=== PATIENT | male | born 1940 | race Caucasian/White ===

== ENCOUNTER 2016-05-09 14:40 | Outpatient (CLI) | END 2016-05-09 14:41 | disposition home or self-care (01) ==

== ENCOUNTER 2016-05-14 | Outpatient (CLI) | payer MEDICARE, MEDICAID | END 2016-05-14 10:01 | disposition home or self-care (01) ==

== ENCOUNTER 2016-05-25 14:00 | Outpatient (CLI) | payer MEDICARE, MEDICAID | END 2016-05-25 14:01 | disposition home or self-care (01) | DX: C79.49 Secondary malignant neoplasm of other parts of nervous system (principal); R53.1 Weakness; F84.0 Autistic disorder; L30.9 Dermatitis, unspecified; E53.8 Deficiency of other specified B group vitamins; N18.2 Chronic kidney disease, stage 2 (mild); M79.662 Pain in left lower leg; F41.9 Anxiety disorder, unspecified; F17.200 Nicotine dependence, unspecified, uncomplicated; R06.00 Dyspnea, unspecified; I95.9 Hypotension, unspecified; Z66 Do not resuscitate; Z51.5 Encounter for palliative care ==

== ENCOUNTER 2016-08-15 10:40 | Outpatient (CLI) | payer MEDICARE, MEDICAID | END 2016-08-15 10:41 | disposition home or self-care (01) | DX: Z51.5 Encounter for palliative care (principal); I10 Essential (primary) hypertension; G89.3 Neoplasm related pain (acute) (chronic); C61 Malignant neoplasm of prostate; C79.51 Secondary malignant neoplasm of bone; R53.1 Weakness; R21 Rash and other nonspecific skin eruption; F84.0 Autistic disorder; R62.59 Other lack of expected normal physiological development in childhood; Z66 Do not resuscitate ==

== ENCOUNTER 2017-11-22 13:27 | Outpatient (CLI) | payer MEDICARE, MEDICAID | END 2017-11-22 13:28 | disposition critical access hospital (66) | LOC: EMS 13:27 | PROVIDERS: ATTEND Surgery | DX: S01.111A Laceration without foreign body of right eyelid and periocular area, initial encounter (principal); W10.8XXA Fall (on) (from) other stairs and steps, initial encounter; Y92.811 Bus as the place of occurrence of the external cause ==

== ENCOUNTER 2017-11-22 13:46 | Emergency (ER) | payer MEDICARE, MEDICAID ==
[2017-11-22] MEDS: BUFFERED LIDOCAINE 10 ML SYRINGE SUBQ STA (14:26)
--- NOTE | 2017-11-22 14:37 | ED Physician Documentation ---
PD HPI HEAD INJURY - Stated complaint Stated Complaint: FALL - Chief complaint Chief Complaint: Trauma Hd/Nk - History obtained from History obtained from: Patient, EMS - History of Present Illness Mechanism of head injury: Fell Where head injury occurred: Street Timing - onset: Today Location of injury: Right, Front Quality of pain: Pain Associated symptoms: No: LOC, AMS, Amnesia, Nausea / vomiting, Neck pain, Paresthesias, Seizures, Ear drainage, Nasal drainage Symptoms improve with: Rest Symptoms worsen with: Palpation, Movement Contributing factors: No: Anticoagulated Similar symptoms before: Diagnosis (laceartion) Recently seen: Not recently seen - Additional information Additional information: 77-year-old male was on the bus traveling home from the hospital after getting his blood drawn when he slipped on the steps and fell forward onto the asphalt. He has a laceration to his right forehead and he denies any other injury associated with this fall. He denies any headache he denies any nausea vomiting dizziness or lightheadedness. He denies any trouble with vision from his eye and he denies any pain in his neck. Denies any pain in his shoulders wrists or elbows. Review of Systems Constitutional: denies: Fever Eyes: denies: Decreased vision Ears: denies: Ear pain Nose: denies: Congestion Throat: denies: Sore throat Cardiac: denies: Chest pain / pressure Respiratory: denies: Dyspnea, Cough GI: denies: Abdominal Pain, Nausea, Vomiting : denies: Dysuria PD PAST MEDICAL HISTORY - Past Medical History Cardiovascular: Hypertension Respiratory: None Endocrine/Autoimmune: None GI: None, Other : None, Renal insuffiency HEENT: None Psych: Anxiety Musculoskeletal: None Derm: None - Past Surgical History Past Surgical History: No - Present Medications Home Medications: Ambulatory Orders Medication Instructions Recorded Confirmed Amlodipine Besylate [Norvasc] 10 mg PO DAILY 04/23/14 11/22/17 Acetaminophen [Tylenol] 650 mg PO TID 04/17/16 11/22/17 Tamsulosin [Flomax] 0.4 mg PO DAILY capsule 04/18/16 11/22/17 Valsartan/Hydrochlorothiazide 1 tab PO BID MDD Dose 160/12.5 mg 05/17/16 [Valsartan-Hctz 160-12.5 mg Tab] - Allergies Allergies/Adverse Reactions: Allergies Allergy/AdvReac Type Severity Reaction Status Date / Time No Known Drug Allergies Allergy Verified 05/17/16 11:58 - Social History Does the pt smoke?: No Smoking Status: Never smoker Does the pt drink ETOH?: No Does the pt have substance abuse?: No - Immunizations Immunizations are current?: Yes - POLST Patient has POLST: No PD ED PE NORMAL - Vitals Vital signs reviewed: Yes (normal ) - General General: No acute distress, Well developed/nourished, Other (happy male in no distress) - HEENT HEENT: PERRL, EOMI, Other (There is a 2cm laceration to the left confucianist with some contamination/grit. There is not involvement of deeper structures. There is no tenderness to the wiliam-orbital rim and no distortion. ) - Neck Neck: Supple, no meningeal sign, No bony TTP - Respiratory Respiratory: No respiratory distress - Derm Derm: Normal color, Warm and dry, No rash - Extremities Extremities: No deformity, No edema - Neuro Neuro: No motor deficit, No sensory deficit, Normal speech Eye Opening: Spontaneous Motor: Obeys Commands Verbal: Oriented GCS Score: 15 - Psych Psych: Normal mood, Normal affect Results - Vitals Vitals: Vital Signs - 24 hr 11/22/17 13:51 Temperature 36.5 C Heart Rate 74 Respiratory 14 Rate Blood Pressure 120/80 O2 Saturation 97 Oxygen O2 Source Room air Procedures - Laceration (location) right confucianist Length in cm: 2 Wound type: Linear, Contaminated Neurovascular status: Sensory intact, Motor intact, Vascular intact Anesthesia: Lidocaine 1%, With bicarb Wound Preparation: Hibiclens, Irrigated copiously NS, Wound explored, To the base Skin layer closure: Nylon, Interrupted, Size #-0 - enter number (6-0), Sutures - enter # (3) Other: Patient tolerated well, No complications, Neurovascular intact, Dressing applied, Tetanus UTD Complexity: Simple PD MEDICAL DECISION MAKING - ED course Complexity details: reviewed old records, reviewed results, re-evaluated patient , considered differential, d/w patient ED course: 77-year-old autistic male with a small laceration to the right confucianist that appears mildly contaminated is anesthetized and irrigated and closed. He does not appear otherwise injured. - Sepsis Event Vital Signs: Vital Signs - 24 hr 11/22/17 13:51 Temperature 36.5 C Heart Rate 74 Respiratory 14 Rate Blood Pressure 120/80 O2 Saturation 97 Oxygen O2 Source Room air Departure - Departure Disposition: 01 Home, Self Care Clinical Impression: Facial laceration Qualifiers: Encounter type: initial encounter Qualified Code(s): S01.81XA - Laceration without foreign body of other part of head, initial encounter Condition: Stable Instructions: ED Laceration Facial Sutr Tape Follow-Up: Elvis Gaspar MD [Primary Care Provider] -
[2017-11-22 14:41] VITALS: BP 123/82
[2017-11-22] MEDS: TETANUS/DIPHTHERIA/PERTUSSIS 0.5 ML SYRINGE IM ONE (14:47)
== END 2017-11-22 15:08 | disposition home or self-care (01) ==
LOC: EDUNIT# → ED 13:46 → SUPCPDRO 13:46 → ED 15:08
DX: S01.81XA Laceration without foreign body of other part of head, initial encounter (principal); W01.198A Fall on same level from slipping, tripping and stumbling with subsequent striking against other object, initial encounter; Y92.811 Bus as the place of occurrence of the external cause
CPT/HCPCS: 12011; 90471; 99282; 99283

== ENCOUNTER 2019-01-30 13:50 | Outpatient (CLI) | payer MEDICARE, MEDICAID | END 2019-01-30 13:51 | disposition critical access hospital (66) | LOC: EMS 13:50 | PROVIDERS: ATTEND Surgery | DX: S09.90XA Unspecified injury of head, initial encounter (principal); W01.0XXA Fall on same level from slipping, tripping and stumbling without subsequent striking against object, initial encounter; Y92.098 Other place in other non-institutional residence as the place of occurrence of the external cause | CPT/HCPCS: A0425; A0429 ==

== ENCOUNTER 2019-01-31 12:36 | Outpatient (CLI) | payer MEDICARE, MEDICAID | END 2019-01-31 12:37 | disposition critical access hospital (66) | LOC: EMS 12:36 | PROVIDERS: ATTEND Surgery | DX: Z03.89 Encounter for observation for other suspected diseases and conditions ruled out (principal) | CPT/HCPCS: A0425; A0429 ==

== ENCOUNTER 2019-02-27 11:58 | Outpatient (CLI) | payer MEDICARE, MEDICAID ==
--- NOTE | 2019-03-02 00:48 | XRAY Report ---
Reason: POST NUC MED STUDY Procedure Date: 02/27/2019 Accession Number: [id number] / [id number] Procedure: XR - Ribs w/PA Chest LT CPT Code: FULL RESULT: EXAM: LEFT RIB RADIOGRAPHY EXAM DATE: 02/27/2019 04:00 PM. CLINICAL HISTORY: Abnormal activity on nuclear medicine scan COMPARISON: BONE SCAN 02/27/2019 2:35 PM CHEST 2 VIEW PA/LAT 04/16/2016 3:32 PM. TECHNIQUE: 1 view of the chest and 2 views of the ribs. FINDINGS: Bones: No displaced rib fracture is identified. There is a sclerotic 1.2 cm lesion in the left posterior lateral sixth rib, correlating with the bone scan abnormality. No definite abnormality is appreciated in the left lateral 10th rib. Lungs: No focal opacities. No pneumothorax. No pleural effusions. Mediastinum: Heart and mediastinal contours are unremarkable. Other: None. IMPRESSION: Sclerotic focus in the left posterolateral sixth rib, correlating with the bone scan abnormality, suspicious for osteoblastic metastatic disease. No definite plain film correlate to the abnormal activity in the left lateral 10th rib. RADIA
--- NOTE | 2019-03-02 08:50 | Nuclear Medicine Report ---
Reason: PROSTATE CA Procedure Date: 02/27/2019 Accession Number: [id number] / [id number] Procedure: NM - Bone Whole Body CPT Code: FULL RESULT: EXAM: BONE SCAN EXAM DATE: 02/27/2019 04:01 PM. CLINICAL HISTORY: PROSTATE CA. COMPARISON: ABDOMEN/PELVIS W/O 04/16/2016 10:37 PM. TECHNIQUE: Following the intravenous administration of 32.6 mCi of technetium 99m MDP and an appropriate delay, a whole-body scan was performed in anterior and posterior projections. Site-specific spot views of the region of interest were obtained in various projections. FINDINGS: Normal renal radiotracer uptake and bladder activity. Normal soft tissue activity. Overall normal osseous uptake. There are scattered foci of uptake involving the sternal manubrium, left posterolateral sixth and 10th ribs, T11 and T12 levels of the spine, suspicious for metastatic disease. Asymmetric mild focal uptake right proximal femoral shaft, left ischium, suspicious for metastasis. IMPRESSION: 1. Several scattered osseous foci suspicious for metastatic disease. RADIA
== END 2019-02-27 11:59 | disposition home or self-care (01) ==
LOC: DI 11:58
PROVIDERS: ATTEND Internal Medicine
DX: C61 Malignant neoplasm of prostate (principal); C79.51 Secondary malignant neoplasm of bone
CPT/HCPCS: 72080; 78306

== ENCOUNTER 2020-01-09 14:14 | Outpatient (CLI) | payer MEDICARE, MEDICAID | END 2020-01-09 14:15 | disposition critical access hospital (66) | LOC: EMS 14:14 | PROVIDERS: ATTEND Surgery | DX: S09.90XA Unspecified injury of head, initial encounter (principal); R41.0 Disorientation, unspecified; W18.30XA Fall on same level, unspecified, initial encounter; Z91.81 History of falling; Y92.009 Unspecified place in unspecified non-institutional (private) residence as the place of occurrence of the external cause | CPT/HCPCS: A0425; A0429 ==

== ENCOUNTER 2020-01-09 14:40 | Inpatient (IN) | payer MEDICARE, MEDICAID ==
[2020-01-09] MEDS ORDERED: SODIUM CHLORIDE 0.9% 1,000 ML IV STA (14:50)
--- NOTE | 2020-01-09 15:07 | ED Physician Documentation ---
History of Present Illness - Stated complaint Stated Complaint: GLF - Chief complaint Chief Complaint: Trauma Hd/Nk - History obtained from History obtained from: Patient, EMS - History of Present Illness Timing: Today Pain level max: 0 Pain level now: 0 - Additonal information Additional information: Patient is an 79-year-old male who presents to the emergency department after falling x3 this week. He was in the room with a caregiver today when she heard him fall. She did not see him fall. He does have bruising to the left periorbital area. Not on blood thinners. Denies any recent illnesses. Denies any other injuries. Is not having any pain anywhere. He does live in a memory care facility. Report from EMS. Patient was apparently hypotensive and postural with EMS. Review of Systems Unable to obtain: Dementia Constitutional: denies: Fever Respiratory: denies: Cough GI: denies: Vomiting Musculoskeletal: denies: Neck pain, Back pain Neurologic: reports: Confused. denies: Focal weakness, Numbness PD PAST MEDICAL HISTORY - Past Medical History Cardiovascular: Hypertension Respiratory: None Neuro: Dementia Endocrine/Autoimmune: None GI: None, Other : None, Renal insuffiency HEENT: None Psych: Anxiety Musculoskeletal: None Derm: None - Past Surgical History Past Surgical History: No - Present Medications Home Medications: Ambulatory Orders Medication Instructions Recorded Confirmed Acetaminophen [Tylenol] 650 mg PO TID 04/17/16 11/25/19 Tamsulosin [Flomax] 0.4 mg PO DAILY capsule 04/18/16 11/25/19 Losartan/Hydrochlorothiazide 1 tab PO BID 08/20/18 11/25/19 [Losartan-Hctz 50-12.5 mg Tab] Abiraterone Acetate 1,000 ng PO DAILY 10/13/19 11/25/19 Loperamide [Imodium] 2 mg PO PRN PRN 11/25/19 11/25/19 - Allergies Allergies/Adverse Reactions: Allergies Allergy/AdvReac Type Severity Reaction Status Date / Time No Known Drug Allergies Allergy Verified 11/25/19 14:03 - Social History Does the pt smoke?: No Smoking Status: Never smoker Does the pt drink ETOH?: No Does the pt have substance abuse?: No - Immunizations Immunizations are current?: Yes - POLST Patient has POLST: No PD ED PE NORMAL - Vitals Vital signs reviewed: Yes - General General: No acute distress, Other (Alert, oriented to person and place only) - HEENT HEENT: PERRL, Moist mucous membranes, Other (mild swelling,Left supraorbital ridge. Mild ecchymosis. Extraocular movements intact. Otherwise normal examination of the skull and face.) - Neck Neck: Supple, no meningeal sign, No bony TTP - Cardiac Cardiac: RRR - Respiratory Respiratory: No respiratory distress, Clear bilaterally - Abdomen Abdomen: Soft, Non tender, Non distended - Back Back: No spinal TTP - Derm Derm: Warm and dry - Extremities Extremities: No deformity, No tenderness to palpate, Normal ROM s pain - Neuro Neuro: investor relations coordinator 2-12 intact, No motor deficit, No sensory deficit, Normal speech - Psych Psych: Normal mood, Normal affect Results - Vitals Vitals: Vital Signs - 24 hr 01/09/20 01/09/20 14:48 15:01 Temperature 37.0 C 37.0 C Heart Rate 67 67 Respiratory 14 14 Rate Blood Pressure 136/82 H 136/82 H O2 Saturation 99 99 Oxygen O2 Source Room air - EKG (time done) 1556 Rate: Rate (enter#) (68) Rhythm: Atrial fibrillation [place]: Normal Ischemia: Non specific changes - Labs Labs: Laboratory Tests 01/09/20 01/09/20 01/09/20 15:20 15:20 15:20 WBC 9.7 RBC 4.22 L Hgb 12.8 L Hct 35.5 L MCV 84.1 MCH 30.3 MCHC 36.1 H RDW 13.3 Plt Count 334 MPV 8.6 Neut # (Auto) 9.0 H Lymph # (Auto) 0.2 L [place] # (Auto) 0.5 Eos # (Auto) 0.0 Baso # (Auto) 0.0 Absolute Nucleated RBC 0.00 Nucleated RBC % 0.0 Sodium 124 L Potassium 2.5 L* Chloride 80 L* Carbon Dioxide 30 Anion Gap 14.0 H BUN 14 Creatinine 1.0 Estimated GFR (MDRD) 72 L Glucose 109 H Calcium 9.5 Phosphorus 2.7 Magnesium 2.1 Total Bilirubin 1.3 H AST 15 ALT < 10 L Alkaline Phosphatase 76 Total Protein 7.5 Albumin 4.4 Globulin 3.1 Albumin/Globulin Ratio 1.4 Lipase 53 H - Rads (name of study) Head CT Radiology: Prelim report reviewed, EMP read contemporaneously, See rad report (No acute intracranial abnormality) C-spine CT Radiology: Prelim report reviewed, EMP read contemporaneously, See rad report (No acute abnormality) PD MEDICAL DECISION MAKING - ED course Complexity details: reviewed results, re-evaluated patient, considered differential, d/w patient ED course: 79-year-old male with significant dehydration, hyponatremia, hypochloremia and hypokalemia. Given IV fluids, potassium replaced. Given his significant weakness, we will place him in observation for further care. Discussed the case with Dr. Coombs, hospitalist who accepts. This document was made in part using voice recognition software. While efforts are made to proofread this document, sound alike and grammatical errors may occur. Departure - Departure Disposition: ED Place in Observation Clinical Impression: Hyponatremia, Hypochloremia, Hypokalemia, Dehydration, Weakness Head injury Qualifiers: Encounter type: initial encounter Qualified Code(s): S09.90XA - Unspecified injury of head, initial encounter Condition: Stable Discharge Date/Time: 01/09/20 17:00
[2020-01-09 15:26] LABS: BASOPHILS % (AUTO) 0.3 %; EOSINOPHILS % (AUTO) 0.1 %; HGB - HEMOGLOBIN 12.8 g/dL (14.0-18.0); LYMPHOCYTES # (AUTO) 0.2 10^3/uL (1.5-3.5); LYMPHOCYTES % (AUTO) 2.1 %; MEAN CORPUSCULAR HEMOGLOBIN 30.3 pg (27.0-31.0); MEAN CORPUSCULAR HGB CONC 36.1 g/dL (32.0-36.0); MEAN CORPUSCULAR VOLUME 84.1 fL (80.0-94.0); MEAN PLATELET VOLUME 8.6 fL (7.4-11.4); MONOCYTES # (AUTO) 0.5 10^3/uL (0.0-1.0); MONOCYTES % (AUTO) 4.9 %; NEUTROPHILS % (AUTO) 92.1 %; PLT - PLATELET COUNT 334 10^3/uL (130-450); RED BLOOD COUNT 4.22 10^6/uL (4.70-6.10); RED CELL DISTRIBUTION WIDTH 13.3 % (12.0-15.0); WHITE BLOOD COUNT 9.7 x10^3/uL (4.8-10.8)
--- NOTE | 2020-01-09 15:34 | CT Report ---
PROCEDURE: CERVICAL SPINE WO INDICATIONS: fall, unwitness, dementia TECHNIQUE: Noncontrast 3 mm thick sections acquired from the skull base to the T4 level. Sagittal and coronal r eformats were then constructed. For radiation dose reduction, the following was used: automated exp osure control, adjustment of mA and/or kV according to patient size. COMPARISON: Prior cervical spine CT 01/30/2019. FINDINGS: Image quality: Excellent. Bones: No fractures or dislocations. Visualized superior ribs are intact. Soft tissues: Prevertebral soft tissues are normal in thickness. No paravertebral hematomas. No ap ical pneumothoraces. IMPRESSION: No trauma found. Reviewed by: Bonilla Tadeo MD on 01/09/2020 3:33 PM PDT Approved by: Bonilla Tadeo MD on 01/09/2020 3:33 PM PDT Station ID: [id number]
--- NOTE | 2020-01-09 15:35 | CT Report ---
PROCEDURE: HEAD WO INDICATIONS: fall, head injury, L orbit TECHNIQUE: Noncontrast 4.5 mm thick angled axial sections acquired from the foramen magnum to the vertex. For r adiation dose reduction, the following was used: automated exposure control, adjustment of mA and/or kV according to patient size. COMPARISON: 01/31/[address] FINDINGS: Image quality: Excellent. CSF spaces: Basal cisterns are patent. No extra-axial fluid collections. Ventricles are normal in size and shape. Brain: No midline shift. No intracranial masses or hemorrhage. Watson-white matter interface is norm al. Skull and face: Calvarium and visualized facial bones are intact, without suspicious lesions. Sinuses: Visualized sinuses and mastoids are clear. IMPRESSION: No trauma found. Reviewed by: Bonilla Tadeo MD on 01/09/2020 3:33 PM PDT Approved by: Bonilla Tadeo MD on 01/09/2020 3:33 PM PDT Station ID: [id number]
[2020-01-09 15:51] LABS: ALBUMIN 4.4 g/dL (3.2-5.5); ALBUMIN/GLOBULIN RATIO 1.4 (1.0-2.2); ALKALINE PHOSPHATASE 76 IU/L (42-121); ALT ALANINE AMINOTRANSFERASE < 10 IU/L (10-60); AST ASPARTATE AMINOTRANSFERASE 15 IU/L (10-42); BILIRUBIN,TOTAL 1.3 mg/dL (0.2-1.0); BUN - BLOOD UREA NITROGEN 14 mg/dL (6-20); CALCIUM 9.5 mg/dL (8.5-10.3); CARBON DIOXIDE - CO2 30 mmol/L (21-32); GLUCOSE 109 mg/dL (70-100); LIPASE 53 U/L (22-51); SODIUM 124 mmol/L (135-145); TOTAL PROTEIN 7.5 g/dL (6.7-8.2)
[2020-01-09 15:52] LABS: CHLORIDE 80 mmol/L (101-111)
[2020-01-09] MEDS ORDERED: POTASSIUM CHLOR 10 MEQ/100 ML 10 MEQ/100 ML BAG IV ONE (16:01)
[2020-01-09] MEDS ORDERED: ACETAMINOPHEN 325 MG TABLET PO PRN (16:05)
[2020-01-09] MEDS ORDERED: ONDANSETRON ODT 4 MG TABLET TL PRN (16:05)
[2020-01-09] MEDS ORDERED: ONDANSETRON 4 MG/2 ML VIAL IVP PRN (16:05)
[2020-01-09] MEDS ORDERED: SODIUM CHLORIDE FLUSH 0.9% 10 ML SYRINGE IVP PRN (16:05)
[2020-01-09] MEDS ORDERED: POTASSIUM CHLORIDE 20 MEQ TABLET PO STA (16:08)
--- NOTE | 2020-01-09 16:09 | HISTORY & PHYSICAL EXAMINATION ---
Chief Complaint - Chief Complaint Chief Complaint: Fall History of Present Illness - Admitted From Admitted From:: [facility] - History Obtained From Records Reviewed: Yes History obtained from: Patient, ER Physician, EMR - History of Present Illness HPI Comment/Other: This is a 79-year-old male with a past medical history significant for castrat ion resistant metastatic prostate cancer, hypertension, autism who presents today from [facility] after having a fall. Patient states that he was getting out of a chair to move over to his bed when he fell and hit the left side of his face. He denies any palpitations, chest pain, dyspnea. Reports no dizziness or lightheadedness. He denied any loss of consciousness. Currently denies any headache or change in vision. He reports that he does not fall frequently but staff from [facility] reported to the emergency department state that he had 3 falls this past week. He denies poor oral intake and reports having a good appetite. He does take losartan/hydrochlorothiazide on a daily basis for hypertension. He reports ambulating with a walker at baseline. Denies the use of any blood thinners. In the emergency department, he was found to be afebrile with temperature of 37 C. His heart rate was 67. His blood pressure is 136/82. He was not tachypneic and saturating well on room air. CT of the head and cervical spine were negative for trauma. Labs were significant for sodium of 124 and potassium of 2.5. He was given a liter of saline in the emergency department. Given the above findings, medicine was consulted for admission. I did discuss goals of care with the patient he would like to be a full code. He has a POLST form from 2016 which also states that he is a full code. History - Past Medical History Cardiovascular: reports: Hypertension Respiratory: reports: None Neuro: reports: Dementia, Other (Autism) Endocrine/Autoimmune: reports: None GI: reports: None, Other : reports: None, Other (Castration resistant metastatic prostate cancer) HEENT: reports: None Psych: reports: Anxiety Musculoskeletal: reports: None Derm: reports: None MRSA Hx?: No - Family & Social History Family History Comment/Other: He reports no family history to his knowledge. Social History Notes: He resides at [facility]. He reports smoking about 3 to 4 cigarettes a day and has been smoking for most of his life. He denies any alcohol use. - POLST Patient has POLST: No Meds/Allgy - Home Medications Home Medications: Ambulatory Orders Medication Instructions Recorded Confirmed Acetaminophen [Tylenol] 650 mg PO TID 04/17/16 11/25/19 Tamsulosin [Flomax] 0.4 mg PO DAILY capsule 04/18/16 11/25/19 Losartan/Hydrochlorothiazide 1 tab PO BID 08/20/18 11/25/19 [Losartan-Hctz 50-12.5 mg Tab] Abiraterone Acetate 1,000 ng PO DAILY 10/13/19 11/25/19 Loperamide [Imodium] 2 mg PO PRN PRN 11/25/19 11/25/19 - Allergies Allergies/Adverse Reactions: Allergies Allergy/AdvReac Type Severity Reaction Status Date / Time No Known Drug Allergies Allergy Verified 11/25/19 14:03 Review of Systems - Constitutional Constitutional: denies: Fatigue, Fever, Chills, Weakness, Poor appetite - Eyes Eyes: denies: Blurred vision - Cardiovascular Cariovascular: denies: Irregular heart rate, Palpitations, Chest pain, Lightheadedness, Syncope, Exertional dyspnea, Decr. exercise tolerance - Respiratory Respiratory: denies: Cough, SOB at rest, SOB with exertion - Gastrointestinal Gastrointestinal: denies: Abdominal pain, Nausea, Vomiting - Genitourinary Genitourinary: denies: Dysuria, Frequency, Urgency, Hematuria - Musculoskeletal Musculoskeletal: denies: Muscle pain, Limited range of motion, Muscle weakness - Neurological Neurological: denies: General weakness, Focal weakness, Headache, Dizziness, Numbness - All Other Systems All Other Systems: reports: Reviewed and negative Prior Level of Functionality: He has a history of autism and resides at [facility]. Ambulates with a walker at baseline. Exam - Vital Signs Reviewed Vital Signs: Yes Vital Signs: Vital Signs x48h Temp Pulse Resp BP Pulse Ox 01/09/20 15:01 37.0 C 67 14 136/82 H 99 01/09/20 14:48 37.0 C 67 14 136/82 H 99 - Physical Exam General Appearance: positive: No acute distress, Alert Eyes Bilateral: positive: PERRL, EOMI, Conjunctivae nml, Other (There is a small left periorbital hematoma with bruising.) ENT: positive: Dry mucous membranes, Other (He does have dried nasal mucus in the right naris.). negative: No signs of dehydration Respiratory: positive: No respiratory distress. negative: Wheezes, Rales Cardiovascular: positive: Regular rate & rhythm, Extrasystoles. negative: Irregularly irregular, Bradycardia, Systolic murmur Abdomen: positive: Non-tender, No distention. negative: Tenderness, Guarding, Rebound Skin: positive: No rash, Warm, Dry Extremities: positive: Full ROM, No pedal edema Neurologic/Psychiatric: positive: Other (No focal deficits.). negative: Disoriented to person, Disoriented to place, Disoriented to time Conclusion/Plan - Problem List (1) Hyponatremia Conclusion/Plan: This is likely hypovolemic hyponatremia secondary to use of hydrochlorothiazide. He appears hypovolemic on exam. We will gently hydrate him with normal saline and hold his home hydrochlorothiazide. We will recheck a BMP this evening and once again in the morning. Goal sodium is approximately 132 by tomorrow afternoon. Check urine sodium. (2) Hypokalemia Conclusion/Plan: His potassium is decreased at 2.5. This is likely secondary to his thiazide use. We will replace this intravenously and orally. Recheck in the morning. (3) Fall Conclusion/Plan: This appears to be a mechanical fall. Staff at [facility] reports that he has had 3 falls this past week. CT of the head and cervical spine are negative for trauma. This may be related to dehydration and possibly orthostasis. We will check orthostatics and hydrate him with IV fluids. Will consult physical therapy if necessary. Qualifiers: Encounter type: initial encounter Qualified Code(s): W19.XXXA - Unspecified fall, initial encounter (4) Hypertension Conclusion/Plan: He is currently normotensive but was reportedly hypotensive for EMS. We will check orthostatics. If these are negative we will resume his home losartan in the morning. We will discontinue the hydrochlorothiazide given the hyponatremia. Will consider adding amlodipine if necessary. 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 He follows with Dr. Moreno of oncology here at the [facility]. Continue outpatient follow-up. (6) Autism Conclusion/Plan: He has a history of autism which is stable. - Lab Results Lab results reviewed: Yes Fish Bones: 01/09/20 15:20 01/09/20 15:20 - Diagnostic Imaging Results Diagnostic Imaging Results: positive: Final report reviewed - EKG Results EKG Interpreted Independently: Yes EKG Comparison: Changed from prior EKG (His QTC is prolonged compared to prior EKG. PVCs are no longer present.) EKG Findings: Computer reads his EKG is atrial fibrillation but this appears to be a sinus rhythm although there is a lot of artifact. His QT is prolonged. Core Measures - Anticipated LOS I expect patient to be DC'd or transferred within 96 hours.: Yes - Issues Hospital Issues and Management Plan: 79-year-old male presents with generalized weakness and fall found to be h yponatremic and hypokalemic. Will place in observation for IV fluids and replacement of electrolytes. - DVT/VTE - Prophylaxis VTE/DVT Device ordered at admit?: Yes VTE/DVT Prophylaxis med ordered at admit?: No Not Ordered - Medical Reason: Not indicated
[2020-01-09 16:22] LABS: MAGNESIUM 2.1 mg/dL (1.7-2.8); PHOSPHORUS 2.7 mg/dL (2.5-4.6)
[2020-01-09] MEDS: SODIUM CHLORIDE 0.9% 1,000 ML IV SCH (17:08)
[2020-01-09] MEDS: SODIUM CHLORIDE FLUSH 0.9% 10 ML SYRINGE IVP SCH ×2 (17:08→23:39)
[2020-01-09] MEDS: POTASSIUM CHLOR 10 MEQ/100 ML 10 MEQ/100 ML BAG IV SCH ×4 (17:30→20:45)
[2020-01-09] MEDS ORDERED: SODIUM CHLORIDE 0.65% NASAL SPRAY NAS PRN (17:30)
[2020-01-09 19:16] LABS: BILIRUBIN,URINE NEGATIVE (NEGATIVE); GLUCOSE, URINE (UA) NEGATIVE (NEGATIVE); KETONES,URINE (UA) 15 mg/dL (NEGATIVE); LEUKOCYTE ESTERASE, URINE NEGATIVE (NEGATIVE); NITRITE,URINE NEGATIVE (NEGATIVE); OCCULT BLOOD,URINE MODERATE (NEGATIVE); PH,URINE 6.5 PH (5.0-7.5); PROTEIN,URINE NEGATIVE (NEGATIVE); UROBILINOGEN,URINE 0.2 (NORMAL) E.U./dL (NORMAL)
[2020-01-09 19:19] LABS: CLARITY,URINE CLEAR (CLEAR)
[2020-01-09 19:29] LABS: BACTERIA,URINE Few /HPF (None Seen); SQUAMOUS EPITHELIAL CELL,UR NONE SEEN (<= Few); WBC CLUMPS,URINE PRESENT
[2020-01-09 22:16] LABS: CALCIUM 8.5 mg/dL (8.5-10.3)
[2020-01-09] MEDS ORDERED: POTASSIUM CHLORIDE 20 MEQ TABLET PO ONE (22:40)
[2020-01-10] MEDS: SODIUM CHLORIDE 0.9% 1,000 ML IV SCH ×2 (03:04→14:24)
[2020-01-10 05:05] LABS: BASOPHILS # (AUTO) 0.1 10^3/uL (0.0-0.1); BASOPHILS % (AUTO) 0.8 %; EOSINOPHILS # (AUTO) 0.2 10^3/uL (0.0-0.7); EOSINOPHILS % (AUTO) 3.4 %; HGB - HEMOGLOBIN 11.3 g/dL (14.0-18.0); LYMPHOCYTES # (AUTO) 0.3 10^3/uL (1.5-3.5); LYMPHOCYTES % (AUTO) 5.7 %; MEAN CORPUSCULAR HEMOGLOBIN 30.6 pg (27.0-31.0); MEAN CORPUSCULAR HGB CONC 36.1 g/dL (32.0-36.0); MEAN CORPUSCULAR VOLUME 84.8 fL (80.0-94.0); MEAN PLATELET VOLUME 8.6 fL (7.4-11.4); MONOCYTES # (AUTO) 0.4 10^3/uL (0.0-1.0); MONOCYTES % (AUTO) 7.4 %; NEUTROPHILS # (AUTO) 4.9 10^3/uL (1.5-6.6); NEUTROPHILS % (AUTO) 82.4 %; PLT - PLATELET COUNT 280 10^3/uL (130-450); RED BLOOD COUNT 3.69 10^6/uL (4.70-6.10); RED CELL DISTRIBUTION WIDTH 13.3 % (12.0-15.0); WHITE BLOOD COUNT 5.9 x10^3/uL (4.8-10.8)
[2020-01-10 05:18] LABS: CALCIUM 8.6 mg/dL (8.5-10.3); CREATININE 0.7 mg/dL (0.6-1.2); MAGNESIUM 1.8 mg/dL (1.7-2.8); PHOSPHORUS 1.3 mg/dL (2.5-4.6)
[2020-01-10] MEDS ORDERED: SODIUM CHLORIDE 0.9% 500 ML IV ONE (07:12)
[2020-01-10] MEDS ORDERED: POTASSIUM PHOSPHATE 21 MMOL in SODIUM CHLORIDE 0.9% 250 ML IV ONE (07:22)
--- NOTE | 2020-01-10 07:24 | PROVIDER PROGRESS NOTE ---
Subjective - Prog Note Date Prog Note Date: 01/10/20 - Subjective Subjective: He reports feeling well. Denies any dizziness or lightheadedness when he is standing. Reports no pain. He has had good appetite. Current Medications - Current Medications Current Medications: Active Medications Acetaminophen (Tylenol) 650 mg PO Q4HR PRN PRN Reason: Pain 1 to 4 Sodium Chloride (Normal Saline 0.9%) 1,000 mls @ 100 mls/hr IV .Q10H ON LICENSE OF [facility] Last Admin: 01/10/20 03:04 Dose: 100 mls/hr Documented by: Potassium Phosphate 21 mmol/ (Sodium Chloride) 257 mls @ 42.833 mls/hr IV ONCE ONE Stop: 01/10/20 13:21 Ceftriaxone Sodium 1 gm/ (Sodium Chloride) 100 mls @ 200 mls/hr IV DAILY NORBERTO Potassium Chloride (K-Dur) 40 meq PO DAILYWM NORBERTO Prednisone (Deltasone) 5 mg PO DAILYWM ON LICENSE OF [facility] Sodium Chloride (Normal Saline Flush 0.9%) 10 ml IVP PRN PRN PRN Reason: NEEDED PER PROVIDER ORDERS Sodium Chloride (Normal Saline Flush 0.9%) 10 ml IVP 0100,0900,1700 ON LICENSE OF [facility] Last Admin: 01/09/20 23:39 Dose: Not Given Documented by: Sodium Chloride ([place]) 2 sprays HECTOR Q4HR PRN PRN Reason: Nasal Congestion Last Admin: 01/09/20 18:43 Dose: 2 spr Documented by: Acetaminophen [Tylenol] 650 mg PO TID 04/17/16 Losartan/Hydrochlorothiazide [Losartan-Hctz 50-12.5 mg Tab] 1 tab PO BID 08/20/18 Abiraterone Acetate 1,000 ng PO DAILY 10/13/19 Loperamide [Imodium] 2 mg PO PRN PRN 11/25/19 Objective - Vital Signs/Intake & Output Reviewed Vital Signs: Yes Vital Signs: Vital Signs x48h Temp Pulse Pulse Resp BP Pulse Ox 01/10/20 05:11 69 134/64 H 01/10/20 04:27 36.8 C 64 18 100 01/10/20 04:25 36.8 C 77 20 158/63 H 98 01/09/20 23:32 36.8 C 64 18 135/69 H 100 Intake & Output: Intake & Output 09/07/2301/08/20 01/09/20 01/10/20 23:59 23:59 23:59 23:59 Intake Total 1740 1353.333 Output Total 350 Balance 1390 1353.333 - Objective General Appearance: positive: No acute distress, Alert Eyes Bilateral: positive: Other (There is an area of ecchymosis surrounding the left eye. No conjunctivital hemorrhage.) ENT: positive: ENT inspection nml Neck: positive: Nml inspection Respiratory: positive: No respiratory distress Cardiovascular: positive: Irregularly irregular, Extrasystoles. negative: Tachycardia, Bradycardia, Systolic murmur Abdomen: positive: Non-tender, No distention. negative: Tenderness Skin: positive: Warm, Dry Extremities: positive: Full ROM, No pedal edema Neurologic/Psychiatric: negative: Disoriented to person, Disoriented to place - Lab Results Fish Bones: 01/10/20 04:52 01/10/20 04:52 Other Labs: Lab Results x24hrs 01/10/20 01/10/20 01/09/20 Range/Units 04:52 04:52 22:00 WBC 5.9 (4.8-10.8) x10^3/uL RBC 3.69 L (4.70-6.10) 10^6/uL Hgb 11.3 L (14.0-18.0) g/dL Hct 31.3 L (42.0-52.0) % MCV 84.8 (80.0-94.0) fL MCH 30.6 (27.0-31.0) pg MCHC 36.1 H (32.0-36.0) g/dL RDW 13.3 (12.0-15.0) % Plt Count 280 (130-450) 10^3/uL MPV 8.6 (7.4-11.4) fL Neut # (Auto) 4.9 (1.5-6.6) 10^3/uL Lymph # (Auto) 0.3 L (1.5-3.5) 10^3/uL [place] # (Auto) 0.4 (0.0-1.0) 10^3/uL Eos # (Auto) 0.2 (0.0-0.7) 10^3/uL Baso # (Auto) 0.1 (0.0-0.1) 10^3/uL Absolute Nucleated RBC 0.00 x10^3/uL Nucleated RBC % 0.0 /100WBC Sodium 126 L 126 L (135-145) mmol/L Potassium 3.2 L 3.2 L (3.5-5.0) mmol/L Chloride 93 L 88 L (101-111) mmol/L Carbon Dioxide 24 26 (21-32) mmol/L Anion Gap 9.0 12.0 (6-13) BUN 12 15 (6-20) mg/dL Creatinine 0.7 1.0 (0.6-1.2) mg/dL Estimated GFR (MDRD) 108 72 L (>89) Glucose 102 H 106 H (70-100) mg/dL Calcium 8.6 8.5 (8.5-10.3) mg/dL Phosphorus 1.3 L (2.5-4.6) mg/dL Magnesium 1.8 (1.7-2.8) mg/dL Total Bilirubin (0.2-1.0) mg/dL AST (10-42) IU/L ALT (10-60) IU/L Alkaline Phosphatase (42-121) IU/L Total Protein (6.7-8.2) g/dL Albumin (3.2-5.5) g/dL Globulin (2.1-4.2) g/dL Albumin/Globulin Ratio (1.0-2.2) Lipase (22-51) U/L Urine Color Urine Clarity (CLEAR) Urine pH (5.0-7.5) PH Ur Specific [place] (1.002-1.030) Urine Protein (NEGATIVE) mg/dL Urine Glucose (UA) (NEGATIVE) mg/dL Urine Ketones (NEGATIVE) mg/dL Urine Occult Blood (NEGATIVE) Urine Nitrite (NEGATIVE) Urine Bilirubin (NEGATIVE) Urine Urobilinogen (NORMAL) E.U./dL Ur Leukocyte Esterase (NEGATIVE) Urine RBC (0-5) /HPF Urine WBC (0-3) /HPF Urine WBC Clumps Ur Squamous Epith Cells (<= Few) Urine Bacteria (None Seen) /HPF Ur Microscopic Review Urine Culture Comments Urine Sodium mmol/L 01/09/20 01/09/20 01/09/20 Range/Units 18:48 18:48 15:20 WBC (4.8-10.8) x10^3/uL RBC (4.70-6.10) 10^6/uL Hgb (14.0-18.0) g/dL Hct (42.0-52.0) % MCV (80.0-94.0) fL MCH (27.0-31.0) pg MCHC (32.0-36.0) g/dL RDW (12.0-15.0) % Plt Count (130-450) 10^3/uL MPV (7.4-11.4) fL Neut # (Auto) (1.5-6.6) 10^3/uL Lymph # (Auto) (1.5-3.5) 10^3/uL [place]man # (Auto) (0.0-1.0) 10^3/uL Eos # (Auto) (0.0-0.7) 10^3/uL Baso # (Auto) (0.0-0.1) 10^3/uL Absolute Nucleated RBC x10^3/uL Nucleated RBC % /100WBC Sodium (135-145) mmol/L Potassium (3.5-5.0) mmol/L Chloride (101-111) mmol/L Carbon Dioxide (21-32) mmol/L Anion Gap (6-13) BUN (6-20) mg/dL Creatinine (0.6-1.2) mg/dL Estimated GFR (MDRD) (>89) Glucose (70-100) mg/dL Calcium (8.5-10.3) mg/dL Phosphorus 2.7 (2.5-4.6) mg/dL Magnesium 2.1 (1.7-2.8) mg/dL Total Bilirubin (0.2-1.0) mg/dL AST (10-42) IU/L ALT (10-60) IU/L Alkaline Phosphatase (42-121) IU/L Total Protein (6.7-8.2) g/dL Albumin (3.2-5.5) g/dL Globulin (2.1-4.2) g/dL Albumin/Globulin Ratio (1.0-2.2) Lipase (22-51) U/L Urine Color YELLOW Urine Clarity CLEAR (CLEAR) Urine pH 6.5 (5.0-7.5) PH Ur Specific [place] 1.015 (1.002-1.030) Urine Protein NEGATIVE (NEGATIVE) mg/dL Urine Glucose (UA) NEGATIVE (NEGATIVE) mg/dL Urine Ketones 15 H (NEGATIVE) mg/dL Urine Occult Blood MODERATE H (NEGATIVE) Urine Nitrite NEGATIVE (NEGATIVE) Urine Bilirubin NEGATIVE (NEGATIVE) Urine Urobilinogen 0.2 (NORMAL) (NORMAL) E.U./dL Ur Leukocyte Esterase NEGATIVE (NEGATIVE) Urine RBC 11-25 H (0-5) /HPF Urine WBC >25 H (0-3) /HPF Urine WBC Clumps PRESENT Ur Squamous Epith Cells NONE SEEN (<= Few) Urine Bacteria Few (None Seen) /HPF Ur Microscopic Review INDICATED Urine Culture Comments INDICATED Urine Sodium 13.0 mmol/L 01/09/20 01/09/20 Range/Units 15:20 15:20 WBC 9.7 (4.8-10.8) x10^3/uL RBC 4.22 L (4.70-6.10) 10^6/uL Hgb 12.8 L (14.0-18.0) g/dL Hct 35.5 L (42.0-52.0) % MCV 84.1 (80.0-94.0) fL MCH 30.3 (27.0-31.0) pg MCHC 36.1 H (32.0-36.0) g/dL RDW 13.3 (12.0-15.0) % Plt Count 334 (130-450) 10^3/uL MPV 8.6 (7.4-11.4) fL Neut # (Auto) 9.0 H (1.5-6.6) 10^3/uL Lymph # (Auto) 0.2 L (1.5-3.5) 10^3/uL [place] # (Auto) 0.5 (0.0-1.0) 10^3/uL Eos # (Auto) 0.0 (0.0-0.7) 10^3/uL Baso # (Auto) 0.0 (0.0-0.1) 10^3/uL Absolute Nucleated RBC 0.00 x10^3/uL Nucleated RBC % 0.0 /100WBC Sodium 124 L (135-145) mmol/L Potassium 2.5 L* (3.5-5.0) mmol/L Chloride 80 L* (101-111) mmol/L Carbon Dioxide 30 (21-32) mmol/L Anion Gap 14.0 H (6-13) BUN 14 (6-20) mg/dL Creatinine 1.0 (0.6-1.2) mg/dL Estimated GFR (MDRD) 72 L (>89) Glucose 109 H (70-100) mg/dL Calcium 9.5 (8.5-10.3) mg/dL Phosphorus (2.5-4.6) mg/dL Magnesium (1.7-2.8) mg/dL Total Bilirubin 1.3 H (0.2-1.0) mg/dL AST 15 (10-42) IU/L ALT < 10 L (10-60) IU/L Alkaline Phosphatase 76 (42-121) IU/L Total Protein 7.5 (6.7-8.2) g/dL Albumin 4.4 (3.2-5.5) g/dL Globulin 3.1 (2.1-4.2) g/dL Albumin/Globulin Ratio 1.4 (1.0-2.2) Lipase 53 H (22-51) U/L Urine Color Urine Clarity (CLEAR) Urine pH (5.0-7.5) PH Ur Specific [place] (1.002-1.030) Urine Protein (NEGATIVE) mg/dL Urine Glucose (UA) (NEGATIVE) mg/dL Urine Ketones (NEGATIVE) mg/dL Urine Occult Blood (NEGATIVE) Urine Nitrite (NEGATIVE) Urine Bilirubin (NEGATIVE) Urine Urobilinogen (NORMAL) E.U./dL Ur Leukocyte Esterase (NEGATIVE) Urine RBC (0-5) /HPF Urine WBC (0-3) /HPF Urine WBC Clumps Ur Squamous Epith Cells (<= Few) Urine Bacteria (None Seen) /HPF Ur Microscopic Review Urine Culture Comments Urine Sodium mmol/L Assessment/Plan - Problem List (1) Hyponatremia Impression: This is likely hypovolemic hyponatremia secondary to use of hydrochlorothiazide. His sodium was 124 on admission but is only improved to 126 over approximately 12 hours. His urine sodium is low at 13. At this time, we will continue to hold his hydrochlorothiazide. We will continue with normal saline at 100 mL an hour. We will give him a small bolus of 500 mL given he is orthostatic. We will recheck his sodium again this afternoon to ensure it is not over correcting. He will need to remain hospitalized for least 1 more night to correct his hyponatremia. His hydrochlorothiazide will need to be discontinued on discharge. (2) Hypokalemia Impression: This is likely secondary to use of thiazide. His potassium was 2.5 on admission has improved to 3.2. We will continue with potassium replacement. (3) Atrial fibrillation Impression: This appears to be a new diagnosis for him. He is rate controlled. We will check a TSH in the morning. Echocardiogram is unavailable at this time but he will need one on an outpatient basis. We will hold off on beta-ladarius for the time being given the orthostatic hypotension. We will also hold off on anticoagulation given his frequent falls and mild left periorbital ecchymosis. Will defer to his outpatient provider regarding anticoagulation on discharge. (4) Fall Impression: Suspect this may be related to orthostatic static hypotension. Per the staff at [facility], he has had 3 falls in the past week and his orthostatics are positive. His most recent fall occurred when he was getting out of a chair and back to his bed. We will discontinue his hydrochlorothiazide on discharge. We will continue to hydrate him as he does appear hypovolemic. At this point in time, I do not believe he needs physical therapy but we will ambulate him around the room and if there is concerns over his ability to ambulate then we will consult physical therapy. Qualifiers: Encounter type: initial encounter Qualified Code(s): W19.XXXA - Unspecified fall, initial encounter (5) Orthostatic hypotension Impression: His orthostatics are positive as his systolic blood pressure dropped over 50 mmHg from supine to standing. He is on a thiazide and losartan at home. He does clinically appear hypovolemic. We will continue with gentle IV hydration and will give him a small 500 cc bolus. We will continue to hold the thiazide and losartan. We will continue check orthostatics with every shift. If this does not resolve with hydration we will check an a.m. cortisol. 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 He currently is orthostatic positive and he has been having falls at home. He also presents with hyponatremia likely due to thiazide use. We will hold his home antihypertensives for the time being given his positive orthostatics. Will consider resuming losartan if he is no longer orthostatic and remains hypertensive. (7) UTI (urinary tract infection) Impression: He reports no symptoms of a urinary tract infection but his urinalysis reveals over 25 WBCs with few bacteria. His past urine cultures have grown Citrobacter. We will start him empirically on ceftriaxone IV. We will follow-up urine cultures. 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 Moreno at the [facility] clinic. He is on abiraterone and prednisone in addition to Lupron every 3 months. He will continue outpatient follow-up on discharge. (9) Autism Impression: Stable. His guardian is Henny [facility] who is his step-sister.
[2020-01-10] MEDS: POTASSIUM CHLORIDE 20 MEQ TABLET PO SCH (08:04)
[2020-01-10] MEDS: predniSONE 5 MG TABLET PO SCH (08:04)
[2020-01-10] MEDS: SODIUM CHLORIDE FLUSH 0.9% 10 ML SYRINGE IVP SCH ×2 (08:04→16:07)
--- NOTE | 2020-01-10 08:12 | PHARMACY PROGRESS NOTE ---
- Best Possible Medication History Admit Date and Time: 01/09/20 1529 Processed by: Pharmacy Medication History completed: Yes Secondary Source(s): Facility MAR as ONLY source As the person ultimately responsible for medication therapy, providers are able to order a medication from an existing home medication list in [facility] via the "Reconcile Routine" prior to Confirmation of that medication by direct support staff member. Such practice is discouraged except when the physician, in their clinical judgment, deems that a medical need exists for a medication without regard to previous use.
[2020-01-10] MEDS: cefTRIAXone 1 GM in SODIUM CHLORIDE 0.9% MINIBAG 100 ML IV SCH (08:51)
[2020-01-10 13:19] LABS: CREATININE 0.8 mg/dL (0.6-1.2)
[2020-01-11] MEDS: SODIUM CHLORIDE 0.9% 1,000 ML IV SCH ×2 (00:14→10:46)
[2020-01-11] MEDS: SODIUM CHLORIDE FLUSH 0.9% 10 ML SYRINGE IVP SCH ×2 (00:15→08:10)
[2020-01-11 05:08] LABS: BASOPHILS # (AUTO) 0.1 10^3/uL (0.0-0.1); EOSINOPHILS # (AUTO) 0.3 10^3/uL (0.0-0.7); EOSINOPHILS % (AUTO) 4.2 %; LYMPHOCYTES # (AUTO) 0.3 10^3/uL (1.5-3.5); LYMPHOCYTES % (AUTO) 4.5 %; MEAN CORPUSCULAR HEMOGLOBIN 30.6 pg (27.0-31.0); MEAN CORPUSCULAR HGB CONC 34.6 g/dL (32.0-36.0); MEAN CORPUSCULAR VOLUME 88.3 fL (80.0-94.0); MEAN PLATELET VOLUME 8.9 fL (7.4-11.4); MONOCYTES # (AUTO) 0.4 10^3/uL (0.0-1.0); MONOCYTES % (AUTO) 7.1 %; NEUTROPHILS # (AUTO) 5.1 10^3/uL (1.5-6.6); NEUTROPHILS % (AUTO) 82.6 %; PLT - PLATELET COUNT 273 10^3/uL (130-450); RED CELL DISTRIBUTION WIDTH 13.9 % (12.0-15.0); WHITE BLOOD COUNT 6.2 x10^3/uL (4.8-10.8)
[2020-01-11 05:18] LABS: CALCIUM 8.2 mg/dL (8.5-10.3); CREATININE 0.7 mg/dL (0.6-1.2); MAGNESIUM 1.7 mg/dL (1.7-2.8)
[2020-01-11] MEDS ORDERED: SODIUM CHLORIDE 0.9% 500 ML IV ONE ×2 (07:36→10:50)
[2020-01-11] MEDS: cefTRIAXone 1 GM in SODIUM CHLORIDE 0.9% MINIBAG 100 ML IV SCH (08:05)
[2020-01-11] MEDS: POTASSIUM CHLORIDE 20 MEQ TABLET PO SCH (08:08)
[2020-01-11] MEDS: predniSONE 5 MG TABLET PO SCH (08:09)
--- NOTE | 2020-01-11 10:24 | Discharge Plan ---
"Discharge Plan for SNF / RESIDENTIAL - Discharge Plan And Transition Orders Problem Reviewed?: Yes Disposition: 06 Home Health Service Condition: Stable Allergies and Adverse Reactions: Allergies Allergy/AdvReac Type Severity Reaction Status Date / Time No Known Drug Allergies Allergy Verified 11/25/19 14:03 Health Concerns: The patient was seen in the hospital because of low sodium and low potassium. He was found to be dehydrated and he had orthostatic hypotension. He was treated with IV fluids and potassium supplementation with improvement in his sodium. His blood pressure no longer decreases when standing. He was also found to have a urinary tract infection and was started on antibiotics. This will need to be continued as prescribed. He was also found to have what appears to be new onset atrial fibrillation during his hospitalization. He has been rate controlled without any medications. We have started him on low-dose metoprolol. He will need outpatient follow-up with his primary care provider. He is not on anticoagulation due to his frequent falls. Plan of Treatment: He will need to discontinue the losartan/hydrochlorothiazide. He will need follow-up with his primary care provider in 1 week as he may need another antihypertensive if his blood pressure begins to increase. He will need to continue ciprofloxacin for 3 more days starting January 11 for urinary tract infection. He will need to be started on metoprolol for his atrial fibrillation. 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 - SNF / RESIDENTIAL Transition Orders Admit to (Facility): [facility] Discharge Diagnosis: Hyponatremia - improved. Hypokalemia - resolved. Atrial fibrillation - stable. Orthostatic hypotension - resolved. History of hypertension Urinary tract infection Metastatic castration resistant adenocarcinoma of prostate Autism Medicare Certification Statement: I certify that Post Hospital half-way care is medically necessary on a continuing basis for any of the conditions for which she/he is receiving care during hospitalization. Notify PCP of admission and forward orders to primary provider for signature. Other Notification Orders: Call PCP immediately if patient develops dyspnea, chest pain/tightness or edema. Additional Bowel Program Orders: If no BM after 2 days, nurse may give M.O.M. 30ml PO PRN and/or ducolax Supp 1 [place] and/or ALICIA 250mg P.O., and/or senna 1-2 tabs PO. On day 3 nurse may give repeat above order until residents constipation is resolved. Medication Orders: PLEASE REFER TO THE DISCHARGE MEDICATION LIST. - Medications New Prescriptions: Ciprofloxacin [Cipro] 500 mg PO BID #12 tablet Potassium Chloride [K-Dur] 20 meq PO DAILYWM #30 tablet Metoprolol Tartrate 25 mg PO BID #60 tablet - Diet Texture: Regular - Therapies | Activity Therapy: Evaluation | Treat if indicated: PT Follow Up: He will need follow-up with his primary care provider in 1 week."
--- NOTE | 2020-01-11 10:51 | DISCHARGE SUMMARY ---
"Discharge Summary Admit Date: 01/09/20 Discharge Date: 01/11/20 Discharging Provider: Gerard Coombs Primary Care Provider: Elvis Gaspar Code Status: Attempt Resuscitation Condition at Discharge: Stable Discharge Disposition: Home Health Service Discharge Facility Name: [facility] - DIAGNOSES Admission Diagnoses: Hyponatremia Hypokalemia Fall Hypertension Metastatic castration resistant adenocarcinoma prostate Autism Discharge Diagnoses with Status of Each Condition: Hyponatremia - improved. Hypokalemia - resolved. Atrial fibrillation - stable. Orthostatic hypotension - resolved. History of hypertension - stable. Urinary tract infection - stable. Metastatic castration resistant adenocarcinoma of prostate - stable. Autism - stable. - HPI History of Present Illness: This is a 79-year-old male with a past medical history significant for castration resistant metastatic prostate cancer, hypertension, autism who presents today from [facility] after having a fall. Patient states that he was getting out of a chair to move over to his bed when he fell and hit the left side of his face. He denies any palpitations, chest pain, dyspnea. Reports no dizziness or lightheadedness. He denied any loss of consciousness. Currently denies any headache or change in vision. He reports that he does not fall frequently but staff from [facility] reported to the emergency department state that he had 3 falls this past week. He denies poor oral intake and reports having a good appetite. He does take losartan/hydrochlorothiazide on a daily basis for hypertension. He reports ambulating with a walker at baseline. Denies the use of any blood thinners. In the emergency department, he was found to be afebrile with temperature of 37 C. His heart rate was 67. His blood pressure is 136/82. He was not tachypneic and saturating well on room air. CT of the head and cervical spine were negative for trauma. Labs were significant for sodium of 124 and potassium of 2.5. He was given a liter of saline in the emergency department. Given the above findings, medicine was consulted for admission. I did discuss goals of care with the patient he would like to be a full code. He has a POLST form from 2016 which also states that he is a full code. - CONSULTS | PROCEDURES Consultations: PT, Social Work - HOSPITAL COURSE Hospital Course: He was admitted to the floor for hyponatremia and hypokalemia which was felt to be secondary to the use of hydrochlorothiazide. He was treated with IV fluids and potassium supplementation. His sodium slowly improved during this hospitalization. It was 124 on admission and it is 129 on discharge. His potassium was 2.5 on admission and is 3.4 on discharge. He required a 2 night stay as on hospital day 2, his orthostatics were positive. He was given a 500 cc bolus normal saline and continued on maintenance IV fluids. His home hydrochlorothiazide and losartan were held. His orthostatics are now negative and his blood pressure is stable in the 130s. He was found to have atrial fibrillation during his hospitalization. His TSH was within normal limits. Unfortunately, echocardiogram was not available during this hospitalization and so he will need one on outpatient basis. He was started on metoprolol 25 mg twi ce daily. His urinalysis on admission was also suggestive of infection. The patient did not have any symptoms but given he is a male, he was treated with 2 days of IV ceftriaxone and is discharged on oral ciprofloxacin for 3 more days. Urine culture is pending. Given his falls at [facility], he was evaluated by physical therapy recommended home health PT. It is likely he has been falling du e to orthostasis. On discharge, he was asked to discontinue losartan and hydrochlorothiazide and to start metoprolol 25 mg twice daily. He was also provided a prescription for potassium supplementation, 20 mEq a day. He was also prescribed ciprofloxacin 500 mg twice daily for 3 days. - ALLERGIES Allergies/Adverse Reactions: Allergies Allergy/AdvReac Type Severity Reaction Status Date / Time No Known Drug Allergies Allergy Verified 11/25/19 14:03 - MEDICATIONS Home Medications: Ambulatory Orders Medication Instructions Recorded Confirmed Acetaminophen [Tylenol] 650 mg PO TID 04/17/16 01/10/20 Loperamide [Imodium] 2 mg PO PRN PRN 11/25/19 01/10/20 Abiraterone Acetate 1,000 mg PO DAILY 01/10/20 01/10/20 Prednisone 5 mg PO DAILY 01/10/20 01/10/20 Tamsulosin [Flomax] 0.4 mg PO QPM 01/10/20 01/10/20 Ciprofloxacin [Cipro] 500 mg PO BID #12 tablet 01/11/20 Metoprolol Tartrate 25 mg PO BID #60 tablet 01/11/20 Potassium Chloride [K-Dur] 20 meq PO DAILYWM #30 tablet 09/07/20 - PHYSICAL EXAM AT DISCHARGE General Appearance: positive: No acute distress, Alert Eyes Bilateral: positive: PERRL, EOMI, Conjunctivae nml, Other (Mild left periorbital ecchymosis) ENT: positive: ENT inspection nml Neck: positive: Nml inspection Respiratory: positive: No respiratory distress. negative: Wheezes, Rales Cardiovascular: positive: No murmur, Irregularly irregular. negative: Tachycardia, Systolic murmur Abdomen: positive: Non-tender, No distention. negative: Tenderness, Guarding, Rebound Skin: positive: No rash, Warm, Dry Extremities: positive: Full ROM, No pedal edema Neurologic/Psychiatric: positive: Oriented x3, Motor nml. negative: Disoriented to person, Disoriented to place, Disoriented to time - LABS Result Diagrams: 01/11/20 04:56 01/11/20 04:56 - DIAGNOSTIC IMAGING Diagnostic Imaging Results: Final report reviewed - FOLLOW UP Follow Up: He will need follow-up with his primary care provider in 1 week. - TIME SPENT Time Spent in Discharge (Minutes): 31"
[2020-01-11 11:02] VITALS: BP 128/70
== END 2020-01-11 12:55 | disposition home health service (06) | DRG 641 ==
LOC: EDUNIT# → ED 14:40 → MS3 16:05 → OBSVTOIN 01-10 11:42
PROVIDERS: ADMIT Internal Medicine; ATTEND Internal Medicine
DX: E87.1 Hypo-osmolality and hyponatremia (principal); C79.9 Secondary malignant neoplasm of unspecified site; F84.0 Autistic disorder; N30.01 Acute cystitis with hematuria; S09.90XA Unspecified injury of head, initial encounter; E87.6 Hypokalemia; E86.0 Dehydration; T50.2X5A Adverse effect of carbonic-anhydrase inhibitors, benzothiadiazides and other diuretics, initial encounter; W18.30XA Fall on same level, unspecified, initial encounter; Y92.092 Bedroom in other non-institutional residence as the place of occurrence of the external cause; I48.91 Unspecified atrial fibrillation; Z91.81 History of falling; I95.9 Hypotension, unspecified; I10 Essential (primary) hypertension; C61 Malignant neoplasm of prostate; Z20.828 Contact with and (suspected) exposure to other viral communicable diseases; Z19.2 Hormone resistant malignancy status; F17.210 Nicotine dependence, cigarettes, uncomplicated; S00.12XA Contusion of left eyelid and periocular area, initial encounter; I95.1 Orthostatic hypotension; E86.1 Hypovolemia
CPT/HCPCS: 36415; 51798; 70450; 72125; 80048; 80053; 81001; 83690; 83735; 84100; 84300; 84443; 85025; 87086; 96361; 96365; 96366; 96367; 97162; 99284; 99285; A9270; G0378; J7512; U0004; 81003

== ENCOUNTER 2020-03-15 09:30 | Outpatient (CLI) | payer MEDICARE, MEDICAID ==
--- NOTE | 2020-03-15 13:02 | CONSULTATION NOTE ---
Palliative Care Consultation - Referral Referring Provider: Dr. 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 The patient has an underlying history of autism and is developmentally delayed. He has been residing at [facility] for approximately 28 years. His Henny castellanos was his legal guardian however, she has subsequently on hospice services in the last 1.5 years and this role has subsequently fallen to the patient's fdpaeme-et-kkp, Matt Simpson for management. Check has been able to periodically attend some of the patient's office visits with providers however, he reports that he has fallen into this role and he is of an advanced age himself with comorbidities and is cautious regarding his own health. Matt reports that he "takes care of he finances" for the patient and provides monthly money to the patient that he typically uses to purchase cigarettes, however, this has decreased per staff report. The patient himself perceives no changes in his appetite. Due to the coronavir us he has been given permission to have meals in his room despite the residents at the facility being allowed one meal per day in the common area. Kitchen staff have noted that the patient's appetite has decreased but the patient reports that the food at the facility is "good." He denies any difficulty swallowing. The facility is unable to do meal monitoring. The patient himself does not perceive Any weight loss though his ltrhlec-kc-gwm/guardian, perceives that in the last month between office visits that he has seen him there is a visible weight loss. The patient's present weight today is 137.2 pounds. The patient reports that most of his life he is weighed between 170 to 175 pounds. The patient does not have dentures In place as he chooses not to wear them. At dinner he is go to meal is eggs, chips, and fruit.He is presently not on any supplementation. Due to his weight loss his PCP has ordered CT imaging of the chest, abdomen, and pelvis given his history of known metastatic prostate cancer but this has yet to be completed at the present time. The patient has declined Lupron injections and is presently on abiraterone with prednisone which was initated 06/2019. The patient himself is unable to recall that he has a diagnosis of prostate cancer until prompted during assessment today. Facility Joaquina LYLE reports that the patient's demeanor will wax and wane even with known caregivers. He greatly enjoys his coffee. He had previously been followed by physical therapy with [facility] but this was subsequently discontinued as the patient refused further services and upon review today states that they "did not know what they were doing." He does ambulate with a walker with no recent falls. The patient is seen in his room at [facility] after this provider was introduced by Joaquina LYLE. He is cooperative during examination and able to make eye contact. When direct questions are asked he typically responds "I do not know." When trying to further engage why he did not wish to proceed with Lupron injections he reported that "I do not have to." The patient's declining any perceived symptom burden. Medical/Surgical History - Past Medical History Cardiovascular: reports: Hypertension Respiratory: reports: None Neuro: reports: Other (Autisim with developmental delay) Endocrine/Autoimmune: reports: None GI: reports: None, Other : reports: Renal insuffiency (CKD stage III), Other (Castrate resistant prostate cancer stage IV with micaela metastases) HEENT: reports: None Psych: reports: Anxiety Musculoskeletal: reports: None Derm: reports: None MRSA Hx?: No Other Past Medical History: Mulifactoiral mild anemia - Past Surgical History Other past surgical history: s/p local local therapy for prostate cancer - Substance History Use: Uses substance without health or social issues: Tobacco Social History - Living Situation Living arrangement: Assisted living Support System: Patient has been residing at [facility] for approximately 20 years. He reports that he grew up in [place]. When directly asked if he had any siblings he denied. Upon further probing and asked about having a sister he reported quite distinctly "she ." He his mother at a young age and his father remarried. He had a stepsister, Henny who was his legal guardian and this was transferred to her spouse upon her . Patient's is followed by [facility] pillowcase folder, Alexia, contact number [phone] with main office number [phone]. Family History - Family History Family History: Mother: , Father: , Sister: Medications/Allergies - Medications Home Medications: Ambulatory Orders Medication Instructions Recorded Confirmed Acetaminophen [Tylenol] 650 mg PO TID 04/17/16 03/02/20 Loperamide [Imodium] 2 mg PO PRN PRN 11/25/19 03/02/20 Abiraterone Acetate 1,000 mg PO DAILY 01/10/20 03/02/20 Prednisone 5 mg PO DAILY 01/10/20 03/02/20 Tamsulosin [Flomax] 0.4 mg PO QPM 01/10/20 03/02/20 Ciprofloxacin [Cipro] 500 mg PO BID #12 tablet 01/11/20 03/02/20 Metoprolol Tartrate 25 mg PO BID #60 tablet 01/11/20 03/02/20 Potassium Chloride [K-Dur] 20 meq PO DAILYWM #30 tablet 01/11/20 03/02/20 - Allergies Allergies/Adverse Reactions: Allergies Allergy/AdvReac Type Severity Reaction Status Date / Time No Known Drug Allergies Allergy Verified 03/02/20 14:38 Review of Systems - Constitutional Constitutional: reports: Weight loss (weight 137.2lb; 09/14/2019 162.7lb). denies: Fatigue, Fever - Eyes Eyes: denies: Corrective lenses - Ears, Nose & Throat Ears, Nose & Throat: denies: Hearing loss, Dentures (chooses not to wear his dentures), Dry mouth - Cardiovascular Cardiovascular: denies: Chest pain, Edema - Respiratory Respiratory: denies: Cough - Gastrointestinal Gastrointestinal: reports: Good appetite (per patint report that is slightly different then report of caregivers). denies: Constipation, Nausea, Vomiting - Genitourinary Genitourinary: denies: Dysuria, Incontinence - Musculoskeletal Musculoskeletal: reports: Assistive devices. denies: Joint pain - Integumentary Integumentary: reports: Dryness - Neurological Neurological: reports: General weakness, Other (+developmental delay) - Psychiatric Psychiatric: denies: Depression - Endocrine Endocrine: denies: Diabetes type 2 - Hematologic/Lymphatic Hematologic/Lymph: Anemia - All Other Systems All Other Systems: denies: Reviewed and negative - Other Findings Other Findings: Patient is a poor historian due to his underlying developmental delay and additional review of systems is obtained by the patient's lykhwyq-fd-sgt/guardian as well as facility staff at [facility]. Physical Exam - Vital Signs Temperature: 36.8 C Pulse Rate: 54 O2 Saturation: 99 (on RA at rest) Blood Pressure: 151/63 (left wrist cuff) - Physical Exam General Appearance: positive: No acute distress, Alert, Other (frail, elderly man that is well groomed and appears stated age) Eyes Bilateral: positive: PERRL ENT: positive: No signs of dehydration, Other (+edentulous) Neck: positive: Trachea midline. negative: Lymphadenopathy (R), Lymphadenopathy (L) Cardiovascular: positive: No murmur, Bradycardia Respiratory: positive: No respiratory distress, Breath sounds nml. negative: Wheezes Abdomen: positive: Non-tender, Soft, Nml bowel sounds Skin: positive: Dryness Extremities: positive: Non-tender, Full ROM, No pedal edema, Other (able to ambulate with walker without difficulty within his room) Neurologic/Psychiatric: positive: Oriented x3, Mood/affect nml, Other (Clock drawing testing preformed and asked to draw a clock demonstrating the hands at 10 minutes after 11 and lucille a red cliff with digital time as 10:11 with numbers 1- 12 in a red cliff. He clearly has developmental delays that put him at a school-age child for understanding. Engaged and calm.) Palliative Care - POLST Patient has POLST: Yes POLST Status: DNR, Selective Treatment Pain: No pain (patient denies pain and no visible ques of pain noted by facility staff) Anorexia: Weight loss Feelings of wellbeing/Perceived Quality of Life: Excellent, Comment (He is quite content with his present circumstances and does not percieve any symptom burden related to his disease states including prostate cancer.) Constipation: No Performance Status: Patient is ambulatory with his walker. History of previous falls none recently. Able to self feed. - Palliative Care Discussion: The patient himself does not have any perception that he has any medical problems. He required prompting to recall that he even had a diagnosis of prostate cancer which has been present since at least 2016. He continually responds with "I do not know" with direct questions. He does not appear Capable of making complex medical decisions given his underlying developmental delay and history of autism. The patient's rrzuapu-fk-ejy/guardian recognizes that the patient is at a 9-5-sjia-old level of understanding. The patient's zyppsfq-zp-npo, Matt had guardianship fallen to his lab due to the of his and the patient's stepsister. Matt has been attempting to oversee the patient's care and management however, recognizes the patient's physical decline with noted weight loss. Given the patient's history of metastatic prostate cancer in the setting of weight loss of approximately 25 pounds in the last 6 months it is concerning for disease progression. Brought this into the context in regards to decision making with the patient's rkrhdzm-gw-cxv/guardian and he is aware of the patient's decline regarding weight but his cognition remains stable as does his spirits. This LAP CHECKER introduced the concept of hospice services with the patient's ojeeyva-dw-mrd/guardian. The patient's faxsucf-dd-gzd is familiar with hospice services as his was on service before she . Impression and Recommendations - Palliative Care Impression: This is an 79-year-old gentleman with autism and developmental delay residing at [facility] with a history of castrate resistant prostate cancer stage IV with bony mets in the setting of unintentional weight loss over 6 months. The patient himself does not perceived any symptom burden related to his comorbidities, including pain due to his metastatic disease nor perceives that he has had any weight loss. The patient and his rqkaijm-me-fgo/guardian will continue to benefit from continued support especially, if the patient continues to demonstrate functional decline or increased symptom burden. Palliative care to continue to provide symptom management, anticipatory guidance and supportive listening. Recommendations/Counseling Done: 1. Weight loss, unintentional. Weight loss of 25.5 pounds since September 2019 that has been unintentional. The patient opts not to wear his dentures. As the facility is unable to [place] meal monitoring and documenting percent of meals consumed would strongly encouraged that the patient's be encouraged by the facility staff to attend 1 meal per day out in the common area so facility staff may monitor his habits and if any additional interventions may be needed to optimize the patient's weight. Also discussed with the patient's ceahdqy-hx-imq/guardian coordinating with the facility for obtainment of Ensure supplementation to offer 1 can 3 times daily between meals to stabilize the patient's weight to prevent further weight loss. Wish to prefer to not have Ensure offered during mealtimes to decrease the patient's desire to consume his meals. If noted continue weight loss with added protein supplementation with ensures then may consider broaching with the patient and again with the vuncjkv-mc-bvm/guardian in regards to diet modification given his lack of teeth to use any barriers for meals. However, given the patient's unintentional weight loss in the setting of prostate cancer it is concerning for disease progression. The patient's vttyyyi-db-mlg/guardian is aware regarding above concerns and at the present time wishes to support the patient and his present environment. 2. Developmental delay in the setting of autism. Longstanding history. The patient presents as a school aged child cognitively at about age 6-7.He does not appear to be able to grasp consequences in regards to complex decisions and therefore would benefit from support from his fkfatpu-ui-asq/guardian to assist with complex medical decisions. Schedulers note has been made in the [employer] system to contact the patient's guardians/dltyypy-fg-rmf, Matt when scheduling any future appointments for the phheagr-vu-imv to be present to assist with decisions moving forward. 3. Metastatic prostate cancer. No perceived symptom burden outside of weight loss. Continues on abiraterone and prednisone therapy. Patient has declined L upron injections stating that he "doesn't need them" and LEIHG ANN/guardian aware of this declination. Requested that patient's aqieryw-sz-uof/guardian be present for next oncology appointment with Matt verbalizing agreement and commitment. 3. Advanced care planning. Patient has POLST in place as DN AR with selective interventions. The patient's tsqialk-yf-xlh's/guardian came into this role given the of his who previously was overseeing managment of the patient's care. Contacted [place] [facility] pillowcase folder, Alexia via phone with message left to follow-up regarding more clear paperwork identifying Matt as the patient's legal guardian. Matt, will continue to require support from the patient's PCP, oncology, and palliative care in regards to decision making moving forward. Matt finds that he is "not medical" and needs further guidance regarding decision making moving forward and what is in the best interest for the patient. Introduced hospice services, which is not needed at this time, but the patient's brother in law is experienced due to his being on hospice service. Will continue to tease out EOL goals with the patient's rjzewrh-dh-tdq and guardian moving forward. Time Spent: Total time spent 60 minutes with greater than 50% of this spent in counseling and coordination of care with patient and facility staff; examination of patient; review of symptom management and anticipatory guidance. Contacted the patient's LEIGH ANN/Guardian, Matt Naiduyaa via phone at [phone] and spoke at length regarding patient's present clinical findings related to possible disease progression, anticipatory guidance with supportive listening. Questions answered and addressed and Matt is agreeable for continued Palliative Care Support at the present time. Disclaimer: The chart note was formulated using voice recognition technology and unfortunately sound alike errors may occur.
== END 2020-03-15 09:31 | disposition home or self-care (01) ==
LOC: PC 09:30
PROVIDERS: ATTEND Nurse Practitioner Family
DX: Z51.5 Encounter for palliative care (principal); R63.4 Abnormal weight loss; F84.0 Autistic disorder; R62.50 Unspecified lack of expected normal physiological development in childhood; C61 Malignant neoplasm of prostate; C79.51 Secondary malignant neoplasm of bone; I12.9 Hypertensive chronic kidney disease with stage 1 through stage 4 chronic kidney disease, or unspecified chronic kidney disease; N18.30 Chronic kidney disease, stage 3 unspecified; Z66 Do not resuscitate
CPT/HCPCS: 99344

== ENCOUNTER 2020-03-17 10:54 | Outpatient (CLI) | payer MEDICARE, MEDICAID ==
[2020-03-17 11:05] LABS: ALBUMIN 4.3 g/dL (3.2-5.5); ALBUMIN/GLOBULIN RATIO 1.5 (1.0-2.2); BILIRUBIN,TOTAL 0.9 mg/dL (0.2-1.0); CALCIUM 9.4 mg/dL (8.5-10.3); CREATININE 1.2 mg/dL (0.6-1.2); TOTAL PROTEIN 7.2 g/dL (6.7-8.2)
[2020-03-17] MEDS ORDERED: IOVERSOL 320 100 ML VIAL IVP ONE ×3 (11:07→17:16)
[2020-03-17] MEDS ORDERED: IOVERSOL 320 50 ML VIAL ONE (11:07)
--- NOTE | 2020-03-17 16:08 | CT Report ---
PROCEDURE: Abdomen/Pelvis W INDICATIONS: METASTATIC PROSTATE CA CONTRAST: IV CONTRAST: Optiray 320 ml: 100 PO CONTRAST: *NO PO CONTRAST TECHNIQUE: After the administration of oral and intravenous contrast, 5 mm thick sections acquired from the diap hragms to the symphysis. 5 mm thick coronal and sagittal reformats were acquired. For radiation dos e reduction, the following was used: automated exposure control, adjustment of mA and/or kV accordin g to patient size. COMPARISON: None. FINDINGS: Image quality: Excellent. ABDOMEN: Lung bases: Lung bases are clear. Heart size is normal. Solid organs: Liver and spleen are normal in size and enhancement. Gallbladder is unremarkable Rashi iary system is non dilated. Pancreas enhances normally. No adrenal nodules. Kidneys demonstrate no rmal size and enhancement, without hydronephrosis. A lower pole right renal stone has increased in si ze. It is nonobstructive. It measures approximately 7 mm. A small nonobstructing left lower pole beth l stone has developed. There is a 1.5 cm left middle pole lesion which likely represents a hyperdense cyst, which is minimally larger than on the prior study, when it measured 1.3 cm. Peritoneum and bowel: Bowel loops demonstrate normal wall thickness and caliber. No free fluid or a ir. Nodes and vessels: No retroperitoneal or mesenteric adenopathy by size criteria. Aorta and inferior vena cava are normal in size. Miscellaneous: No ventral hernias. PELVIS: Genitourinary: Bladder wall thickness is normal. Prostate implant seeds. Miscellaneous: No inguinal hernias or adenopathy. Bones: Interval increase in size of sclerotic metastatic lesion to the left side of the T11 vertebral body and left T11 pedicle. There is a tiny new sclerotic lesion involving the left aspect of the L3 vertebral body. There is interval progression of metastatic disease in the medial right iliac bone. A gain noted is a medial left iliac sclerotic lesion and a left-sided midline sacral tiny metastatic le karen. No vertebral body compression fractures. IMPRESSION: 1. Prostate implant seeds. 2. Slight interval progression of sclerotic bony metastatic disease. 3. Bilateral nonobstructing renal stones. Comment: Please refer to a separate report for CT chest findings. Reviewed by: Zac Case MD on 03/17/2020 4:07 PM PST Approved by: Zac Case MD on 03/17/2020 4:07 PM PST Station ID: [id number]
[2020-03-17] MEDS ORDERED: IOVERSOL 320 50 ML VIAL PO ONE (17:15)
--- NOTE | 2020-03-17 17:16 | CT Report ---
PROCEDURE: CHEST W INDICATIONS: METASTATIC PROSTATE CA CONTRAST: IV CONTRAST: Optiray 320 ml: 100 PO CONTRAST: *NO PO CONTRAST TECHNIQUE: After the administration of intravenous contrast, 5 mm thick sections acquired from the pulmonary api ariel to the posterior costophrenic angles. 7 mm thick coronal MIP reformats were acquired. For radia tion dose reduction, the following was used: automated exposure control, adjustment of mA and/or kV according to patient size. COMPARISON: None. FINDINGS: Image quality: Excellent. Lungs and pleura: No acute air space opacities. Note is made of a small calcified granuloma at the subpleural anterior right middle lobe. No pleural effusions or pneumothorax. Central and peripheral airways are patent and normal in caliber. Mediastinum: Heart size is normal. No pericardial effusion. No mediastinal or hilar adenopathy by size criteria. Note is made of several scattered bilateral partially calcified lymph nodes involving the hilum and to a lesser degree the right mediastinum, consistent with old granulomatous disease. A similar pattern is seen at the subcarinal space bilaterally this also can be seen within the right pa ratracheal space and the aortopulmonary window. Thoracic aorta and central pulmonary arteries are no rmal in size. Esophagus is normal in caliber. No hiatal hernia. Bones and chest wall: No suspicious bony lesions. No vertebral body compression fractures. No axil asiya or supraclavicular adenopathy by size criteria. Thyroid gland . Abdomen: Visualized upper abdominal solid organs appear normal. Upper abdominal bowel loops are nor mal in caliber. IMPRESSION: No evidence of metastatic disease related to prostate carcinoma. Note is made of scattered mediastina l and bilateral hilar lymph nodes that contain internal calcifications and there is a calcified granu teresita at the anterior subpleural border of the right middle lobe. Old granulomatous disease is the pre sumed cause. Reviewed by: Bonilla Tadeo MD on 03/17/2020 5:15 PM PST Approved by: Bonilla Tadeo MD on 03/17/2020 5:15 PM PST Station ID: [id number]
== END 2020-03-17 10:55 | disposition home or self-care (01) ==
LOC: DI 10:54
PROVIDERS: ATTEND Family Medicine
DX: C79.51 Secondary malignant neoplasm of bone (principal); N20.0 Calculus of kidney; R93.89 Abnormal findings on diagnostic imaging of other specified body structures
CPT/HCPCS: 36415; 71260; 74177; 80053; Q9967; 82565

== ENCOUNTER 2020-04-07 09:00 | Outpatient (CLI) | payer MEDICARE, MEDICAID ==
--- NOTE | 2020-04-07 11:10 | CONSULTATION NOTE ---
Palliative Care Follow Up - Referral Referring Provider: Dr. 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 Please see detailed history dictated on 03/15/2020. The patient himself continues to not perceive changes in his appetite. Due to the coronavirus he was having meals in his room. On last evaluation requested that the patient encouraged to attend meals outside of his room. Due to recent increase of chronic virus cases residents are only allowed to come out for 1 meal during the day per RN director. The patient despite encouragement typically stays in his room. He was initiated on Ensure supplementation 1 can to be administered 3 times daily between meals. He is tolerating this well and his weight presently is 136.3 pounds only down approximately 1 pound since last evaluation. For his prostate cancer the patient is presently on abiraterone with prednisone which was initiated 06/2019. The patient continues to ambulate with a walker with no recent falls. The patient is seen in his room at [facility] initially seen by this PLANT TOUR GUIDE independently but the patient was not inclined to talk to this PLANT TOUR GUIDE. Reentered with Joaquina LYLE and did allow for his weight to be obtained but was resistant for talking and full evaluation. 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 Social History - Living Situation Living arrangement: Assisted living Support System: The patient has been residing at [facility] for approximately 20 years. He grew up in [place]. He had a stepsister, Henny who was his legal guardian and guardianship was transferred to her spouse, Matt upon her . Matt's contact number is [phone]. The patient is followed by [employer] [facility] lead case manager, Alexia contact number [phone] with main office number [phone]. The patient's step [id number], Matt has relayed previously that his role as guardian "fell into my lap." Per facility staff at [facility] and APS report has been filed recently by a [employer] P[employer] as the patient's step [id number] wishes to only act from a financial standpoint and not be involved in regarding healthcare decision-making. Medications/Allergies - Medications Home Medications: Ambulatory Orders Medication Instructions Recorded Confirmed Acetaminophen [Tylenol] 650 mg PO TID 04/17/16 03/15/20 Loperamide [Imodium] 2 mg PO PRN PRN 11/25/19 03/15/20 Abiraterone Acetate 1,000 mg PO DAILY 01/10/20 03/15/20 Prednisone 5 mg PO DAILY 01/10/20 03/15/20 Tamsulosin [Flomax] 0.4 mg PO QPM 01/10/20 03/15/20 Metoprolol Tartrate 25 mg PO BID #60 tablet 01/11/20 03/15/20 Potassium Chloride [K-Dur] 20 meq PO DAILYWM #30 tablet 01/11/20 03/15/20 Acetaminophen [Tylenol] 650 mg PO DAILY PRN 03/15/20 03/15/20 - Allergies Allergies/Adverse Reactions: Allergies Allergy/AdvReac Type Severity Reaction Status Date / Time No Known Drug Allergies Allergy Verified 03/02/20 14:38 Review of Systems - Constitutional Constitutional: reports: Weight loss (today 136.3lb; 03/15/2020 weight 137.2lb; 09/14/2019 162.7lb). denies: Fatigue, Fever - Eyes Eyes: denies: Corrective lenses - Ears, Nose & Throat Ears, Nose & Throat: reports: Dentures (does not wear his dentures) - Cardiovascular Cardiovascular: denies: Edema - Gastrointestinal Gastrointestinal: reports: Good appetite (per patient report). denies: Constipation - Musculoskeletal Musculoskeletal: reports: Assistive devices - Integumentary Integumentary: reports: Dryness - Neurological Neurological: reports: General weakness, Other (+developmental delay) - Hematologic/Lymphatic Hematologic/Lymph: Anemia - All Other Systems All Other Systems: reports: Reviewed and negative (As patient was not inclined to fully participate in evaluation, ROS supplemented by SERVICE DELIVERY MANAGEMENT CONSULTANT and caregivers.) Physical Exam - Physical Exam General Appearance: positive: No acute distress, Alert, Other (frail, elderly man sitting in recliner watching TV) Eyes Bilateral: positive: Other (B/l temporal wasting) ENT: positive: Other (+edentulous) Neck: positive: Trachea midline Cardiovascular: positive: Regular rate & rhythm, No murmur Respiratory: positive: No respiratory distress, Breath sounds nml. negative: Wheezes Skin: positive: Dryness Extremities: positive: Other (able to ambulate with walker without difficulty within his room) Neurologic/Psychiatric: positive: Oriented x3, Other (Suspicious and declined full evaluation stated that this PLANT TOUR GUIDE "needs to go" and "that's an order.") Comments/Other: Patient declined vital sign obtainment and facility staff to obtain later today and faxed to this PLANT TOUR GUIDE for review. Palliative Care - POLST Patient has POLST: Yes POLST Status: DNR, Selective Treatment Performance Status: Patient is ambulatory with his walker. History of previous falls with none recently. Able to self feed. PPS 50 to 60%. - Palliative Care Discussion: The patient was quite clear that he did not want to talk to this PLANT TOUR GUIDE today. Even having a familiar face in the room. The patient's mood will wax and wane per staff report. He has displayed very little insight in regards to his cancer diagnosis nor does he perceive weight loss. The facility staff do not have any acute concerns at this time. Impression and Recommendations - Palliative Care Impression: This is an 79-year-old man with autism and developmental delay residing at [facility] with a history of castrate resistant prostate cancer stage IV with bony mets in the setting of unintentional weight loss over 6 months. The patient was suspicious and averse to participating in evaluation today. Minimal change in his weight since last evaluation and initiation of Ensure supplementation 3 times daily. Present weight 136.3 pounds. Patient does not demonstrate any symptom burden at the present time. Palliative care to continue right support for symptom management and anticipatory guidance. Recommendations/Counseling Done: 1. Weight loss, unintentional. Weight loss of approximately 25 pounds since September 2019 that has been unintentional. The patient has opted not to wear his dentures and this can be limiting his food choices and preferences. On last evaluation was initiated on Ensure supplementation 1 can 3 times daily between meals and this has overall provided stabilization of the patient's weight loss with only approximately 1 pound change since last evaluation. Presently weight is 136.3 pounds. Continue to encourage the patient to attend at least the one available meal outside of his room however it is unlikely that he will do so. Continue to monitor weight loss trends. 2. Metastatic prostate cancer. No perceived symptom burden outside of weight loss. Continues on acetaminophen 650 mg 3 times daily for pain. No visible pain response noted today when the patient got up to ambulate in his room.Continues on abiraterone and prednisone therapy. Followed by oncology. 3. Developmental delay in the setting of autism. Longstanding history. The patient presents as a school aged child cognitively at about age 6-7. He further demonstrates this today and his reluctance to allow this palliative care provider to assess him relating that he "does not like doctors" and wish for this provider to leave. He has a [employer] lead case manager and his kiqdlum-yu-ilm acts as his guardian. Time Spent: CPT 37892 Plan of care reviewed with SERVICE DELIVERY MANAGEMENT CONSULTANT director, Joaquina with understanding verbalized. Contacted the patient's njpqhdy-pn-flt/guardian, Matt Gomez via phone at [phone] and updated regarding evaluation and plan of care. Questions answered and addressed. Disclaimer: The chart note was formulated using voice recognition technology and unfortunately sound alike errors may occur.
== END 2020-04-07 09:01 | disposition home or self-care (01) ==
LOC: PC 09:00
PROVIDERS: ATTEND Nurse Practitioner Family
DX: Z51.5 Encounter for palliative care (principal); R63.4 Abnormal weight loss; C61 Malignant neoplasm of prostate; C79.51 Secondary malignant neoplasm of bone; F84.0 Autistic disorder; F79 Unspecified intellectual disabilities; I12.9 Hypertensive chronic kidney disease with stage 1 through stage 4 chronic kidney disease, or unspecified chronic kidney disease; N18.30 Chronic kidney disease, stage 3 unspecified; Z66 Do not resuscitate

== ENCOUNTER 2020-05-17 08:00 | Outpatient (CLI) | payer MEDICARE, MEDICAID ==
[2020-05-17 13:20] LABS: BASOPHILS # (AUTO) 0.1 10^3/uL (0.0-0.1); BASOPHILS % (AUTO) 1.4 %; EOSINOPHILS # (AUTO) 0.4 10^3/uL (0.0-0.7); EOSINOPHILS % (AUTO) 7.2 %; HCT - HEMATOCRIT 35.9 % (42.0-52.0); HGB - HEMOGLOBIN 11.1 g/dL (14.0-18.0); LYMPHOCYTES # (AUTO) 0.6 10^3/uL (1.5-3.5); LYMPHOCYTES % (AUTO) 10.7 %; MEAN CORPUSCULAR HEMOGLOBIN 31.4 pg (27.0-31.0); MEAN CORPUSCULAR HGB CONC 30.9 g/dL (32.0-36.0); MEAN CORPUSCULAR VOLUME 101.4 fL (80.0-94.0); MEAN PLATELET VOLUME 9.7 fL (7.4-11.4); MONOCYTES # (AUTO) 0.5 10^3/uL (0.0-1.0); MONOCYTES % (AUTO) 8.9 %; NEUTROPHILS % (AUTO) 71.3 %; PLT - PLATELET COUNT 281 10^3/uL (130-450); RED BLOOD COUNT 3.54 10^6/uL (4.70-6.10); RED CELL DISTRIBUTION WIDTH 15.4 % (12.0-15.0); WHITE BLOOD COUNT 5.6 x10^3/uL (4.8-10.8)
[2020-05-17 13:50] LABS: THYROID STIMULATING HORMONE 0.84 uIU/mL (0.34-5.60)
[2020-05-17 13:52] LABS: ALBUMIN 3.7 g/dL (3.2-5.5); ALBUMIN/GLOBULIN RATIO 1.5 (1.0-2.2); ALKALINE PHOSPHATASE 54 IU/L (42-121); ALT ALANINE AMINOTRANSFERASE < 10 IU/L (10-60); AST ASPARTATE AMINOTRANSFERASE 12 IU/L (10-42); BILIRUBIN,TOTAL 0.7 mg/dL (0.2-1.0); BUN - BLOOD UREA NITROGEN 25 mg/dL (6-20); CALCIUM 9.1 mg/dL (8.5-10.3); CARBON DIOXIDE - CO2 27 mmol/L (21-32); CHLORIDE 106 mmol/L (101-111); CHOLESTEROL 192 mg/dL; GFR - MDRD 72 (>89); GLUCOSE 99 mg/dL (70-100); HDL CHOLESTEROL 48 mg/dL; LDL CHOLESTEROL,CALCULATED 111 mg/dL; LDL/HDL RATIO 2.3 (<3.6); POTASSIUM 4.2 mmol/L (3.5-5.0); SODIUM 141 mmol/L (135-145); TOTAL PROTEIN 6.2 g/dL (6.7-8.2); TRIGLYCERIDES 164 mg/dL; VLDL CHOLESTEROL 33 mg/dL
== END 2020-05-17 23:59 | disposition home or self-care (01) ==
LOC: LAB.WCP 08:00
PROVIDERS: ATTEND Family Medicine
DX: I10 Essential (primary) hypertension (principal); R62.50 Unspecified lack of expected normal physiological development in childhood; C80.0 Disseminated malignant neoplasm, unspecified
CPT/HCPCS: 36415; 80053; 80061; 83721; 84443; 85025

== ENCOUNTER 2020-06-22 12:49 | Outpatient (CLI) | payer MEDICARE, MEDICAID | END 2020-06-22 12:50 | disposition left against medical advice (07) | LOC: EMS 12:49 | DX: S00.03XA Contusion of scalp, initial encounter (principal); W18.30XA Fall on same level, unspecified, initial encounter; Y93.01 Activity, walking, marching and hiking; Y92.481 Parking lot as the place of occurrence of the external cause ==

== ENCOUNTER 2020-06-23 16:44 | Outpatient (CLI) | payer MEDICARE, MEDICAID | END 2020-06-23 16:45 | disposition critical access hospital (66) | LOC: EMS 16:44 | PROVIDERS: ATTEND Emergency Medicine | DX: R29.818 Other symptoms and signs involving the nervous system (principal) | CPT/HCPCS: A0425; A0429 ==

== ENCOUNTER 2020-06-23 17:05 | Emergency (ER) | payer MEDICARE, MEDICAID ==
[2020-06-23 17:18] VITALS: BP 153/85
--- NOTE | 2020-06-23 17:44 | CT Report ---
PROCEDURE: HEAD WO INDICATIONS: fall, head injury TECHNIQUE: Noncontrast 4.5 mm thick angled axial sections acquired from the foramen magnum to the vertex. For r adiation dose reduction, the following was used: automated exposure control, adjustment of mA and/or kV according to patient size. COMPARISON: 01/09/2020, 01/23/2019, 01/30/2019 FINDINGS: Image quality: Excellent. CSF spaces: Basal cisterns are patent. No extra-axial fluid collections. Ventricles are normal in size and shape. Brain: No midline shift. No intracranial masses or hemorrhage. Watson-white matter interface is norm al. Skull and face: Calvarium and visualized facial bones are intact, without suspicious lesions. Sinuses: Visualized sinuses and mastoids are clear. Postoperative change is seen involving the ante rior hinton of both maxillary sinuses, with plate and screw fixation. IMPRESSION: No significant intracranial abnormality is seen. No intracranial hemorrhage is seen. Note made of postoperative change involving the anterior hinton of both maxillary sinuses. Reviewed by: Mac Badillo MD on 06/23/2020 4:42 PM [place] Approved by: Mac Badillo MD on 06/23/2020 4:42 PM AKST Station ID: [id number]
--- NOTE | 2020-06-23 17:48 | ED Physician Documentation ---
PD HPI HEAD INJURY - Stated complaint Stated Complaint: GLF - Chief complaint Chief Complaint: Trauma Hd/Nk - History obtained from History obtained from: Patient, EMS - History of Present Illness Mechanism of head injury: Fell Pain level max: 0 Pain level now: 0 Location of injury: Back Associated symptoms: No: LOC, AMS, Amnesia, Nausea / vomiting, Neck pain, Paresthesias, Seizures, Ear drainage, Nasal drainage Symptoms improve with: Rest Symptoms worsen with: Other (nothing) Contributing factors: No: Anticoagulated, Intoxicated Similar symptoms before: Has not had sx before Recently seen: Not recently seen - Additional information Additional information: Patient is an 79-year-old male who presents to the emergency department today after a fall yesterday in the parking lot at [employer]. He refused evaluation yesterday. Today the nurse called his doctor who forced the patient to come here. The patient has had no neurological changes per the nurse. His pupils have been small in size. He is acting the same as he normally does. Has a history of autism. Is not on blood thinners. Review of Systems Constitutional: denies: Fever GI: denies: Vomiting Skin: denies: Rash Musculoskeletal: denies: Neck pain Neurologic: denies: Headache PD PAST MEDICAL HISTORY - Past Medical History Cardiovascular: Hypertension Respiratory: None Neuro: Dementia Endocrine/Autoimmune: None GI: None, Other : Renal insuffiency, Other HEENT: None Psych: Anxiety Musculoskeletal: None Derm: None - Past Surgical History Past Surgical History: No - Present Medications Home Medications: Ambulatory Orders Medication Instructions Recorded Confirmed Acetaminophen [Tylenol] 650 mg PO TID 04/17/16 06/23/20 Loperamide [Imodium] 2 mg PO PRN PRN 11/25/19 06/23/20 Abiraterone Acetate 1,000 mg PO DAILY 01/10/20 06/23/20 Prednisone 5 mg PO DAILY 01/10/20 06/23/20 Tamsulosin [Flomax] 0.4 mg PO QPM 01/10/20 06/23/20 Metoprolol Tartrate 25 mg PO BID #60 tablet 01/11/20 06/23/20 Potassium Chloride [K-Dur] 20 meq PO DAILYWM #30 tablet 01/11/20 06/23/20 Acetaminophen [Tylenol] 650 mg PO DAILY PRN 03/15/20 06/23/20 - Allergies Allergies/Adverse Reactions: Allergies Allergy/AdvReac Type Severity Reaction Status Date / Time No Known Drug Allergies Allergy Verified 06/23/20 17:18 - Social History Does the pt smoke?: No Smoking Status: Never smoker Does the pt drink ETOH?: No Does the pt have substance abuse?: No - Immunizations Immunizations are current?: Yes - POLST Patient has POLST: Yes PD ED PE NORMAL - Vitals Vital signs reviewed: Yes - General General: Alert and oriented X 3, No acute distress - HEENT HEENT: PERRL, EOMI, Moist mucous membranes, Other (Small ecchymosis to the occiput. No hematoma. No bleeding. No palpable skull fractures) - Neck Neck: Supple, no meningeal sign, No bony TTP - Cardiac Cardiac: RRR - Respiratory Respiratory: No respiratory distress, Clear bilaterally - Abdomen Abdomen: Soft, Non tender, Non distended - Back Back: No spinal TTP - Derm Derm: Warm and dry - Extremities Extremities: No deformity, No tenderness to palpate, Normal ROM s pain - Neuro Neuro: Alert and oriented X 3 Results - Vitals Vitals: Vital Signs - 24 hr 06/23/20 17:14 Temperature 36.2 C L Heart Rate 75 Respiratory 16 Rate Blood Pressure 153/85 H O2 Saturation 97 Oxygen O2 Source [Without Activity] Room air O2 Source Room air - Rads (name of study) Head CT Radiology: Prelim report reviewed, EMP read contemporaneously, See rad report (No acute abnormality) PD MEDICAL DECISION MAKING - ED course Complexity details: reviewed results, re-evaluated patient, considered differential, d/w patient ED course: 79-year-old male status post ground-level fall yesterday. Normal neuro exam here, he is autistic however. Negative head CT. No other acute injuries. Patient was allowed like to go back home to [place]. This document was made in part using voice recognition software. While efforts are made to proofread this document, sound alike and grammatical errors may occur. Departure - Departure Disposition: 01 Home, Self Care Clinical Impression: Closed head injury Qualifiers: Encounter type: initial encounter Qualified Code(s): S09.90XA - Unspecified injury of head, initial encounter Condition: Good Instructions: ED Head Injury Closed Follow-Up: Jesus Mckeon DO [Primary Care Provider] - As Needed Comments: Your head CT is normal today. Follow-up with your doctor for further care. Return if you worsen.
== END 2020-06-23 19:19 | disposition home or self-care (01) ==
LOC: EDUNIT# → ED 17:05
DX: S09.90XA Unspecified injury of head, initial encounter (principal); S00.03XA Contusion of scalp, initial encounter; W18.30XA Fall on same level, unspecified, initial encounter; Y92.481 Parking lot as the place of occurrence of the external cause; F84.0 Autistic disorder; I10 Essential (primary) hypertension
CPT/HCPCS: 99284

== ENCOUNTER 2020-07-11 12:25 | Outpatient (CLI) | payer MEDICARE, MEDICAID ==
--- NOTE | 2020-07-11 14:09 | CONSULTATION NOTE ---
Palliative Care Follow Up - Referral Referring Provider: Dr. 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 Please see detailed history dictated on 03/15/2020. Since last evaluation the patient sustained a fall outside of the building when trying to get additional cigarettes that resulted in an Emergency Department visit 06/23/2020 as he struck his head. The CT scan of the head was negative for any acute intracranial abnormalities. Subsequently, and the patient is now to remain on site and facility staff have on hand additional cigarettes if needed. Medications has fallen increased and is overall weight and facility staff was requesting reduction of Ensure supplementation frequency due to the weight increased trend. He presently weighs 147.3 pounds as of 07/05/2020. Ensure supplementation reduced from 1 can 3 times daily between meals to Ensure 1 can daily due to his history of weight loss. He continues to decline leaving his room for meals. He is typically consuming 50 to 75% of his meals per staff report. The patient is presently on abiraterone wtih prednisone for his prostate cancer which was initiated 06/2019. The patient is seen in his room at [facility] and to direct questions opted not to speak but shake his head yes or no and avoiding eye contact. Even with Frank LYLE the patient was not interested in engaging with this FOREST FIRE PREVENTION SPECIALIST extensively. No evidence of acute distress. 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 Social History - Living Situation Living arrangement: Assisted living Support System: Setting at [facility] for approximately 20 years. He grew up in [place]. He had a stepsister, Henny who is his legal guardian and guardian which transferred to her spouse, Matt upon her . Matt's contact number is [phone]. According to facility staff at [facility] are looking at transferring the goal of guardianship to another member. The patient is followed by Kathy lining caser, Alexia with contact number [phone] with main office number [phone]. The patient's step [id number], Matt has been attentive in taking the patient's to medical appointments. Medications/Allergies - Medications Home Medications: Ambulatory Orders Medication Instructions Recorded Confirmed Acetaminophen [Tylenol] 650 mg PO TID 04/17/16 06/23/20 Loperamide [Imodium] 2 mg PO PRN PRN 11/25/19 06/23/20 Abiraterone Acetate 1,000 mg PO DAILY 01/10/20 06/23/20 Prednisone 5 mg PO DAILY 01/10/20 06/23/20 Tamsulosin [Flomax] 0.4 mg PO QPM 01/10/20 06/23/20 Metoprolol Tartrate 25 mg PO BID #60 tablet 01/11/20 06/23/20 Potassium Chloride [K-Dur] 20 meq PO DAILYWM #30 tablet 01/11/20 06/23/20 Acetaminophen [Tylenol] 650 mg PO DAILY PRN 03/15/20 06/23/20 - Allergies Allergies/Adverse Reactions: Allergies Allergy/AdvReac Type Severity Reaction Status Date / Time No Known Drug Allergies Allergy Verified 06/23/20 17:18 Review of Systems - Constitutional Constitutional: reports: Other (increase of weight after loss to 147.3lb 07/05/2020; 09/14/2019 162.7lb). denies: Fatigue, Fever - Eyes Eyes: denies: Corrective lenses - Ears, Nose & Throat Ears, Nose & Throat: reports: Dentures (does not wear his dentures). denies: Hearing aids - Cardiovascular Cardiovascular: denies: Edema - Respiratory Respiratory: denies: Cough - Gastrointestinal Gastrointestinal: reports: Good appetite (consumes 50-75% of meals per staff). denies: Constipation - Genitourinary Genitourinary: reports: Other (Declined to answer) - Musculoskeletal Musculoskeletal: reports: Assistive devices - Integumentary Integumentary: reports: Dryness - Neurological Neurological: reports: General weakness, Other (+developmental delay) - Hematologic/Lymphatic Hematologic/Lymph: reports: Anemia - All Other Systems All Other Systems: reports: Reviewed and negative (As patient would not engage fully in evaluation, ROS supplemented by CLOTH LAMINATING SUPERVISOR and caregivers.) Physical Exam - Vital Signs Pulse Rate: 64 Respiratory Rate: 18 O2 Saturation: 96 Blood Pressure: 130/69 - Physical Exam General Appearance: positive: No acute distress, Alert, Other (frail, elderly man sitting in recliner watching TV with the volume up) Eyes Bilateral: positive: Other (B/l temporal wasting) ENT: positive: No signs of dehydration Neck: positive: Trachea midline Cardiovascular: positive: Regular rate & rhythm Respiratory: positive: No respiratory distress, Breath sounds nml Abdomen: positive: Other (declined assessment) Skin: positive: Dryness Neurologic/Psychiatric: positive: Oriented x3, Other (Suspicious and declined full evaluation stating that he "didn't want to talk today" and then responding with shaking his head yes or no to questions. Avoided direct eye contact most of the visit.) Palliative Care - POLST Patient has POLST: Yes POLST Status: DNR, Selective Treatment Pain: No pain (emphatically declined pain) Performance Status: Patient is ambulatory with his walker. Mechanical fall last week outside of the facility with normal head CT. Able to self feed. - Palliative Care Discussion: His weight has steadily increased with his appetite consumption 50 to 75% form most meals and therefore, will reduce his Ensure supplementation to 1 can daily moving forward to maintain his weight. He continues to refrain from interacting with this [facility]'s visit but is quite adamant that he is not have any pain. His engagement with others continues to wax and wanes even with familiar faces within the facility. He has an a utistic/childlike behavior. His step [id number], Matt has been attending the patient's appointments that are medical in nature. The patient requires assistance with making complex medical decisions given his underlying developmental delay and history of autism. Facility plans are in place to see about transferring guardianship as this was something that was transferred to the patient's [id number]-[id number] upon the of his . Impression and Recommendations - Palliative Care Impression: This is an 79-year-old man with autism and developmental delay residing at [facility] with a history of castrate resistant prostate cancer stage IV with bony mets in the setting of unintentional weight loss that has Plateaued. The patient himself does not perceive any symptom burden related to his comorbidities including pain. Palliative care to continue to provide support, care coordination and anticipatory guidance. Recommendations/Counseling Done: 1. Weight loss, unintentional. Patient has experienced a previously approximately 25 pound weight loss in 6-month timeframe. His weight has pres ently stabilized to 147.3 pounds and therefore reduce Ensure supplementation to 1 can daily. Continue to encourage the patient to attend meals outside of his room for interaction and engagement. He continues to opt not to wear his dentures for mastication. Continue to monitor weight loss trends. 2. Metastatic prostate cancer. No perceived symptom burden outside of the after mentioned weight loss that has stabilized. The patient has a follow-up appointment with oncology on 07/27 which the patient's stepbrother in law/guardian is aware of and is to a tent as the patient is unable to make c omplex decisions related to his medical care independently. He has previously declined Lupron injections. Continues on prednisone and abiraterone therapy. Emphasized today with the patient's stepbrother in law/guardian, checked the need to be present during the patient's medical appointment with understanding verbalized. 3. Developmental delay in the setting of autism. Longstanding history. The patient presents as a school-aged child cognitively at about age 6-7. Today, the patient was childlike in his behavior not wanting to engage verbally with this FOREST FIRE PREVENTION SPECIALIST and instead shaking his head in response to yes and no questions. The patient requires support for complex medical decision making and his lpnqjct-in-obp/guardian is to be present during medical appointments. 4. Advance care planning.Patient has POLST in place as DN AR with selective interventions. The patient's that fqkziyq-st-ksz/guardian came into that role upon the of his who was previously overseeing the management of the patient's care. The patient's kvgcovw-[id number] has previously expressed that he needs guidance regarding decision-making and what is best for the patient. We will continue to support patient's tfjzsfo-zb-lsa regarding any questions regarding disease progression and anticipatory guidance. CPT 38282 Plan of care reviewed with facility director, Joaquina. Contacted the patient's neqpgra-uf-kaj/guardian, Matt Simpson via phone at [phone] and addressed questions and reviewed plan of care moving forward. Disclaimer: The chart note was formulated using voice recognition technology and unfortunately sound alike errors may occur.
== END 2020-07-11 12:26 | disposition home or self-care (01) ==
LOC: PC 12:25
PROVIDERS: ATTEND Nurse Practitioner Family
DX: Z51.5 Encounter for palliative care (principal); C61 Malignant neoplasm of prostate; C79.51 Secondary malignant neoplasm of bone; F84.0 Autistic disorder; F79 Unspecified intellectual disabilities; I12.9 Hypertensive chronic kidney disease with stage 1 through stage 4 chronic kidney disease, or unspecified chronic kidney disease; N18.30 Chronic kidney disease, stage 3 unspecified; Z66 Do not resuscitate

== ENCOUNTER 2020-12-26 12:15 | Outpatient (CLI) | payer MEDICARE, MEDICAID ==
--- NOTE | 2020-12-26 12:37 | CONSULTATION NOTE ---
Palliative Care Follow Up - Referral Referring Provider: Dr. Tariq Moreno Time of Visit: Intiated 1215 Referral Reason: Prostate Cancer - Information Sources Records reviewed: Previous records reviewed History/Review of Systems obtained from: Patient, Nursing (DARIELA Olmstead) Exam limitations: Clinical condition (Autism and cognitive developmental delays) - History of Present Illness Update Brief HPI Update: This is an 80 year old man who is seen in follow-up today at 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 Please see detailed history dictated on 03/15/2020. The patient continues to have his Ensure supplementation and not attend meals in dinning spencer. He will periodically come out of his room when the dinning room is cleared to snack on crackers per staff. Otherwise he prefers to stay in his room and comes out to smoke a cigarette. He remains on abiraterone with prednisone for his prostate cancer which was initiated on 06/2019. He has restarted his Lupron injections and is receiving them every 6 months with last PSA 1.01 on 11/16/2020. He continues to be followed by oncology at [facility] at [facility]. Staff deny any acute changes in behaviors or recent falls. Since last evaluation his care has been transferred to a court appointed guardian. The patient is seen outside having just completed a cigarette. 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 Social History - Living Situation Living arrangement: Assisted living Support System: Has resided at [facility] for approximately 20 years. He grew up in [place]. He had a stepsisterHenny who is his legal guardian and guardian which transferred to her spouse, Matt upon her . Matt's contact number is [phone], however the patient has now transferred to a state appointed guardian, Marla Lopes [phone]. Staff report that since the transfer to the state appointment guardian, the patient's step-brother in law, Matt has not been visiting. Medications/Allergies - Medications Home Medications: Ambulatory Orders Medication Instructions Recorded Confirmed Acetaminophen [Tylenol] 650 mg PO TID 04/17/16 11/16/20 Loperamide [Imodium] 2 mg PO PRN PRN 11/25/19 11/16/20 Abiraterone Acetate 1,000 mg PO DAILY 01/10/20 11/16/20 Tamsulosin [Flomax] 0.4 mg PO QPM 01/10/20 11/16/20 predniSONE [Prednisone] 5 mg PO DAILY 01/10/20 11/16/20 Metoprolol Tartrate 25 mg PO BID #60 tablet 01/11/20 11/16/20 Potassium Chloride [K-Dur] 20 meq PO DAILYWM #30 tablet 01/11/20 11/16/20 Acetaminophen [Tylenol] 650 mg PO DAILY PRN 03/15/20 11/16/20 - Allergies Allergies/Adverse Reactions: Allergies Allergy/AdvReac Type Severity Reaction Status Date / Time No Known Drug Allergies Allergy Verified 11/16/20 14:01 Review of Systems - Constitutional Constitutional: reports: Other (declined weight today; 147.3lb 07/05/2020; 09/14/19 162.7lb). denies: Fatigue, Fever - Ears, Nose & Throat Ears, Nose & Throat: reports: Dentures (does not wear his dentures) - Cardiovascular Cardiovascular: denies: Edema - Respiratory Respiratory: denies: SOB with exertion - Gastrointestinal Gastrointestinal: reports: Good appetite (per staff). denies: Abdominal pain - Musculoskeletal Musculoskeletal: reports: Assistive devices (rollator). denies: Joint pain - Integumentary Integumentary: reports: Dryness - Neurological Neurological: reports: General weakness, Other (+developmental delay) - Hematologic/Lymphatic Hematologic/Lymph: reports: Anemia - All Other Systems All Other Systems: reports: Reviewed and negative (As patient would not engage fully in evaluation, ROS supplemented by DARIELA Olmstead at facility.) Physical Exam - Physical Exam General Appearance: positive: No acute distress, Alert, Other (frail, elderly man sitting on his recliner outside, slightly dishelved) Eyes Bilateral: positive: Other (B/l temporal wasting) ENT: positive: No signs of dehydration Neck: positive: Trachea midline Cardiovascular: positive: Regular rate & rhythm Respiratory: positive: No respiratory distress, Breath sounds nml Abdomen: positive: Other (declined assessment) Skin: positive: Dryness Neurologic/Psychiatric: positive: Oriented x3, Other (Suspicious and did not want to particpate in evaluation stating that he was "fine and to go bother someone else.") Comments/Other: Refused vital sign obtainment Palliative Care - POLST Patient has POLST: Yes POLST Status: DNR, Selective Treatment Pain: No pain Constipation: No Performance Status: Patient is ambulatory with his walker. Intermittent mechanical falls none recently. Able to self feed. Requires cueing regarding personal hygiene. - Palliative Care Discussion: The patient has had his guardianship transferred from his stepbrother along to a state appointed guardian and continues to reside after [facility]. Given his longstanding autism and developmental delays he is not capable of making medical decisions independently and requires oversight. He continues to refrain from interacting with this AREA OPERATIONS MANAGER and not wishing to engage and discuss how he is feeling. Per facility staff things are status quo and no concerns at the present time and he continues to receive oncological treatment at the [facility] at [facility]. Impression and Recommendations - Palliative Care Impression: This is an 80-year-old man with autism and developmental delay residing at [facility] with a history of castrate resistant prostate cancer stage IV with bony mets in the setting of stable weight loss. He does not perceive any symptom burden related to his comorbidities including pain. He continues to receive treatment for his prostate cancer. Palliative care to continue provide support, care coordination and anticipatory guidance. Recommendations/Counseling Done: 1. Metastatic prostate cancer. No perceived symptom burden outside of previous weight loss. Last follow-up with oncology on 11/16/2020. Continues on prednisone and abiraterone therapy. Has resumed Lupron injections with next dose due in January 2021. PSA 1.01 on 11/16/2020. Continue be followed by oncology. 2. Developmental delay in the setting of autism. Longstanding history. Patient presents as a school-aged child cognitively about the age of 6-7. Continues with childlike behavior not wishing to engage with this palliative care AREA OPERATIONS MANAGER or other healthcare providers. The patient requires support for complex medical decision making and Now has a court appointed guardian from the [facility], Marla Lopes. 3. Advanced care planning. Patient has POLST in place as DN AR with selective interventions. The patient continues to do as he pleases including to Bacot use with cigarettes. He continues to refrain from engaging with members of the medical community and has a childlike disposition due to his longstanding autism and developmental delay. Continues to require medical decision assistance. CPT 11446 Disclaimer: The chart note was formulated using voice recognition technology and unfortunately sound alike errors may occur.
== END 2020-12-26 12:16 | disposition home or self-care (01) ==
LOC: PC 12:15
PROVIDERS: ATTEND Nurse Practitioner Family
DX: Z51.5 Encounter for palliative care (principal); C61 Malignant neoplasm of prostate; C79.51 Secondary malignant neoplasm of bone; F17.210 Nicotine dependence, cigarettes, uncomplicated; R63.4 Abnormal weight loss; F41.9 Anxiety disorder, unspecified; D64.9 Anemia, unspecified; F84.0 Autistic disorder; R62.50 Unspecified lack of expected normal physiological development in childhood; I12.9 Hypertensive chronic kidney disease with stage 1 through stage 4 chronic kidney disease, or unspecified chronic kidney disease; N18.9 Chronic kidney disease, unspecified; Z66 Do not resuscitate

== ENCOUNTER 2021-05-27 08:35 | Outpatient (CLI) | payer MEDICARE, MEDICAID | END 2021-05-27 08:36 | disposition critical access hospital (66) | LOC: EMS 08:35 | DX: R09.89 Other specified symptoms and signs involving the circulatory and respiratory systems (principal); I95.9 Hypotension, unspecified; R53.1 Weakness | CPT/HCPCS: A0425; A0427 ==

== ENCOUNTER 2021-05-27 08:52 | Emergency (ER) | payer MEDICARE, MEDICAID ==
--- NOTE | 2021-05-27 09:00 | ED Physician Documentation ---
PD HPI DYSPNEA - Stated complaint Stated Complaint: RESP DISTRESS - History obtained from History obtained from: Patient, EMS, Caregiver - History of Present Illness Timing - onset: Today (Caregivers reported through EMS that the patient was h ypoxic in the upper 80s and had low blood pressure transiently this morning. Recent infection last week with apparent COVID. He has history of autism and is poor historian.) Timing - onset during: Rest (noted on morning assessments at SNF.) Timing - duration: Hours Timing - details: Other (unknown duration of abnormal vitals. Reported okay yesterday and has been acting normally last evening.) Inciting event(s): URI (he states he was quarantined in his room for 7 days last week with congestion/cough.) Improved by: O2 (EMS noted his sats in 90s on their arrival, and gave pt oxygen NC for symptoms. BP was okay on their arrival.) Associated symptoms: Cough. No: Fever, Chest pain / discomfort, Bilateral edema Recently seen: Clinic (had blood tests and recent visit with Oncology last week.) Review of Systems Unable to obtain: Other (somewhat poor memory per patient/caregivers.) Constitutional: denies: Fever Nose: reports: Congestion Cardiac: denies: Chest pain / pressure Respiratory: reports: Cough GI: denies: Abdominal Pain, Diarrhea, Bloody / black stool Musculoskeletal: denies: Neck pain, Back pain Neurologic: denies: Near syncope, Syncope PD PAST MEDICAL HISTORY - Past Medical History Cardiovascular: Hypertension Respiratory: None Neuro: Dementia Endocrine/Autoimmune: None GI: None, Other : Renal insuffiency, Other HEENT: None Psych: Anxiety Musculoskeletal: None Derm: None - Past Surgical History Past Surgical History: No - Present Medications Home Medications: Ambulatory Orders Medication Instructions Recorded Confirmed Acetaminophen [Tylenol] 650 mg PO TID 04/17/16 05/24/21 Loperamide [Imodium] 2 mg PO PRN PRN 11/25/19 05/24/21 Tamsulosin [Flomax] 0.4 mg PO QPM 01/10/20 05/24/21 predniSONE [Prednisone] 5 mg PO DAILY 01/10/20 05/24/21 Metoprolol Tartrate 25 mg PO BID #60 tablet 01/11/20 05/24/21 Potassium Chloride [K-Dur] 20 meq PO DAILYWM #30 tablet 01/11/20 05/24/21 Acetaminophen [Tylenol] 650 mg PO DAILY PRN 03/15/20 05/24/21 Enzalutamide [Xtandi] 40 mg PO QID 02/07/21 05/24/21 Amoxicillin 500 mg PO TID #21 cap 05/27/21 Ferrous Sulfate 325 mg PO DAILY 30 Days #30 tab 05/27/21 - Allergies Allergies/Adverse Reactions: Allergies Allergy/AdvReac Type Severity Reaction Status Date / Time No Known Drug Allergies Allergy Verified 05/27/21 09:00 - Social History Does the pt smoke?: No Smoking Status: Never smoker Does the pt drink ETOH?: No Does the pt have substance abuse?: No - Immunizations Immunizations are current?: Yes - POLST Patient has POLST: Yes PD ED PE NORMAL - Vitals Vital signs reviewed: Yes - General General: Alert and oriented X 3 (not sure of day per se, but otherwise brightly alert. ), No acute distress, Well developed/nourished - Neck Neck: Supple, no meningeal sign, No adenopathy - Cardiac Cardiac: RRR, No murmur - Respiratory Respiratory: Clear bilaterally - Abdomen Abdomen: Normal bowel sounds, Soft, Non tender, Non distended - Male Male : Other (normal exam) - Rectal Rectal: Other (soft dark brown stool in vault and on Depends, tests guaiac ne gative. ) - Derm Derm: Normal color, Warm and dry - Extremities Extremities: No tenderness to palpate, Normal ROM s pain, No edema, No calf tenderness / cord - Neuro Neuro: Alert and oriented X 3, No motor deficit, Normal speech Eye Opening: Spontaneous Motor: Obeys Commands Verbal: Oriented GCS Score: 15 Results - Vitals Vitals: Vital Signs - 24 hr 05/27/21 05/27/21 05/27/21 08:54 12:06 13:00 Temperature 36.7 C Heart Rate 60 62 61 Respiratory 17 22 25 H Rate Blood Pressure 106/64 132/70 H 144/64 H O2 Saturation 94 96 96 05/27/21 13:40 Temperature 36.6 C Heart Rate Respiratory Rate Blood Pressure O2 Saturation Oxygen O2 Source [Without Activity] Room air O2 Source Room air - EKG (time done) 09:05 Rate: Rate (enter#) (55) Rhythm: Sinus bradycardia [place]: Normal Intervals: Normal [place] QRS: Normal Ischemia: Normal ST segments. No: ST elevation c/w ischemia, ST depression - Labs Labs: Microbiology 05/27/21 10:07 Occult Blood - Final Stool - Loose Consistency Laboratory Tests 05/27/21 05/27/21 05/27/21 09:18 09:18 09:18 WBC 7.8 RBC 2.10 L Hgb 7.8 L Hct 22.6 L MCV 107.6 H MCH 37.1 H MCHC 34.5 RDW 16.3 H Plt Count 398 MPV 9.6 Neut # (Auto) 7.3 H Lymph # (Auto) 0.1 L [place] # (Auto) 0.2 Eos # (Auto) 0.0 Baso # (Auto) 0.0 Absolute Nucleated RBC 0.03 Nucleated RBC % 0.4 Sodium 137 Potassium 4.3 Chloride 106 Carbon Dioxide 22 Anion Gap 9.0 BUN 40 H Creatinine 0.9 Estimated GFR (MDRD) 81 L Glucose 122 H Calcium 8.1 L Magnesium 2.2 Iron TIBC % Saturation Transferrin Total Bilirubin 0.7 AST 18 ALT 14 Alkaline Phosphatase 64 Troponin I High Sens 14.4 B-Natriuretic Peptide Total Protein 6.1 L Albumin 2.5 L Globulin 3.6 Albumin/Globulin Ratio 0.7 L Lipase 26 Vitamin B12 Folate Nasal Adenovirus (PCR) Nasal B. parapertussis DNA (PCR) Nasal Coronavir 229E PCR Nasal Coronavir HKU1 PCR Nasal Coronavir NL63 PCR Nasal Coronavir OC43 PCR Nasal Enterovir/Rhinovir PCR Nasal Influenza B PCR Nasal Influenza A PCR Nasal Parainfluen 1 PCR Nasal Parainfluen 2 PCR Nasal Parainfluen 3 PCR Nasal Parainfluen 4 PCR Nasal RSV (PCR) Nasal B.pertussis DNA PCR Nasal C.pneumoniae (PCR) Cj Human Metapneumo PCR Nasal M.pneumoniae (PCR) Nasal SARS-CoV-2 (PCR) 05/27/21 05/27/21 05/27/21 09:18 09:18 09:18 WBC RBC Hgb Hct MCV MCH MCHC RDW Plt Count MPV Neut # (Auto) Lymph # (Auto) [place] # (Auto) Eos # (Auto) Baso # (Auto) Absolute Nucleated RBC Nucleated RBC % Sodium Potassium Chloride Carbon Dioxide Anion Gap BUN Creatinine Estimated GFR (MDRD) Glucose Calcium Magnesium Iron 12 L TIBC 216 L % Saturation 6 L Transferrin 154 L Total Bilirubin AST ALT Alkaline Phosphatase Troponin I High Sens B-Natriuretic Peptide 633 H Total Protein Albumin Globulin Albumin/Globulin Ratio Lipase Vitamin B12 < 50 L Folate 11.42 Nasal Adenovirus (PCR) Nasal B. parapertussis DNA (PCR) Nasal Coronavir 229E PCR Nasal Coronavir HKU1 PCR Nasal Coronavir NL63 PCR Nasal Coronavir OC43 PCR Nasal Enterovir/Rhinovir PCR Nasal Influenza B PCR Nasal Influenza A PCR Nasal Parainfluen 1 PCR Nasal Parainfluen 2 PCR Nasal Parainfluen 3 PCR Nasal Parainfluen 4 PCR Nasal RSV (PCR) Nasal B.pertussis DNA PCR Nasal C.pneumoniae (PCR) Cj Human Metapneumo PCR Nasal M.pneumoniae (PCR) Nasal SARS-CoV-2 (PCR) 05/27/21 10:22 WBC RBC Hgb Hct MCV MCH MCHC RDW Plt Count MPV Neut # (Auto) Lymph # (Auto) [place] # (Auto) Eos # (Auto) Baso # (Auto) Absolute Nucleated RBC Nucleated RBC % Sodium Potassium Chloride Carbon Dioxide Anion Gap BUN Creatinine Estimated GFR (MDRD) Glucose Calcium Magnesium Iron TIBC % Saturation Transferrin Total Bilirubin AST ALT Alkaline Phosphatase Troponin I High Sens B-Natriuretic Peptide Total Protein Albumin Globulin Albumin/Globulin Ratio Lipase Vitamin B12 Folate Nasal Adenovirus (PCR) NOT DETECTED Nasal B. parapertussis DNA (PCR) NOT DETECTED Nasal Coronavir 229E PCR NOT DETECTED Nasal Coronavir HKU1 PCR NOT DETECTED Nasal Coronavir NL63 PCR NOT DETECTED Nasal Coronavir OC43 PCR NOT DETECTED Nasal Enterovir/Rhinovir PCR NOT DETECTED Nasal Influenza B PCR NOT DETECTED Nasal Influenza A PCR NOT DETECTED Nasal Parainfluen 1 PCR NOT DETECTED Nasal Parainfluen 2 PCR NOT DETECTED Nasal Parainfluen 3 PCR NOT DETECTED Nasal Parainfluen 4 PCR NOT DETECTED Nasal RSV (PCR) NOT DETECTED Nasal B.pertussis DNA PCR NOT DETECTED Nasal C.pneumoniae (PCR) NOT DETECTED Cj Human Metapneumo PCR NOT DETECTED Nasal M.pneumoniae (PCR) NOT DETECTED Nasal SARS-CoV-2 (PCR) DETECTED A - Rads (name of study) chest xray Radiology: Prelim report reviewed (small left effusion and prominent interstitial changes), See rad report PD MEDICAL DECISION MAKING - ED course Complexity details: reviewed old records (prior lab from week ago with anemia then, but more normal H/H in March. Palliative Care notes noted. ), reviewed results (Rad reading concern for CHF, but also consider pneumonitis. Given positive COVID test, appears more pneumonia. Does not seem failure. ), re- evaluated patient (He is still appearing well here with normal conversation and unlabored breathing. He denies any chest or belly pain. He appears stable and vitals.), considered differential (worsened anemia in the past month. Guaiac negative stool. Had COVID last week, with still positive test and CXR c/w pneumonia. Consider secondary infection as well. ), d/w patient Departure - Departure Disposition: Home, Self Care Clinical Impression: Pneumonia due to COVID-19 virus, Dyspnea, Anemia Condition: Stable Record reviewed to determine appropriate education?: Yes Instructions: ED Anemia Type Not Specified, ED Dyspnea Shortness of Breath Follow-Up: Karissa Rehman ARNP, FNP-DIANE [Provider Admit Priv/Credential] - KALLI SHINE MD [Provider Admit Priv/Credential] - Prescriptions: Amoxicillin 500 mg PO TID #21 cap Ferrous Sulfate 325 mg PO DAILY 30 Days #30 tab Comments: Your blood count is showing anemia. No signs of blood in your stool however. I presume your not making it adequately. We can try adding an iron supplement daily and see if that helps. Follow-up with Dr. Shine your account development manager/oncologist regarding further evaluation of that or treatment. Your oxygenation is good here. Your chest x-ray shows a mild small infiltrate. This may be the residual of COVID infection or could be a secondary pneumonia developing. We can treat with amoxicillin 3 times daily for a week for possible pneumonia. Otherwise you look pretty good here and at do not see an acute need for hospitalization. Return if worsening. Discharge Date/Time: 05/27/21 14:19
[2021-05-27 09:22] LABS: BASOPHILS % (AUTO) 0.1 %; EOSINOPHILS % (AUTO) 0.1 %; HCT - HEMATOCRIT 22.6 % (42.0-52.0); HGB - HEMOGLOBIN 7.8 g/dL (14.0-18.0); LYMPHOCYTES # (AUTO) 0.1 10^3/uL (1.5-3.5); LYMPHOCYTES % (AUTO) 1.2 %; MEAN CORPUSCULAR HEMOGLOBIN 37.1 pg (27.0-31.0); MEAN CORPUSCULAR HGB CONC 34.5 g/dL (32.0-36.0); MEAN CORPUSCULAR VOLUME 107.6 fL (80.0-94.0); MEAN PLATELET VOLUME 9.6 fL (7.4-11.4); MONOCYTES # (AUTO) 0.2 10^3/uL (0.0-1.0); NEUTROPHILS # (AUTO) 7.3 10^3/uL (1.5-6.6); NEUTROPHILS % (AUTO) 93.4 %; NRBC ABSOLUTE COUNT (AUTO) 0.03 x10^3/uL; NUCLEATED RED BLOOD CELLS AUTO 0.4 /100WBC; PLT - PLATELET COUNT 398 10^3/uL (130-450); RED CELL DISTRIBUTION WIDTH 16.3 % (12.0-15.0); WHITE BLOOD COUNT 7.8 x10^3/uL (4.8-10.8)
--- NOTE | 2021-05-27 09:35 | XRAY Report ---
PROCEDURE: Chest 1 View X-Ray INDICATIONS: Chest Pain TECHNIQUE: One view of the chest was acquired. COMPARISON: 03/12/2015, correlation is also made with prior chest CT, 03/17/2020 FINDINGS: Surgical changes and devices: None. Lungs and pleura: There is a small left-sided pleural effusion. Mild generalized interstitial promin ence can be seen, left worse than right. Mediastinum: The aorta is prominent and tortuous. The cardiac contours are within normal limits. Bones and chest wall: No suspicious bony lesions. Age-appropriate degenerative changes are seen. Overlying soft tissues appear unremarkable. IMPRESSION: Small left-sided pleural effusion with generalized interstitial prominence. The heart size is not nhi ear enlarged. Please correlate with fluid overload. Differential diagnosis with interstitial prominence includes atypical infiltrate, including COVID pne umonia, however. Reviewed by: Mac Badillo MD on 05/27/2021 8:34 AM [place] Approved by: Mac Badillo MD on 05/27/2021 8:34 AM [facility] Station ID: [id number]
[2021-05-27 09:38] LABS: ALBUMIN 2.5 g/dL (3.2-5.5); ALBUMIN/GLOBULIN RATIO 0.7 (1.0-2.2); BILIRUBIN,TOTAL 0.7 mg/dL (0.2-1.0); CALCIUM 8.1 mg/dL (8.5-10.3); CREATININE 0.9 mg/dL (0.6-1.2); MAGNESIUM 2.2 mg/dL (1.7-2.8); POTASSIUM 4.3 mmol/L (3.5-5.0); TOTAL PROTEIN 6.1 g/dL (6.7-8.2)
[2021-05-27 11:38] LABS: B. PARAPERTUSSIS- RESP PCR PAN NOT DETECTED; B. PERTUSSIS- RESP PCR PANEL NOT DETECTED; C. PNEUMONIAE- RESP PCR PANEL NOT DETECTED; CORONAVIRUS 229E-RESP PCR NOT DETECTED; CORONAVIRUS HKU1-RESP PCR NOT DETECTED; CORONAVIRUS NL63-RESP PCR NOT DETECTED; CORONAVIRUS OC43-RESP PCR NOT DETECTED; HUMAN METAPNEUMOVIRUS NOT DETECTED; INFLUENZA A- RESP PCR PANEL NOT DETECTED; INFLUENZA B - RESP PCR PANEL NOT DETECTED; M. PNEUMONIAE- RESP PCR PANEL NOT DETECTED; PARAINFLUENZA VIRUS 1 NOT DETECTED; PARAINFLUENZA VIRUS 2 NOT DETECTED; PARAINFLUENZA VIRUS 3 NOT DETECTED; PARAINFLUENZA VIRUS 4 NOT DETECTED; RHINOVIRUS/ENTEROVIRUS NOT DETECTED; RSV- RESP PCR PANEL NOT DETECTED
[2021-05-27 11:42] LABS: SARS-CoV-2 -RESP PCR PANEL DETECTED
[2021-05-27] MEDS ORDERED: AMOXICILLIN 250 MG CAPSULE PO STA (11:51)
[2021-05-27 12:32] LABS: % IRON SATURATION 6 % (20-50); IRON 12 ug/dL (45-182); TOTAL IRON BINDING CAPACITY 216 ug/dL (250-450); TRANSFERRIN 154 mg/dL (180-329)
[2021-05-27 12:58] LABS: FOLATE 11.42 ng/mL (5.90 - >24.8)
[2021-05-27 14:19] VITALS: BP 144/64
== END 2021-05-27 14:19 | disposition home or self-care (01) ==
LOC: EDUNIT# → ED 08:52
DX: U07.1 COVID-19 (principal); J12.82 Pneumonia due to coronavirus disease 2019; I10 Essential (primary) hypertension; D64.9 Anemia, unspecified
CPT/HCPCS: 36415; 71045; 80053; 82272; 82607; 82746; 83540; 83690; 83735; 83880; 84466; 84484; 85025; 87631; 93005; 99283; 99284; A9270; 0202U

== ENCOUNTER 2021-05-27 14:17 | Outpatient (CLI) | payer MEDICARE, MEDICAID | END 2021-05-27 14:18 | disposition home or self-care (01) | LOC: EMS 14:17 | PROVIDERS: ATTEND Emergency Medicine | DX: U07.1 COVID-19 (principal); F84.0 Autistic disorder | CPT/HCPCS: A0425; A0428 ==

== ENCOUNTER 2021-05-29 22:28 | Outpatient (CLI) | payer MEDICARE, MEDICAID | END 2021-05-29 22:29 | disposition critical access hospital (66) | LOC: EMS 22:28 | DX: U07.1 COVID-19 (principal); J12.82 Pneumonia due to coronavirus disease 2019 | CPT/HCPCS: A0425; A0429 ==

== ENCOUNTER 2021-05-29 22:44 | Inpatient (IN) | payer MEDICARE, MEDICAID ==
--- NOTE | 2021-05-29 22:54 | ED Physician Documentation ---
PD HPI DYSPNEA - Stated complaint Stated Complaint: SOB - History obtained from History obtained from: Patient, EMS - Additional information Additional information: 80-year-old gentleman with history of prostate cancer and dementia/developmental delay lives in assisted living. He was seen here by my partner a couple of days ago for pneumonia. He had previously tested positive for Covid, and was still positive by PCR 2 days ago. They have been checking his pulse oximetry frequently and noted low sats today. Patient feels fine, denies shortness of breath or pain anywhere. He is on amoxicillin for his pneumonia. Review of the chart shows that he has metastatic prostate cancer and autism as well as anemia and CKD stage III. Review of Systems Ten Systems: 10 systems reviewed and negative Constitutional: denies: Fever, Chills Nose: reports: Reviewed and negative Throat: reports: Reviewed and negative PD PAST MEDICAL HISTORY - Past Medical History Cardiovascular: Hypertension Respiratory: None Neuro: Dementia Endocrine/Autoimmune: None GI: None, Other : Renal insuffiency, Other HEENT: None Psych: Anxiety Musculoskeletal: None Derm: None - Past Surgical History Past Surgical History: No - Present Medications Home Medications: Ambulatory Orders Medication Instructions Recorded Confirmed Acetaminophen [Tylenol] 650 mg PO TID 04/17/16 05/24/21 Loperamide [Imodium] 2 mg PO PRN PRN 11/25/19 05/24/21 Tamsulosin [Flomax] 0.4 mg PO QPM 01/10/20 05/24/21 predniSONE [Prednisone] 5 mg PO DAILY 01/10/20 05/24/21 Metoprolol Tartrate 25 mg PO BID #60 tablet 01/11/20 05/24/21 Potassium Chloride [K-Dur] 20 meq PO DAILYWM #30 tablet 01/11/20 05/24/21 Acetaminophen [Tylenol] 650 mg PO DAILY PRN 03/15/20 05/24/21 Enzalutamide [Xtandi] 40 mg PO QID 02/07/21 05/24/21 Amoxicillin 500 mg PO TID #21 cap 05/27/21 Ferrous Sulfate 325 mg PO DAILY 30 Days #30 tab 05/27/21 - Allergies Allergies/Adverse Reactions: Allergies Allergy/AdvReac Type Severity Reaction Status Date / Time No Known Drug Allergies Allergy Verified 05/29/21 23:05 - Social History Does the pt smoke?: No Smoking Status: Never smoker Does the pt drink ETOH?: No Does the pt have substance abuse?: No - Immunizations Immunizations are current?: Yes - POLST Patient has POLST: Yes PD ED PE NORMAL - Vitals Vital signs reviewed: Yes - General General: Alert and oriented X 3, Other (Jovial) - HEENT HEENT: PERRL, EOMI - Neck Neck: Supple, no meningeal sign, No bony TTP, No JVD - Cardiac Cardiac: RRR, No murmur - Respiratory Respiratory: No respiratory distress, Other (Quite rhonchorous throughout the lungs, appears not hypervolemic peripherally.) - Abdomen Abdomen: Soft, Non tender - Derm Derm: Normal color, Warm and dry - Extremities Extremities: No edema, No calf tenderness / cord - Neuro Neuro: Alert and oriented X 3, Normal speech Results - Vitals Vitals: Vital Signs - 24 hr 05/29/21 05/29/21 05/29/21 22:45 23:07 23:25 Temperature 36.2 C L Heart Rate 84 90 Respiratory 33 H 41 H Rate Blood Pressure 136/103 H 116/68 O2 Saturation 82 L 93 79 L 05/29/21 05/30/21 23:26 00:00 Temperature Heart Rate 78 Respiratory 22 Rate Blood Pressure 153/81 H O2 Saturation 98 98 Oxygen O2 Source [] Room air O2 Source Nasal cannula Oxygen Flow Rate 2 - EKG (time done) 2259 Rate: Rate (enter#) (83) Rhythm: NSR (w frequent PVCs) [place]: Normal Intervals: Normal [place], Prolonged QT (482msec) QRS: Normal Ischemia: Non specific changes. No: ST elevation c/w ischemia, ST depression - Labs Labs: Laboratory Tests 05/29/21 05/29/21 05/29/21 23:18 23:18 23:18 WBC 9.2 RBC 2.63 L Hgb 9.6 L Hct 28.4 L MCV 108.0 H MCH 36.5 H MCHC 33.8 RDW 16.3 H Plt Count 300 MPV 9.9 Neut # (Auto) 8.2 H Lymph # (Auto) 0.2 L [place] # (Auto) 0.3 Eos # (Auto) 0.1 Baso # (Auto) 0.0 Absolute Nucleated RBC 0.10 Nucleated RBC % 1.1 D-Dimer > 1050.0 H Sodium 138 Potassium 4.7 Chloride 106 Carbon Dioxide 19 L Anion Gap 13.0 BUN 41 H Creatinine 1.0 Estimated GFR (MDRD) 72 L Glucose 115 H Lactic Acid Calcium 8.5 Phosphorus 3.8 Total Bilirubin 0.9 AST 20 ALT 14 Alkaline Phosphatase 86 B-Natriuretic Peptide Total Protein 6.6 L Albumin 2.5 L Globulin 4.1 Albumin/Globulin Ratio 0.6 L 05/29/21 05/29/21 23:18 23:46 WBC RBC Hgb Hct MCV MCH MCHC RDW Plt Count MPV Neut # (Auto) Lymph # (Auto) [place] # (Auto) Eos # (Auto) Baso # (Auto) Absolute Nucleated RBC Nucleated RBC % D-Dimer Sodium Potassium Chloride Carbon Dioxide Anion Gap BUN Creatinine Estimated GFR (MDRD) Glucose Lactic Acid 1.7 Calcium Phosphorus Total Bilirubin AST ALT Alkaline Phosphatase B-Natriuretic Peptide 422 H Total Protein Albumin Globulin Albumin/Globulin Ratio - Rads (name of study) Single view chest x-ray demonstrates worsening airspace opacity and a small left pleural effusion Radiology: EMP read contemporaneously PD MEDICAL DECISION MAKING - ED course ED course: 80-year-old gentleman with recent Covid presents with significant hypoxemia, noted to be down to 79% on room air here. Very high D-dimer and CT pulmonary angiogram was done without evidence of at least large PE but it was somewhat limited. Does have a mixed interstitial airspace opacity in the lungs and small effusion on the left with overlying atelectasis and consolidation. I suspect most of these findings are due to Covid pneumonia. Given his hypoxemia I spoke with Dr. Tomlinson for admission at 1:28 AM. Departure - Departure Disposition: 66 [facility] DC/Xfer Clinical Impression: Pneumonia due to COVID-19 virus Condition: Serious
--- NOTE | 2021-05-29 23:22 | XRAY Report ---
PROCEDURE: Chest 1 View X-Ray INDICATIONS: Hypoxemia TECHNIQUE: One view of the chest was acquired. COMPARISON: 05/27/2021 FINDINGS: Surgical changes and devices: None. Lungs and pleura: Small left pleural effusion with overlying atelectasis and likely consolidation. In creased interstitial markings in both lungs, more pronounced in the left lung base. Findings are wors ened when compared with 05/27/2021 exam. Mediastinum: Mediastinal contours appear normal. Heart size is normal. Bones and chest wall: No suspicious bony lesions. Overlying soft tissues appear unremarkable. IMPRESSION: Worsening airspace opacity and new small left pleural effusion when compared with 05/27/2021 study. Reviewed by: Hermilo Braxton MD on 05/29/2021 11:20 PM PST Approved by: Hermilo Braxton MD on 05/29/2021 11:20 PM PST Station ID: [id number]
[2021-05-29 23:29] LABS: BASOPHILS % (AUTO) 0.2 %; EOSINOPHILS # (AUTO) 0.1 10^3/uL (0.0-0.7); HCT - HEMATOCRIT 28.4 % (42.0-52.0); HGB - HEMOGLOBIN 9.6 g/dL (14.0-18.0); LYMPHOCYTES # (AUTO) 0.2 10^3/uL (1.5-3.5); LYMPHOCYTES % (AUTO) 2.6 %; MEAN CORPUSCULAR HEMOGLOBIN 36.5 pg (27.0-31.0); MEAN CORPUSCULAR HGB CONC 33.8 g/dL (32.0-36.0); MEAN PLATELET VOLUME 9.9 fL (7.4-11.4); MONOCYTES # (AUTO) 0.3 10^3/uL (0.0-1.0); MONOCYTES % (AUTO) 2.9 %; NEUTROPHILS # (AUTO) 8.2 10^3/uL (1.5-6.6); NEUTROPHILS % (AUTO) 88.7 %; NUCLEATED RED BLOOD CELLS AUTO 1.1 /100WBC; PLT - PLATELET COUNT 300 10^3/uL (130-450); RED BLOOD COUNT 2.63 10^6/uL (4.70-6.10); RED CELL DISTRIBUTION WIDTH 16.3 % (12.0-15.0); WHITE BLOOD COUNT 9.2 x10^3/uL (4.8-10.8)
[2021-05-29 23:39] LABS: ALBUMIN 2.5 g/dL (3.2-5.5); ALBUMIN/GLOBULIN RATIO 0.6 (1.0-2.2); BILIRUBIN,TOTAL 0.9 mg/dL (0.2-1.0); CALCIUM 8.5 mg/dL (8.5-10.3); PHOSPHORUS 3.8 mg/dL (2.5-4.6); POTASSIUM 4.7 mmol/L (3.5-5.0); TOTAL PROTEIN 6.6 g/dL (6.7-8.2)
[2021-05-30] MEDS ORDERED: iohexoL-300 100 ML VIAL ONE ×2 (00:16→00:50)
[2021-05-30] MEDS ORDERED: iohexoL-300 100 ML VIAL IVP ONE (01:03)
--- NOTE | 2021-05-30 01:23 | CT Report ---
PROCEDURE: ANGIO CHEST W/WO INDICATIONS: hypoxemia, high dimer, pe protocol CONTRAST: IV CONTRAST: Isovue 300 ml: 80 PO CONTRAST: *NO PO CONTRAST TECHNIQUE: After the administration of intravenous contrast, 2 mm axial images were acquired from the pulmonary apices to the posterior costophrenic angles during the arterial phase. In addition, 1 mm lung kernel and 5 mm soft tissue kernel reconstructions were performed. 3-dimensional coronal oblique maximum int ensity projection (MIP) reformats, 8 mm axial MIP, and 5 mm coronal and sagittal MPR reformats were t hen performed through the thorax. For radiation dose reduction, the following was used: automated exp osure control, adjustment of mA and/or kV according to patient size. COMPARISON: Same day chest radiograph FINDINGS: Image quality: Limited by respiratory motion artifact. Pulmonary arteries: No central or proximal pulmonary embolus. Segmental and subsegmental arteries not well evaluated due to respiratory motion artifact. Lungs and pleura: Bilateral mixed interstitial and airspace opacity, nonspecific. Small left pleural effusion. Mediastinum: Heart size is normal, without pericardial effusion. No mediastinal or hilar adenopathy . Thoracic aorta is normal in caliber and enhancement. Esophagus is normal in caliber, without hiat al hernia. Bones and chest wall: No suspicious bony lesions. Ribs and thoracic spine appear intact throughout. No axillary or supraclavicular adenopathy. The thyroid is normal in size and there are no incident al findings. Abdomen: Visualized upper abdominal solid organs appear normal in the early arterial phase of enhanc ement. IMPRESSION: Small effusion with overlying atelectasis and consolidation. Mixed interstitial airspace opacity in the lungs with basilar and perihilar predominance. FINDINGS:. No evidence of central/proximal pulmonary embolism. Distal pulmonary arteries not well evaluated due to respiratory motion artifact. Reviewed by: Hermilo Braxton MD on 05/30/2021 1:22 AM [facility] Approved by: Hermilo Braxton MD on 05/30/2021 1:22 AM PST Station ID: [id number]
[2021-05-30] MEDS ORDERED: ONDANSETRON ODT 4 MG TABLET TL PRN (01:36)
[2021-05-30] MEDS ORDERED: ONDANSETRON 4 MG/2 ML VIAL IVP PRN (01:36)
[2021-05-30] MEDS ORDERED: oxyCODONE 5 MG TABLET PO PRN (01:36)
[2021-05-30] MEDS ORDERED: ACETAMINOPHEN 325 MG TABLET PO PRN (01:36)
--- NOTE | 2021-05-30 01:36 | HISTORY & PHYSICAL EXAMINATION ---
Chief Complaint - Chief Complaint Chief Complaint: low O2 sat History of Present Illness - Admitted From Admitted From:: [facility] - History Obtained From Records Reviewed: [facility] History obtained from: Dr. Lam Exam Limitations: patient has developmental delay - History of Present Illness HPI Comment/Other: This gentleman has developmental delay and autism and has been living in an assisted living facility since his 50s. His past medical history significant for hypertension, a [place] fracture from a fall in March 2015, and an admission for failure to thrive in April 2016 with a subsequent diagnosis of micaela metastatic prostate cancer. He has been supported in his care with the palliative care team since March 2020. He was last admitted to the hospital in March 2020 for hyponatremia and dehydration secondary to hydrochlorothiazide. Out of prudence he was discharged on ciprofloxacin for an abnormal urinalysis. During that stay he also had an episode of atrial fibrillation and was started on metoprolol. Echocardiogram was not able to be done during that admission due to staffing. His last echocardiogram was March 2015 where her left ventricle had ejection fraction 65 to 70%. Left atrial index volume was 25 mL/m and normal. Right atrial size was also normal.He still likes to smoke after his meals. He does have a history of high blood pressure. He was seen in the emergency room and brought in by EMS on May 27. The staff at the [facility] was concerned because his blood pressure was low and he seemed to be short of breath. Antecedent symptoms included cough, congestion but there was no history of fever, chest pain, edema. His O2 sats were in the 80s on room air as well as having a low blood pressure. He is being quarantined in his room for 7 days for the cough and congestion and was reported Covid negative with their testing. When he came to the emergency room the patient said "I feel fine". His respirations were even, unlabored. He was 94 percent on room air. Blood pressure 106/64. He was treated as pneumonia. His chest x-ray had a small left-sided pleural effusion with generalized interstitial prominence. The differential diagnosis included atypical infiltrate, including Covid pneumonia and he was Covid positive.. He was sent back to his assisted living facility and treated with amoxicillin. He now returns back to us via EMS because his [facility] staff was checking his oxygen every hour and his O2 sats were again 80% on room air. With this evaluation he is 82% on room air. Tachypnea was present with a respiratory rate of [address] angiogram was done to make sure he was not having pulmonary embolism and he had small pleural effusions with overlying atelectasis and bilateral mixed interstitial and airspace opacities. He is normotensive, afebrile, and heart rate is controlled and stable. He is his baseline cognitive deficits. The ER provider notes that he does not have respiratory distress but he has rhonchorous lung sounds in all lung devlin. Does not appear to be hypovolemic peripherally. As such the patient is now being brought in for possible Covid pneumonia, hypoxemia. In palliative care consultation notes, he is definitely getting weaker. He is not going to meals in the dining spencer anymore and he has to have ensure. He prefers to stay in his room and he comes out to smoke his cigarettes. Treatment for his prostate cancer is abiraterone, prednisone, Lupron. His care is now supervised by a court appointed guardian. His stepsister, Henny, used to be his legal guardian. Upon her guardianship was transferred to her Matt. However, the patient has now been transferred to a state appointed guardian named Marla Porter at [phone]. Since that transfer, his stepbrother in law has not been visiting. He was last seen by palliative care December 26, 2020. He has no perceived symptom burden outside of weight loss. He has a cognitive level of about the age of 6-7. Childlike behavior that does not wish to engage. He requires support for complex decision making and that is his state appointed guardian. He is a POLST in place and he is a DO NOT RESUSCITATE with selective interventions. History - Past Medical History Cardiovascular: reports: Hypertension Respiratory: reports: None Neuro: reports: Other (cogitive delay w autism) Endocrine/Autoimmune: reports: None GI: reports: None, Other : reports: Renal insuffiency, Other (micaela meatastic prostate cancer) HEENT: reports: None Psych: reports: Anxiety Musculoskeletal: reports: None Derm: reports: None MRSA Hx?: No Other Past Medical History: Eczema herpeticum, Developmental delay, autism, Castrate-resistant prostate cancer stage 4, multifactory anemia, CKD stage 3, vit B12 deficiency - Family & Social History Family History: Mother: , Father: , Sister: Family History Comment/Other: He reports no family history to his knowledge.But due to his cognitive delay I did not know how much he can answer. With sister , and court-appointed guardian now, this may not be elicited. We will see if we can review old records to find. Living arrangement: Assisted living Living Situation: Alone, With caregiver(s) Social History Notes: He resides at [facility]. He reports smoking about 3 to 4 cigarettes a day and has been smoking for most of his life. He has no history of alcohol abuse. No history of recreational substance abuse. - Substance History Use: Uses substance without health or social issues: Tobacco - POLST Patient has POLST: Yes POLST Status: DNR Meds/Allgy - Home Medications Home Medications: Ambulatory Orders Medication Instructions Recorded Confirmed Acetaminophen [Tylenol] 650 mg PO TID 04/17/16 05/24/21 Loperamide [Imodium] 2 mg PO PRN PRN 11/25/19 05/24/21 Tamsulosin [Flomax] 0.4 mg PO QPM 01/10/20 05/24/21 predniSONE [Prednisone] 5 mg PO DAILY 01/10/20 05/24/21 Metoprolol Tartrate 25 mg PO BID #60 tablet 01/11/20 05/24/21 Potassium Chloride [K-Dur] 20 meq PO DAILYWM #30 tablet 01/11/20 05/24/21 Acetaminophen [Tylenol] 650 mg PO DAILY PRN 03/15/20 05/24/21 Enzalutamide [Xtandi] 40 mg PO QID 02/07/21 05/24/21 Amoxicillin 500 mg PO TID #21 cap 05/27/21 Ferrous Sulfate 325 mg PO DAILY 30 Days #30 tab 05/27/21 - Allergies Allergies/Adverse Reactions: Allergies Allergy/AdvReac Type Severity Reaction Status Date / Time No Known Drug Allergies Allergy Verified 05/29/21 23:05 Review of Systems - Other Findings Other Findings: This freddy gentleman, with cognitive delay, answers no to everything. He has no insight to his disease. He vaguely remembers that he has prostate cancer but does not seem to bother him. At this time he denies coughing, sneezing, chest congestion and does not remember that he was sick earlier this month. As such a review of systems is not really obtainable in this freddy man. Prior Level of Functionality: Ambulates in his assisted living facility with assist now. Getting weaker. Spends most of his time in his room. No durable medical equipment listed. Exam - Vital Signs Reviewed Vital Signs: Yes Vital Signs: Vital Signs x48h Temp Pulse Resp BP Pulse Ox 05/30/21 00:00 78 22 153/81 H 98 05/29/21 23:26 98 05/29/21 23:25 79 L 05/29/21 23:07 90 41 H 116/68 93 05/29/21 22:45 36.2 C L 84 33 H 136/103 H 82 L - Physical Exam General Appearance: positive: No acute distress, Alert, Other (Cheerful male, gives us a thumbs up when I asked him how he is doing. Again, no real insight to why he is here. But is cooperative, and answers questions when he can. He is not able to answer due to memory loss and cognitive delay at times but there is no shortness of breath) Eyes Bilateral: positive: PERRL, EOMI ENT: positive: Dry mucous membranes Neck: positive: No JVD. negative: Stiff neck Respiratory: positive: No respiratory distress, Rhonchi, Other (He is now on 4 L nasal cannula, able to complete full sentences, no use of accessory muscles And respiratory rate is down to 22 where it was in the 40s when he came in). negative: Wheezes, Rales Cardiovascular: positive: Regular rate & rhythm. negative: Systolic murmur, Gallop/S4 Peripheral Pulses: positive: 1+ Abdomen: positive: Non-tender, No organomegaly, Nml bowel sounds, No distention Skin: positive: Warm, Dry Extremities: positive: Full ROM, No pedal edema Neurologic/Psychiatric: positive: CN's nml (2-12) (Speaks with a very loud voice, I cannot tell if he is deaf or not), Motor nml, Disoriented to place, Disoriented to time, Other (Childlike demeanor, currently cooperative. In reading his previous notes he can get quite cranky and not want to talk) Conclusion/Plan - Problem List (1) Hypoxemia Conclusion/Plan: Due to Covid pneumonia. No previous history of metastatic disease to the lung, and he could have some early COPD but no wheezing, and no history of congestive heart failure. Plan: At this time we are treating him as Covid pneumonia and possible community- acquired pneumonia Inpatient stay He will receive therapeutic DVT treatment as opposed to prophylaxis due to his high D-dimer DO NOT RESUSCITATE status documented in medical record His power of accounting representative will have to be contacted tomorrow for her to be updated on his condition and first to make sure she has no other plans for his care (2) Pneumonia due to COVID-19 virus Conclusion/Plan: Ill for 7 days prior to being seen in the emergency room the . With that encounter he was not hypoxic enough. He is not hypoxic but beyond 7 days to 10 days of Covid infection from what I can tell on the timeline. Nevertheless will be treated with remdesivir and Decadron. He would be a candidate for monoclonal antibody therapy but our pharmacy does not stock this due to prohibitive cost for the critical critical access hospital. (3) Metastatic castration-resistant adenocarcinoma of prostate Conclusion/Plan: Followed by oncology at the medical ambulatory clinic. Just seen recently. To be continued on his therapy in the outpatient setting. Outpatient Flomax will be continued while here. (4) Autism Conclusion/Plan: Which leaves this unfortunate gentleman unable to participate in decision-making for his healthcare matters. Again, we will discuss the case with his court-appointed guardian and make sure there is no other issues that need to be addressed. Our plan is to return to his assisted living facility at discharge. (5) Atrial fibrillation Conclusion/Plan: Present with his previous admission. Not present at this time. He is on metoprolol for rate control. At least that was listed on his medication list from discharge January 2020. Will verify through pharmacy reconciliation if he still on it. Qualifiers: Atrial fibrillation type: paroxysmal Qualified Code(s): I48.0 - Paroxysmal atrial fibrillation (6) Anemia Conclusion/Plan: Anemia. Over the last 2 years his hemoglobin is very between 12 g and as low as 11 g. In May he was 8.4, then drifted down to 7.8, and today he is 9.6. In the past he carries a diagnosis of B12 deficiency. We will verify that that is a current diagnosis and resume B12 if necessary. B12 is not on his current medication list but it is an initial list and needs to be verified by pharmacy later this morning. Iron level was low on May 27 at 12. TIBC 216. Percent saturation 6. Transferrin 154. Oral iron to be started. Qualifiers: Anemia type: B12 deficiency - Lab Results Lab results reviewed: Yes Fish Bones: 05/29/21 23:18 05/29/21 23:18 - Diagnostic Imaging Results Diagnostic Imaging Results: positive: Final report reviewed Diagnostic Imaging Results Comments: Chest x-ray May 27. Early changes of pneumonia. Recheck May 29 with worsening airspace opacity and new small left pleural effusion when compared to May 27. CT angiogram done in the bank accountant hours of May 30 shows no pulmonary embolism, bilateral mixed interstitial and airspace opacity that is nonspecific. - EKG Results EKG Interpreted Independently: No EKG Comparison: Changed from prior EKG (Previous EKG with atrial fibrillation) EKG Findings: Sinus rhythm with PVCs. No acute ST-T wave changes
[2021-05-30] MEDS: SODIUM CHLORIDE 0.9% 1,000 ML IV SCH ×2 (02:34→12:42)
[2021-05-30] MEDS: SODIUM CHLORIDE FLUSH 0.9% 10 ML SYRINGE IVP PRN (02:34)
[2021-05-30 06:14] LABS: BASOPHILS % (AUTO) 0.1 %; EOSINOPHILS % (AUTO) 0.4 %; HCT - HEMATOCRIT 25.6 % (42.0-52.0); HGB - HEMOGLOBIN 8.7 g/dL (14.0-18.0); LYMPHOCYTES # (AUTO) 0.2 10^3/uL (1.5-3.5); LYMPHOCYTES % (AUTO) 1.9 %; MEAN CORPUSCULAR HEMOGLOBIN 36.1 pg (27.0-31.0); MEAN CORPUSCULAR VOLUME 106.2 fL (80.0-94.0); MEAN PLATELET VOLUME 9.8 fL (7.4-11.4); MONOCYTES # (AUTO) 0.3 10^3/uL (0.0-1.0); MONOCYTES % (AUTO) 2.7 %; NEUTROPHILS # (AUTO) 8.5 10^3/uL (1.5-6.6); NEUTROPHILS % (AUTO) 90.5 %; NRBC ABSOLUTE COUNT (AUTO) 0.11 x10^3/uL; NUCLEATED RED BLOOD CELLS AUTO 1.2 /100WBC; PLT - PLATELET COUNT 249 10^3/uL (130-450); RED BLOOD COUNT 2.41 10^6/uL (4.70-6.10); RED CELL DISTRIBUTION WIDTH 16.1 % (12.0-15.0); WHITE BLOOD COUNT 9.4 x10^3/uL (4.8-10.8)
[2021-05-30 06:48] LABS: CALCIUM 8.2 mg/dL (8.5-10.3); CREATININE 0.9 mg/dL (0.6-1.2); CRP - C-REACTIVE PROTEIN 27.1 mg/dL (0-1.0); POTASSIUM 4.5 mmol/L (3.5-5.0)
[2021-05-30] MEDS: cefTRIAXone 1 GM in SODIUM CHLORIDE 0.9% MINIBAG 100 ML IV SCH (08:33)
[2021-05-30] MEDS: DEXAMETHASONE 4 MG/ML VIAL IVP SCH (08:35)
[2021-05-30] MEDS: AZITHROMYCIN 250 MG TABLET PO SCH (08:38)
[2021-05-30] MEDS: TAMSULOSIN 0.4 MG CAPSULE PO SCH (08:39)
[2021-05-30] MEDS: FERROUS GLUCONATE 324 MG TABLET PO SCH (08:39)
[2021-05-30] MEDS ORDERED: NON FORMULARY MED (Remdesivir 200 MG) IV SCH (09:00)
[2021-05-30] MEDS ORDERED: ENOXAPARIN 80 MG/0.8 ML SYRINGE SUBQ SCH (09:00)
[2021-05-30] MEDS ORDERED: REMDESIVIR 100MG VIAL 200 MG in SODIUM CHLORIDE 0.9% 250 ML IV ONE (09:00)
[2021-05-30 09:45] LABS: % IRON SATURATION 8 % (20-50); IRON 16 ug/dL (45-182); TOTAL IRON BINDING CAPACITY 196 ug/dL (250-450); TRANSFERRIN 140 mg/dL (180-329)
[2021-05-30 09:59] LABS: FOLATE 10.38 ng/mL (5.90 - >24.8)
[2021-05-30] MEDS ORDERED: CYANOCOBALAMIN 1,000 MCG/ML VIAL IM ONE (10:23)
[2021-05-30] MEDS: NICOTINE 7 MG PATCH TOP SCH (12:35)
--- NOTE | 2021-05-30 12:58 | PHARMACY PROGRESS NOTE ---
- Best Possible Medication History Admit Date and Time: 05/30/21 0136 Processed by: Pharmacy Medication History completed: Yes Secondary Source(s): Facility MAR as ONLY source As the person ultimately responsible for medication therapy, providers are able to order a medication from an existing home medication list in [facility] via the "Reconcile Routine" prior to Confirmation of that medication by family support specialist. Such practice is discouraged except when the physician, in their clinical judgment, deems that a medical need exists for a medication without regard to previous use.
[2021-05-30] MEDS: SODIUM CHLORIDE FLUSH 0.9% 10 ML SYRINGE IVP SCH ×2 (13:28→17:07)
--- NOTE | 2021-05-30 14:19 | PROVIDER PROGRESS NOTE ---
Assessment/Plan - Problem List (1) Acute respiratory failure with hypoxia Assessment/Plan: Due to Covid pneumonia. No previous history of metastatic disease to the lung, and he could have some early COPD (being a current smoker) but no wheezing, and no history of congestive heart failure. Continue treating him as Covid pneumonia and possible community-acquired pneumonia He will receive therapeutic DVT treatment as opposed to prophylaxis due to his high D-dimer DO NOT RESUSCITATE status documented in medical record I have spoken to the power of agency sales development associate and updated her on his condition. No other detailed plans for his care (2) Pneumonia due to COVID-19 virus Conclusion/Plan: Ill for 7 days prior to being seen in the emergency room on May 27. With that encounter he was not hypoxic enough to need admission. Will be treated with remdesivir and Decadron now. (3) Metastatic castration-resistant adenocarcinoma of prostate Conclusion/Plan: Followed by oncology at the medical ambulatory clinic. Just seen recently. To be continued on his therapy in the outpatient setting. His Flomax will be continued while here. (4) Autism Conclusion/Plan: Autism leaves this unfortunate gentleman unable to participate in decision- making for his healthcare matters. Our plan is to return to his assisted living facility at discharge. This was discussed with the DPOA by phone today. (5) Atrial fibrillation Conclusion/Plan: PAfib was present with his previous admission. Currently he is in Aflutter with 4:1 block. He was on metoprolol for rate control. Unclear if he was on an anticoagulant for stroke prophylaxis. When I spoke to the DPOA, she was not even aware of his paroxysmal A. fib and confirmed that he has not been on anticoagulation. I presume he may be a fall risk and the DPOA said he is very much a fall risk. We will start 1 baby aspirin daily for stroke prophylaxis, which the DPOA agreed with. (6) Anemia Conclusion/Plan: Over the last 2 years his hemoglobin varied between 12 g and as low as 11 g, then drifted down to 7.8, and at admission he is 9.6. In the past he carries a diagnosis of B12 deficiency. We have verified that he is B12 deficient from a serum B12 level. Will give him im B12 x1 then resume B12 orally. (B12 is not on his current medication list). Iron level was low on May 27 at 12. TIBC 216. Percent saturation 6. Tr ansferrin 154. Oral iron was restarted. Qualifiers: Anemia type: B12 deficiency - Current Meds Current Meds: Current Medications Generic Name Dose Route Start Last Admin Trade Name Petra PRN Reason Stop Dose Admin Azithromycin 500 mg 05/30/21 09:00 05/30/21 08:38 Azithromycin 250 Mg Tablet PO 06/01/21 09:01 500 mg DAILY NORBERTO Administration Dexamethasone 6 mg 05/30/21 09:00 05/30/21 08:35 Dexamethasone 4 Mg/Ml Vial IVP 6 mg DAILY NORBERTO Administration Ferrous Gluconate 324 mg 05/30/21 08:00 05/30/21 08:39 Ferrous Gluconate 324 Mg Tablet PO 324 mg DAILYWM NORBERTO Administration Sodium Chloride 1,000 mls @ 100 mls/hr 05/30/21 02:00 05/30/21 12:42 Normal Saline 0.9% IV 05/30/21 21:59 100 mls/hr .Q10H NORBERTO Administration Ceftriaxone Sodium 1 gm/ 100 mls @ 200 mls/hr 05/30/21 09:00 05/30/21 10:17 Sodium Chloride IV Infused DAILY NORBERTO Infusion Nicotine 1 patch 05/30/21 11:00 05/30/21 12:35 Nicotine 7 Mg Patch TOP 1 patch DAILY NORBERTO Administration Sodium Chloride 10 ml 05/30/21 01:36 05/30/21 02:34 Sodium Chloride Flush 0.9% 10 Ml Syringe IVP 10 ml PRN PRN Administration NEEDED PER PROVIDER ORDERS Sodium Chloride 10 ml 05/30/21 09:00 05/30/21 13:28 Sodium Chloride Flush 0.9% 10 Ml Syringe IVP Not Given 0100,0900,1700 NORBERTO Tamsulosin HCl 0.4 mg 05/30/21 09:00 05/30/21 08:39 Tamsulosin 0.4 Mg Capsule PO 0.4 mg DAILY NORBERTO Administration - Lab Result Fish Bone Diagrams: 05/30/21 05:30 05/30/21 05:30 - Diagnostic Imaging Results Diagnostic Imaging Results: Final report reviewed - Additional Planning My Orders: My Active Orders 05/30/21 11:00 Nicotine 7 mg Patch [Nicoderm] 1 patch TOP DAILY 05/30/21 Dinner Regular Diet [DIET] 05/31/21 08:00 Multivitamin W/Minerals [Theragran M] 1 tab PO DAILYWM 05/31/21 09:00 Cyanocobalamin [Vitamin B-12] 500 mcg PO DAILY Subjective - Subjective Patient Reports: No Complaints Objective Vital Signs: Vital Signs - 24 hr 05/29/21 05/29/21 05/29/21 22:45 23:07 23:25 Temperature 36.2 C L Heart Rate 84 90 Heart Rate [ Brachial] Respiratory 33 H 41 H Rate Blood Pressure 136/103 H 116/68 Blood Pressure [Right Brachial artery] O2 Saturation 82 L 93 79 L 05/29/21 05/30/21 05/30/21 23:26 00:00 02:03 Temperature 36.8 C Heart Rate 78 Heart Rate [ 51 L Brachial] Respiratory 22 22 Rate Blood Pressure 153/81 H Blood Pressure 159/65 H [Right Brachial artery] O2 Saturation 98 98 92 05/30/21 05/30/21 02:33 08:00 Temperature 36.8 C Heart Rate Heart Rate [ 69 Brachial] Respiratory 20 22 Rate Blood Pressure Blood Pressure 129/58 L [Right Brachial artery] O2 Saturation 93 92 Oxygen O2 Source [Without Activity] Room air O2 Source Nasal cannula Oxygen Flow Rate 2 I&O (Last 24 Hrs): Intake and Output Totals x24h 05/28/21 05/29/21 05/30/21 23:59 23:59 23:59 Intake Total 1830 Output Total 200 Balance 1630 General: Alert ((Exam done remotely0) HEENT: Mucous membr. moist/pink Neck: Supple Neuro: Non Focal Cardiovascular: Other (Irreg on telem) Respiratory: No respiratory distress (wearing O2 via n.c.) Abdomen: Soft - Results Results: Laboratory Results WBC 9.4 x10^3/uL (4.8-10.8) 05/30/21 05:30 RBC 2.41 10^6/uL (4.70-6.10) L 05/30/21 05:30 Hgb 8.7 g/dL (14.0-18.0) L 05/30/21 05:30 Hct 25.6 % (42.0-52.0) L 05/30/21 05:30 MCV 106.2 fL (80.0-94.0) H 05/30/21 05:30 MCH 36.1 pg (27.0-31.0) H 05/30/21 05:30 MCHC 34.0 g/dL (32.0-36.0) 05/30/21 05:30 RDW 16.1 % (12.0-15.0) H 05/30/21 05:30 Plt Count 249 10^3/uL (130-450) 05/30/21 05:30 MPV 9.8 fL (7.4-11.4) 05/30/21 05:30 Neut # (Auto) 8.5 10^3/uL (1.5-6.6) H 05/30/21 05:30 Lymph # (Auto) 0.2 10^3/uL (1.5-3.5) L 05/30/21 05:30 [place] # (Auto) 0.3 10^3/uL (0.0-1.0) 05/30/21 05:30 Eos # (Auto) 0.0 10^3/uL (0.0-0.7) 05/30/21 05:30 Baso # (Auto) 0.0 10^3/uL (0.0-0.1) 05/30/21 05:30 Absolute Nucleated RBC 0.11 x10^3/uL 05/30/21 05:30 Nucleated RBC % 1.2 /100WBC 05/30/21 05:30 D-Dimer > 1050.0 ng/mL (200.0-255.0) H 05/30/21 05:30 Sodium 141 mmol/L (135-145) 05/30/21 05:30 Potassium 4.5 mmol/L (3.5-5.0) 05/30/21 05:30 Chloride 110 mmol/L (101-111) 05/30/21 05:30 Carbon Dioxide 20 mmol/L (21-32) L 05/30/21 05:30 Anion Gap 11.0 (6-13) 05/30/21 05:30 BUN 41 mg/dL (6-20) H 05/30/21 05:30 Creatinine 0.9 mg/dL (0.6-1.2) 05/30/21 05:30 Estimated GFR (MDRD) 81 (>89) L 05/30/21 05:30 Glucose 127 mg/dL (70-100) H 05/30/21 05:30 Lactic Acid 1.7 mmol/L (0.5-2.2) 05/29/21 23:46 Calcium 8.2 mg/dL (8.5-10.3) L 05/30/21 05:30 Phosphorus 3.8 mg/dL (2.5-4.6) 05/29/21 23:18 Iron 16 ug/dL (45-182) L 05/30/21 05:40 TIBC 196 ug/dL (250-450) L 05/30/21 05:40 % Saturation 8 % (20-50) L 05/30/21 05:40 Transferrin 140 mg/dL (180-329) L 05/30/21 05:40 Total Bilirubin 0.9 mg/dL (0.2-1.0) 05/29/21 23:18 AST 20 IU/L (10-42) 05/29/21 23:18 ALT 14 IU/L (10-60) 05/29/21 23:18 Alkaline Phosphatase 86 IU/L (42-121) 05/29/21 23:18 C-Reactive Protein 27.1 mg/dL (0-1.0) H 05/30/21 05:30 B-Natriuretic Peptide 422 pg/mL (5-100) H 05/29/21 23:18 Total Protein 6.6 g/dL (6.7-8.2) L 05/29/21 23:18 Albumin 2.5 g/dL (3.2-5.5) L 05/29/21 23:18 Globulin 4.1 g/dL (2.1-4.2) 05/29/21 23:18 Albumin/Globulin Ratio 0.6 (1.0-2.2) L 05/29/21 23:18 Vitamin B12 < 50 pg/mL (180-914) L 05/30/21 05:40 Folate 10.38 ng/mL (5.90 - >24.8) 05/30/21 05:40
[2021-05-30] MEDS: ASPIRIN EC 81 MG TABLET PO SCH (17:06)
[2021-05-30] MEDS: ENOXAPARIN 60 MG/0.6 ML SYRINGE SUBQ SCH (20:17)
[2021-05-31] MEDS: SODIUM CHLORIDE FLUSH 0.9% 10 ML SYRINGE IVP SCH ×3 (00:53→17:55)
[2021-05-31] MEDS ORDERED: MIN OIL/DIMETHICON/COCONUT OIL 92 GM TUBE TOP PRN (01:17)
[2021-05-31 05:48] LABS: BASOPHILS % (AUTO) 0.1 %; EOSINOPHILS % (AUTO) 0.4 %; HCT - HEMATOCRIT 28.5 % (42.0-52.0); HGB - HEMOGLOBIN 9.7 g/dL (14.0-18.0); LYMPHOCYTES # (AUTO) 0.3 10^3/uL (1.5-3.5); MEAN CORPUSCULAR HEMOGLOBIN 36.2 pg (27.0-31.0); MEAN CORPUSCULAR VOLUME 106.3 fL (80.0-94.0); MEAN PLATELET VOLUME 9.8 fL (7.4-11.4); MONOCYTES # (AUTO) 0.3 10^3/uL (0.0-1.0); MONOCYTES % (AUTO) 2.6 %; NEUTROPHILS # (AUTO) 9.4 10^3/uL (1.5-6.6); NEUTROPHILS % (AUTO) 89.4 %; NRBC ABSOLUTE COUNT (AUTO) 0.21 x10^3/uL; PLT - PLATELET COUNT 297 10^3/uL (130-450); RED BLOOD COUNT 2.68 10^6/uL (4.70-6.10); RED CELL DISTRIBUTION WIDTH 16.4 % (12.0-15.0); WHITE BLOOD COUNT 10.5 x10^3/uL (4.8-10.8)
[2021-05-31 06:17] LABS: CALCIUM 8.3 mg/dL (8.5-10.3); CREATININE 0.9 mg/dL (0.6-1.2); CRP - C-REACTIVE PROTEIN 22.1 mg/dL (0-1.0); POTASSIUM 3.9 mmol/L (3.5-5.0)
[2021-05-31] MEDS ORDERED: REMDESIVIR 100MG VIAL 100 MG in SODIUM CHLORIDE 0.9% 100ML 100 ML IV SCH (09:00)
[2021-05-31] MEDS: cefTRIAXone 1 GM in SODIUM CHLORIDE 0.9% MINIBAG 100 ML IV SCH (09:25)
[2021-05-31] MEDS: DEXAMETHASONE 4 MG/ML VIAL IVP SCH (09:26)
[2021-05-31] MEDS: NICOTINE 7 MG PATCH TOP SCH (09:31)
[2021-05-31] MEDS: AZITHROMYCIN 250 MG TABLET PO SCH (10:39)
[2021-05-31] MEDS: CYANOCOBALAMIN 500 MCG TABLET PO SCH (10:40)
[2021-05-31] MEDS: guaiFENesin 600 MG TABLET PO SCH ×2 (10:40→20:46)
[2021-05-31] MEDS: TAMSULOSIN 0.4 MG CAPSULE PO SCH (10:40)
[2021-05-31] MEDS: FERROUS GLUCONATE 324 MG TABLET PO SCH (10:41)
[2021-05-31] MEDS: MULTIVITAMIN W/MINERALS TABLET PO SCH (10:41)
[2021-05-31] MEDS: ASPIRIN EC 81 MG TABLET PO SCH (10:41)
[2021-05-31] MEDS: ENOXAPARIN 60 MG/0.6 ML SYRINGE SUBQ SCH ×2 (10:44→20:46)
--- NOTE | 2021-05-31 14:28 | PROVIDER PROGRESS NOTE ---
Assessment/Plan - Problem List (1) Acute respiratory failure with hypoxia Assessment/Plan: Hypoxia is due to Covid pneumonia, although he could have some COPD (being a current smoker) but there is no wheezing, and there is no history of CHF. Continue treating him as Covid pneumonia and possible community-acquired pneumonia Also, he will receive therapeutic DVT treatment as opposed to prophylaxis due to his high D-dimer DO NOT RESUSCITATE status documented in medical record I have spoken to the power of deputy prosecuting attorney yesterday and updated her on his condition. (2) Pneumonia due to COVID-19 virus Conclusion/Plan: He was ill for 7 days prior to being seen in the emergency room on May 27. With that encounter he was not hypoxic enough to need admission. He will be treated with Remdesivir planned for max of 5 days and Decadron max of 10 days. Continue supplemental O2, weaning down as tolerated. Isolation precautions. 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 To be continued on his therapy in the outpatient setting. His Flomax will be continued while here. (4) Autism Conclusion/Plan: Autism leaves this unfortunate gentleman unable to participate in decision-ma maria elena for his healthcare matters. Our plan is to return to his assisted living facility at discharge. This was discussed with the DPOA by phone yesterday. (5) Atrial fibrillation Conclusion/Plan: Paroxysmal Afib was present with his previous admission. Currently he is in Aflutter with 4:1 block. He was on metoprolol for rate control.He was not on an anticoagulant for stroke prophylaxis. When I spoke to the DPOA, she was not even aware of his paroxysmal A. fib and confirmed that he has not been on anticoagulation. I presume he may be a fall risk and the DPOA said he is very much a fall risk and has had fsalls before. We started 1 baby aspirin daily for stroke prophylaxis, which the DPOA agreed with. (6) Anemia Conclusion/Plan: Over the last 2 years his hemoglobin varied between 12 g and as low as 11 g, then drifted down to 7.8, and at admission he is 9.6. In the past he carries a diagnosis of B12 deficiency. We have verified that he is B12 deficient now, from a low serum B12 level. Will give him im B12 x1 then resume B12 orally. (B12 is not on his current medication list). Iron level was low on May 27 at 12. TIBC 216. Percent saturation 6. Transferrin 154. Oral iron was restarted. Qualifiers: Anemia type: B12 deficiency and Iron deficiency - Current Meds Current Meds: Current Medications Generic Name Dose Route Start Last Admin Trade Name Petra PRN Reason Stop Dose Admin Aspirin 81 mg 05/30/21 16:04 05/31/21 10:41 Aspirin Ec 81 Mg Tablet PO 81 mg DAILY NORBERTO Administration Azithromycin 500 mg 05/30/21 09:00 05/31/21 10:39 Azithromycin 250 Mg Tablet PO 06/01/21 09:01 500 mg DAILY NORBERTO Administration Cyanocobalamin 500 mcg 05/31/21 09:00 05/31/21 10:40 Cyanocobalamin 500 Mcg Tablet PO 500 mcg DAILY NORBERTO Administration Dexamethasone 6 mg 05/30/21 09:00 05/31/21 09:26 Dexamethasone 4 Mg/Ml Vial IVP 6 mg DAILY NORBERTO Administration Enoxaparin Sodium 60 mg 05/30/21 21:00 05/31/21 10:44 Enoxaparin 60 Mg/0.6 Ml Syringe SUBQ 60 mg BID NORBERTO Administration Ferrous Gluconate 324 mg 05/30/21 08:00 05/31/21 10:41 Ferrous Gluconate 324 Mg Tablet PO 324 mg DAILYWM NORBERTO Administration Guaifenesin 600 mg 05/31/21 09:00 05/31/21 10:40 Guaifenesin 600 Mg Tablet PO 600 mg BID NORBERTO Administration Ceftriaxone Sodium 1 gm/ 100 mls @ 200 mls/hr 05/30/21 09:00 05/31/21 10:00 Sodium Chloride IV Infused DAILY NORBERTO Infusion Remdesivir 100 mg/ Sodium 100 mls @ 200 mls/hr 05/31/21 09:00 05/31/21 12:02 Chloride IV 06/03/21 09:29 Infused DAILY NORBERTO Infusion Multivitamins/Minerals 1 tab 05/31/21 08:00 05/31/21 10:41 Multivitamin W/Minerals Tablet PO 1 tab DAILYWM NORBERTO Administration Nicotine 1 patch 05/30/21 11:00 05/31/21 09:31 Nicotine 7 Mg Patch TOP 1 patch DAILY NORBERTO Administration Sodium Chloride 10 ml 05/30/21 01:36 05/30/21 02:34 Sodium Chloride Flush 0.9% 10 Ml Syringe IVP 10 ml PRN PRN Administration NEEDED PER PROVIDER ORDERS Sodium Chloride 10 ml 05/30/21 09:00 05/31/21 09:25 Sodium Chloride Flush 0.9% 10 Ml Syringe IVP 10 ml 0100,0900,1700 NORBERTO Administration Tamsulosin HCl 0.4 mg 05/30/21 09:00 05/31/21 10:40 Tamsulosin 0.4 Mg Capsule PO 0.4 mg DAILY NORBERTO Administration - Lab Result Fish Bone Diagrams: 05/31/21 05:30 05/31/21 05:30 - Additional Planning My Orders: My Active Orders 05/30/21 16:04 Aspirin EC [Ecotrin] 81 mg PO DAILY 05/30/21 Dinner Regular Diet [DIET] 05/31/21 08:00 Multivitamin W/Minerals [Theragran M] 1 tab PO DAILYWM 05/31/21 08:30 Respiratory Care [RC] .QID 05/31/21 09:00 Cyanocobalamin [Vitamin B-12] 500 mcg PO DAILY guaiFENesin [Mucinex] 600 mg PO BID 05/31/21 10:10 RT [CPT - Chest Physical Therapy] [RC] TID 05/31/21 10:51 Miscellaenous Nursing Order [RC] QSHIFT Subjective - Subjective Patient Reports: Other (Minimally communicative) Nursing Reports: Other (Per RT, he appeared to be in more resp distresss this morning, despite a deacresing FIO2) Objective Vital Signs: Vital Signs - 24 hr 05/30/21 05/30/21 05/30/21 15:22 20:15 20:21 Temperature 36.7 C 36.8 C Heart Rate [ 90 130 H 52 L Brachial] Respiratory 22 28 H 26 H Rate Blood Pressure 135/66 H 165/66 H [Right Brachial artery] O2 Saturation 93 84 L 93 05/30/21 05/30/21 05/31/21 20:30 22:12 00:54 Temperature 36.8 C Heart Rate [ 62 50 L 52 L Brachial] Respiratory 20 22 28 H Rate Blood Pressure 159/75 H [Right Brachial artery] O2 Saturation 94 94 93 05/31/21 05/31/21 08:47 12:41 Temperature 36.6 C 36.6 C Heart Rate [ 83 95 Brachial] Respiratory 24 24 Rate Blood Pressure 150/75 H 142/75 H [Right Brachial artery] O2 Saturation 93 Oxygen O2 Source [Without Activity] Room air O2 Source Nasal cannula Oxygen Flow Rate 2 I&O (Last 24 Hrs): Intake and Output Totals x24h 05/29/21 05/30/21 05/31/21 23:59 23:59 23:59 Intake Total 3831 440 Output Total 250 350 Balance 3581 90 General: Alert HEENT: Mucous membr. moist/pink Neck: Supple Neuro: Alert, Non Focal Cardiovascular: Regular rate Respiratory: Other Abdomen: Soft Extremities: No edema, No tenderness/swelling - Results Results: Laboratory Results WBC 10.5 x10^3/uL (4.8-10.8) 05/31/21 05:30 RBC 2.68 10^6/uL (4.70-6.10) L 05/31/21 05:30 Hgb 9.7 g/dL (14.0-18.0) L 05/31/21 05:30 Hct 28.5 % (42.0-52.0) L 05/31/21 05:30 MCV 106.3 fL (80.0-94.0) H 05/31/21 05:30 MCH 36.2 pg (27.0-31.0) H 05/31/21 05:30 MCHC 34.0 g/dL (32.0-36.0) 05/31/21 05:30 RDW 16.4 % (12.0-15.0) H 05/31/21 05:30 Plt Count 297 10^3/uL (130-450) 05/31/21 05:30 MPV 9.8 fL (7.4-11.4) 05/31/21 05:30 Neut # (Auto) 9.4 10^3/uL (1.5-6.6) H 05/31/21 05:30 Lymph # (Auto) 0.3 10^3/uL (1.5-3.5) L 05/31/21 05:30 [place] # (Auto) 0.3 10^3/uL (0.0-1.0) 05/31/21 05:30 Eos # (Auto) 0.0 10^3/uL (0.0-0.7) 05/31/21 05:30 Baso # (Auto) 0.0 10^3/uL (0.0-0.1) 05/31/21 05:30 Absolute Nucleated RBC 0.21 x10^3/uL 05/31/21 05:30 Nucleated RBC % 2.0 /100WBC 05/31/21 05:30 D-Dimer > 1050.0 ng/mL (200.0-255.0) H 05/30/21 05:30 Sodium 141 mmol/L (135-145) 05/31/21 05:30 Potassium 3.9 mmol/L (3.5-5.0) 05/31/21 05:30 Chloride 109 mmol/L (101-111) 05/31/21 05:30 Carbon Dioxide 20 mmol/L (21-32) L 05/31/21 05:30 Anion Gap 12.0 (6-13) 05/31/21 05:30 BUN 40 mg/dL (6-20) H 05/31/21 05:30 Creatinine 0.9 mg/dL (0.6-1.2) 05/31/21 05:30 Estimated GFR (MDRD) 81 (>89) L 05/31/21 05:30 Glucose 108 mg/dL (70-100) H 05/31/21 05:30 Lactic Acid 1.7 mmol/L (0.5-2.2) 05/29/21 23:46 Calcium 8.3 mg/dL (8.5-10.3) L 05/31/21 05:30 Phosphorus 3.8 mg/dL (2.5-4.6) 05/29/21 23:18 Iron 16 ug/dL (45-182) L 05/30/21 05:40 TIBC 196 ug/dL (250-450) L 05/30/21 05:40 % Saturation 8 % (20-50) L 05/30/21 05:40 Transferrin 140 mg/dL (180-329) L 05/30/21 05:40 Total Bilirubin 0.9 mg/dL (0.2-1.0) 05/29/21 23:18 AST 20 IU/L (10-42) 05/29/21 23:18 ALT 14 IU/L (10-60) 05/29/21 23:18 Alkaline Phosphatase 86 IU/L (42-121) 05/29/21 23:18 C-Reactive Protein 22.1 mg/dL (0-1.0) H 05/31/21 05:30 B-Natriuretic Peptide 422 pg/mL (5-100) H 05/29/21 23:18 Total Protein 6.6 g/dL (6.7-8.2) L 05/29/21 23:18 Albumin 2.5 g/dL (3.2-5.5) L 05/29/21 23:18 Globulin 4.1 g/dL (2.1-4.2) 05/29/21 23:18 Albumin/Globulin Ratio 0.6 (1.0-2.2) L 05/29/21 23:18 Vitamin B12 < 50 pg/mL (180-914) L 05/30/21 05:40 Folate 10.38 ng/mL (5.90 - >24.8) 05/30/21 05:40
[2021-06-01] MEDS: SODIUM CHLORIDE FLUSH 0.9% 10 ML SYRINGE IVP SCH ×3 (00:57→20:10)
[2021-06-01 06:09] LABS: BASOPHILS % (AUTO) 0.1 %; EOSINOPHILS # (AUTO) 0.1 10^3/uL (0.0-0.7); EOSINOPHILS % (AUTO) 0.5 %; HCT - HEMATOCRIT 24.8 % (42.0-52.0); HGB - HEMOGLOBIN 8.3 g/dL (14.0-18.0); LYMPHOCYTES # (AUTO) 0.3 10^3/uL (1.5-3.5); LYMPHOCYTES % (AUTO) 2.8 %; MEAN CORPUSCULAR HEMOGLOBIN 35.5 pg (27.0-31.0); MEAN CORPUSCULAR HGB CONC 33.5 g/dL (32.0-36.0); MEAN PLATELET VOLUME 10.2 fL (7.4-11.4); MONOCYTES # (AUTO) 0.4 10^3/uL (0.0-1.0); MONOCYTES % (AUTO) 3.9 %; NEUTROPHILS # (AUTO) 8.4 10^3/uL (1.5-6.6); NRBC ABSOLUTE COUNT (AUTO) 0.14 x10^3/uL; NUCLEATED RED BLOOD CELLS AUTO 1.5 /100WBC; PLT - PLATELET COUNT 307 10^3/uL (130-450); RED BLOOD COUNT 2.34 10^6/uL (4.70-6.10); RED CELL DISTRIBUTION WIDTH 16.7 % (12.0-15.0); WHITE BLOOD COUNT 9.3 x10^3/uL (4.8-10.8)
[2021-06-01 06:24] LABS: CALCIUM 8.1 mg/dL (8.5-10.3); CREATININE 0.8 mg/dL (0.6-1.2); CRP - C-REACTIVE PROTEIN 17.5 mg/dL (0-1.0); POTASSIUM 3.5 mmol/L (3.5-5.0)
[2021-06-01] MEDS: NICOTINE 7 MG PATCH TOP SCH (08:18)
[2021-06-01] MEDS: ASPIRIN EC 81 MG TABLET PO SCH (08:20)
[2021-06-01] MEDS: AZITHROMYCIN 250 MG TABLET PO SCH (08:20)
[2021-06-01] MEDS: guaiFENesin 600 MG TABLET PO SCH ×2 (08:21→20:09)
[2021-06-01] MEDS: FERROUS GLUCONATE 324 MG TABLET PO SCH (08:21)
[2021-06-01] MEDS: MULTIVITAMIN W/MINERALS TABLET PO SCH (08:21)
[2021-06-01] MEDS: TAMSULOSIN 0.4 MG CAPSULE PO SCH (08:21)
[2021-06-01] MEDS: ENOXAPARIN 60 MG/0.6 ML SYRINGE SUBQ SCH ×2 (08:21→20:09)
[2021-06-01] MEDS: CYANOCOBALAMIN 500 MCG TABLET PO SCH (08:21)
[2021-06-01] MEDS: cefTRIAXone 1 GM in SODIUM CHLORIDE 0.9% MINIBAG 100 ML IV SCH (08:22)
[2021-06-01] MEDS: DEXAMETHASONE 4 MG/ML VIAL IVP SCH (08:28)
[2021-06-01] MEDS: REMDESIVIR 100MG VIAL 100 MG in SODIUM CHLORIDE 0.9% 250 ML IV SCH (09:36)
--- NOTE | 2021-06-01 15:05 | PROVIDER PROGRESS NOTE ---
Assessment/Plan - Problem List (1) Acute respiratory failure with hypoxia Assessment/Plan: Hypoxia is due to Covid pneumonia, although he could have some COPD (being a current smoker) and there is no history of CHF. Continue treating him as Covid pneumonia and possible community-acquired pneumonia Also, he is on therapeutic DVT treatment as opposed to prophylaxis due to his high D-dimer DO NOT RESUSCITATE status documented in medical record (2) Pneumonia due to COVID-19 virus Conclusion/Plan: He was ill for 7 days prior to being seen in the emergency room on May 27. With that encounter he was not hypoxic enough to need admission. He is on Remdesivir planned for max of 5 days and Decadron max of 10 days. Continue supplemental O2, weaning down as tolerated. His 6L need has improved down to 4L per n.c. Isolation precautions. 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 To be continued on his therapy in the outpatient setting. His Flomax is continued while here. (4) Autism Conclusion/Plan: With autism, he is unable to participate in decision-making for his healthcare matters and has a legally appointed DPOA. Our plan is to return to his assisted living facility at discharge. (5) Atrial fibrillation Conclusion/Plan: Paroxysmal Afib was present with his previous admission. At admission, he was in Aflutter with 4:1 block. He was on metoprolol for rate control. He was not on an anticoagulant for stroke prophylaxis because he is a fall risk and the DPOA said he has had falls before. We started 1 baby aspirin daily for stroke prophylaxis, which the DPOA agreed with. (6) Anemia Conclusion/Plan: He carries a diagnosis of B12 deficiency. We have verified that he is B12 deficient now, from a low serum B12 level. He got im B12 x1 then started B12 orally daily. (B12 is not on his current medi cation list). Iron level was low on May 27 at 12. TIBC 216. Percent saturation 6. Transferrin 154. Oral iron was restarted. Qualifiers: Anemia type: B12 deficiency and Iron deficiency - Current Meds Current Meds: Current Medications Generic Name Dose Route Start Last Admin Trade Name Freq PRN Reason Stop Dose Admin Aspirin 81 mg 05/30/21 16:04 06/01/21 08:20 Aspirin Ec 81 Mg Tablet PO 81 mg DAILY NORBERTO Administration Cyanocobalamin 500 mcg 05/31/21 09:00 06/01/21 08:21 Cyanocobalamin 500 Mcg Tablet PO 500 mcg DAILY NORBERTO Administration Dexamethasone 6 mg 05/30/21 09:00 06/01/21 08:28 Dexamethasone 4 Mg/Ml Vial IVP 6 mg DAILY NORBERTO Administration Enoxaparin Sodium 60 mg 05/30/21 21:00 06/01/21 08:21 Enoxaparin 60 Mg/0.6 Ml Syringe SUBQ 60 mg BID NORBERTO Administration Ferrous Gluconate 324 mg 05/30/21 08:00 06/01/21 08:21 Ferrous Gluconate 324 Mg Tablet PO 324 mg DAILYWM NORBERTO Administration Guaifenesin 600 mg 05/31/21 09:00 06/01/21 08:21 Guaifenesin 600 Mg Tablet PO 600 mg BID NORBERTO Administration Ceftriaxone Sodium 1 gm/ 100 mls @ 200 mls/hr 05/30/21 09:00 06/01/21 09:36 Sodium Chloride IV Infused DAILY NORBERTO Infusion Remdesivir 100 mg/ Sodium 250 mls @ 500 mls/hr 06/01/21 09:00 06/01/21 10:51 Chloride IV 06/03/21 09:29 Infused DAILY NORBERTO Infusion Multivitamins/Minerals 1 tab 05/31/21 08:00 06/01/21 08:21 Multivitamin W/Minerals Tablet PO 1 tab DAILYWM NORBERTO Administration Nicotine 1 patch 05/30/21 11:00 06/01/21 08:18 Nicotine 7 Mg Patch TOP 1 patch DAILY NORBERTO Administration Sodium Chloride 10 ml 05/30/21 01:36 05/30/21 02:34 Sodium Chloride Flush 0.9% 10 Ml Syringe IVP 10 ml PRN PRN Administration NEEDED PER PROVIDER ORDERS Sodium Chloride 10 ml 05/30/21 09:00 06/01/21 08:21 Sodium Chloride Flush 0.9% 10 Ml Syringe IVP 10 ml 0100,0900,1700 NORBERTO Administration Tamsulosin HCl 0.4 mg 05/30/21 09:00 06/01/21 08:21 Tamsulosin 0.4 Mg Capsule PO 0.4 mg DAILY NORBERTO Administration - Lab Result Fish Bone Diagrams: 06/01/21 05:38 06/01/21 05:38 Subjective - Subjective Patient Reports: Feeling Better (He was able to joke with RT today) Objective Vital Signs: Vital Signs - 24 hr 05/31/21 05/31/21 06/01/21 16:00 20:47 00:48 Temperature 36.8 C 37.3 C Heart Rate [ 67 71 98 Brachial] Respiratory 20 18 16 Rate Blood Pressure 127/58 L 141/81 H 147/67 H [Right Brachial artery] O2 Saturation 97 91 L 93 06/01/21 08:39 Temperature 37.3 C Heart Rate [ 70 Brachial] Respiratory 18 Rate Blood Pressure 137/62 H [Right Brachial artery] O2 Saturation 92 Oxygen O2 Source [Without Activity] Room air O2 Source Room air Oxygen Flow Rate 2 I&O (Last 24 Hrs): Intake and Output Totals x24h 05/30/21 05/31/21 06/01/21 23:59 23:59 23:59 Intake Total 3831 1211 670 Output Total 250 350 Balance 3581 861 670 General: Alert HEENT: Mucous membr. moist/pink Neck: Supple Neuro: Alert, Non Focal Cardiovascular: Other (controlled heart rate) Respiratory: No respiratory distress (while wearing n.c. suppl O2) Abdomen: Soft Extremities: No edema - Results Results: Laboratory Results WBC 9.3 x10^3/uL (4.8-10.8) 06/01/21 05:38 RBC 2.34 10^6/uL (4.70-6.10) L 06/01/21 05:38 Hgb 8.3 g/dL (14.0-18.0) L 06/01/21 05:38 Hct 24.8 % (42.0-52.0) L 06/01/21 05:38 MCV 106.0 fL (80.0-94.0) H 06/01/21 05:38 MCH 35.5 pg (27.0-31.0) H 06/01/21 05:38 MCHC 33.5 g/dL (32.0-36.0) 06/01/21 05:38 RDW 16.7 % (12.0-15.0) H 06/01/21 05:38 Plt Count 307 10^3/uL (130-450) 06/01/21 05:38 MPV 10.2 fL (7.4-11.4) 06/01/21 05:38 Neut # (Auto) 8.4 10^3/uL (1.5-6.6) H 06/01/21 05:38 Lymph # (Auto) 0.3 10^3/uL (1.5-3.5) L 06/01/21 05:38 [place] # (Auto) 0.4 10^3/uL (0.0-1.0) 06/01/21 05:38 Eos # (Auto) 0.1 10^3/uL (0.0-0.7) 06/01/21 05:38 Baso # (Auto) 0.0 10^3/uL (0.0-0.1) 06/01/21 05:38 Absolute Nucleated RBC 0.14 x10^3/uL 06/01/21 05:38 Nucleated RBC % 1.5 /100WBC 06/01/21 05:38 D-Dimer > 1050.0 ng/mL (200.0-255.0) H 05/30/21 05:30 Sodium 142 mmol/L (135-145) 06/01/21 05:38 Potassium 3.5 mmol/L (3.5-5.0) 06/01/21 05:38 Chloride 110 mmol/L (101-111) 06/01/21 05:38 Carbon Dioxide 21 mmol/L (21-32) 06/01/21 05:38 Anion Gap 11.0 (6-13) 06/01/21 05:38 BUN 37 mg/dL (6-20) H 06/01/21 05:38 Creatinine 0.8 mg/dL (0.6-1.2) 06/01/21 05:38 Estimated GFR (MDRD) 93 (>89) 06/01/21 05:38 Glucose 104 mg/dL (70-100) H 06/01/21 05:38 Lactic Acid 1.7 mmol/L (0.5-2.2) 05/29/21 23:46 Calcium 8.1 mg/dL (8.5-10.3) L 06/01/21 05:38 Phosphorus 3.8 mg/dL (2.5-4.6) 05/29/21 23:18 Iron 16 ug/dL (45-182) L 05/30/21 05:40 TIBC 196 ug/dL (250-450) L 05/30/21 05:40 % Saturation 8 % (20-50) L 05/30/21 05:40 Transferrin 140 mg/dL (180-329) L 05/30/21 05:40 Total Bilirubin 0.9 mg/dL (0.2-1.0) 05/29/21 23:18 AST 20 IU/L (10-42) 05/29/21 23:18 ALT 14 IU/L (10-60) 05/29/21 23:18 Alkaline Phosphatase 86 IU/L (42-121) 05/29/21 23:18 C-Reactive Protein 17.5 mg/dL (0-1.0) H 06/01/21 05:38 B-Natriuretic Peptide 422 pg/mL (5-100) H 05/29/21 23:18 Total Protein 6.6 g/dL (6.7-8.2) L 05/29/21 23:18 Albumin 2.5 g/dL (3.2-5.5) L 05/29/21 23:18 Globulin 4.1 g/dL (2.1-4.2) 05/29/21 23:18 Albumin/Globulin Ratio 0.6 (1.0-2.2) L 05/29/21 23:18 Vitamin B12 < 50 pg/mL (180-914) L 05/30/21 05:40 Folate 10.38 ng/mL (5.90 - >24.8) 05/30/21 05:40
[2021-06-02] MEDS: SODIUM CHLORIDE FLUSH 0.9% 10 ML SYRINGE IVP SCH ×3 (00:23→16:15)
[2021-06-02 06:59] LABS: BASOPHILS % (AUTO) 0.1 %; EOSINOPHILS # (AUTO) 0.1 10^3/uL (0.0-0.7); EOSINOPHILS % (AUTO) 0.7 %; HCT - HEMATOCRIT 29.5 % (42.0-52.0); HGB - HEMOGLOBIN 9.5 g/dL (14.0-18.0); LYMPHOCYTES # (AUTO) 0.2 10^3/uL (1.5-3.5); LYMPHOCYTES % (AUTO) 1.7 %; MEAN CORPUSCULAR HEMOGLOBIN 35.2 pg (27.0-31.0); MEAN CORPUSCULAR HGB CONC 32.2 g/dL (32.0-36.0); MEAN CORPUSCULAR VOLUME 109.3 fL (80.0-94.0); MEAN PLATELET VOLUME 10.2 fL (7.4-11.4); MONOCYTES # (AUTO) 0.4 10^3/uL (0.0-1.0); MONOCYTES % (AUTO) 3.6 %; NEUTROPHILS % (AUTO) 91.6 %; NRBC ABSOLUTE COUNT (AUTO) 0.12 x10^3/uL; PLT - PLATELET COUNT 352 10^3/uL (130-450); RED CELL DISTRIBUTION WIDTH 17.2 % (12.0-15.0)
[2021-06-02 07:31] LABS: CALCIUM 7.9 mg/dL (8.5-10.3); CREATININE 0.8 mg/dL (0.6-1.2); CRP - C-REACTIVE PROTEIN 18.4 mg/dL (0-1.0); POTASSIUM 3.2 mmol/L (3.5-5.0)
[2021-06-02] MEDS: FERROUS GLUCONATE 324 MG TABLET PO SCH (07:58)
[2021-06-02] MEDS: MULTIVITAMIN W/MINERALS TABLET PO SCH (07:58)
[2021-06-02] MEDS: cefTRIAXone 1 GM in SODIUM CHLORIDE 0.9% MINIBAG 100 ML IV SCH (08:00)
[2021-06-02] MEDS: NICOTINE 7 MG PATCH TOP SCH (08:06)
[2021-06-02] MEDS: guaiFENesin 600 MG TABLET PO SCH ×2 (08:06→22:59)
[2021-06-02] MEDS: TAMSULOSIN 0.4 MG CAPSULE PO SCH (08:06)
[2021-06-02] MEDS: ENOXAPARIN 60 MG/0.6 ML SYRINGE SUBQ SCH ×2 (08:07→22:59)
[2021-06-02] MEDS: DEXAMETHASONE 4 MG/ML VIAL IVP SCH (08:07)
[2021-06-02] MEDS: CYANOCOBALAMIN 500 MCG TABLET PO SCH (08:07)
[2021-06-02] MEDS: ASPIRIN EC 81 MG TABLET PO SCH (08:07)
[2021-06-02] MEDS ORDERED: POTASSIUM CHLORIDE 20 MEQ TABLET PO ONE (09:30)
[2021-06-02] MEDS: REMDESIVIR 100MG VIAL 100 MG in SODIUM CHLORIDE 0.9% 250 ML IV SCH (10:21)
--- NOTE | 2021-06-02 14:23 | PROVIDER PROGRESS NOTE ---
Assessment/Plan - Problem List (1) Acute respiratory failure with hypoxia Assessment/Plan: Hypoxia is due to Covid pneumonia, although he could have some COPD (being a current smoker) and there is no history of CHF. His suppl O2 needed to be increased from 4L n.c. to 10L overnight, as he was desaturating Continue treating him as Covid pneumonia and possible community-acquired pneumonia Also, he is on therapeutic DVT treatment as opposed to prophylaxis due to his high D-dimer DO NOT RESUSCITATE status documented in medical record (2) Pneumonia due to COVID-19 virus Conclusion/Plan: He was ill for 7 days prior to being seen in the emergency room on May 27. With that encounter he was not hypoxic enough to need admission. He is on Remdesivir planned for max of 5 days and Decadron max of 10 days. His WBC was normal and today went up to 12, likely due to Decadron. Will recheck a CXR Continue supplemental O2, weaning down as tolerated. Isolation precautions. 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 To be continued on his therapy in the outpatient setting. His Flomax is continued while here. (4) Autism Conclusion/Plan: With autism, he is unable to participate in decision-making for his healthcare matters and has a legally appointed DPOA. Our plan is to return to his assisted living facility at discharge. (5) Atrial fibrillation Conclusion/Plan: Paroxysmal Afib was present with his previous admission. At admission, he was in Aflutter with 4:1 block. He was on metoprolol for rate control. He was not on an anticoagulant for stroke prophylaxis because he is a fall risk and the DPOA said he has had falls before. We started 1 baby aspirin daily for stroke prophylaxis, which the DPOA agreed with. (6) Anemia Conclusion/Plan: He carries a diagnosis of B12 deficiency. We have verified that he is B12 deficient now, from a low serum B12 level. He got im B12 x1 then started B12 orally daily. (B12 is not on his current medication list). Iron level was low on May 27 at 12. TIBC 216. Percent saturation 6. Transferrin 154. Oral iron was restarted. Qualifiers: Anemia type: B12 deficiency and Iron deficiency - Current Meds Current Meds: Current Medications Generic Name Dose Route Start Last Admin Trade Name Freq PRN Reason Stop Dose Admin Aspirin 81 mg 05/30/21 16:04 06/02/21 08:07 Aspirin Ec 81 Mg Tablet PO 81 mg DAILY NORBERTO Administration Cyanocobalamin 500 mcg 05/31/21 09:00 06/02/21 08:07 Cyanocobalamin 500 Mcg Tablet PO 500 mcg DAILY NORBERTO Administration Enoxaparin Sodium 60 mg 05/30/21 21:00 06/02/21 08:07 Enoxaparin 60 Mg/0.6 Ml Syringe SUBQ 60 mg BID NORBERTO Administration Ferrous Gluconate 324 mg 05/30/21 08:00 06/02/21 07:58 Ferrous Gluconate 324 Mg Tablet PO 324 mg DAILYWM NORBERTO Administration Guaifenesin 600 mg 05/31/21 09:00 06/02/21 08:06 Guaifenesin 600 Mg Tablet PO 600 mg BID NORBERTO Administration Ceftriaxone Sodium 1 gm/ 100 mls @ 200 mls/hr 05/30/21 09:00 06/02/21 08:35 Sodium Chloride IV 0 mls/hr DAILY NORBERTO Infusion Remdesivir 100 mg/ Sodium 250 mls @ 500 mls/hr 06/01/21 09:00 06/02/21 11:10 Chloride IV 06/03/21 09:29 Infused DAILY NORBERTO Infusion Mineral Oil 1 applic 05/31/21 01:17 06/02/21 14:09 Min Oil/Dimethicon/Coconut Oil 92 Gm Tube TOP 1 applic PRN PRN Administration Skin Care Multivitamins/Minerals 1 tab 05/31/21 08:00 06/02/21 07:58 Multivitamin W/Minerals Tablet PO 1 tab DAILYWM NORBERTO Administration Nicotine 1 patch 05/30/21 11:00 06/02/21 08:06 Nicotine 7 Mg Patch TOP 1 patch DAILY NORBERTO Administration Sodium Chloride 10 ml 05/30/21 01:36 05/30/21 02:34 Sodium Chloride Flush 0.9% 10 Ml Syringe IVP 10 ml PRN PRN Administration NEEDED PER PROVIDER ORDERS Sodium Chloride 10 ml 05/30/21 09:00 06/02/21 10:23 Sodium Chloride Flush 0.9% 10 Ml Syringe IVP Not Given 0100,0900,1700 COUNT INCLUDES THE [facility] Tamsulosin HCl 0.4 mg 05/30/21 09:00 06/02/21 08:06 Tamsulosin 0.4 Mg Capsule PO 0.4 mg DAILY NORBERTO Administration - Lab Result Fish Bone Diagrams: 06/02/21 06:20 06/02/21 06:20 Subjective - Subjective Patient Reports: No Complaints Objective Vital Signs: Vital Signs - 24 hr 06/01/21 06/02/21 06/02/21 16:00 00:17 05:31 Temperature 37.0 C 36.8 C Heart Rate [ 59 L 77 Brachial] Respiratory 24 28 H Rate Blood Pressure 130/55 L 137/71 H [Right Brachial artery] O2 Saturation 96 93 88 L 06/02/21 06/02/21 06/02/21 05:38 06:13 08:00 Temperature Heart Rate [ 85 Brachial] Respiratory 20 20 Rate Blood Pressure 116/52 L [Right Brachial artery] O2 Saturation 93 92 92 06/02/21 14:05 Temperature Heart Rate [ Brachial] Respiratory 18 Rate Blood Pressure [Right Brachial artery] O2 Saturation 95 Oxygen O2 Source [Without Activity] Room air O2 Source Oxymask Oxygen Flow Rate 2 I&O (Last 24 Hrs): Intake and Output Totals x24h 05/31/21 06/01/21 06/02/21 23:59 23:59 23:59 Intake Total 1211 1110 1288.333 Output Total 350 Balance 861 1110 1288.333 General: Alert ((Exam done remotely)), Other (More cheerful) Neck: Supple Neuro: Alert, Non Focal Cardiovascular: Regular rate Respiratory: Other (wearing O2 n.c.) Abdomen: Soft Extremities: No edema - Results Results: Laboratory Results WBC 12.0 x10^3/uL (4.8-10.8) H 06/02/21 06:20 RBC 2.70 10^6/uL (4.70-6.10) L 06/02/21 06:20 Hgb 9.5 g/dL (14.0-18.0) L 06/02/21 06:20 Hct 29.5 % (42.0-52.0) L 06/02/21 06:20 MCV 109.3 fL (80.0-94.0) H 06/02/21 06:20 MCH 35.2 pg (27.0-31.0) H 06/02/21 06:20 MCHC 32.2 g/dL (32.0-36.0) 06/02/21 06:20 RDW 17.2 % (12.0-15.0) H 06/02/21 06:20 Plt Count 352 10^3/uL (130-450) 06/02/21 06:20 MPV 10.2 fL (7.4-11.4) 06/02/21 06:20 Neut # (Auto) 11.0 10^3/uL (1.5-6.6) H 06/02/21 06:20 Lymph # (Auto) 0.2 10^3/uL (1.5-3.5) L 06/02/21 06:20 [place] # (Auto) 0.4 10^3/uL (0.0-1.0) 06/02/21 06:20 Eos # (Auto) 0.1 10^3/uL (0.0-0.7) 06/02/21 06:20 Baso # (Auto) 0.0 10^3/uL (0.0-0.1) 06/02/21 06:20 Absolute Nucleated RBC 0.12 x10^3/uL 06/02/21 06:20 Nucleated RBC % 1.0 /100WBC 06/02/21 06:20 D-Dimer > 1050.0 ng/mL (200.0-255.0) H 05/30/21 05:30 Sodium 140 mmol/L (135-145) 06/02/21 06:20 Potassium 3.2 mmol/L (3.5-5.0) L 06/02/21 06:20 Chloride 106 mmol/L (101-111) 06/02/21 06:20 Carbon Dioxide 22 mmol/L (21-32) 06/02/21 06:20 Anion Gap 12.0 (6-13) 06/02/21 06:20 BUN 39 mg/dL (6-20) H 06/02/21 06:20 Creatinine 0.8 mg/dL (0.6-1.2) 06/02/21 06:20 Estimated GFR (MDRD) 93 (>89) 06/02/21 06:20 Glucose 130 mg/dL (70-100) H 06/02/21 06:20 Lactic Acid 1.7 mmol/L (0.5-2.2) 05/29/21 23:46 Calcium 7.9 mg/dL (8.5-10.3) L 06/02/21 06:20 Phosphorus 3.8 mg/dL (2.5-4.6) 05/29/21 23:18 Iron 16 ug/dL (45-182) L 05/30/21 05:40 TIBC 196 ug/dL (250-450) L 05/30/21 05:40 % Saturation 8 % (20-50) L 05/30/21 05:40 Transferrin 140 mg/dL (180-329) L 05/30/21 05:40 Total Bilirubin 0.9 mg/dL (0.2-1.0) 05/29/21 23:18 AST 20 IU/L (10-42) 05/29/21 23:18 ALT 14 IU/L (10-60) 05/29/21 23:18 Alkaline Phosphatase 86 IU/L (42-121) 05/29/21 23:18 C-Reactive Protein 18.4 mg/dL (0-1.0) H 06/02/21 06:20 B-Natriuretic Peptide 422 pg/mL (5-100) H 05/29/21 23:18 Total Protein 6.6 g/dL (6.7-8.2) L 05/29/21 23:18 Albumin 2.5 g/dL (3.2-5.5) L 05/29/21 23:18 Globulin 4.1 g/dL (2.1-4.2) 05/29/21 23:18 Albumin/Globulin Ratio 0.6 (1.0-2.2) L 05/29/21 23:18 Vitamin B12 < 50 pg/mL (180-914) L 05/30/21 05:40 Folate 10.38 ng/mL (5.90 - >24.8) 05/30/21 05:40
--- NOTE | 2021-06-02 15:28 | XRAY Report ---
PROCEDURE: Chest 1 View X-Ray INDICATIONS: More SOB, elevated WBC TECHNIQUE: One view of the chest was acquired. COMPARISON: 05/29/2021 FINDINGS: Surgical changes and devices: None. Lungs and pleura: Small left and trace right pleural effusions. Patchy bilateral lung opacities herrera rning for multilobar pneumonia. Left basilar opacities have increased in size compared to the prior e xamination. Cephalization of pulmonary vasculature and bilateral perihilar opacities compatible with CHF fluid overload. Mediastinum: Mediastinal contours appear normal. Heart size is normal. Bones and chest wall: No suspicious bony lesions. Overlying soft tissues appear unremarkable. IMPRESSION: 1. Worsening bibasilar pneumonia. 2. Left-sided pleural fluid collection slightly increased in size compared to 05/29/2021. New trace ri ght-sided pleural effusion. 3. Cephalization of pulmonary vasculature and perihilar opacities compatible with CHF/fluid overload. Reviewed by: Olivia Alarcon MD, PhD on 06/02/2021 3:27 PM PST Approved by: Olivia Alarcon MD, PhD on 06/02/2021 3:27 PM PST Station ID: [id number]
[2021-06-02] MEDS ORDERED: FUROSEMIDE 20 MG/2 ML VIAL IVP STA (15:49)
[2021-06-03] MEDS: SODIUM CHLORIDE FLUSH 0.9% 10 ML SYRINGE IVP SCH ×3 (02:09→16:40)
[2021-06-03 06:34] LABS: BASOPHILS % (AUTO) 0.2 %; EOSINOPHILS # (AUTO) 0.1 10^3/uL (0.0-0.7); EOSINOPHILS % (AUTO) 0.6 %; HCT - HEMATOCRIT 28.2 % (42.0-52.0); HGB - HEMOGLOBIN 9.2 g/dL (14.0-18.0); LYMPHOCYTES # (AUTO) 0.2 10^3/uL (1.5-3.5); LYMPHOCYTES % (AUTO) 1.9 %; MEAN CORPUSCULAR HEMOGLOBIN 34.7 pg (27.0-31.0); MEAN CORPUSCULAR HGB CONC 32.6 g/dL (32.0-36.0); MEAN CORPUSCULAR VOLUME 106.4 fL (80.0-94.0); MONOCYTES # (AUTO) 0.6 10^3/uL (0.0-1.0); MONOCYTES % (AUTO) 4.4 %; NEUTROPHILS # (AUTO) 11.5 10^3/uL (1.5-6.6); NRBC ABSOLUTE COUNT (AUTO) 0.06 x10^3/uL; NUCLEATED RED BLOOD CELLS AUTO 0.5 /100WBC; PLT - PLATELET COUNT 304 10^3/uL (130-450); RED BLOOD COUNT 2.65 10^6/uL (4.70-6.10); RED CELL DISTRIBUTION WIDTH 16.7 % (12.0-15.0); WHITE BLOOD COUNT 12.6 x10^3/uL (4.8-10.8)
[2021-06-03 07:05] LABS: CREATININE 0.8 mg/dL (0.6-1.2); CRP - C-REACTIVE PROTEIN 18.4 mg/dL (0-1.0); POTASSIUM 3.6 mmol/L (3.5-5.0)
[2021-06-03] MEDS: ASPIRIN EC 81 MG TABLET PO SCH (09:07)
[2021-06-03] MEDS: FERROUS GLUCONATE 324 MG TABLET PO SCH (09:07)
[2021-06-03] MEDS: guaiFENesin 600 MG TABLET PO SCH ×2 (09:07→20:50)
[2021-06-03] MEDS: dexAMETHasone 4 MG TABLET PO SCH (09:07)
[2021-06-03] MEDS: TAMSULOSIN 0.4 MG CAPSULE PO SCH (09:07)
[2021-06-03] MEDS: MULTIVITAMIN W/MINERALS TABLET PO SCH (09:07)
[2021-06-03] MEDS: CYANOCOBALAMIN 500 MCG TABLET PO SCH (09:08)
[2021-06-03] MEDS: FUROSEMIDE 20 MG/2 ML VIAL IVP SCH (09:09)
[2021-06-03] MEDS: NICOTINE 7 MG PATCH TOP SCH (09:10)
[2021-06-03] MEDS: ENOXAPARIN 60 MG/0.6 ML SYRINGE SUBQ SCH ×2 (09:10→20:50)
[2021-06-03] MEDS: cefTRIAXone 1 GM in SODIUM CHLORIDE 0.9% MINIBAG 100 ML IV SCH (09:28)
[2021-06-03] MEDS: REMDESIVIR 100MG VIAL 100 MG in SODIUM CHLORIDE 0.9% 250 ML IV SCH (10:37)
--- NOTE | 2021-06-03 11:43 | PROVIDER PROGRESS NOTE ---
Subjective - Prog Note Date Prog Note Date: 06/03/21 - Subjective Pt reports feeling: No change Subjective: Pt reports he feels "fine" this morning, denies shortness of breath though has had increased oxygen requirements. Denies pain, chills, or nausea. Reports decreased appetite but otherwise had no complaints. Lying comfortably in bed, watching TV. Objective - Vital Signs/Intake & Output Reviewed Vital Signs: Yes Vital Signs: Vital Signs x48h Temp Pulse Resp BP Pulse Ox 06/03/21 11:24 96 06/03/21 11:23 98 06/03/21 10:40 93 06/03/21 08:13 36.6 C 89 24 136/64 H 91 L Intake & Output: Intake & Output 05/31/21 06/01/21 06/02/21 06/03/21 23:59 23:59 23:59 23:59 Intake Total 1211 1110 1528.333 350 Output Total 350 Balance 861 1110 1528.333 350 - Objective General Appearance: positive: No acute distress, Alert Eyes Bilateral: positive: Normal inspection, Conjunctivae nml, No scleral icterus ENT: positive: ENT inspection nml, Dry mucous membranes Neck: positive: Nml inspection Respiratory: positive: Chest non-tender, No respiratory distress, Other (Coarse crackles noted in the bilateral bases) Cardiovascular: positive: Regular rate & rhythm, No murmur Peripheral Pulses: 2+ Dorsalis pedis (R), 2+ Dorsalis pedis (L) Abdomen: positive: Non-tender, No organomegaly, Nml bowel sounds, No distention Skin: positive: Pallor Extremities: positive: Non-tender, Full ROM, Nml appearance, No pedal edema Neurologic/Psychiatric: positive: Other (Alert, oriented to place and why he is here) - Lab Results Fish Bones: 06/03/21 06:28 06/03/21 06:28 Other Labs: Lab Results x24hrs 06/03/21 06/03/21 Range/Units 06:28 06:28 WBC 12.6 H (4.8-10.8) x10^3/uL RBC 2.65 L (4.70-6.10) 10^6/uL Hgb 9.2 L (14.0-18.0) g/dL Hct 28.2 L (42.0-52.0) % MCV 106.4 H (80.0-94.0) fL MCH 34.7 H (27.0-31.0) pg MCHC 32.6 (32.0-36.0) g/dL RDW 16.7 H (12.0-15.0) % Plt Count 304 (130-450) 10^3/uL MPV 10.0 (7.4-11.4) fL Neut # (Auto) 11.5 H (1.5-6.6) 10^3/uL Lymph # (Auto) 0.2 L (1.5-3.5) 10^3/uL [place] # (Auto) 0.6 (0.0-1.0) 10^3/uL Eos # (Auto) 0.1 (0.0-0.7) 10^3/uL Baso # (Auto) 0.0 (0.0-0.1) 10^3/uL Absolute Nucleated RBC 0.06 x10^3/uL Nucleated RBC % 0.5 /100WBC Sodium 141 (135-145) mmol/L Potassium 3.6 (3.5-5.0) mmol/L Chloride 107 (101-111) mmol/L Carbon Dioxide 22 (21-32) mmol/L Anion Gap 12.0 (6-13) BUN 35 H (6-20) mg/dL Creatinine 0.8 (0.6-1.2) mg/dL Estimated GFR (MDRD) 93 (>89) Glucose 102 H (70-100) mg/dL Calcium 8.0 L (8.5-10.3) mg/dL C-Reactive Protein 18.4 H (0-1.0) mg/dL - Diagnostic Imaging Diagnostic Imaging Results: positive: Final report reviewed ABX Reporting Has patient been on IV antibiotics over the past 48 hours?: Yes Assessment/Plan - Problem List (1) Acute respiratory failure with hypoxia Impression: Hypoxia is due to Covid pneumonia, although he could have some COPD (being a current smoker) and there is no history of CHF. His suppl O2 needed to be increased from 2.5L n.c. to 10L this morning, as he was desaturating. RT is following. Continue treating him as Covid pneumonia and possible community-acquired pneumonia Also, he is on therapeutic DVT treatment as opposed to prophylaxis due to his high D-dimer DO NOT RESUSCITATE status documented in medical record (2) Pneumonia due to COVID-19 virus Impression: He was ill for 7 days prior to being seen in the emergency room on May 27. With that encounter he was not hypoxic enough to need admission. He is on Remdesivir planned for max of 5 days and Decadron max of 10 days. His WBC was normal on admission, went up to 12 yesterday and today is 12.6, like ly due to Decadron. CRP is trending down, 18.4 today from 22.1 on 05/31. CXR yesterday showed fluid overload and he was started on lasix. Continue supplemental O2, weaning down as tolerated. Isolation precautions. 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 To be continued on his therapy in the outpatient setting. His Flomax is continued while here. (4) Autism Impression: With autism, he is unable to participate in decision-making for his healthcare matters and has a legally appointed DPOA. Our plan is to return to his assisted living facility at discharge. (5) Atrial fibrillation Impression: Paroxysmal Afib was present with his previous admission. At admission, he was in Aflutter with 4:1 block. He was on metoprolol for rate control. He was not on an anticoagulant for stroke prophylaxis because he is a fall risk and the DPOA said he has had falls before. We started 1 baby aspirin daily for stroke prop hylaxis, which the DPOA agreed with. Qualifiers: Atrial fibrillation type: paroxysmal Qualified Code(s): I48.0 - Paroxysmal atrial fibrillation (6) Anemia Impression: He carries a diagnosis of B12 deficiency. We have verified that he is B12 deficient now, from a low serum B12 level. He got im B12 x1 then started B12 orally daily. (B12 is not on his current medication list). Iron level was low on May 27 at 12, up to 16 on 05/30. TIBC 196. Percent saturation 8, up from 6. Transferrin 140, down from 154. Oral iron was restarted. Qualifiers: Anemia type: B12 deficiency
--- NOTE | 2021-06-04 07:19 | PROVIDER PROGRESS NOTE ---
Subjective - Prog Note Date Prog Note Date: 06/04/21 - Subjective Pt reports feeling: No change Subjective: Reports "Oh I feel fine!" today. Denies chest pain, abdominal pain, or feeling short of breath. Sitting in bed, pleasant and cooperative, eating lunch. Denies needs. Objective - Vital Signs/Intake & Output Reviewed Vital Signs: Yes Vital Signs: Vital Signs x48h Temp Pulse Resp BP Pulse Ox 06/04/21 00:14 92 06/04/21 00:00 36.9 C 66 24 151/72 H 88 L Intake & Output: Intake & Output 06/01/21 06/02/21 06/03/21 06/04/21 23:59 23:59 23:59 23:59 Intake Total 1110 7076.810 2618 240 Output Total 100 Balance 1110 7656.861 4549 140 - Objective General Appearance: positive: No acute distress, Alert Eyes Bilateral: positive: Normal inspection, PERRL, No scleral icterus ENT: positive: ENT inspection nml, No signs of dehydration Neck: positive: Nml inspection Respiratory: positive: Chest non-tender, No respiratory distress, Rales Cardiovascular: positive: No murmur, Irregularly irregular Peripheral Pulses: 2+ Dorsalis pedis (R), 2+ Dorsalis pedis (L) Abdomen: positive: Non-tender, No organomegaly, Nml bowel sounds, No distention Skin: positive: Color nml, No rash, Warm, Dry Extremities: positive: Non-tender, Full ROM, Nml appearance Neurologic/Psychiatric: positive: Other (Alert, oriented to self. follows commands, pleasantly cooperative.) - Lab Results Fish Bones: 06/04/21 12:50 06/04/21 12:50 ABX Reporting Has patient been on IV antibiotics over the past 48 hours?: Yes Sepsis Event Note (H) - Evaluation Current Stage of Sepsis: Ruled out Assessment/Plan - Problem List (1) Acute respiratory failure with hypoxia Impression: Hypoxia is due to Covid pneumonia, although he could have some COPD (being a current smoker) and there is no history of CHF. His suppl O2 has been variable, ranging 3-5 L overnight and as many as 10L this afternoon with exertion. Nursing reports it has been difficult to obtain accurate SpO2 measurements as his fingers are cold with poor perfusion. Given the likelihood of COPD will have goal oxgyen saturation above 88%. He denies feeling short of breath. RT is following. Continue treating him as Covid pneumonia and possible community-acquired pneumonia Also, he is on therapeutic DVT treatment as opposed to prophylaxis due to his high D-dimer DO NOT RESUSCITATE status documented in medical record (2) Pneumonia due to COVID-19 virus Impression: He was ill for 7 days prior to being seen in the emergency room on May 27. With that encounter he was not hypoxic enough to need admission. Given his current hypoxia he was started on Remdesivir this admission, planned for max of 5 days and Decadron max of 10 days. His WBC was normal on admission, has been slightly elevated the last 3 days, likely due to Decadron but also possible due to pneumonia. CRP is trending do wn. Has been receiving Rocephin, will stop 2/2 for 7 day total course as his blood cultures have had no growth x5 days. CXR 06/02 showed fluid overload and he was started on lasix. Continue supplemental O2, weaning down as tolerated. Isolation precautions. 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 To be continued on his therapy in the outpatient setting. His Flomax is continued while here. (4) Autism Impression: With autism, he is unable to participate in decision-making for his healthcare matters and has a legally appointed DPOA. Our plan is to return to his assisted living facility at discharge. (5) Atrial fibrillation Impression: Stable. Paroxysmal Afib was present with his previous admission. At admission, he was in Aflutter with 4:1 block. He was on metoprolol for rate control. He was not on an anticoagulant for stroke prophylaxis because he is a fall risk and the DPOA said he has had falls before. We started 1 baby aspirin daily for stroke prophylaxis, which the DPOA agreed with. Qualifiers: Atrial fibrillation type: paroxysmal Qualified Code(s): I48.0 - Paroxysmal atrial fibrillation (6) Anemia Impression: He carries a diagnosis of B12 deficiency. We have verified that he is B12 deficient now, from a low serum B12 level. He got im B12 x1 then started B12 orally daily. (B12 is not on his current medication list). Iron level was low on May 27 at 12, up to 16 on 05/30. TIBC 196. Percent saturation 8, up from 6. Transferrin 140, down from 154. Oral iron was restarted. Qualifiers: Anemia type: B12 deficiency (7) Weakness Impression: Per admission HPI he has been getting weaker. Prior to admission he was "not going to meals in the dining spencer anymore and was drinking ensure. He prefers to stay in his room and comes out to smoke his cigarettes." He was able to get out of bed for meals the last 2 days with 1 person assist, however today his RN reports she was unable to get him up and it may be difficult even with a 2 person assist. I will have PT evaluate in hopes he can regain his preadmission level of functioning, though given his progressive decline in addition to the COVID he may be developing a new baseline.
[2021-06-04] MEDS: SODIUM CHLORIDE FLUSH 0.9% 10 ML SYRINGE IVP SCH ×3 (07:27→17:10)
[2021-06-04] MEDS: FERROUS GLUCONATE 324 MG TABLET PO SCH (08:13)
[2021-06-04] MEDS: MULTIVITAMIN W/MINERALS TABLET PO SCH (08:13)
[2021-06-04] MEDS: dexAMETHasone 4 MG TABLET PO SCH (10:06)
[2021-06-04] MEDS: TAMSULOSIN 0.4 MG CAPSULE PO SCH (10:07)
[2021-06-04] MEDS: ASPIRIN EC 81 MG TABLET PO SCH (10:07)
[2021-06-04] MEDS: guaiFENesin 600 MG TABLET PO SCH ×2 (10:07→21:37)
[2021-06-04] MEDS: CYANOCOBALAMIN 500 MCG TABLET PO SCH (10:08)
[2021-06-04] MEDS: NICOTINE 7 MG PATCH TOP SCH (10:08)
[2021-06-04] MEDS: ENOXAPARIN 60 MG/0.6 ML SYRINGE SUBQ SCH ×2 (10:08→21:37)
[2021-06-04] MEDS: FUROSEMIDE 20 MG/2 ML VIAL IVP SCH (10:08)
[2021-06-04] MEDS: cefTRIAXone 1 GM in SODIUM CHLORIDE 0.9% MINIBAG 100 ML IV SCH (10:10)
[2021-06-04] MEDS: ZINC OXIDE 20% OINT 30 GM TUBE TOP PRN ×2 (11:26→21:37)
[2021-06-04 13:00] LABS: BASOPHILS % (AUTO) 0.2 %; EOSINOPHILS % (AUTO) 0.1 %; HCT - HEMATOCRIT 29.8 % (42.0-52.0); HGB - HEMOGLOBIN 9.6 g/dL (14.0-18.0); LYMPHOCYTES # (AUTO) 0.1 10^3/uL (1.5-3.5); LYMPHOCYTES % (AUTO) 0.8 %; MEAN CORPUSCULAR HEMOGLOBIN 34.7 pg (27.0-31.0); MEAN CORPUSCULAR HGB CONC 32.2 g/dL (32.0-36.0); MEAN CORPUSCULAR VOLUME 107.6 fL (80.0-94.0); MEAN PLATELET VOLUME 10.2 fL (7.4-11.4); MONOCYTES # (AUTO) 0.6 10^3/uL (0.0-1.0); MONOCYTES % (AUTO) 3.2 %; NEUTROPHILS # (AUTO) 16.3 10^3/uL (1.5-6.6); NRBC ABSOLUTE COUNT (AUTO) 0.03 x10^3/uL; NUCLEATED RED BLOOD CELLS AUTO 0.2 /100WBC; PLT - PLATELET COUNT 222 10^3/uL (130-450); RED BLOOD COUNT 2.77 10^6/uL (4.70-6.10); RED CELL DISTRIBUTION WIDTH 16.4 % (12.0-15.0); WHITE BLOOD COUNT 17.3 x10^3/uL (4.8-10.8)
[2021-06-04 13:06] LABS: CALCIUM 7.8 mg/dL (8.5-10.3); CREATININE 0.9 mg/dL (0.6-1.2); POTASSIUM 3.4 mmol/L (3.5-5.0)
[2021-06-05 05:51] LABS: BASOPHILS % (AUTO) 0.2 %; EOSINOPHILS # (AUTO) 0.2 10^3/uL (0.0-0.7); HCT - HEMATOCRIT 31.6 % (42.0-52.0); HGB - HEMOGLOBIN 10.1 g/dL (14.0-18.0); LYMPHOCYTES # (AUTO) 0.4 10^3/uL (1.5-3.5); LYMPHOCYTES % (AUTO) 2.6 %; MEAN CORPUSCULAR HEMOGLOBIN 33.4 pg (27.0-31.0); MEAN CORPUSCULAR VOLUME 104.6 fL (80.0-94.0); MEAN PLATELET VOLUME 10.5 fL (7.4-11.4); MONOCYTES # (AUTO) 0.7 10^3/uL (0.0-1.0); MONOCYTES % (AUTO) 4.6 %; NEUTROPHILS # (AUTO) 14.2 10^3/uL (1.5-6.6); NEUTROPHILS % (AUTO) 90.3 %; NRBC ABSOLUTE COUNT (AUTO) 0.03 x10^3/uL; NUCLEATED RED BLOOD CELLS AUTO 0.2 /100WBC; PLT - PLATELET COUNT 258 10^3/uL (130-450); RED BLOOD COUNT 3.02 10^6/uL (4.70-6.10); RED CELL DISTRIBUTION WIDTH 16.3 % (12.0-15.0); WHITE BLOOD COUNT 15.7 x10^3/uL (4.8-10.8)
[2021-06-05 06:22] LABS: CALCIUM 8.1 mg/dL (8.5-10.3); CREATININE 0.8 mg/dL (0.6-1.2); CRP - C-REACTIVE PROTEIN 22.6 mg/dL (0-1.0); POTASSIUM 3.5 mmol/L (3.5-5.0)
[2021-06-05] MEDS: SODIUM CHLORIDE FLUSH 0.9% 10 ML SYRINGE IVP SCH ×3 (07:43→16:43)
[2021-06-05] MEDS: FUROSEMIDE 20 MG/2 ML VIAL IVP SCH (08:40)
[2021-06-05] MEDS: NICOTINE 7 MG PATCH TOP SCH (08:40)
[2021-06-05] MEDS: ENOXAPARIN 60 MG/0.6 ML SYRINGE SUBQ SCH ×2 (08:40→20:51)
[2021-06-05] MEDS: dexAMETHasone 4 MG TABLET PO SCH (08:41)
[2021-06-05] MEDS: FERROUS GLUCONATE 324 MG TABLET PO SCH (08:41)
[2021-06-05] MEDS: MULTIVITAMIN W/MINERALS TABLET PO SCH (08:41)
[2021-06-05] MEDS: TAMSULOSIN 0.4 MG CAPSULE PO SCH (08:41)
[2021-06-05] MEDS: guaiFENesin 600 MG TABLET PO SCH ×2 (08:42→20:51)
[2021-06-05] MEDS: ASPIRIN EC 81 MG TABLET PO SCH (08:42)
[2021-06-05] MEDS: CYANOCOBALAMIN 500 MCG TABLET PO SCH (08:42)
[2021-06-05] MEDS: cefTRIAXone 1 GM in SODIUM CHLORIDE 0.9% MINIBAG 100 ML IV SCH (08:55)
[2021-06-05] MEDS: ZINC OXIDE 20% OINT 30 GM TUBE TOP PRN ×2 (12:03→21:05)
--- NOTE | 2021-06-05 18:04 | PROVIDER PROGRESS NOTE ---
Assessment/Plan - Problem List (1) Acute respiratory failure with hypoxia Assessment/Plan: Hypoxia is due to Covid pneumonia, although he could have some COPD (being a current smoker) and there is no history of CHF. His suppl O2 has been variable, ranging 3-10 L. Given the likelihood of COPD will have goal oxgyen saturation above 88%. He denies feeling short of breath. RT is giving him a percussion ve st, since he cannot follow directions to do IS or Acapella. Continue treating him as Covid pneumonia and possible community-acquired pneumonia Also, he is on therapeutic DVT treatment as opposed to prophylaxis due to his high D-dimer DO NOT RESUSCITATE status documented in medical record (2) Pneumonia due to COVID-19 virus Impression: He was ill for 7 days prior to being seen in the emergency room on May 27. With that encounter he was not hypoxic enough to need admission. Given his current hypoxia he was started on Remdesivir this admission, planned for max of 5 days and Decadron max of 10 days. His WBC was normal on admission, has been slightly elevated the last few days, likely due to Decadron but also possible due to pneumonia. CRP is trending down. Has been receiving Rocephin, will stop on 06/07/21, for a 7 day total course, as his blood cultures have had no growth x5 days. CXR 06/02 showed fluid overload and he was started on lasix. Continue supplemental O2, weaning down as tolerated. Isolation precautions. 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 To be continued on his therapy in the outpatient setting. His Flomax is continued while here. (4) Autism Impression: With autism, he is unable to participate in decision-making for his healthcare matters and has a legally appointed DPOA. The plan is to return to his assisted living facility at discharge. (5) Atrial fibrillation Impression: Stable. Paroxysmal Afib was present with his previous admission. At admission, he was in Aflutter with 4:1 block. He was on metoprolol for rate control. He was not on an anticoagulant for stroke prophylaxis because he is a fall risk and the DPOA said he has had falls before. We started 1 baby aspirin daily for stroke prophylaxis, which the DPOA agreed with. Qualifiers: Atrial fibrillation type: paroxysmal Qualified Code(s): I48.0 - Paroxysmal atrial fibrillation (6) Anemia Impression: He carries a diagnosis of B12 deficiency. We have verified that he is B12 deficient now, from a low serum B12 level. He got im B12 x1 then started B12 orally daily. (B12 is not on his current medication list). Iron level was low on May 27 at 12, up to 16 on 05/30. TIBC 196. Percent saturation 8, up from 6. Transferrin 140, down from 154. Oral iron was restarted. Qualifiers: Anemia type: B12 deficiency AND Iron deficiency (7) Weakness Impression: Per admission HPI he has been getting weaker while here. Prior to admission he was "not going to meals in the dining spencer anymore and was drinking Ensure. He prefers to stay in his room and comes out to smoke his cigarettes." He was able to get out of bed for meals the last 2 days with 1 person assist, however today his RN reports she was unable to get him up and it may be difficult even with a 2 person assist. Hopefully he can regain his preadmission level of functioning, though given his progressive decline in addition to the COVID he may be developing a new baseline. PT evaluation ordered and he would not cooperate (behavioral). - Current Meds Current Meds: Current Medications Generic Name Dose Route Start Last Admin Trade Name Petra PRN Reason Stop Dose Admin Aspirin 81 mg 05/30/21 16:04 06/05/21 08:42 Aspirin Ec 81 Mg Tablet PO 81 mg DAILY NORBERTO Administration Cyanocobalamin 500 mcg 05/31/21 09:00 06/05/21 08:42 Cyanocobalamin 500 Mcg Tablet PO 500 mcg DAILY NORBERTO Administration Dexamethasone 6 mg 06/03/21 09:00 06/05/21 08:41 Dexamethasone 4 Mg Tablet PO 6 mg DAILY NORBERTO Administration Enoxaparin Sodium 60 mg 05/30/21 21:00 06/05/21 08:40 Enoxaparin 60 Mg/0.6 Ml Syringe SUBQ 60 mg BID NORBERTO Administration Ferrous Gluconate 324 mg 05/30/21 08:00 06/05/21 08:41 Ferrous Gluconate 324 Mg Tablet PO 324 mg DAILYWM NORBERTO Administration Furosemide 20 mg 06/03/21 09:00 06/05/21 08:40 Furosemide 20 Mg/2 Ml Vial IVP 20 mg DAILY NORBERTO Administration Guaifenesin 600 mg 05/31/21 09:00 06/05/21 08:42 Guaifenesin 600 Mg Tablet PO 600 mg BID NORBERTO Administration Mineral Oil 1 applic 05/31/21 01:17 06/02/21 14:09 Min Oil/Dimethicon/Coconut Oil 92 Gm Tube TOP 1 applic PRN PRN Administration Skin Care Multi-Ingredient Ointment 1 applic 06/04/21 07:38 06/05/21 12:03 Zinc Oxide 20% Oint 30 Gm Tube TOP 1 applic PRN PRN Administration Skin Care Multivitamins/Minerals 1 tab 05/31/21 08:00 06/05/21 08:41 Multivitamin W/Minerals Tablet PO 1 tab DAILYWM NORBERTO Administration Nicotine 1 patch 05/30/21 11:00 06/05/21 08:40 Nicotine 7 Mg Patch TOP 1 patch DAILY NORBERTO Administration Sodium Chloride 10 ml 05/30/21 01:36 05/30/21 02:34 Sodium Chloride Flush 0.9% 10 Ml Syringe IVP 10 ml PRN PRN Administration NEEDED PER PROVIDER ORDERS Sodium Chloride 10 ml 05/30/21 09:00 06/05/21 16:43 Sodium Chloride Flush 0.9% 10 Ml Syringe IVP 10 ml 0100,0900,1700 NORBERTO Administration Tamsulosin HCl 0.4 mg 05/30/21 09:00 06/05/21 08:41 Tamsulosin 0.4 Mg Capsule PO 0.4 mg DAILY NORBERTO Administration - Lab Result Fish Bone Diagrams: 06/05/21 05:40 06/05/21 05:40 Subjective - Subjective Patient Reports: No Complaints Nursing Reports: Other (Not getting OOB for 24 hours) Objective Vital Signs: Vital Signs - 24 hr 06/05/21 06/05/21 06/05/21 00:55 02:29 08:33 Temperature 36.7 C 36.8 C Heart Rate Heart Rate [ 64 Monitoring electrodes] Heart Rate [ 70 Radial] Respiratory 28 H 24 28 H Rate Blood Pressure 144/58 H 135/59 H [Right Brachial artery] O2 Saturation 92 94 84 L 06/05/21 06/05/21 06/05/21 08:36 08:59 09:36 Temperature 36.8 C Heart Rate 70 Heart Rate [ Monitoring electrodes] Heart Rate [ Radial] Respiratory 28 H Rate Blood Pressure [Right Brachial artery] O2 Saturation 88 L 91 L 93 06/05/21 06/05/21 06/05/21 09:52 09:53 12:00 Temperature Heart Rate Heart Rate [ Monitoring electrodes] Heart Rate [ Radial] Respiratory Rate Blood Pressure [Right Brachial artery] O2 Saturation 98 92 90 L 06/05/21 06/05/21 06/05/21 13:34 13:37 14:39 Temperature Heart Rate Heart Rate [ Monitoring electrodes] Heart Rate [ Radial] Respiratory Rate Blood Pressure [Right Brachial artery] O2 Saturation 96 95 91 L 06/05/21 16:30 Temperature 36.9 C Heart Rate Heart Rate [ Monitoring electrodes] Heart Rate [ Radial] Respiratory 20 Rate Blood Pressure 129/52 L [Right Brachial artery] O2 Saturation 94 Oxygen O2 Source [Without Activity] Room air O2 Source Oxymizer Oxygen Flow Rate 2 I&O (Last 24 Hrs): Intake and Output Totals x24h 06/03/21 06/04/21 06/05/21 23:59 23:59 23:59 Intake Total 1010 1320 1020 Output Total 100 Balance 1010 1220 1020 General: Alert ((exam done remotely)), Other (Cachectic male, appears tired) HEENT: Mucous membr. moist/pink, Other (wearing O2 n.c.) Neck: Supple Neuro: Alert, Disoriented, Non Focal, Other (Generalized weakness) Cardiovascular: Regular rate Respiratory: No respiratory distress (when on suppl O2) Abdomen: Soft Extremities: No edema - Results Results: Laboratory Results WBC 15.7 x10^3/uL (4.8-10.8) H 06/05/21 05:40 RBC 3.02 10^6/uL (4.70-6.10) L 06/05/21 05:40 Hgb 10.1 g/dL (14.0-18.0) L 06/05/21 05:40 Hct 31.6 % (42.0-52.0) L 06/05/21 05:40 MCV 104.6 fL (80.0-94.0) H 06/05/21 05:40 MCH 33.4 pg (27.0-31.0) H 06/05/21 05:40 MCHC 32.0 g/dL (32.0-36.0) 06/05/21 05:40 RDW 16.3 % (12.0-15.0) H 06/05/21 05:40 Plt Count 258 10^3/uL (130-450) 06/05/21 05:40 MPV 10.5 fL (7.4-11.4) 06/05/21 05:40 Neut # (Auto) 14.2 10^3/uL (1.5-6.6) H 06/05/21 05:40 Lymph # (Auto) 0.4 10^3/uL (1.5-3.5) L 06/05/21 05:40 [place] # (Auto) 0.7 10^3/uL (0.0-1.0) 06/05/21 05:40 Eos # (Auto) 0.2 10^3/uL (0.0-0.7) 06/05/21 05:40 Baso # (Auto) 0.0 10^3/uL (0.0-0.1) 06/05/21 05:40 Absolute Nucleated RBC 0.03 x10^3/uL 06/05/21 05:40 Nucleated RBC % 0.2 /100WBC 06/05/21 05:40 D-Dimer > 1050.0 ng/mL (200.0-255.0) H 05/30/21 05:30 Sodium 141 mmol/L (135-145) 06/05/21 05:40 Potassium 3.5 mmol/L (3.5-5.0) 06/05/21 05:40 Chloride 106 mmol/L (101-111) 06/05/21 05:40 Carbon Dioxide 25 mmol/L (21-32) 06/05/21 05:40 Anion Gap 10.0 (6-13) 06/05/21 05:40 BUN 38 mg/dL (6-20) H 06/05/21 05:40 Creatinine 0.8 mg/dL (0.6-1.2) 06/05/21 05:40 Estimated GFR (MDRD) 93 (>89) 06/05/21 05:40 Glucose 95 mg/dL (70-100) 06/05/21 05:40 Lactic Acid 1.7 mmol/L (0.5-2.2) 05/29/21 23:46 Calcium 8.1 mg/dL (8.5-10.3) L 06/05/21 05:40 Phosphorus 3.8 mg/dL (2.5-4.6) 05/29/21 23:18 Iron 16 ug/dL (45-182) L 05/30/21 05:40 TIBC 196 ug/dL (250-450) L 05/30/21 05:40 % Saturation 8 % (20-50) L 05/30/21 05:40 Transferrin 140 mg/dL (180-329) L 05/30/21 05:40 Total Bilirubin 0.9 mg/dL (0.2-1.0) 05/29/21 23:18 AST 20 IU/L (10-42) 05/29/21 23:18 ALT 14 IU/L (10-60) 05/29/21 23:18 Alkaline Phosphatase 86 IU/L (42-121) 05/29/21 23:18 C-Reactive Protein 22.6 mg/dL (0-1.0) H 06/05/21 05:40 B-Natriuretic Peptide 422 pg/mL (5-100) H 05/29/21 23:18 Total Protein 6.6 g/dL (6.7-8.2) L 05/29/21 23:18 Albumin 2.5 g/dL (3.2-5.5) L 05/29/21 23:18 Globulin 4.1 g/dL (2.1-4.2) 05/29/21 23:18 Albumin/Globulin Ratio 0.6 (1.0-2.2) L 05/29/21 23:18 Vitamin B12 < 50 pg/mL (180-914) L 05/30/21 05:40 Folate 10.38 ng/mL (5.90 - >24.8) 05/30/21 05:40 Sepsis Event Note (H) - Evaluation Current Stage of Sepsis: Ruled out
[2021-06-06 05:49] LABS: BASOPHILS % (AUTO) 0.2 %; EOSINOPHILS % (AUTO) 0.2 %; HCT - HEMATOCRIT 30.9 % (42.0-52.0); HGB - HEMOGLOBIN 9.9 g/dL (14.0-18.0); LYMPHOCYTES # (AUTO) 0.2 10^3/uL (1.5-3.5); LYMPHOCYTES % (AUTO) 1.3 %; MEAN CORPUSCULAR HEMOGLOBIN 33.2 pg (27.0-31.0); MEAN CORPUSCULAR VOLUME 103.7 fL (80.0-94.0); MEAN PLATELET VOLUME 10.7 fL (7.4-11.4); MONOCYTES # (AUTO) 0.8 10^3/uL (0.0-1.0); MONOCYTES % (AUTO) 4.4 %; NEUTROPHILS # (AUTO) 17.1 10^3/uL (1.5-6.6); NEUTROPHILS % (AUTO) 92.3 %; NRBC ABSOLUTE COUNT (AUTO) 0.03 x10^3/uL; NUCLEATED RED BLOOD CELLS AUTO 0.2 /100WBC; PLT - PLATELET COUNT 344 10^3/uL (130-450); RED BLOOD COUNT 2.98 10^6/uL (4.70-6.10); RED CELL DISTRIBUTION WIDTH 16.4 % (12.0-15.0); WHITE BLOOD COUNT 18.5 x10^3/uL (4.8-10.8)
[2021-06-06 06:20] LABS: CREATININE 0.8 mg/dL (0.6-1.2); CRP - C-REACTIVE PROTEIN 19.2 mg/dL (0-1.0); POTASSIUM 3.6 mmol/L (3.5-5.0)
[2021-06-06] MEDS: SODIUM CHLORIDE FLUSH 0.9% 10 ML SYRINGE IVP SCH ×3 (07:28→17:27)
[2021-06-06] MEDS: FERROUS GLUCONATE 324 MG TABLET PO SCH (08:04)
[2021-06-06] MEDS: MULTIVITAMIN W/MINERALS TABLET PO SCH (08:04)
[2021-06-06] MEDS ORDERED: ALBUTEROL 1 PUFF INH PRN (08:11)
[2021-06-06] MEDS: NICOTINE 7 MG PATCH TOP SCH (09:17)
[2021-06-06] MEDS: ENOXAPARIN 60 MG/0.6 ML SYRINGE SUBQ SCH ×2 (09:18→20:38)
[2021-06-06] MEDS: FUROSEMIDE 20 MG/2 ML VIAL IVP SCH ×2 (09:18→15:00)
[2021-06-06] MEDS: guaiFENesin 600 MG TABLET PO SCH ×2 (09:19→20:37)
[2021-06-06] MEDS: ASPIRIN EC 81 MG TABLET PO SCH (09:19)
[2021-06-06] MEDS: dexAMETHasone 4 MG TABLET PO SCH (09:19)
[2021-06-06] MEDS: TAMSULOSIN 0.4 MG CAPSULE PO SCH (09:19)
[2021-06-06] MEDS: CYANOCOBALAMIN 500 MCG TABLET PO SCH (09:19)
--- NOTE | 2021-06-06 12:37 | PROVIDER PROGRESS NOTE ---
Assessment/Plan - Problem List (1) Acute respiratory failure with hypoxia Assessment/Plan: 06/06/21 nurse and RT report pt is difficult to have appropriate O2 sat in reading, although I saw pt ate his lunch and did not show acute respiratory distress. Now pt need 5 liter of O2 by NS, per RT report, pt had 90-92% O2 sat. Discussed with RT and nurse for how to improve to have acute O2 sat reading for pt. Order CXR, called pharmacy to confirm pt finished antibiotics Azith, Rocephin for one week treatment. continue IV of Lasix daily now, continue finish the Covid 19 treatment regimen. Continue supplemental oxygen as needed, Follow- up with chest x-ray. Per pt's prior Chest x-ray, patient seems fluid overloaded, will order echo for patient. continue incentive spirometry DO NOT RESUSCITATE status documented in medical record (2) Pneumonia due to COVID-19 virus Impression: He was ill for 7 days prior to being seen in the emergency room on May 27. With that encounter he was not hypoxic enough to need admission. pt finished remdesivir treatment, will continue Decatron and Lovenox. CXR is pending, will followup as the above. 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 To be continued on his therapy in the outpatient setting. His Flomax is continued while here. (4) Autism Impression: With autism, he is unable to participate in decision-making for his healthcare matters and has a legally appointed DPOA. The plan is to return to his assisted living facility at discharge. (5) Atrial fibrillation Impression: Stable. will resume home Metoprolol. Paroxysmal Afib was present with his previous admission. At admission, he was in Aflutter with 4:1 block. He was on metoprolol for rate control. He was not on an anticoagulant for stroke prophylaxis because he is a fall risk and the DPOA said he has had falls before. We started 1 baby aspirin daily for stroke prophylaxis, which the DPOA agreed with. (6) Anemia Impression: HGB is 9.9, stable. Oral iron was restarted. (7) Weakness Impression: pt is still not cooperate with PT/OT now. pt did not cooperate with PT/OT now, refused to leave the bed now. Per admission HPI he has been getting weaker while here. Prior to admission he was "not going to meals in the dining spencer anymore and was drinking Ensure. He prefers to stay in his room and comes out to smoke his cigarettes." He was able to get out of bed for meals the last 2 days with 1 person assist, however today his RN reports she was unable to get him up and it may be difficult even with a 2 person assist. Hopefully he can regain his preadmission level of functioning, though given his progressive decline in addition to the COVID he may be developing a new baseline. - Current Meds Current Meds: Current Medications Generic Name Dose Route Start Last Admin Trade Name Freq PRN Reason Stop Dose Admin Aspirin 81 mg 05/30/21 16:04 06/06/21 09:19 Aspirin Ec 81 Mg Tablet PO 81 mg DAILY NOREBRTO Administration Cyanocobalamin 500 mcg 05/31/21 09:00 06/06/21 09:19 Cyanocobalamin 500 Mcg Tablet PO 500 mcg DAILY NORBERTO Administration Dexamethasone 6 mg 06/03/21 09:00 06/06/21 09:19 Dexamethasone 4 Mg Tablet PO 6 mg DAILY NORBERTO Administration Enoxaparin Sodium 60 mg 05/30/21 21:00 06/06/21 09:18 Enoxaparin 60 Mg/0.6 Ml Syringe SUBQ 60 mg BID NORBERTO Administration Ferrous Gluconate 324 mg 05/30/21 08:00 06/06/21 08:04 Ferrous Gluconate 324 Mg Tablet PO 324 mg DAILYWM NORBERTO Administration Furosemide 20 mg 06/03/21 09:00 06/06/21 09:18 Furosemide 20 Mg/2 Ml Vial IVP 20 mg DAILY NORBERTO Administration Guaifenesin 600 mg 05/31/21 09:00 06/06/21 09:19 Guaifenesin 600 Mg Tablet PO 600 mg BID NORBERTO Administration Mineral Oil 1 applic 05/31/21 01:17 06/02/21 14:09 Min Oil/Dimethicon/Coconut Oil 92 Gm Tube TOP 1 applic PRN PRN Administration Skin Care Multi-Ingredient Ointment 1 applic 06/04/21 07:38 06/05/21 21:05 Zinc Oxide 20% Oint 30 Gm Tube TOP 1 applic PRN PRN Administration Skin Care Multivitamins/Minerals 1 tab 05/31/21 08:00 06/06/21 08:04 Multivitamin W/Minerals Tablet PO 1 tab DAILYWM NORBERTO Administration Nicotine 1 patch 05/30/21 11:00 06/06/21 09:17 Nicotine 7 Mg Patch TOP 1 patch DAILY NORBERTO Administration Sodium Chloride 10 ml 05/30/21 01:36 05/30/21 02:34 Sodium Chloride Flush 0.9% 10 Ml Syringe IVP 10 ml PRN PRN Administration NEEDED PER PROVIDER ORDERS Sodium Chloride 10 ml 05/30/21 09:00 06/06/21 09:22 Sodium Chloride Flush 0.9% 10 Ml Syringe IVP 10 ml 0100,0900,1700 NORBERTO Administration Tamsulosin HCl 0.4 mg 05/30/21 09:00 06/06/21 09:19 Tamsulosin 0.4 Mg Capsule PO 0.4 mg DAILY NORBERTO Administration - Lab Result Fish Bone Diagrams: 06/06/21 05:40 06/06/21 05:40 - Additional Planning My Orders: My Active Orders 06/06/21 08:11 Mdi: Albuterol 2 puffs INH Q6H PRN 06/06/21 08:12 Nebulizer/MDI Tx. [RC] QID Resp Teach Nebulizer/MDI [RC] .ONCE 06/06/21 12:25 Chest 1 View X-Ray [XR] Stat 06/06/21 12:26 Echo Transthoracic Complete [ECHO] Stat Subjective - Subjective Patient Reports: Resting Comfortably Objective Vital Signs: Vital Signs - 24 hr 06/05/21 06/05/21 06/05/21 13:34 13:37 14:39 Temperature Heart Rate [ Brachial] Heart Rate [ Monitoring electrodes] Heart Rate [ Radial] Respiratory Rate Blood Pressure [Right Brachial artery] O2 Saturation 96 95 91 L 06/05/21 06/05/21 06/05/21 16:30 20:29 21:12 Temperature 36.9 C Heart Rate [ Brachial] Heart Rate [ 59 L Monitoring electrodes] Heart Rate [ Radial] Respiratory 20 17 19 Rate Blood Pressure 129/52 L [Right Brachial artery] O2 Saturation 94 95 90 L 06/06/21 06/06/21 06/06/21 00:59 07:57 09:20 Temperature 37 C 36.7 C Heart Rate [ 75 Brachial] Heart Rate [ Monitoring electrodes] Heart Rate [ 75 52 L Radial] Respiratory 20 28 H Rate Blood Pressure 154/74 H 124/48 L [Right Brachial artery] O2 Saturation 94 95 85 L 02/01/22 02/01/22 02/01/22 09:21 09:25 09:33 Temperature Heart Rate [ Brachial] Heart Rate [ Monitoring electrodes] Heart Rate [ Radial] Respiratory Rate Blood Pressure [Right Brachial artery] O2 Saturation 88 L 86 L 88 L Oxygen O2 Source [Without Activity] Room air O2 Source Oxymizer Oxygen Flow Rate 2 I&O (Last 24 Hrs): Intake and Output Totals x24h 06/04/21 06/05/21 06/06/21 23:59 23:59 23:59 Intake Total 1320 1270 360 Output Total 100 Balance 1220 1270 360 General: Alert, No acute distress HEENT: Atraumatic, EOMI Lymphatic: no adenopathy Neuro: Alert, Non Focal Cardiovascular: Regular rate, Normal S1 Respiratory: Chest non-tender, No respiratory distress Abdomen: Normal bowel sounds, Soft Extremities: Normal pulses - Results Results: Laboratory Results WBC 18.5 x10^3/uL (4.8-10.8) H 06/06/21 05:40 RBC 2.98 10^6/uL (4.70-6.10) L 06/06/21 05:40 Hgb 9.9 g/dL (14.0-18.0) L 06/06/21 05:40 Hct 30.9 % (42.0-52.0) L 06/06/21 05:40 MCV 103.7 fL (80.0-94.0) H 06/06/21 05:40 MCH 33.2 pg (27.0-31.0) H 06/06/21 05:40 MCHC 32.0 g/dL (32.0-36.0) 06/06/21 05:40 RDW 16.4 % (12.0-15.0) H 06/06/21 05:40 Plt Count 344 10^3/uL (130-450) 06/06/21 05:40 MPV 10.7 fL (7.4-11.4) 06/06/21 05:40 Neut # (Auto) 17.1 10^3/uL (1.5-6.6) H 06/06/21 05:40 Lymph # (Auto) 0.2 10^3/uL (1.5-3.5) L 06/06/21 05:40 Trimble # (Auto) 0.8 10^3/uL (0.0-1.0) 06/06/21 05:40 Eos # (Auto) 0.0 10^3/uL (0.0-0.7) 06/06/21 05:40 Baso # (Auto) 0.0 10^3/uL (0.0-0.1) 06/06/21 05:40 Absolute Nucleated RBC 0.03 x10^3/uL 06/06/21 05:40 Nucleated RBC % 0.2 /100WBC 06/06/21 05:40 D-Dimer > 1050.0 ng/mL (200.0-255.0) H 05/30/21 05:30 Sodium 140 mmol/L (135-145) 06/06/21 05:40 Potassium 3.6 mmol/L (3.5-5.0) 06/06/21 05:40 Chloride 104 mmol/L (101-111) 06/06/21 05:40 Carbon Dioxide 25 mmol/L (21-32) 06/06/21 05:40 Anion Gap 11.0 (6-13) 06/06/21 05:40 BUN 36 mg/dL (6-20) H 06/06/21 05:40 Creatinine 0.8 mg/dL (0.6-1.2) 06/06/21 05:40 Estimated GFR (MDRD) 93 (>89) 06/06/21 05:40 Glucose 92 mg/dL (70-100) 06/06/21 05:40 Lactic Acid 1.7 mmol/L (0.5-2.2) 05/29/21 23:46 Calcium 8.0 mg/dL (8.5-10.3) L 06/06/21 05:40 Phosphorus 3.8 mg/dL (2.5-4.6) 05/29/21 23:18 Iron 16 ug/dL (45-182) L 05/30/21 05:40 TIBC 196 ug/dL (250-450) L 05/30/21 05:40 % Saturation 8 % (20-50) L 05/30/21 05:40 Transferrin 140 mg/dL (180-329) L 05/30/21 05:40 Total Bilirubin 0.9 mg/dL (0.2-1.0) 05/29/21 23:18 AST 20 IU/L (10-42) 05/29/21 23:18 ALT 14 IU/L (10-60) 05/29/21 23:18 Alkaline Phosphatase 86 IU/L (42-121) 05/29/21 23:18 C-Reactive Protein 19.2 mg/dL (0-1.0) H 06/06/21 05:40 B-Natriuretic Peptide 422 pg/mL (5-100) H 05/29/21 23:18 Total Protein 6.6 g/dL (6.7-8.2) L 05/29/21 23:18 Albumin 2.5 g/dL (3.2-5.5) L 05/29/21 23:18 Globulin 4.1 g/dL (2.1-4.2) 05/29/21 23:18 Albumin/Globulin Ratio 0.6 (1.0-2.2) L 05/29/21 23:18 Vitamin B12 < 50 pg/mL (180-914) L 05/30/21 05:40 Folate 10.38 ng/mL (5.90 - >24.8) 05/30/21 05:40 Sepsis Event Note (H) - Evaluation Current Stage of Sepsis: Ruled out ABX Reporting Has patient been on IV antibiotics over the past 48 hours?: No Current Medications - Current Medications Current Medications: Active Medications Acetaminophen (Acetaminophen 325 Mg Tablet) 650 mg PO Q4HR PRN PRN Reason: Pain 1 to 4 Albuterol (Albuterol 1 Puff) 2 puffs INH Q6H PRN PRN Reason: Shortness of Air/Wheezing Aspirin (Aspirin Ec 81 Mg Tablet) 81 mg PO DAILY [facility] Last Admin: 06/06/21 09:19 Dose: 81 mg Cholecalciferol (Cholecalciferol 25 Mcg Tablet) 50 mcg PO DAILY [facility] Cyanocobalamin (Cyanocobalamin 500 Mcg Tablet) 500 mcg PO DAILY [facility] Last Admin: 06/06/21 09:19 Dose: 500 mcg Dexamethasone (Dexamethasone 4 Mg Tablet) 6 mg PO DAILY [facility] Last Admin: 06/06/21 09:19 Dose: 6 mg Enoxaparin Sodium (Enoxaparin 60 Mg/0.6 Ml Syringe) 60 mg SUBQ BID [facility] Last Admin: 06/06/21 09:18 Dose: 60 mg Ferrous Gluconate (Ferrous Gluconate 324 Mg Tablet) 324 mg PO DAILYWM [facility] Last Admin: 06/06/21 08:04 Dose: 324 mg Furosemide (Furosemide 20 Mg/2 Ml Vial) 20 mg IVP DAILY [facility] Last Admin: 06/06/21 09:18 Dose: 20 mg Guaifenesin (Guaifenesin 600 Mg Tablet) 600 mg PO BID [facility] Last Admin: 06/06/21 09:19 Dose: 600 mg Metoprolol Tartrate (Metoprolol Tartrate 25 Mg Tablet) 25 mg PO DAILY [facility] Mineral Oil (Min Oil/Dimethicon/Coconut Oil 92 Gm Tube) 1 applic TOP PRN PRN PRN Reason: Skin Care Last Admin: 06/02/21 14:09 Dose: 1 applic Multi-Ingredient Ointment (Zinc Oxide 20% Oint 30 Gm Tube) 1 applic TOP PRN PRN PRN Reason: Skin Care Last Admin: 06/05/21 21:05 Dose: 1 applic Multivitamins/Minerals (Multivitamin W/Minerals Tablet) 1 tab PO DAILYWM [facility] Last Admin: 06/06/21 08:04 Dose: 1 tab Nicotine (Nicotine 7 Mg Patch) 1 patch TOP DAILY [facility] Last Admin: 06/06/21 09:17 Dose: 1 patch Ondansetron HCl (Ondansetron Odt 4 Mg Tablet) 4 mg TL Q6HR PRN PRN Reason: Nausea / Vomiting Ondansetron HCl (Ondansetron 4 Mg/2 Ml Vial) 4 mg IVP Q6HR PRN PRN Reason: Nausea / Vomiting Oxycodone HCl (Oxycodone 5 Mg Tablet) 5 mg PO Q4HR PRN PRN Reason: Pain 5 to 7 Sodium Chloride (Sodium Chloride Flush 0.9% 10 Ml Syringe) 10 ml IVP PRN PRN PRN Reason: NEEDED PER PROVIDER ORDERS Last Admin: 05/30/21 02:34 Dose: 10 ml Sodium Chloride (Sodium Chloride Flush 0.9% 10 Ml Syringe) 10 ml IVP 0100,0900,1700 [facility] Last Admin: 06/06/21 09:22 Dose: 10 ml Tamsulosin HCl (Tamsulosin 0.4 Mg Capsule) 0.4 mg PO DAILY [facility] Last Admin: 06/06/21 09:19 Dose: 0.4 mg Acetaminophen [Tylenol] 650 mg PO TID 04/17/16 Loperamide [Imodium] 2 mg PO PRN PRN 11/25/19 Tamsulosin [Flomax] 0.4 mg PO QPM 01/10/20 Acetaminophen [Tylenol] 650 mg PO DAILY PRN 03/15/20 Enzalutamide [Xtandi] 160 mg PO DAILY 02/07/21 Metoprolol Tartrate 25 mg PO DAILY 05/30/21 Potassium Chloride [K-Dur] 20 meq PO TIDWM 05/30/21
--- NOTE | 2021-06-06 13:13 | XRAY Report ---
PROCEDURE: Chest 1 View X-Ray INDICATIONS: SOB TECHNIQUE: One view of the chest was acquired. COMPARISON: 06/02/2021 FINDINGS: Cardiomegaly with moderate to severe diffuse interstitial prominence and bilateral pleural effusions. Findings are not significantly different when compared with most recent prior study. IMPRESSION: No significant interval change. Diffuse increased interstitial markings with central/perihilar predom inance and small bilateral pleural effusions, with consolidation in the lung bases. Findings most lik tanner reflect severe pulmonary edema, although a potentially superimposed infectious process cannot be excluded. Reviewed by: Hermilo Braxton MD on 06/06/2021 1:12 PM PST Approved by: Hermilo Braxton MD on 06/06/2021 1:12 PM PST Station ID: [id number]
[2021-06-06] MEDS: SODIUM CHLORIDE FLUSH 0.9% 10 ML SYRINGE IVP PRN (15:00)
[2021-06-07] MEDS: SODIUM CHLORIDE FLUSH 0.9% 10 ML SYRINGE IVP SCH ×3 (00:39→19:16)
[2021-06-07] MEDS: SODIUM CHLORIDE FLUSH 0.9% 10 ML SYRINGE IVP PRN (06:05)
[2021-06-07 06:20] LABS: BASOPHILS % (AUTO) 0.1 %; EOSINOPHILS % (AUTO) 0.1 %; HCT - HEMATOCRIT 27.9 % (42.0-52.0); HGB - HEMOGLOBIN 8.9 g/dL (14.0-18.0); LYMPHOCYTES # (AUTO) 0.4 10^3/uL (1.5-3.5); LYMPHOCYTES % (AUTO) 2.5 %; MEAN CORPUSCULAR HEMOGLOBIN 33.1 pg (27.0-31.0); MEAN CORPUSCULAR HGB CONC 31.9 g/dL (32.0-36.0); MEAN CORPUSCULAR VOLUME 103.7 fL (80.0-94.0); MEAN PLATELET VOLUME 10.2 fL (7.4-11.4); MONOCYTES # (AUTO) 0.7 10^3/uL (0.0-1.0); MONOCYTES % (AUTO) 4.8 %; NEUTROPHILS # (AUTO) 13.2 10^3/uL (1.5-6.6); NEUTROPHILS % (AUTO) 91.2 %; PLT - PLATELET COUNT 371 10^3/uL (130-450); RED BLOOD COUNT 2.69 10^6/uL (4.70-6.10); RED CELL DISTRIBUTION WIDTH 16.3 % (12.0-15.0); WHITE BLOOD COUNT 14.5 x10^3/uL (4.8-10.8)
[2021-06-07] MEDS: FUROSEMIDE 20 MG/2 ML VIAL IVP SCH ×2 (06:26→21:11)
[2021-06-07 06:52] LABS: CALCIUM 7.8 mg/dL (8.5-10.3); CREATININE 0.8 mg/dL (0.6-1.2); CRP - C-REACTIVE PROTEIN 19.7 mg/dL (0-1.0); POTASSIUM 3.1 mmol/L (3.5-5.0)
[2021-06-07] MEDS ORDERED: POTASSIUM CHLORIDE 20 MEQ TABLET PO ONE (07:28)
[2021-06-07] MEDS: guaiFENesin 600 MG TABLET PO SCH ×2 (09:12→21:10)
[2021-06-07] MEDS: CHOLECALCIFEROL 25 MCG TABLET PO SCH (09:12)
[2021-06-07] MEDS: FERROUS GLUCONATE 324 MG TABLET PO SCH (09:12)
[2021-06-07] MEDS: ASPIRIN EC 81 MG TABLET PO SCH (09:13)
[2021-06-07] MEDS: dexAMETHasone 4 MG TABLET PO SCH (09:13)
[2021-06-07] MEDS: METOPROLOL TARTRATE 25 MG TABLET PO SCH (09:13)
[2021-06-07] MEDS: NICOTINE 7 MG PATCH TOP SCH (09:15)
[2021-06-07] MEDS: MULTIVITAMIN W/MINERALS TABLET PO SCH (09:17)
[2021-06-07] MEDS: CYANOCOBALAMIN 500 MCG TABLET PO SCH (09:17)
[2021-06-07] MEDS: TAMSULOSIN 0.4 MG CAPSULE PO SCH (09:17)
[2021-06-07] MEDS: ENOXAPARIN 60 MG/0.6 ML SYRINGE SUBQ SCH ×2 (09:17→21:10)
[2021-06-07] MEDS: PANTOPRAZOLE 40 MG TABLET PO SCH (09:29)
[2021-06-07] MEDS: ZINC OXIDE 20% OINT 30 GM TUBE TOP PRN (11:06)
[2021-06-07 12:06] LABS: HCT - HEMATOCRIT 28.4 % (42.0-52.0); HGB - HEMOGLOBIN 9.2 g/dL (14.0-18.0)
--- NOTE | 2021-06-07 12:17 | PROVIDER PROGRESS NOTE ---
Assessment/Plan - Problem List (1) Acute respiratory failure with hypoxia Assessment/Plan: 06/07/21 improved. he had 99% on 2 liter of O2, comfortable sleep at bed now. continue Lasix, continue finish the Covid 19 treatment regimen. Continue supplemental oxygen as needed, 06/06/21 nurse and RT report pt is difficult to have appropriate O2 sat in reading, although I saw pt ate his lunch and did not show acute respiratory distress. Now pt need 5 liter of O2 by NS, per RT report, pt had 90-92% O2 sat. Discussed with RT and nurse for how to improve to have acute O2 sat reading for pt. Order CXR, called pharmacy to confirm pt finished antibiotics Azith, Rocephin for one week treatment. continue IV of Lasix daily now, continue finish the Covid 19 treatment regimen. Continue supplemental oxygen as needed, Follow- up with chest x-ray. Per pt's prior Chest x-ray, patient seems fluid overloaded, will order echo for patient. continue incentive spirometry DO NOT RESUSCITATE status documented in medical record (2) Pneumonia due to COVID-19 virus Impression: 06/07 improved significantly. he had 99% on 2 liter of O2, continue treatment as the above. He was ill for 7 days prior to being seen in the emergency room on May 27. With that encounter he was not hypoxic enough to need admission. pt finished remdesivir treatment, will continue Decatron and Lovenox. CXR is pending, will followup as the above. 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 To be continued on his therapy in the outpatient setting. His Flomax is continued while here. (4) Autism Impression: With autism, he is unable to participate in decision-making for his healthcare matters and has a legally appointed DPOA. The plan is to return to his assisted living facility at discharge. (5) Atrial fibrillation Impression: Stable. will resume home Metoprolol. Paroxysmal Afib was present with his previous admission. At admission, he was in Aflutter with 4:1 block. He was on metoprolol for rate control. He was not on an anticoagulant for stroke prophylax is because he is a fall risk and the DPOA said he has had falls before. We started 1 baby aspirin daily for stroke prophylaxis, which the DPOA agreed with. (6) Anemia Impression: HGB is 9.9, stable. Oral iron was restarted. (7) Weakness Impression: pt is still not cooperate with PT/OT now. pt did not cooperate with PT/OT now, refused to leave the bed now. Per admission HPI he has been getting weaker while here. Prior to admission he was "not going to meals in the dining spencer anymore and was drinking Ensure. He prefers to stay in his room and comes out to smoke his cigarettes." He was able to get out of bed for meals the last 2 days with 1 person assist, however today his RN reports she was unable to get him up and it may be difficult even with a 2 person assist. Hopefully he can regain his preadmission level of functioning, though given his progressive decline in addition to the COVID he may be developing a new baseline. (8)large left pleural effusion ECHO report pt had left large pleural effusion, but CTA did not reveal large pleural effusion 7 days ago, CXR reveals did not reveal as well, will repeat CT. clinic pt is improved after IV Lasix (9)diastolic heart failure ECHO reveal moderate to severe abnormal right heart pressure and 66mmHG RVSP, and pleural effusion and pulmonary edema, worsening O2 sat in yesterday. continue Lasix now. continue Metoprolol, and add low dosage of Lisinopril. - Current Meds Current Meds: Current Medications Generic Name Dose Route Start Last Admin Trade Name Petra PRN Reason Stop Dose Admin Aspirin 81 mg 05/30/21 16:04 06/07/21 09:13 Aspirin Ec 81 Mg Tablet PO 81 mg DAILY NORBERTO Administration Cholecalciferol 50 mcg 06/07/21 09:00 06/07/21 09:12 Cholecalciferol 25 Mcg Tablet PO 50 mcg DAILY NORBERTO Administration Cyanocobalamin 500 mcg 05/31/21 09:00 06/07/21 09:17 Cyanocobalamin 500 Mcg Tablet PO 500 mcg DAILY NORBERTO Administration Dexamethasone 6 mg 06/03/21 09:00 06/07/21 09:13 Dexamethasone 4 Mg Tablet PO 6 mg DAILY NORBERTO Administration Enoxaparin Sodium 60 mg 05/30/21 21:00 06/07/21 09:17 Enoxaparin 60 Mg/0.6 Ml Syringe SUBQ 60 mg BID NORBERTO Administration Ferrous Gluconate 324 mg 05/30/21 08:00 06/07/21 09:12 Ferrous Gluconate 324 Mg Tablet PO 324 mg DAILYWM NORBERTO Administration Furosemide 20 mg 06/06/21 14:30 06/07/21 06:26 Furosemide 20 Mg/2 Ml Vial IVP 20 mg BIDDIURETIC NORBERTO Administration Guaifenesin 600 mg 05/31/21 09:00 06/07/21 09:12 Guaifenesin 600 Mg Tablet PO 600 mg BID NORBERTO Administration Metoprolol Tartrate 25 mg 06/07/21 09:00 06/07/21 09:13 Metoprolol Tartrate 25 Mg Tablet PO 25 mg DAILY NORBERTO Administration Mineral Oil 1 applic 05/31/21 01:17 06/02/21 14:09 Min Oil/Dimethicon/Coconut Oil 92 Gm Tube TOP 1 applic PRN PRN Administration Skin Care Multi-Ingredient Ointment 1 applic 06/04/21 07:38 06/07/21 11:06 Zinc Oxide 20% Oint 30 Gm Tube TOP 1 applic PRN PRN Administration Skin Care Multivitamins/Minerals 1 tab 05/31/21 08:00 06/07/21 09:17 Multivitamin W/Minerals Tablet PO 1 tab DAILYWM NORBERTO Administration Nicotine 1 patch 05/30/21 11:00 06/07/21 09:15 Nicotine 7 Mg Patch TOP 1 patch DAILY NORBERTO Administration Pantoprazole Sodium 40 mg 06/07/21 08:00 06/07/21 09:29 Pantoprazole 40 Mg Tablet PO 40 mg QDAC NORBERTO Administration Sodium Chloride 10 ml 05/30/21 01:36 06/07/21 06:05 Sodium Chloride Flush 0.9% 10 Ml Syringe IVP 10 ml PRN PRN Administration NEEDED PER PROVIDER ORDERS Sodium Chloride 10 ml 05/30/21 09:00 06/07/21 09:18 Sodium Chloride Flush 0.9% 10 Ml Syringe IVP 10 ml 0100,0900,1700 NORBERTO Administration Tamsulosin HCl 0.4 mg 05/30/21 09:00 06/07/21 09:17 Tamsulosin 0.4 Mg Capsule PO 0.4 mg DAILY NORBERTO Administration - Lab Result Fish Bone Diagrams: 06/07/21 11:58 06/07/21 05:54 - Additional Planning My Orders: My Active Orders 06/06/21 12:26 Echo Transthoracic Complete [ECHO] Stat 06/06/21 14:30 FUROSEMIDE INJ 20mg VIAL [LASIX INJ 20mg VIAL] 20 mg IVP BIDDIURETIC 06/07/21 FECAL OCCULT BLOOD (FIT) Urgent 06/07/21 08:00 Pantoprazole [Protonix] 40 mg PO QDAC 06/07/21 09:00 Cholecalciferol [Vitamin D3] 50 mcg PO DAILY Metoprolol Tartrate [Lopressor] 25 mg PO DAILY 06/07/21 12:14 CHEST WO [CT] Routine 06/08/21 05:00 BNP - B-NATRIURETIC PEPTIDE [IAI] DAILYLAB 06/09/21 05:00 BNP - B-NATRIURETIC PEPTIDE [IAI] DAILYLAB 06/10/21 05:00 BNP - B-NATRIURETIC PEPTIDE [IAI] DAILYLAB Subjective - Subjective Patient Reports: Feeling Better, Resting Comfortably Objective Vital Signs: Vital Signs - 24 hr 06/06/21 06/06/21 06/06/21 14:55 14:59 15:04 Temperature Heart Rate [ Brachial] Heart Rate [ Monitoring electrodes] Respiratory Rate Blood Pressure Blood Pressure [Right Brachial artery] O2 Saturation 99 98 97 06/06/21 06/06/21 06/07/21 16:00 22:07 00:00 Temperature 36.6 C 36.2 C L Heart Rate [ 71 69 Brachial] Heart Rate [ Monitoring electrodes] Respiratory 24 20 Rate Blood Pressure Blood Pressure 130/67 157/71 H [Right Brachial artery] O2 Saturation 97 100 96 06/07/21 06/07/21 09:13 11:08 Temperature 36.5 C Heart Rate [ Brachial] Heart Rate [ 92 Monitoring electrodes] Respiratory Rate Blood Pressure 107/43 L Blood Pressure 100/49 L [Right Brachial artery] O2 Saturation 90 L Oxygen O2 Source [Without Activity] Room air O2 Source Nasal cannula Oxygen Flow Rate 2 I&O (Last 24 Hrs): Intake and Output Totals x24h 06/05/21 06/06/21 06/07/21 23:59 23:59 23:59 Intake Total 1270 1090 240 Balance 1270 1090 240 General: Alert, No acute distress HEENT: Atraumatic Neck: Supple Lymphatic: no adenopathy Neuro: Alert, Non Focal Cardiovascular: Regular rate, Normal S1, Normal S2 Respiratory: Chest non-tender, No respiratory distress Abdomen: Normal bowel sounds, Soft Extremities: Normal pulses - Results Results: Laboratory Results WBC 14.5 x10^3/uL (4.8-10.8) H 06/07/21 05:54 RBC 2.69 10^6/uL (4.70-6.10) L 06/07/21 05:54 Hgb 9.2 g/dL (14.0-18.0) L 06/07/21 11:58 Hct 28.4 % (42.0-52.0) L 06/07/21 11:58 MCV 103.7 fL (80.0-94.0) H 06/07/21 05:54 MCH 33.1 pg (27.0-31.0) H 06/07/21 05:54 MCHC 31.9 g/dL (32.0-36.0) L 06/07/21 05:54 RDW 16.3 % (12.0-15.0) H 06/07/21 05:54 Plt Count 371 10^3/uL (130-450) 06/07/21 05:54 MPV 10.2 fL (7.4-11.4) 06/07/21 05:54 Neut # (Auto) 13.2 10^3/uL (1.5-6.6) H 06/07/21 05:54 Lymph # (Auto) 0.4 10^3/uL (1.5-3.5) L 06/07/21 05:54 [place] # (Auto) 0.7 10^3/uL (0.0-1.0) 06/07/21 05:54 Eos # (Auto) 0.0 10^3/uL (0.0-0.7) 06/07/21 05:54 Baso # (Auto) 0.0 10^3/uL (0.0-0.1) 06/07/21 05:54 Absolute Nucleated RBC 0.00 x10^3/uL 06/07/21 05:54 Nucleated RBC % 0.0 /100WBC 06/07/21 05:54 D-Dimer > 1050.0 ng/mL (200.0-255.0) H 05/30/21 05:30 Sodium 140 mmol/L (135-145) 06/07/21 05:54 Potassium 3.1 mmol/L (3.5-5.0) L 06/07/21 05:54 Chloride 103 mmol/L (101-111) 06/07/21 05:54 Carbon Dioxide 25 mmol/L (21-32) 06/07/21 05:54 Anion Gap 12.0 (6-13) 06/07/21 05:54 BUN 37 mg/dL (6-20) H 06/07/21 05:54 Creatinine 0.8 mg/dL (0.6-1.2) 06/07/21 05:54 Estimated GFR (MDRD) 93 (>89) 06/07/21 05:54 Glucose 93 mg/dL (70-100) 06/07/21 05:54 Lactic Acid 1.7 mmol/L (0.5-2.2) 05/29/21 23:46 Calcium 7.8 mg/dL (8.5-10.3) L 06/07/21 05:54 Phosphorus 3.8 mg/dL (2.5-4.6) 05/29/21 23:18 Iron 16 ug/dL (45-182) L 05/30/21 05:40 TIBC 196 ug/dL (250-450) L 05/30/21 05:40 % Saturation 8 % (20-50) L 05/30/21 05:40 Transferrin 140 mg/dL (180-329) L 05/30/21 05:40 Total Bilirubin 0.9 mg/dL (0.2-1.0) 05/29/21 23:18 AST 20 IU/L (10-42) 05/29/21 23:18 ALT 14 IU/L (10-60) 05/29/21 23:18 Alkaline Phosphatase 86 IU/L (42-121) 05/29/21 23:18 C-Reactive Protein 19.7 mg/dL (0-1.0) H 06/07/21 05:54 B-Natriuretic Peptide 369 pg/mL (5-100) H 06/07/21 05:54 Total Protein 6.6 g/dL (6.7-8.2) L 05/29/21 23:18 Albumin 2.5 g/dL (3.2-5.5) L 05/29/21 23:18 Globulin 4.1 g/dL (2.1-4.2) 05/29/21 23:18 Albumin/Globulin Ratio 0.6 (1.0-2.2) L 05/29/21 23:18 Vitamin B12 396 pg/mL (180-914) 06/06/21 05:40 Folate 10.38 ng/mL (5.90 - >24.8) 05/30/21 05:40 Sepsis Event Note (H) - Evaluation Current Stage of Sepsis: Ruled out ABX Reporting Has patient been on IV antibiotics over the past 48 hours?: No Current Medications - Current Medications Current Medications: Active Medications Acetaminophen (Acetaminophen 325 Mg Tablet) 650 mg PO Q4HR PRN PRN Reason: Pain 1 to 4 Albuterol (Albuterol 1 Puff) 2 puffs INH Q6H PRN PRN Reason: Shortness of Air/Wheezing Aspirin (Aspirin Ec 81 Mg Tablet) 81 mg PO DAILY [facility] Last Admin: 06/07/21 09:13 Dose: 81 mg Cholecalciferol (Cholecalciferol 25 Mcg Tablet) 50 mcg PO DAILY [facility] Last Admin: 06/07/21 09:12 Dose: 50 mcg Cyanocobalamin (Cyanocobalamin 500 Mcg Tablet) 500 mcg PO DAILY [facility] Last Admin: 06/07/21 09:17 Dose: 500 mcg Dexamethasone (Dexamethasone 4 Mg Tablet) 6 mg PO DAILY [facility] Last Admin: 06/07/21 09:13 Dose: 6 mg Enoxaparin Sodium (Enoxaparin 60 Mg/0.6 Ml Syringe) 60 mg SUBQ BID [facility] Last Admin: 06/07/21 09:17 Dose: 60 mg Ferrous Gluconate (Ferrous Gluconate 324 Mg Tablet) 324 mg PO DAILYWM [facility] Last Admin: 06/07/21 09:12 Dose: 324 mg Furosemide (Furosemide 20 Mg/2 Ml Vial) 20 mg IVP BID [facility] Guaifenesin (Guaifenesin 600 Mg Tablet) 600 mg PO BID [facility] Last Admin: 06/07/21 09:12 Dose: 600 mg Metoprolol Tartrate (Metoprolol Tartrate 25 Mg Tablet) 25 mg PO DAILY [facility] Last Admin: 06/07/21 09:13 Dose: 25 mg Mineral Oil (Min Oil/Dimethicon/Coconut Oil 92 Gm Tube) 1 applic TOP PRN PRN PRN Reason: Skin Care Last Admin: 06/02/21 14:09 Dose: 1 applic Multi-Ingredient Ointment (Zinc Oxide 20% Oint 30 Gm Tube) 1 applic TOP PRN PRN PRN Reason: Skin Care Last Admin: 06/07/21 11:06 Dose: 1 applic Multivitamins/Minerals (Multivitamin W/Minerals Tablet) 1 tab PO DAILYWM [facility] Last Admin: 06/07/21 09:17 Dose: 1 tab Nicotine (Nicotine 7 Mg Patch) 1 patch TOP DAILY [facility] Last Admin: 06/07/21 09:15 Dose: 1 patch Ondansetron HCl (Ondansetron Odt 4 Mg Tablet) 4 mg TL Q6HR PRN PRN Reason: Nausea / Vomiting Ondansetron HCl (Ondansetron 4 Mg/2 Ml Vial) 4 mg IVP Q6HR PRN PRN Reason: Nausea / Vomiting Oxycodone HCl (Oxycodone 5 Mg Tablet) 5 mg PO Q4HR PRN PRN Reason: Pain 5 to 7 Pantoprazole Sodium (Pantoprazole 40 Mg Tablet) 40 mg PO QDAC [facility] Last Admin: 06/07/21 09:29 Dose: 40 mg Sodium Chloride (Sodium Chloride Flush 0.9% 10 Ml Syringe) 10 ml IVP PRN PRN PRN Reason: NEEDED PER PROVIDER ORDERS Last Admin: 06/07/21 06:05 Dose: 10 ml Sodium Chloride (Sodium Chloride Flush 0.9% 10 Ml Syringe) 10 ml IVP 0100,0900,1700 [facility] Last Admin: 06/07/21 09:18 Dose: 10 ml Tamsulosin HCl (Tamsulosin 0.4 Mg Capsule) 0.4 mg PO DAILY [facility] Last Admin: 06/07/21 09:17 Dose: 0.4 mg Acetaminophen [Tylenol] 650 mg PO TID 04/17/16 Loperamide [Imodium] 2 mg PO PRN PRN 11/25/19 Tamsulosin [Flomax] 0.4 mg PO QPM 01/10/20 Acetaminophen [Tylenol] 650 mg PO DAILY PRN 03/15/20 Enzalutamide [Xtandi] 160 mg PO DAILY 02/07/21 Metoprolol Tartrate 25 mg PO DAILY 05/30/21 Potassium Chloride [K-Dur] 20 meq PO TIDWM 05/30/21
--- NOTE | 2021-06-07 16:49 | CT Report ---
PROCEDURE: CHEST WO INDICATIONS: if left large pleural effusion? TECHNIQUE: Noncontrast 1mm axial images were acquired from the pulmonary apices to the posterior costophrenic an gles. Axial 5 mm soft tissue kernel reconstructions were performed as well as 8 mm axial MIP and cor onal and sagittal 5 mm reformations. For radiation dose reduction, the following was used: automate d exposure control, adjustment of mA and/or kV according to patient size. COMPARISON: CXR 06/06/2021, 06/02/2021. CT pulmonary angiogram 05/30/2021. FINDINGS: Image quality: Fair. Respiratory motion. Lungs and pleura: Moderate bilateral patchy and consolidative airspace opacity. This is stable to sli ghtly increased. Moderate left and small right pleural effusions. The right effusion is increased in size compared to 05/30/2021. No pneumothorax. Central airways are patent and normal in caliber. Mediastinum: Heart size is normal. No pericardial effusion. No mediastinal adenopathy by size crit eria. Calcified mediastinal and hilar and paraesophageal lymph nodes. Thoracic aorta and central pul monary arteries are normal in size. Esophagus is normal in caliber. No hiatal hernia. Bones and chest wall: No suspicious bony lesions. No vertebral body compression fractures. No axil asiya or supraclavicular adenopathy by size criteria. The thyroid is normal in size and there are no incidental findings. Abdomen: Visualized upper abdominal solid organs and bowel loops appear normal in the absence of con trast. Left kidney stones seen. IMPRESSION: Image quality is degraded by motion artifact. Moderate left and small right pleural effusions. The right effusion is increased. Bilateral patchy consolidative and groundglass opacity which is stable to slightly increased. Calcified mediastinal and hilar adenopathy indicative of prior granulomatous process. Left kidney stone. Reviewed by: Myron Wood MD on 06/07/2021 4:47 PM PST Approved by: Myron Wood MD on 06/07/2021 4:47 PM PST Station ID: [id number]
[2021-06-08] MEDS: SODIUM CHLORIDE FLUSH 0.9% 10 ML SYRINGE IVP SCH ×3 (00:14→15:45)
[2021-06-08] MEDS: PANTOPRAZOLE 40 MG TABLET PO SCH (05:44)
[2021-06-08 05:59] LABS: BASOPHILS % (AUTO) 0.2 %; EOSINOPHILS % (AUTO) 0.1 %; HCT - HEMATOCRIT 28.6 % (42.0-52.0); LYMPHOCYTES # (AUTO) 0.3 10^3/uL (1.5-3.5); LYMPHOCYTES % (AUTO) 1.8 %; MEAN CORPUSCULAR HEMOGLOBIN 32.5 pg (27.0-31.0); MEAN CORPUSCULAR HGB CONC 31.5 g/dL (32.0-36.0); MEAN CORPUSCULAR VOLUME 103.2 fL (80.0-94.0); MEAN PLATELET VOLUME 10.2 fL (7.4-11.4); MONOCYTES # (AUTO) 0.7 10^3/uL (0.0-1.0); MONOCYTES % (AUTO) 4.3 %; NEUTROPHILS # (AUTO) 15.8 10^3/uL (1.5-6.6); NEUTROPHILS % (AUTO) 92.3 %; NRBC ABSOLUTE COUNT (AUTO) 0.04 x10^3/uL; NUCLEATED RED BLOOD CELLS AUTO 0.2 /100WBC; PLT - PLATELET COUNT 470 10^3/uL (130-450); RED BLOOD COUNT 2.77 10^6/uL (4.70-6.10); RED CELL DISTRIBUTION WIDTH 16.7 % (12.0-15.0); WHITE BLOOD COUNT 17.1 x10^3/uL (4.8-10.8)
[2021-06-08 06:13] LABS: CALCIUM 7.8 mg/dL (8.5-10.3); CREATININE 0.9 mg/dL (0.6-1.2); CRP - C-REACTIVE PROTEIN 16.5 mg/dL (0-1.0); POTASSIUM 3.4 mmol/L (3.5-5.0)
[2021-06-08] MEDS ORDERED: POTASSIUM CHLORIDE 20 MEQ TABLET PO ONE (08:00)
[2021-06-08] MEDS ORDERED: MORPHINE 2 MG/ML CARPUJECT IVP PRN (08:05)
[2021-06-08] MEDS ORDERED: ALBUTEROL NEB 2.5 MG/3 ML INH PRN (08:19)
[2021-06-08] MEDS: FUROSEMIDE 20 MG/2 ML VIAL IVP SCH ×2 (08:35→20:22)
[2021-06-08] MEDS: SODIUM CHLORIDE FLUSH 0.9% 10 ML SYRINGE IVP PRN ×3 (08:37→20:25)
[2021-06-08] MEDS: ENOXAPARIN 60 MG/0.6 ML SYRINGE SUBQ SCH ×2 (08:40→20:22)
[2021-06-08] MEDS: NICOTINE 7 MG PATCH TOP SCH (08:40)
[2021-06-08] MEDS: MULTIVITAMIN W/MINERALS TABLET PO SCH (08:47)
[2021-06-08] MEDS: lisinopriL 5 MG TABLET PO SCH (08:47)
[2021-06-08] MEDS: FERROUS GLUCONATE 324 MG TABLET PO SCH (08:48)
[2021-06-08] MEDS: METOPROLOL TARTRATE 25 MG TABLET PO SCH (08:48)
[2021-06-08] MEDS: guaiFENesin 600 MG TABLET PO SCH ×2 (08:48→20:22)
[2021-06-08] MEDS: TAMSULOSIN 0.4 MG CAPSULE PO SCH (08:48)
[2021-06-08] MEDS: ASPIRIN EC 81 MG TABLET PO SCH (08:49)
[2021-06-08] MEDS: CHOLECALCIFEROL 25 MCG TABLET PO SCH (08:49)
[2021-06-08] MEDS: CYANOCOBALAMIN 500 MCG TABLET PO SCH (08:49)
[2021-06-08] MEDS: dexAMETHasone 4 MG TABLET PO SCH (08:49)
[2021-06-08] MEDS ORDERED: FUROSEMIDE 20 MG/2 ML VIAL IVP SCH (09:00)
--- NOTE | 2021-06-08 11:53 | XRAY Report ---
PROCEDURE: Chest 1 View X-Ray INDICATIONS: SOB TECHNIQUE: One view of the chest was acquired. COMPARISON: 06/06/2021 FINDINGS: Surgical changes and devices: None. Lungs and pleura: Persistent small to moderate bilateral pleural effusion is again seen with patchy i nfiltrate/atelectasis scattered in bilateral lung devlin. No gross pneumothorax. Pulmonary edema and pulmonary vascular congestion is seen. Mediastinum: Tortuous thoracic aorta is seen. Heart size is mildly enlarged. Bones and chest wall: No suspicious bony lesions. Overlying soft tissues appear unremarkable. IMPRESSION: Persistent small to moderate bilateral pleural effusion and pulmonary edema with bilateral patchy inf iltrate/atelectasis. No gross pneumothorax. No significant changes from previous study. Reviewed by: Lobo Treadwell MD on 06/08/2021 11:52 AM [facility] Approved by: Lobo Treadwell MD on 06/08/2021 11:52 AM PST Station ID: [id number]
[2021-06-08] MEDS ORDERED: AZITHROMYCIN 250 MG TABLET PO STA (12:02)
--- NOTE | 2021-06-08 12:05 | PROVIDER PROGRESS NOTE ---
Assessment/Plan - Problem List (1) Acute respiratory failure with hypoxia Assessment/Plan: 2/3 last night pt's respiratory status suddenly worsened, his O2 sat was drop to 75% on room air, now pt has 96% oxygen saturation on 8 L oxygen with tachypnea. order CXR and ABGs but pt refused and yell me to refuse. I called pt's VICTORIA Silverman, at [phone] to report pt's medical conditions. DPOA state waiting for couple of hours to see if pt clam down and agree the care. If pt continue to refuse, call DPOA back, then may put pt on comfortable care. after that, pt become cooperate, will re-order CXR and ABGs if his conditions continue deteriorate. CXR reveals Persistent small to moderate bilaterally pleural effusion and pulmonary edema with bilaterally patchy infiltrate or atelectasis, no gross pneumothorax, No significant change from previous study. continue finish treatment for Covid 19, pt had elevated WBC although pt used steroid for Covid 19, but is pt persistent to present bilaterally patchy infiltrate, will add antibiotics and probiotics. If pt continue to present respiratory distress, we may consider to have thoracentesis for left moderate pleural effusion. 06/07/21 improved. he had 99% on 2 liter of O2, comfortable sleep at bed now. continue Lasix, continue finish the Covid 19 treatment regimen. Continue supplemental oxygen as needed, 06/06/21 nurse and RT report pt is difficult to have appropriate O2 sat in reading, although I saw pt ate his lunch and did not show acute respiratory distress. Now pt need 5 liter of O2 by NS, per RT report, pt had 90-92% O2 sat. Discussed with RT and nurse for how to improve to have acute O2 sat reading for pt. Order CXR, called pharmacy to confirm pt finished antibiotics Azith, Rocephin for one week treatment. continue IV of Lasix daily now, continue finish the Covid 19 treatment regimen. Continue supplemental oxygen as needed, Follow-u p with chest x-ray. Per pt's prior Chest x-ray, patient seems fluid overloaded, will order echo for patient. continue incentive spirometry DO NOT RESUSCITATE status documented in medical record (2) Pneumonia due to COVID-19 virus Impression: 2/ worsen respiratory status, 96% on 8 liter of O2, will finish the treatment course 2/2 improved significantly. he had 99% on 2 liter of O2, continue treatment as the above. He was ill for 7 days prior to being seen in the emergency room on May 27. With that encounter he was not hypoxic enough to need admission. pt finished remdesivir treatment, will continue Decatron and Lovenox. CXR is pending, will followup as the above. 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 To be continued on his therapy in the outpatient setting. His Flomax is continued while here. (4) Autism Impression: With autism, he is unable to participate in decision-making for his healthcare matters and has a legally appointed DPOA. The plan is to return to his assisted living facility at discharge. (5) Atrial fibrillation Impression: Stable. will resume home Metoprolol. Paroxysmal Afib was present with his previous admission. At admission, he was in Aflutter with 4:1 block. He was on metoprolol for rate control. He was not on an anticoagulant for stroke prophylaxis because he is a fall risk and the DPOA said he has had falls before. We started 1 baby aspirin daily for stroke prophylaxis, which the DPOA agreed with. (6) Anemia Impression: 2/3 HGB is 9.0, occult stool test is pending, add Protonix HGB is 9.9, stable. Oral iron was restarted. (7) Weakness Impression: pt is still not cooperate with PT/OT now. pt did not cooperate with PT/OT now, refused to leave the bed now. Per admission HPI he has been getting weaker while here. Prior to admission he was "not going to meals in the dining spencer anymore and was drinking Ensure. He prefers to stay in his room and comes out to smoke his cigarettes." He was able to get out of bed for meals the last 2 days with 1 person assist, however today his RN reports she was unable to get him up and it may be difficult even with a 2 person assist. Hopefully he can regain his preadmission level of functioning, though given his progressive decline in addition to the COVID he may be developing a new baseline. (8)moderate left pleural effusion ECHO report pt had left large pleural effusion, but CTA did not reveal large pleural effusion 7 days ago, CXR reveals did not reveal as well, will repeat CT. clinic pt is improved after IV Lasix (9)diastolic heart failure ECHO reveal moderate to severe abnormal right heart pressure and 66mmHG RVSP, and pleural effusion and pulmonary edema, worsening O2 sat in yesterday. continue Lasix now. continue Metoprolol, and add low dosage of Lisinopril. - Current Meds Current Meds: Current Medications Generic Name Dose Route Start Last Admin Trade Name Freq PRN Reason Stop Dose Admin Aspirin 81 mg 05/30/21 16:04 06/08/21 08:49 Aspirin Ec 81 Mg Tablet PO 81 mg DAILY NORBERTO Administration Cholecalciferol 50 mcg 06/07/21 09:00 06/08/21 08:49 Cholecalciferol 25 Mcg Tablet PO 50 mcg DAILY NORBERTO Administration Cyanocobalamin 500 mcg 05/31/21 09:00 06/08/21 08:49 Cyanocobalamin 500 Mcg Tablet PO 500 mcg DAILY NORBERTO Administration Dexamethasone 6 mg 06/03/21 09:00 06/08/21 08:49 Dexamethasone 4 Mg Tablet PO 6 mg DAILY NORBERTO Administration Enoxaparin Sodium 60 mg 05/30/21 21:00 06/08/21 08:40 Enoxaparin 60 Mg/0.6 Ml Syringe SUBQ 60 mg BID NORBERTO Administration Ferrous Gluconate 324 mg 05/30/21 08:00 06/08/21 08:48 Ferrous Gluconate 324 Mg Tablet PO 324 mg DAILYWM NORBERTO Administration Furosemide 20 mg 06/07/21 21:00 06/08/21 08:35 Furosemide 20 Mg/2 Ml Vial IVP 20 mg BID NORBERTO Administration Guaifenesin 600 mg 05/31/21 09:00 06/08/21 08:48 Guaifenesin 600 Mg Tablet PO 600 mg BID NORBERTO Administration Lisinopril 2.5 mg 06/08/21 09:00 06/08/21 08:47 Lisinopril 5 Mg Tablet PO 2.5 mg DAILY NORBERTO Administration Metoprolol Tartrate 25 mg 06/07/21 09:00 06/08/21 08:48 Metoprolol Tartrate 25 Mg Tablet PO 25 mg DAILY NORBERTO Administration Mineral Oil 1 applic 05/31/21 01:17 06/02/21 14:09 Min Oil/Dimethicon/Coconut Oil 92 Gm Tube TOP 1 applic PRN PRN Administration Skin Care Morphine Sulfate 2 mg 06/08/21 08:05 06/08/21 08:35 Morphine 2 Mg/Ml Carpuject IVP 2 mg Q4HR PRN Administration PAIN Multi-Ingredient Ointment 1 applic 06/04/21 07:38 06/07/21 11:06 Zinc Oxide 20% Oint 30 Gm Tube TOP 1 applic PRN PRN Administration Skin Care Multivitamins/Minerals 1 tab 05/31/21 08:00 06/08/21 08:47 Multivitamin W/Minerals Tablet PO 1 tab DAILYWM NORBERTO Administration Nicotine 1 patch 05/30/21 11:00 06/08/21 08:40 Nicotine 7 Mg Patch TOP 1 patch DAILY NORBERTO Administration Pantoprazole Sodium 40 mg 06/07/21 08:00 06/08/21 05:44 Pantoprazole 40 Mg Tablet PO 40 mg QDAC NORBERTO Administration Sodium Chloride 10 ml 05/30/21 01:36 06/08/21 08:37 Sodium Chloride Flush 0.9% 10 Ml Syringe IVP 10 ml PRN PRN Administration NEEDED PER PROVIDER ORDERS Sodium Chloride 10 ml 05/30/21 09:00 06/08/21 08:35 Sodium Chloride Flush 0.9% 10 Ml Syringe IVP 10 ml 0100,0900,1700 NORBERTO Administration Tamsulosin HCl 0.4 mg 05/30/21 09:00 06/08/21 08:48 Tamsulosin 0.4 Mg Capsule PO 0.4 mg DAILY NORBERTO Administration - Lab Result Fish Bone Diagrams: 06/08/21 05:30 06/08/21 05:30 - Additional Planning My Orders: My Active Orders 06/07/21 21:00 FUROSEMIDE INJ 20mg VIAL [LASIX INJ 20mg VIAL] 20 mg IVP BID 06/08/21 08:05 RT - Obtain Arterial Specimen [RC] .ONCE ABG - ARTERIAL BLOOD GAS [BG] Stat Morphine Inj (Carpuject) [Morphine (Carpuject)] 2 mg IVP Q4HR PRN 06/08/21 08:19 Albuterol 2.5 mg INH RTQ4H PRN Ipratropium/Albuterol [Duoneb] 3 ml INH RTQID PRN 06/08/21 09:00 lisinopriL [Zestril] 2.5 mg PO DAILY 06/08/21 Lunch Soft Mechanical Diet [DIET] 06/08/21 11:52 D-DIMER [COAG] Urgent 06/08/21 12:02 Azithromycin [Zithromax] 500 mg PO ONCE STA 06/08/21 13:00 cefTRIAXone [Rocephin] 1 gm Sodium Chloride 0.9% Minibag [Normal Saline 0.9% Minibag] 100 ml IV DAILY 06/08/21 17:00 Saccharomyces Boulardii [Florastor] 250 mg PO BIDWM 06/09/21 05:00 BNP - B-NATRIURETIC PEPTIDE [IAI] DAILYLAB 06/09/21 09:00 Azithromycin [Zithromax] 250 mg PO DAILY 06/10/21 05:00 BNP - B-NATRIURETIC PEPTIDE [IAI] DAILYLAB Subjective - Subjective Nursing Reports: Confused Objective Vital Signs: Vital Signs - 24 hr 06/07/21 06/07/21 06/08/21 14:33 15:56 00:00 Temperature 36.8 C 37.2 C Heart Rate [ 84 Brachial] Heart Rate [ 88 Monitoring electrodes] Heart Rate [ 77 Radial] Respiratory 18 30 H Rate Blood Pressure Blood Pressure 121/58 L 143/54 H [Right Brachial artery] O2 Saturation 99 97 95 06/08/21 06/08/21 06/08/21 00:15 00:16 00:20 Temperature Heart Rate [ Brachial] Heart Rate [ Monitoring electrodes] Heart Rate [ Radial] Respiratory Rate Blood Pressure Blood Pressure [Right Brachial artery] O2 Saturation 75 L 90 L 95 06/08/21 06/08/21 06/08/21 00:30 06:37 07:34 Temperature Heart Rate [ 79 Brachial] Heart Rate [ Monitoring electrodes] Heart Rate [ Radial] Respiratory 24 38 H Rate Blood Pressure Blood Pressure [Right Brachial artery] O2 Saturation 94 92 98 06/08/21 06/08/21 08:33 08:48 Temperature 37.2 C Heart Rate [ 84 Brachial] Heart Rate [ Monitoring electrodes] Heart Rate [ Radial] Respiratory 30 H Rate Blood Pressure 126/66 Blood Pressure 126/66 [Right Brachial artery] O2 Saturation 96 Oxygen O2 Source [Without Activity] Room air O2 Source Oxymask Oxygen Flow Rate 2 I&O (Last 24 Hrs): Intake and Output Totals x24h 06/06/21 06/07/21 06/08/21 23:59 23:59 23:59 Intake Total 1090 730 60 Balance 1090 730 60 General: Alert, Mild distress HEENT: Atraumatic Neck: Supple Lymphatic: no adenopathy Neuro: Alert, Non Focal Cardiovascular: Regular rate, Normal S1, Normal S2 Respiratory: Chest non-tender, Rales Abdomen: Normal bowel sounds, Soft Extremities: Normal pulses - Results Results: Laboratory Results WBC 17.1 x10^3/uL (4.8-10.8) H 06/08/21 05:30 RBC 2.77 10^6/uL (4.70-6.10) L 06/08/21 05:30 Hgb 9.0 g/dL (14.0-18.0) L 06/08/21 05:30 Hct 28.6 % (42.0-52.0) L 06/08/21 05:30 MCV 103.2 fL (80.0-94.0) H 06/08/21 05:30 MCH 32.5 pg (27.0-31.0) H 06/08/21 05:30 MCHC 31.5 g/dL (32.0-36.0) L 06/08/21 05:30 RDW 16.7 % (12.0-15.0) H 06/08/21 05:30 Plt Count 470 10^3/uL (130-450) H 06/08/21 05:30 MPV 10.2 fL (7.4-11.4) 06/08/21 05:30 Neut # (Auto) 15.8 10^3/uL (1.5-6.6) H 06/08/21 05:30 Lymph # (Auto) 0.3 10^3/uL (1.5-3.5) L 06/08/21 05:30 Dickey # (Auto) 0.7 10^3/uL (0.0-1.0) 06/08/21 05:30 Eos # (Auto) 0.0 10^3/uL (0.0-0.7) 06/08/21 05:30 Baso # (Auto) 0.0 10^3/uL (0.0-0.1) 06/08/21 05:30 Absolute Nucleated RBC 0.04 x10^3/uL 06/08/21 05:30 Nucleated RBC % 0.2 /100WBC 06/08/21 05:30 D-Dimer > 1050.0 ng/mL (200.0-255.0) H 05/30/21 05:30 Sodium 141 mmol/L (135-145) 06/08/21 05:30 Potassium 3.4 mmol/L (3.5-5.0) L 06/08/21 05:30 Chloride 104 mmol/L (101-111) 06/08/21 05:30 Carbon Dioxide 26 mmol/L (21-32) 06/08/21 05:30 Anion Gap 11.0 (6-13) 06/08/21 05:30 BUN 40 mg/dL (6-20) H 06/08/21 05:30 Creatinine 0.9 mg/dL (0.6-1.2) 06/08/21 05:30 Estimated GFR (MDRD) 81 (>89) L 06/08/21 05:30 Glucose 104 mg/dL (70-100) H 06/08/21 05:30 Lactic Acid 1.7 mmol/L (0.5-2.2) 05/29/21 23:46 Calcium 7.8 mg/dL (8.5-10.3) L 06/08/21 05:30 Phosphorus 3.8 mg/dL (2.5-4.6) 05/29/21 23:18 Iron 16 ug/dL (45-182) L 05/30/21 05:40 TIBC 196 ug/dL (250-450) L 05/30/21 05:40 % Saturation 8 % (20-50) L 05/30/21 05:40 Transferrin 140 mg/dL (180-329) L 05/30/21 05:40 Total Bilirubin 0.9 mg/dL (0.2-1.0) 05/29/21 23:18 AST 20 IU/L (10-42) 05/29/21 23:18 ALT 14 IU/L (10-60) 05/29/21 23:18 Alkaline Phosphatase 86 IU/L (42-121) 05/29/21 23:18 C-Reactive Protein 16.5 mg/dL (0-1.0) H 06/08/21 05:30 B-Natriuretic Peptide 459 pg/mL (5-100) H 06/08/21 05:30 Total Protein 6.6 g/dL (6.7-8.2) L 05/29/21 23:18 Albumin 2.5 g/dL (3.2-5.5) L 05/29/21 23:18 Globulin 4.1 g/dL (2.1-4.2) 05/29/21 23:18 Albumin/Globulin Ratio 0.6 (1.0-2.2) L 05/29/21 23:18 Vitamin B12 396 pg/mL (180-914) 06/06/21 05:40 Folate 10.38 ng/mL (5.90 - >24.8) 05/30/21 05:40 Sepsis Event Note (H) - Evaluation Current Stage of Sepsis: Ruled out ABX Reporting Has patient been on IV antibiotics over the past 48 hours?: Yes Current Medications - Current Medications Current Medications: Active Medications Acetaminophen (Acetaminophen 325 Mg Tablet) 650 mg PO Q4HR PRN PRN Reason: Pain 1 to 4 Albuterol (Albuterol Neb 2.5 Mg/3 Ml) 2.5 mg INH RTQ4H PRN PRN Reason: Wheezing Albuterol/Ipratropium (Ipratropium/Albuterol 3 Ml Neb) 3 ml INH RTQID PRN PRN Reason: Shortness of Air/Wheezing Aspirin (Aspirin Ec 81 Mg Tablet) 81 mg PO DAILY [facility] Last Admin: 06/08/21 08:49 Dose: 81 mg Azithromycin (Azithromycin 250 Mg Tablet) 250 mg PO DAILY [facility] Cholecalciferol (Cholecalciferol 25 Mcg Tablet) 50 mcg PO DAILY [facility] Last Admin: 06/08/21 08:49 Dose: 50 mcg Cyanocobalamin (Cyanocobalamin 500 Mcg Tablet) 500 mcg PO DAILY [facility] Last Admin: 06/08/21 08:49 Dose: 500 mcg Dexamethasone (Dexamethasone 4 Mg Tablet) 6 mg PO DAILY [facility] Last Admin: 06/08/21 08:49 Dose: 6 mg Enoxaparin Sodium (Enoxaparin 60 Mg/0.6 Ml Syringe) 60 mg SUBQ BID [facility] Last Admin: 06/08/21 08:40 Dose: 60 mg Ferrous Gluconate (Ferrous Gluconate 324 Mg Tablet) 324 mg PO DAILYWM [facility] Last Admin: 06/08/21 08:48 Dose: 324 mg Furosemide (Furosemide 20 Mg/2 Ml Vial) 20 mg IVP BID [facility] Last Admin: 06/08/21 08:35 Dose: 20 mg Guaifenesin (Guaifenesin 600 Mg Tablet) 600 mg PO BID [facility] Last Admin: 06/08/21 08:48 Dose: 600 mg Ceftriaxone Sodium 1 gm/ (Sodium Chloride) 100 mls @ 200 mls/hr IV DAILY [facility] Lisinopril (Lisinopril 5 Mg Tablet) 2.5 mg PO DAILY [facility] Last Admin: 06/08/21 08:47 Dose: 2.5 mg Metoprolol Tartrate (Metoprolol Tartrate 25 Mg Tablet) 25 mg PO DAILY [facility] Last Admin: 06/08/21 08:48 Dose: 25 mg Mineral Oil (Min Oil/Dimethicon/Coconut Oil 92 Gm Tube) 1 applic TOP PRN PRN PRN Reason: Skin Care Last Admin: 06/02/21 14:09 Dose: 1 applic Morphine Sulfate (Morphine 2 Mg/Ml Carpuject) 2 mg IVP Q4HR PRN PRN Reason: PAIN Last Admin: 06/08/21 08:35 Dose: 2 mg Multi-Ingredient Ointment (Zinc Oxide 20% Oint 30 Gm Tube) 1 applic TOP PRN PRN PRN Reason: Skin Care Last Admin: 06/07/21 11:06 Dose: 1 applic Multivitamins/Minerals (Multivitamin W/Minerals Tablet) 1 tab PO DAILYWM [facility] Last Admin: 06/08/21 08:47 Dose: 1 tab Nicotine (Nicotine 7 Mg Patch) 1 patch TOP DAILY [facility] Last Admin: 06/08/21 08:40 Dose: 1 patch Ondansetron HCl (Ondansetron Odt 4 Mg Tablet) 4 mg TL Q6HR PRN PRN Reason: Nausea / Vomiting Ondansetron HCl (Ondansetron 4 Mg/2 Ml Vial) 4 mg IVP Q6HR PRN PRN Reason: Nausea / Vomiting Oxycodone HCl (Oxycodone 5 Mg Tablet) 5 mg PO Q4HR PRN PRN Reason: Pain 5 to 7 Pantoprazole Sodium (Pantoprazole 40 Mg Tablet) 40 mg PO QDAC [facility] Last Admin: 06/08/21 05:44 Dose: 40 mg Saccharomyces Boulardii (Saccharomyces Boulardii 250 Mg Capsule) 250 mg PO BIDWM [facility] Sodium Chloride (Sodium Chloride Flush 0.9% 10 Ml Syringe) 10 ml IVP PRN PRN PRN Reason: NEEDED PER PROVIDER ORDERS Last Admin: 06/08/21 08:37 Dose: 10 ml Sodium Chloride (Sodium Chloride Flush 0.9% 10 Ml Syringe) 10 ml IVP 0100,0900,1700 [facility] Last Admin: 06/08/21 08:35 Dose: 10 ml Tamsulosin HCl (Tamsulosin 0.4 Mg Capsule) 0.4 mg PO DAILY [facility] Last Admin: 06/08/21 08:48 Dose: 0.4 mg Acetaminophen [Tylenol] 650 mg PO TID 04/17/16 Loperamide [Imodium] 2 mg PO PRN PRN 11/25/19 Tamsulosin [Flomax] 0.4 mg PO QPM 01/10/20 Acetaminophen [Tylenol] 650 mg PO DAILY PRN 03/15/20 Enzalutamide [Xtandi] 160 mg PO DAILY 02/07/21 Metoprolol Tartrate 25 mg PO DAILY 05/30/21 Potassium Chloride [K-Dur] 20 meq PO TIDWM 05/30/21
[2021-06-08] MEDS: cefTRIAXone 1 GM in SODIUM CHLORIDE 0.9% MINIBAG 100 ML IV SCH (12:55)
[2021-06-08] MEDS: IPRATROPIUM/ALBUTEROL 3 ML NEB INH PRN (15:09)
[2021-06-08] MEDS: SACCHAROMYCES BOULARDII 250 MG CAPSULE PO SCH (17:38)
[2021-06-08] MEDS: ZINC OXIDE 20% OINT 30 GM TUBE TOP PRN (18:51)
[2021-06-09] MEDS: SODIUM CHLORIDE FLUSH 0.9% 10 ML SYRINGE IVP SCH ×3 (00:36→16:29)
[2021-06-09 05:45] LABS: BASOPHILS % (AUTO) 0.1 %; EOSINOPHILS # (AUTO) 0.1 10^3/uL (0.0-0.7); HCT - HEMATOCRIT 30.9 % (42.0-52.0); HGB - HEMOGLOBIN 9.4 g/dL (14.0-18.0); LYMPHOCYTES # (AUTO) 0.4 10^3/uL (1.5-3.5); LYMPHOCYTES % (AUTO) 2.6 %; MEAN CORPUSCULAR HEMOGLOBIN 32.3 pg (27.0-31.0); MEAN CORPUSCULAR HGB CONC 30.4 g/dL (32.0-36.0); MEAN CORPUSCULAR VOLUME 106.2 fL (80.0-94.0); MEAN PLATELET VOLUME 10.4 fL (7.4-11.4); MONOCYTES # (AUTO) 0.5 10^3/uL (0.0-1.0); NEUTROPHILS # (AUTO) 12.2 10^3/uL (1.5-6.6); NEUTROPHILS % (AUTO) 91.1 %; NRBC ABSOLUTE COUNT (AUTO) 0.02 x10^3/uL; NUCLEATED RED BLOOD CELLS AUTO 0.1 /100WBC; PLT - PLATELET COUNT 485 10^3/uL (130-450); RED BLOOD COUNT 2.91 10^6/uL (4.70-6.10); RED CELL DISTRIBUTION WIDTH 16.8 % (12.0-15.0); WHITE BLOOD COUNT 13.4 x10^3/uL (4.8-10.8)
[2021-06-09 05:55] LABS: CALCIUM 8.1 mg/dL (8.5-10.3); CREATININE 0.9 mg/dL (0.6-1.2); CRP - C-REACTIVE PROTEIN 18.6 mg/dL (0-1.0); POTASSIUM 3.6 mmol/L (3.5-5.0)
[2021-06-09] MEDS: PANTOPRAZOLE 40 MG TABLET PO SCH (06:14)
[2021-06-09] MEDS: IPRATROPIUM/ALBUTEROL 3 ML NEB INH PRN (07:17)
[2021-06-09] MEDS: FERROUS GLUCONATE 324 MG TABLET PO SCH (08:27)
[2021-06-09] MEDS: MULTIVITAMIN W/MINERALS TABLET PO SCH (08:27)
[2021-06-09] MEDS: SACCHAROMYCES BOULARDII 250 MG CAPSULE PO SCH ×2 (08:27→16:29)
[2021-06-09] MEDS: dexAMETHasone 4 MG TABLET PO SCH (09:18)
[2021-06-09] MEDS: FUROSEMIDE 20 MG/2 ML VIAL IVP SCH ×2 (09:19→20:45)
[2021-06-09] MEDS: NICOTINE 7 MG PATCH TOP SCH (09:19)
[2021-06-09] MEDS: CHOLECALCIFEROL 25 MCG TABLET PO SCH (09:20)
[2021-06-09] MEDS: AZITHROMYCIN 250 MG TABLET PO SCH (09:20)
[2021-06-09] MEDS: lisinopriL 5 MG TABLET PO SCH (09:20)
[2021-06-09] MEDS: CYANOCOBALAMIN 500 MCG TABLET PO SCH (09:20)
[2021-06-09] MEDS: TAMSULOSIN 0.4 MG CAPSULE PO SCH (09:20)
[2021-06-09] MEDS: ASPIRIN EC 81 MG TABLET PO SCH (09:20)
[2021-06-09] MEDS: cefTRIAXone 1 GM in SODIUM CHLORIDE 0.9% MINIBAG 100 ML IV SCH (09:21)
[2021-06-09] MEDS: guaiFENesin 600 MG TABLET PO SCH ×2 (09:21→20:42)
[2021-06-09] MEDS: ENOXAPARIN 60 MG/0.6 ML SYRINGE SUBQ SCH (09:21)
[2021-06-09] MEDS: METOPROLOL TARTRATE 25 MG TABLET PO SCH (09:22)
[2021-06-09 10:25] LABS: CREATININE 0.9 mg/dL (0.6-1.2); POTASSIUM 3.4 mmol/L (3.5-5.0)
--- NOTE | 2021-06-09 11:00 | PROVIDER PROGRESS NOTE ---
Assessment/Plan - Problem List (1) Acute respiratory failure with hypoxia Assessment/Plan: 06/09 pt has similar situation as yesterday, he need more O2 at morning, but he did not present acute respiratory distress. now he need 8 liter of O2 with 97% sats. CT scan of chest reveal moderate pleural effusion, discussed the possibility for thoracentesis with today our hospital radiologist. he review pt's image study, he believe pt has airspace disease to cause his respiratory distress, but pleural effusion is small, not necessary to have thoracentesis now. pt finished Remdesivir treatment, now pt is on decatron, lovenox and antibiotics to treat his pneumonia. continue supplement of O2 as needed. pt 06/08 last night pt's respiratory status suddenly worsened, his O2 sat was drop to 75% on room air, now pt has 96% oxygen saturation on 8 L oxygen with tachypnea. order CXR and ABGs but pt refused and yell me to refuse. I called pt's DPOA Andra, at [phone] to report pt's medical conditions. DPOA state waiting for couple of hours to see if pt clam down and agree the care. If pt continue to refuse, call DPOA back, then may put pt on comfortable care. after that, pt become cooperate, will re-order CXR and ABGs if his conditions continue deteriorate. CXR reveals Persistent small to moderate bilaterally pleural effusion and pulmonary edema with bilaterally patchy infiltrate or atelectasis, no gross pneumothorax, No significant change from previous study. continue finish treatment for Covid 19, pt had elevated WBC although pt used steroid for Covid 19, but is pt persistent to present bilaterally patchy infiltrate, will add antibiotics and probiotics. If pt continue to present respiratory distress, we may consider to have thoracentesis for left moderate pleural effusion. 06/07/21 improved. he had 99% on 2 liter of O2, comfortable sleep at bed now. continue Lasix, continue finish the Covid 19 treatment regimen. Continue supplemental oxygen as needed, 06/06/21 nurse and RT report pt is difficult to have appropriate O2 sat in reading, although I saw pt ate his lunch and did not show acute respiratory distress. Now pt need 5 liter of O2 by NS, per RT report, pt had 90-92% O2 sat. Discussed with RT and nurse for how to improve to have acute O2 sat reading for pt. Order CXR, called pharmacy to confirm pt finished antibiotics Azith, Rocephin for one week treatment. continue IV of Lasix daily now, continue finish the Covid 19 treatment regimen. Continue supplemental oxygen as needed, Follow- up with chest x-ray. Per pt's prior Chest x-ray, patient seems fluid overloaded, will order echo for patient. continue incentive spirometry DO NOT RESUSCITATE status documented in medical record (2) Pneumonia due to COVID-19 virus Impression: 2/ pt finished Remdesivir treatment, now pt is on decatron, lovenox. continue supplement of O2 as needed. 2/3 worsen respiratory status, 96% on 8 liter of O2, will finish the treatment course 2/2 improved significantly. he had 99% on 2 liter of O2, continue treatment as the above. He was ill for 7 days prior to being seen in the emergency room on May 27. With that encounter he was not hypoxic enough to need admission. pt finished remdesivir treatment, will continue Decatron and Lovenox. CXR is pending, will followup as the above. 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 To be continued on his therapy in the outpatient setting. His Flomax is continued while here. (4) Autism Impression: With autism, he is unable to participate in decision-making for his healthcare matters and has a legally appointed DPOA. The plan is to return to his assisted living facility at discharge. (5) Atrial fibrillation Impression: Stable. will resume home Metoprolol. Paroxysmal Afib was present with his previous admission. At admission, he was in Aflutter with 4:1 block. He was on metoprolol for rate control. He was not on an anticoagulant for stroke prophylax is because he is a fall risk and the DPOA said he has had falls before. We started 1 baby aspirin daily for stroke prophylaxis, which the DPOA agreed with. (6) Anemia Impression: 2/3 HGB is 9.0, occult stool test is pending, add Protonix HGB is 9.9, stable. Oral iron was restarted. (7) Weakness Impression: continue PT/OT. consult with social professionals for d/c plan (8)moderate left pleural effusion ECHO report pt had left large pleural effusion, but CTA did not reveal large pleural effusion 7 days ago, CXR reveals did not reveal as well, will repeat CT. clinic pt is improved after IV Lasix (9)diastolic heart failure ECHO reveal moderate to severe abnormal right heart pressure and 66mmHG RVSP, and pleural effusion and pulmonary edema, worsening O2 sat in yesterday. continue Lasix now. continue Metoprolol, and add low dosage of Lisinopril. - Current Meds Current Meds: Current Medications Generic Name Dose Route Start Last Admin Trade Name Freq PRN Reason Stop Dose Admin Albuterol/Ipratropium 3 ml 06/08/21 08:19 06/09/21 07:17 Ipratropium/Albuterol 3 Ml Neb INH 3 ml RTQID PRN Administration Shortness of Air/Wheezing Aspirin 81 mg 05/30/21 16:04 06/09/21 09:20 Aspirin Ec 81 Mg Tablet PO 81 mg DAILY NORBERTO Administration Azithromycin 250 mg 06/09/21 09:00 06/09/21 09:20 Azithromycin 250 Mg Tablet PO 250 mg DAILY NORBERTO Administration Cholecalciferol 50 mcg 06/07/21 09:00 06/09/21 09:20 Cholecalciferol 25 Mcg Tablet PO 50 mcg DAILY NORBERTO Administration Cyanocobalamin 500 mcg 05/31/21 09:00 06/09/21 09:20 Cyanocobalamin 500 Mcg Tablet PO 500 mcg DAILY NORBERTO Administration Dexamethasone 6 mg 06/03/21 09:00 06/09/21 09:18 Dexamethasone 4 Mg Tablet PO 6 mg DAILY NORBERTO Administration Ferrous Gluconate 324 mg 05/30/21 08:00 06/09/21 08:27 Ferrous Gluconate 324 Mg Tablet PO 324 mg DAILYWM NORBERTO Administration Furosemide 20 mg 06/07/21 21:00 06/09/21 09:19 Furosemide 20 Mg/2 Ml Vial IVP 20 mg BID NORBERTO Administration Guaifenesin 600 mg 05/31/21 09:00 06/09/21 09:21 Guaifenesin 600 Mg Tablet PO 600 mg BID NORBERTO Administration Ceftriaxone Sodium 1 gm/ 100 mls @ 200 mls/hr 06/08/21 13:00 06/09/21 09:21 Sodium Chloride IV 200 mls/hr DAILY NORBERTO Administration Lisinopril 2.5 mg 06/08/21 09:00 06/09/21 09:20 Lisinopril 5 Mg Tablet PO 2.5 mg DAILY NORBERTO Administration Metoprolol Tartrate 25 mg 06/07/21 09:00 06/09/21 09:22 Metoprolol Tartrate 25 Mg Tablet PO 25 mg DAILY NORBERTO Administration Mineral Oil 1 applic 05/31/21 01:17 06/02/21 14:09 Min Oil/Dimethicon/Coconut Oil 92 Gm Tube TOP 1 applic PRN PRN Administration Skin Care Morphine Sulfate 2 mg 06/08/21 08:05 06/08/21 08:35 Morphine 2 Mg/Ml Carpuject IVP 2 mg Q4HR PRN Administration PAIN Multi-Ingredient Ointment 1 applic 06/04/21 07:38 06/08/21 18:51 Zinc Oxide 20% Oint 30 Gm Tube TOP 1 applic PRN PRN Administration Skin Care Multivitamins/Minerals 1 tab 05/31/21 08:00 06/09/21 08:27 Multivitamin W/Minerals Tablet PO 1 tab DAILYWM NORBERTO Administration Nicotine 1 patch 05/30/21 11:00 06/09/21 09:19 Nicotine 7 Mg Patch TOP 1 patch DAILY NORBERTO Administration Pantoprazole Sodium 40 mg 06/07/21 08:00 06/09/21 06:14 Pantoprazole 40 Mg Tablet PO 40 mg QDAC NORBERTO Administration Saccharomyces Boulardii 250 mg 06/08/21 17:00 06/09/21 08:27 Saccharomyces Boulardii 250 Mg Capsule PO 250 mg BIDWM NORBERTO Administration Sodium Chloride 10 ml 05/30/21 01:36 06/08/21 20:25 Sodium Chloride Flush 0.9% 10 Ml Syringe IVP 10 ml PRN PRN Administration NEEDED PER PROVIDER ORDERS Sodium Chloride 10 ml 05/30/21 09:00 06/09/21 08:30 Sodium Chloride Flush 0.9% 10 Ml Syringe IVP 10 ml 0100,0900,1700 NORBERTO Administration Tamsulosin HCl 0.4 mg 05/30/21 09:00 06/09/21 09:20 Tamsulosin 0.4 Mg Capsule PO 0.4 mg DAILY NORBERTO Administration - Lab Result Fish Bone Diagrams: 06/09/21 05:09 06/09/21 10:01 - Additional Planning My Orders: My Active Orders 06/08/21 Lunch Soft Mechanical Diet [DIET] 06/08/21 13:00 cefTRIAXone [Rocephin] 1 gm Sodium Chloride 0.9% Minibag [Normal Saline 0.9% Minibag] 100 ml IV DAILY 06/08/21 17:00 Saccharomyces Boulardii [Florastor] 250 mg PO BIDWM 06/09/21 09:00 Azithromycin [Zithromax] 250 mg PO DAILY 06/10/21 05:00 BMP - BASIC METABOLIC PANEL [CHEM] DAILYLAB BNP - B-NATRIURETIC PEPTIDE [IAI] DAILYLAB CBC - COMP BLD CT W/AUTO DIFF [HEME] DAILYLAB 06/10/21 09:00 Enoxaparin [Lovenox] 40 mg SUBQ DAILY 06/11/21 05:00 BMP - BASIC METABOLIC PANEL [CHEM] DAILYLAB CBC - COMP BLD CT W/AUTO DIFF [HEME] DAILYLAB 06/12/21 05:00 BMP - BASIC METABOLIC PANEL [CHEM] DAILYLAB CBC - COMP BLD CT W/AUTO DIFF [HEME] DAILYLAB 06/13/21 05:00 BMP - BASIC METABOLIC PANEL [CHEM] DAILYLAB CBC - COMP BLD CT W/AUTO DIFF [HEME] DAILYLAB 06/14/21 05:00 BMP - BASIC METABOLIC PANEL [CHEM] DAILYLAB CBC - COMP BLD CT W/AUTO DIFF [HEME] DAILYLAB Subjective - Subjective Patient Reports: Resting Comfortably Objective Vital Signs: Vital Signs - 24 hr 06/08/21 06/08/21 06/08/21 12:55 15:14 15:38 Temperature 36.9 C 36.6 C Heart Rate 68 Heart Rate [ 70 65 Brachial] Respiratory 27 H 19 22 Rate Blood Pressure Blood Pressure 137/65 H 122/63 [Right Brachial artery] O2 Saturation 99 97 06/08/21 06/09/21 06/09/21 20:19 00:00 07:21 Temperature 36.2 C L Heart Rate 67 Heart Rate [ 76 67 Brachial] Respiratory 20 18 18 Rate Blood Pressure Blood Pressure 134/67 H 136/61 H [Right Brachial artery] O2 Saturation 92 93 06/09/21 06/09/21 07:39 09:22 Temperature 36.5 C Heart Rate Heart Rate [ 69 Brachial] Respiratory 24 Rate Blood Pressure 116/66 Blood Pressure 145/67 H [Right Brachial artery] O2 Saturation 97 Oxygen O2 Source [Without Activity] Room air O2 Source Oxymask Oxygen Flow Rate 2 I&O (Last 24 Hrs): Intake and Output Totals x24h 06/07/21 06/08/21 06/09/21 23:59 23:59 23:59 Intake Total 730 640 60 Balance 730 640 60 General: Alert, No acute distress HEENT: Atraumatic Neck: Supple Lymphatic: no adenopathy Neuro: Alert, Non Focal Cardiovascular: Regular rate, Normal S1, Normal S2 Respiratory: Chest non-tender, No respiratory distress Abdomen: Normal bowel sounds, Soft Extremities: Normal pulses - Results Results: Laboratory Results WBC 13.4 x10^3/uL (4.8-10.8) H 06/09/21 05:09 RBC 2.91 10^6/uL (4.70-6.10) L 06/09/21 05:09 Hgb 9.4 g/dL (14.0-18.0) L 06/09/21 05:09 Hct 30.9 % (42.0-52.0) L 06/09/21 05:09 MCV 106.2 fL (80.0-94.0) H 06/09/21 05:09 MCH 32.3 pg (27.0-31.0) H 06/09/21 05:09 MCHC 30.4 g/dL (32.0-36.0) L 06/09/21 05:09 RDW 16.8 % (12.0-15.0) H 06/09/21 05:09 Plt Count 485 10^3/uL (130-450) H 06/09/21 05:09 MPV 10.4 fL (7.4-11.4) 06/09/21 05:09 Neut # (Auto) 12.2 10^3/uL (1.5-6.6) H 06/09/21 05:09 Lymph # (Auto) 0.4 10^3/uL (1.5-3.5) L 06/09/21 05:09 Alfalfa # (Auto) 0.5 10^3/uL (0.0-1.0) 06/09/21 05:09 Eos # (Auto) 0.1 10^3/uL (0.0-0.7) 06/09/21 05:09 Baso # (Auto) 0.0 10^3/uL (0.0-0.1) 06/09/21 05:09 Absolute Nucleated RBC 0.02 x10^3/uL 06/09/21 05:09 Nucleated RBC % 0.1 /100WBC 06/09/21 05:09 D-Dimer 727.3 ng/mL (200.0-255.0) H 06/08/21 12:00 Sodium 144 mmol/L (135-145) 06/09/21 10:01 Potassium 3.4 mmol/L (3.5-5.0) L 06/09/21 10:01 Chloride 105 mmol/L (101-111) 06/09/21 10:01 Carbon Dioxide 27 mmol/L (21-32) 06/09/21 10:01 Anion Gap 12.0 (6-13) 06/09/21 10:01 BUN 37 mg/dL (6-20) H 06/09/21 10:01 Creatinine 0.9 mg/dL (0.6-1.2) 06/09/21 10:01 Estimated GFR (MDRD) 81 (>89) L 06/09/21 10:01 Glucose 115 mg/dL (70-100) H 06/09/21 10:01 Lactic Acid 1.7 mmol/L (0.5-2.2) 05/29/21 23:46 Calcium 8.0 mg/dL (8.5-10.3) L 06/09/21 10:01 Phosphorus 3.8 mg/dL (2.5-4.6) 05/29/21 23:18 Iron 16 ug/dL (45-182) L 05/30/21 05:40 TIBC 196 ug/dL (250-450) L 05/30/21 05:40 % Saturation 8 % (20-50) L 05/30/21 05:40 Transferrin 140 mg/dL (180-329) L 05/30/21 05:40 Total Bilirubin 0.9 mg/dL (0.2-1.0) 05/29/21 23:18 AST 20 IU/L (10-42) 05/29/21 23:18 ALT 14 IU/L (10-60) 05/29/21 23:18 Alkaline Phosphatase 86 IU/L (42-121) 05/29/21 23:18 C-Reactive Protein 18.6 mg/dL (0-1.0) H 06/09/21 05:09 B-Natriuretic Peptide 293 pg/mL (5-100) H 06/09/21 05:09 Total Protein 6.6 g/dL (6.7-8.2) L 05/29/21 23:18 Albumin 2.5 g/dL (3.2-5.5) L 05/29/21 23:18 Globulin 4.1 g/dL (2.1-4.2) 05/29/21 23:18 Albumin/Globulin Ratio 0.6 (1.0-2.2) L 05/29/21 23:18 Vitamin B12 396 pg/mL (180-914) 06/06/21 05:40 Folate 10.38 ng/mL (5.90 - >24.8) 05/30/21 05:40 Sepsis Event Note (H) - Evaluation Current Stage of Sepsis: Ruled out ABX Reporting Has patient been on IV antibiotics over the past 48 hours?: Yes Current Medications - Current Medications Current Medications: Active Medications Acetaminophen (Acetaminophen 325 Mg Tablet) 650 mg PO Q4HR PRN PRN Reason: Pain 1 to 4 Albuterol (Albuterol Neb 2.5 Mg/3 Ml) 2.5 mg INH RTQ4H PRN PRN Reason: Wheezing Albuterol/Ipratropium (Ipratropium/Albuterol 3 Ml Neb) 3 ml INH RTQID PRN PRN Reason: Shortness of Air/Wheezing Last Admin: 06/09/21 07:17 Dose: 3 ml Aspirin (Aspirin Ec 81 Mg Tablet) 81 mg PO DAILY [facility] Last Admin: 06/09/21 09:20 Dose: 81 mg Azithromycin (Azithromycin 250 Mg Tablet) 250 mg PO DAILY [facility] Last Admin: 06/09/21 09:20 Dose: 250 mg Cholecalciferol (Cholecalciferol 25 Mcg Tablet) 50 mcg PO DAILY [facility] Last Admin: 06/09/21 09:20 Dose: 50 mcg Cyanocobalamin (Cyanocobalamin 500 Mcg Tablet) 500 mcg PO DAILY [facility] Last Admin: 06/09/21 09:20 Dose: 500 mcg Dexamethasone (Dexamethasone 4 Mg Tablet) 6 mg PO DAILY [facility] Last Admin: 06/09/21 09:18 Dose: 6 mg Enoxaparin Sodium (Enoxaparin 40 Mg/0.4 Ml Syringe) 40 mg SUBQ DAILY [facility] Ferrous Gluconate (Ferrous Gluconate 324 Mg Tablet) 324 mg PO DAILYWM [facility] Last Admin: 06/09/21 08:27 Dose: 324 mg Furosemide (Furosemide 20 Mg/2 Ml Vial) 20 mg IVP BID [facility] Last Admin: 06/09/21 09:19 Dose: 20 mg Guaifenesin (Guaifenesin 600 Mg Tablet) 600 mg PO BID [facility] Last Admin: 06/09/21 09:21 Dose: 600 mg Ceftriaxone Sodium 1 gm/ (Sodium Chloride) 100 mls @ 200 mls/hr IV DAILY [facility] Last Infusion: 06/09/21 09:55 Dose: Infused Lisinopril (Lisinopril 5 Mg Tablet) 2.5 mg PO DAILY [facility] Last Admin: 06/09/21 09:20 Dose: 2.5 mg Metoprolol Tartrate (Metoprolol Tartrate 25 Mg Tablet) 25 mg PO DAILY [facility] Last Admin: 06/09/21 09:22 Dose: 25 mg Mineral Oil (Min Oil/Dimethicon/Coconut Oil 92 Gm Tube) 1 applic TOP PRN PRN PRN Reason: Skin Care Last Admin: 06/02/21 14:09 Dose: 1 applic Morphine Sulfate (Morphine 2 Mg/Ml Carpuject) 2 mg IVP Q4HR PRN PRN Reason: PAIN Last Admin: 06/08/21 08:35 Dose: 2 mg Multi-Ingredient Ointment (Zinc Oxide 20% Oint 30 Gm Tube) 1 applic TOP PRN PRN PRN Reason: Skin Care Last Admin: 06/08/21 18:51 Dose: 1 applic Multivitamins/Minerals (Multivitamin W/Minerals Tablet) 1 tab PO DAILYWM [facility] Last Admin: 06/09/21 08:27 Dose: 1 tab Nicotine (Nicotine 7 Mg Patch) 1 patch TOP DAILY [facility] Last Admin: 06/09/21 09:19 Dose: 1 patch Ondansetron HCl (Ondansetron Odt 4 Mg Tablet) 4 mg TL Q6HR PRN PRN Reason: Nausea / Vomiting Ondansetron HCl (Ondansetron 4 Mg/2 Ml Vial) 4 mg IVP Q6HR PRN PRN Reason: Nausea / Vomiting Oxycodone HCl (Oxycodone 5 Mg Tablet) 5 mg PO Q4HR PRN PRN Reason: Pain 5 to 7 Pantoprazole Sodium (Pantoprazole 40 Mg Tablet) 40 mg PO QDAC [facility] Last Admin: 06/09/21 06:14 Dose: 40 mg Saccharomyces Boulardii (Saccharomyces Boulardii 250 Mg Capsule) 250 mg PO BIDWM [facility] Last Admin: 06/09/21 16:29 Dose: 250 mg Sodium Chloride (Sodium Chloride Flush 0.9% 10 Ml Syringe) 10 ml IVP PRN PRN PRN Reason: NEEDED PER PROVIDER ORDERS Last Admin: 06/08/21 20:25 Dose: 10 ml Sodium Chloride (Sodium Chloride Flush 0.9% 10 Ml Syringe) 10 ml IVP 0100,0900,1700 [facility] Last Admin: 06/09/21 16:29 Dose: 10 ml Tamsulosin HCl (Tamsulosin 0.4 Mg Capsule) 0.4 mg PO DAILY [facility] Last Admin: 06/09/21 09:20 Dose: 0.4 mg Acetaminophen [Tylenol] 650 mg PO TID 04/17/16 Loperamide [Imodium] 2 mg PO PRN PRN 11/25/19 Tamsulosin [Flomax] 0.4 mg PO QPM 01/10/20 Acetaminophen [Tylenol] 650 mg PO DAILY PRN 03/15/20 Enzalutamide [Xtandi] 160 mg PO DAILY 02/07/21 Metoprolol Tartrate 25 mg PO DAILY 05/30/21 Potassium Chloride [K-Dur] 20 meq PO TIDWM 05/30/21
[2021-06-09] MEDS ORDERED: POTASSIUM CHLORIDE 20 MEQ TABLET PO ONE (12:30)
[2021-06-09] MEDS: DOCUSATE SODIUM 250 MG CAPSULE PO SCH (20:42)
[2021-06-09] MEDS: SODIUM CHLORIDE FLUSH 0.9% 10 ML SYRINGE IVP PRN (20:45)
[2021-06-10] MEDS: SODIUM CHLORIDE FLUSH 0.9% 10 ML SYRINGE IVP SCH ×3 (00:33→18:18)
[2021-06-10 05:59] LABS: BASOPHILS % (AUTO) 0.2 %; EOSINOPHILS # (AUTO) 0.2 10^3/uL (0.0-0.7); HCT - HEMATOCRIT 30.3 % (42.0-52.0); HGB - HEMOGLOBIN 9.2 g/dL (14.0-18.0); LYMPHOCYTES # (AUTO) 0.4 10^3/uL (1.5-3.5); LYMPHOCYTES % (AUTO) 3.6 %; MEAN CORPUSCULAR HEMOGLOBIN 31.8 pg (27.0-31.0); MEAN CORPUSCULAR HGB CONC 30.4 g/dL (32.0-36.0); MEAN CORPUSCULAR VOLUME 104.8 fL (80.0-94.0); MONOCYTES # (AUTO) 0.5 10^3/uL (0.0-1.0); MONOCYTES % (AUTO) 4.5 %; NEUTROPHILS # (AUTO) 10.3 10^3/uL (1.5-6.6); NEUTROPHILS % (AUTO) 88.5 %; PLT - PLATELET COUNT 489 10^3/uL (130-450); RED BLOOD COUNT 2.89 10^6/uL (4.70-6.10); RED CELL DISTRIBUTION WIDTH 16.5 % (12.0-15.0); WHITE BLOOD COUNT 11.7 x10^3/uL (4.8-10.8)
[2021-06-10 06:14] LABS: CALCIUM 8.2 mg/dL (8.5-10.3); CREATININE 0.9 mg/dL (0.6-1.2); POTASSIUM 3.9 mmol/L (3.5-5.0)
[2021-06-10] MEDS: PANTOPRAZOLE 40 MG TABLET PO SCH (06:28)
[2021-06-10] MEDS: cefTRIAXone 1 GM in SODIUM CHLORIDE 0.9% MINIBAG 100 ML IV SCH (09:35)
[2021-06-10] MEDS: TAMSULOSIN 0.4 MG CAPSULE PO SCH (09:36)
[2021-06-10] MEDS: lisinopriL 5 MG TABLET PO SCH (09:36)
[2021-06-10] MEDS: FERROUS GLUCONATE 324 MG TABLET PO SCH (09:36)
[2021-06-10] MEDS: CYANOCOBALAMIN 500 MCG TABLET PO SCH (09:36)
[2021-06-10] MEDS: METOPROLOL TARTRATE 25 MG TABLET PO SCH (09:36)
[2021-06-10] MEDS: MULTIVITAMIN W/MINERALS TABLET PO SCH (09:36)
[2021-06-10] MEDS: ASPIRIN EC 81 MG TABLET PO SCH (09:36)
[2021-06-10] MEDS: NICOTINE 7 MG PATCH TOP SCH (09:36)
[2021-06-10] MEDS: dexAMETHasone 4 MG TABLET PO SCH (09:37)
[2021-06-10] MEDS: SACCHAROMYCES BOULARDII 250 MG CAPSULE PO SCH ×2 (09:37→18:18)
[2021-06-10] MEDS: DOCUSATE SODIUM 250 MG CAPSULE PO SCH (09:37)
[2021-06-10] MEDS: CHOLECALCIFEROL 25 MCG TABLET PO SCH (09:37)
[2021-06-10] MEDS: guaiFENesin 600 MG TABLET PO SCH ×2 (09:37→22:28)
[2021-06-10] MEDS: AZITHROMYCIN 250 MG TABLET PO SCH (09:37)
[2021-06-10] MEDS: FUROSEMIDE 20 MG/2 ML VIAL IVP SCH ×2 (09:37→22:28)
[2021-06-10] MEDS: ENOXAPARIN 40 MG/0.4 ML SYRINGE SUBQ SCH (09:38)
[2021-06-10] MEDS: polyethylene glycoL 3350 17 GM PACKET PO SCH (09:38)
--- NOTE | 2021-06-10 18:52 | PROVIDER PROGRESS NOTE ---
Subjective - Prog Note Date Prog Note Date: 06/10/21 Prog Note Time: 18:50 - Subjective Subjective: He continues to be resistant to getting out of bed, to working with physical therapy. We were able to get his usual caregiver/nurse order analyst come see him yesterday. We had hoped that a familiar face from his care facility would motivate him to at least get out of bed to sit in a chair and he did not. He is getting consistently more hypoxic, and considerably deconditioned by refusing to get out of bed. He has developmental delay, but was at least ambulating in his care facility. With his Covid illness he has deteriorated substantially. Current Medications - Current Medications Current Medications: Active Medications Acetaminophen (Acetaminophen 325 Mg Tablet) 650 mg PO Q4HR PRN PRN Reason: Pain 1 to 4 Albuterol (Albuterol Neb 2.5 Mg/3 Ml) 2.5 mg INH RTQ4H PRN PRN Reason: Wheezing Albuterol/Ipratropium (Ipratropium/Albuterol 3 Ml Neb) 3 ml INH RTQID PRN PRN Reason: Shortness of Air/Wheezing Last Admin: 06/09/21 07:17 Dose: 3 ml Aspirin (Aspirin Ec 81 Mg Tablet) 81 mg PO DAILY [facility] Last Admin: 06/10/21 09:36 Dose: 81 mg Azithromycin (Azithromycin 250 Mg Tablet) 250 mg PO DAILY [facility] Last Admin: 06/10/21 09:37 Dose: 250 mg Cholecalciferol (Cholecalciferol 25 Mcg Tablet) 50 mcg PO DAILY [facility] Last Admin: 06/10/21 09:37 Dose: 50 mcg Cyanocobalamin (Cyanocobalamin 500 Mcg Tablet) 500 mcg PO DAILY [facility] Last Admin: 06/10/21 09:36 Dose: 500 mcg Dexamethasone (Dexamethasone 4 Mg Tablet) 6 mg PO DAILY [facility] Last Admin: 06/10/21 09:37 Dose: 6 mg Docusate Sodium (Docusate Sodium 250 Mg Capsule) 250 - 500 mg PO DAILY [facility] Last Admin: 06/10/21 09:37 Dose: Not Given Enoxaparin Sodium (Enoxaparin 40 Mg/0.4 Ml Syringe) 40 mg SUBQ DAILY [facility] Last Admin: 06/10/21 09:38 Dose: 40 mg Ferrous Gluconate (Ferrous Gluconate 324 Mg Tablet) 324 mg PO DAILYWM [facility] Last Admin: 06/10/21 09:36 Dose: 324 mg Furosemide (Furosemide 20 Mg/2 Ml Vial) 20 mg IVP BID [facility] Last Admin: 06/10/21 09:37 Dose: 20 mg Guaifenesin (Guaifenesin 600 Mg Tablet) 600 mg PO BID [facility] Last Admin: 06/10/21 09:37 Dose: 600 mg Ceftriaxone Sodium 1 gm/ (Sodium Chloride) 100 mls @ 200 mls/hr IV DAILY [facility] Last Infusion: 06/10/21 10:12 Dose: Infused Lisinopril (Lisinopril 5 Mg Tablet) 2.5 mg PO DAILY [facility] Last Admin: 06/10/21 09:36 Dose: 2.5 mg Metoprolol Tartrate (Metoprolol Tartrate 25 Mg Tablet) 25 mg PO DAILY [facility] Last Admin: 06/10/21 09:36 Dose: 25 mg Mineral Oil (Min Oil/Dimethicon/Coconut Oil 92 Gm Tube) 1 applic TOP PRN PRN PRN Reason: Skin Care Last Admin: 06/02/21 14:09 Dose: 1 applic Morphine Sulfate (Morphine 2 Mg/Ml Carpuject) 2 mg IVP Q4HR PRN PRN Reason: PAIN Last Admin: 06/08/21 08:35 Dose: 2 mg Multi-Ingredient Ointment (Zinc Oxide 20% Oint 30 Gm Tube) 1 applic TOP PRN PRN PRN Reason: Skin Care Last Admin: 06/08/21 18:51 Dose: 1 applic Multivitamins/Minerals (Multivitamin W/Minerals Tablet) [facility] [place] Admin: 06/10/21 09:36 Dose: 1 tab Nicotine (Nicotine 7 Mg Patch) 1 patch TOP DAILY [facility] Last Admin: 06/10/21 09:36 Dose: 1 patch Ondansetron HCl (Ondansetron Odt 4 Mg Tablet) 4 mg TL Q6HR PRN PRN Reason: Nausea / Vomiting Ondansetron HCl (Ondansetron 4 Mg/2 Ml Vial) 4 mg IVP Q6HR PRN PRN Reason: Nausea / Vomiting Oxycodone HCl (Oxycodone 5 Mg Tablet) 5 mg PO Q4HR PRN PRN Reason: Pain 5 to 7 Pantoprazole Sodium (Pantoprazole 40 Mg Tablet) 40 mg PO QDAC [facility] Last Admin: 06/10/21 06:28 Dose: 40 mg Polyethylene Glycol (Polyethylene Glycol 3350 17 Gm Packet) 17 gm PO DAILY [facility] Last Admin: 06/10/21 09:38 Dose: Not Given Saccharomyces Boulardii (Saccharomyces Boulardii 250 Mg Capsule) 250 mg PO BIDWM [facility] Last Admin: 06/10/21 18:18 Dose: 250 mg Sodium Chloride (Sodium Chloride Flush 0.9% 10 Ml Syringe) 10 ml IVP PRN PRN PRN Reason: NEEDED PER PROVIDER ORDERS Last Admin: 06/09/21 20:45 Dose: 10 ml Sodium Chloride (Sodium Chloride Flush 0.9% 10 Ml Syringe) 10 ml IVP 0100,0900,1700 [facility] Last Admin: 06/10/21 18:18 Dose: 10 ml Tamsulosin HCl (Tamsulosin 0.4 Mg Capsule) 0.4 mg PO DAILY [facility] Last Admin: 06/10/21 09:36 Dose: 0.4 mg Acetaminophen [Tylenol] 650 mg PO TID 04/17/16 Loperamide [Imodium] 2 mg PO PRN PRN 11/25/19 Tamsulosin [Flomax] 0.4 mg PO QPM 01/10/20 Acetaminophen [Tylenol] 650 mg PO DAILY PRN 03/15/20 Enzalutamide [Xtandi] 160 mg PO DAILY 02/07/21 Metoprolol Tartrate 25 mg PO DAILY 05/30/21 Potassium Chloride [K-Dur] 20 meq PO TIDWM 05/30/21 Objective - Vital Signs/Intake & Output Reviewed Vital Signs: Yes Vital Signs: Vital Signs x48h Temp Pulse Resp BP Pulse Ox 06/10/21 15:53 36.4 C L 64 24 133/65 H 98 06/10/21 14:00 23 92 06/10/21 12:00 21 90 L Intake & Output: Intake & Output 06/07/21 06/08/21 06/09/21 06/10/21 23:59 23:59 23:59 23:59 Intake Total 015 530 0106 520 Balance 932 399 0484 520 - Objective General Appearance: positive: Mild distress (Short of breath, and he likes to talk his chin onto his chest. I would think that he was more short of breath in this position but he is angry with me when I try and reposition him either up or lay him down. Laying him down makes him orthopneic I think), Other (Elderly white male in mild respiratory distress with tachypnea, and audible chest congestion) Eyes Bilateral: positive: PERRL, EOMI ENT: positive: No signs of dehydration Neck: positive: No JVD. negative: Stiff neck Respiratory: positive: Wheezes, Rhonchi Cardiovascular: positive: Regular rate & rhythm. negative: Gallop/S4, Friction rub Abdomen: positive: Non-tender, No organomegaly, Nml bowel sounds, No distention Skin: positive: Warm, Dry, Pallor Extremities: positive: Non-tender, No pedal edema Neurologic/Psychiatric: positive: CN's nml (2-12), Motor nml, Other (Because he is nonverbal I do not know if he is oriented at all to where he is or what is going on.) - Lab Results Fish Bones: 06/10/21 05:11 06/10/21 05:11 Other Labs: Lab Results x24hrs 06/10/21 06/10/21 06/10/21 Range/Units 05:11 05:11 05:11 WBC 11.7 H (4.8-10.8) x10^3/uL RBC 2.89 L (4.70-6.10) 10^6/uL Hgb 9.2 L (14.0-18.0) g/dL Hct 30.3 L (42.0-52.0) % MCV 104.8 H (80.0-94.0) fL MCH 31.8 H (27.0-31.0) pg MCHC 30.4 L (32.0-36.0) g/dL RDW 16.5 H (12.0-15.0) % Plt Count 489 H (130-450) 10^3/uL MPV 10.0 (7.4-11.4) fL Neut # (Auto) 10.3 H (1.5-6.6) 10^3/uL Lymph # (Auto) 0.4 L (1.5-3.5) 10^3/uL Bennett # (Auto) 0.5 (0.0-1.0) 10^3/uL Eos # (Auto) 0.2 (0.0-0.7) 10^3/uL Baso # (Auto) 0.0 (0.0-0.1) 10^3/uL Absolute Nucleated RBC 0.00 x10^3/uL Nucleated RBC % 0.0 /100WBC Sodium 145 (135-145) mmol/L Potassium 3.9 (3.5-5.0) mmol/L Chloride 105 (101-111) mmol/L Carbon Dioxide 28 (21-32) mmol/L Anion Gap 12.0 (6-13) BUN 41 H (6-20) mg/dL Creatinine 0.9 (0.6-1.2) mg/dL Estimated GFR (MDRD) 81 L (>89) Glucose 95 (70-100) mg/dL Calcium 8.2 L (8.5-10.3) mg/dL B-Natriuretic Peptide 227 H (5-100) pg/mL ABX Reporting Has patient been on IV antibiotics over the past 48 hours?: Yes Sepsis Event Note (H) - Evaluation Current Stage of Sepsis: Ruled out Assessment/Plan - Problem List (1) Hypoxemia Impression: He has completed remdesivir, Decadron, and empiric antibiotics for pneumonia. He was starting to improve with his hypoxia and was 99% on 2 L by June 07. However by the manager laundry hours of June 08 his respiratory status has worsened. He is requiring more and more oxygen. Chest x-ray shows persistent small to moderate bilateral pleural effusions and pulmonary edema. We are treating the pneumonia, the edema, and radiology does not feel that he has enough of an effusion to require a thoracentesis. Overall plan is to continue to support him to get him through this acute care episode with his multiple medical problems. He is a DO NOT RESUSCITATE. As such he will not be intubated. (2) Pneumonia due to COVID-19 virus Impression: He was seen in the emergency room May 07 and had already been ill for a week. With that encounter he was not hypoxic enough to need admission. He was then admitted here and completed Decadron and remdesivir. He is on DVT prophylaxis with Lovenox. 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 To be continued on his therapy in the outpatient setting. His Flomax is continued while here. (4) Autism Impression: With autism, he is unable to participate in decision-making for his healthcare matters and has a legally appointed DPOA. The plan is to return to his assisted living facility at discharge. However, if he cannot work with physical therapy and is bedridden, I do not think he can return to his assisted living facility. He may have to be transition to a intermediate facility. I will discuss with his power of managing attorney June 12. (5) Atrial fibrillation Impression: Stable. will resume home Metoprolol. Paroxysmal Afib was present with his previous admission. At admission, he was in Aflutter with 4:1 block. He was on metoprolol for rate control. He was not on an anticoagulant for stroke prophylaxis because he is a fall risk and the DPOA said he has had falls before. We started 1 baby aspirin daily for stroke prophylaxis, which the DPOA agreed with. (6) Anemia Impression: Appears to be chronic. Iron deficient. He is on Protonix. (7) Weakness Impression: He refused to work with physical therapy. (8)moderate left pleural effusion Chest CT May 30 was reviewed with his. CT was done June 07. Moderate bilateral patchy and consolidative airspace opacity. Stable to slightly increased. Moderate left and small right pleural effusion. The right effusion increased in size. No pneumothorax. Again, radiology does not feel that these effusions are large enough to tap. (9)diastolic heart failure ECHO reveal moderate to severe abnormal right heart pressure and 66mmHG RVSP, and pleural effusion and pulmonary edema, worsening O2 sat in yesterday. continue Lasix now. continue Metoprolol, and add low dosage of Lisinopril.
[2021-06-10] MEDS: SODIUM CHLORIDE FLUSH 0.9% 10 ML SYRINGE IVP PRN (22:28)
[2021-06-11] MEDS: SODIUM CHLORIDE FLUSH 0.9% 10 ML SYRINGE IVP SCH ×3 (00:20→17:13)
[2021-06-11 06:05] LABS: CALCIUM 8.2 mg/dL (8.5-10.3); CREATININE 0.9 mg/dL (0.6-1.2); POTASSIUM 3.3 mmol/L (3.5-5.0)
[2021-06-11 06:14] LABS: BASOPHILS % (AUTO) 0.4 %; EOSINOPHILS # (AUTO) 0.3 10^3/uL (0.0-0.7); HCT - HEMATOCRIT 32.4 % (42.0-52.0); HGB - HEMOGLOBIN 10.2 g/dL (14.0-18.0); LYMPHOCYTES # (AUTO) 0.4 10^3/uL (1.5-3.5); LYMPHOCYTES % (AUTO) 4.1 %; MEAN CORPUSCULAR HEMOGLOBIN 32.7 pg (27.0-31.0); MEAN CORPUSCULAR HGB CONC 31.5 g/dL (32.0-36.0); MEAN CORPUSCULAR VOLUME 103.8 fL (80.0-94.0); MEAN PLATELET VOLUME 10.1 fL (7.4-11.4); MONOCYTES # (AUTO) 0.5 10^3/uL (0.0-1.0); MONOCYTES % (AUTO) 4.6 %; NEUTROPHILS # (AUTO) 8.9 10^3/uL (1.5-6.6); NEUTROPHILS % (AUTO) 86.7 %; PLT - PLATELET COUNT 560 10^3/uL (130-450); RED BLOOD COUNT 3.12 10^6/uL (4.70-6.10); RED CELL DISTRIBUTION WIDTH 16.6 % (12.0-15.0); WHITE BLOOD COUNT 10.3 x10^3/uL (4.8-10.8)
[2021-06-11] MEDS: PANTOPRAZOLE 40 MG TABLET PO SCH (07:01)
[2021-06-11] MEDS: dexAMETHasone 4 MG TABLET PO SCH (10:07)
[2021-06-11] MEDS: CHOLECALCIFEROL 25 MCG TABLET PO SCH (10:07)
[2021-06-11] MEDS: MULTIVITAMIN W/MINERALS TABLET PO SCH (10:07)
[2021-06-11] MEDS: SACCHAROMYCES BOULARDII 250 MG CAPSULE PO SCH ×2 (10:07→17:13)
[2021-06-11] MEDS: FERROUS GLUCONATE 324 MG TABLET PO SCH (10:07)
[2021-06-11] MEDS: METOPROLOL TARTRATE 25 MG TABLET PO SCH (10:08)
[2021-06-11] MEDS: DOCUSATE SODIUM 250 MG CAPSULE PO SCH (10:09)
[2021-06-11] MEDS: lisinopriL 5 MG TABLET PO SCH (10:10)
[2021-06-11] MEDS: AZITHROMYCIN 250 MG TABLET PO SCH (10:10)
[2021-06-11] MEDS: ENOXAPARIN 40 MG/0.4 ML SYRINGE SUBQ SCH (10:11)
[2021-06-11] MEDS: CYANOCOBALAMIN 500 MCG TABLET PO SCH (10:11)
[2021-06-11] MEDS: ASPIRIN EC 81 MG TABLET PO SCH (10:11)
[2021-06-11] MEDS: guaiFENesin 600 MG TABLET PO SCH ×2 (10:11→21:01)
[2021-06-11] MEDS: cefTRIAXone 1 GM in SODIUM CHLORIDE 0.9% MINIBAG 100 ML IV SCH (10:11)
[2021-06-11] MEDS: TAMSULOSIN 0.4 MG CAPSULE PO SCH (10:11)
[2021-06-11] MEDS: FUROSEMIDE 20 MG/2 ML VIAL IVP SCH ×2 (10:11→21:00)
[2021-06-11] MEDS: polyethylene glycoL 3350 17 GM PACKET PO SCH (10:12)
[2021-06-11] MEDS: NICOTINE 7 MG PATCH TOP SCH (10:12)
[2021-06-11] MEDS: POTASSIUM CHLORIDE 20 MEQ TABLET PO SCH ×2 (10:12→21:01)
--- NOTE | 2021-06-11 13:34 | PROVIDER PROGRESS NOTE ---
Progress Note June 11, 2021 1:30 PM He is sitting up in bed in a normal position. Watching TV. Lets me muted control so I can talk to him and he responds appropriately with questions and answers. It is not a complicated conversation. He talks about having the food removed from in front of him, and that he would like to keep his coffee. He states that he is feeling fine. He is not angry, he is cooperative. But he is still refusing to get out of bed. Overnight the resource agent did not report any new incidences. He is still requiring 2 L to maintain O2 sats. He is eating 25 to 50% of his food. Active Medications Acetaminophen (Acetaminophen 325 Mg Tablet) 650 mg PO Q4HR PRN PRN Reason: Pain 1 to 4 Albuterol (Albuterol Neb 2.5 Mg/3 Ml) 2.5 mg INH RTQ4H PRN PRN Reason: Wheezing Albuterol/Ipratropium (Ipratropium/Albuterol 3 Ml Neb) 3 ml INH RTQID PRN PRN Reason: Shortness of Air/Wheezing Last Admin: 06/09/21 07:17 Dose: 3 ml Aspirin (Aspirin Ec 81 Mg Tablet) 81 mg PO DAILY [facility] Last Admin: 06/11/21 10:11 Dose: 81 mg Azithromycin (Azithromycin 250 Mg Tablet) 250 mg PO DAILY [facility] Last Admin: 06/11/21 10:10 Dose: 250 mg Cholecalciferol (Cholecalciferol 25 Mcg Tablet) 50 mcg PO DAILY [facility] Last Admin: 06/11/21 10:07 Dose: 50 mcg Cyanocobalamin (Cyanocobalamin 500 Mcg Tablet) 500 mcg PO DAILY [facility] Last Admin: 06/11/21 10:11 Dose: 500 mcg Dexamethasone (Dexamethasone 4 Mg Tablet) 6 mg PO DAILY [facility] Last Admin: 06/11/21 10:07 Dose: 6 mg Docusate Sodium (Docusate Sodium 250 Mg Capsule) 250 - 500 mg PO DAILY [facility] Last Admin: 06/11/21 10:09 Dose: 250 mg Enoxaparin Sodium (Enoxaparin 40 Mg/0.4 Ml Syringe) 40 mg SUBQ DAILY [facility] Last Admin: 06/11/21 10:11 Dose: 40 mg Ferrous Gluconate (Ferrous Gluconate 324 Mg Tablet) 324 mg PO DAILYWM [facility] Last Admin: 06/11/21 10:07 Dose: 324 mg Furosemide (Furosemide 20 Mg/2 Ml Vial) 20 mg IVP BID [facility] Last Admin: 06/11/21 10:11 Dose: 20 mg Guaifenesin (Guaifenesin 600 Mg Tablet) 600 mg PO BID [facility] Last Admin: 06/11/21 10:11 Dose: 600 mg Ceftriaxone Sodium 1 gm/ (Sodium Chloride) 100 mls @ 200 mls/hr IV DAILY [facility] Last Infusion: 06/11/21 10:42 Dose: Infused Lisinopril (Lisinopril 5 Mg Tablet) 2.5 mg PO DAILY [facility] Last Admin: 06/11/21 10:10 Dose: 2.5 mg Metoprolol Tartrate (Metoprolol Tartrate 25 Mg Tablet) 25 mg PO DAILY [facility] Last Admin: 06/11/21 10:08 Dose: 25 mg Mineral Oil (Min Oil/Dimethicon/Coconut Oil 92 Gm Tube) 1 applic TOP PRN PRN PRN Reason: Skin Care Last Admin: 06/02/21 14:09 Dose: 1 applic Morphine Sulfate (Morphine 2 Mg/Ml Carpuject) 2 mg IVP Q4HR PRN PRN Reason: PAIN Last Admin: 06/08/21 08:35 Dose: 2 mg Multi-Ingredient Ointment (Zinc Oxide 20% Oint 30 Gm Tube) 1 applic TOP PRN PRN PRN Reason: Skin Care Last Admin: 06/08/21 18:51 Dose: 1 applic Multivitamins/Minerals (Multivitamin W/Minerals Tablet) 1 tab PO DAILYWM [facility] Last Admin: 06/11/21 10:07 Dose: 1 tab Nicotine (Nicotine 7 Mg Patch) 1 patch TOP DAILY [facility] Last Admin: 06/11/21 10:12 Dose: 1 patch Ondansetron HCl (Ondansetron Odt 4 Mg Tablet) 4 mg TL Q6HR PRN PRN Reason: Nausea / Vomiting Ondansetron HCl (Ondansetron 4 Mg/2 Ml Vial) 4 mg IVP Q6HR PRN PRN Reason: Nausea / Vomiting Oxycodone HCl (Oxycodone 5 Mg Tablet) 5 mg PO Q4HR PRN PRN Reason: Pain 5 to 7 Pantoprazole Sodium (Pantoprazole 40 Mg Tablet) 40 mg PO QDAC [facility] Last Admin: 06/11/21 07:01 Dose: 40 mg Polyethylene Glycol (Polyethylene Glycol 3350 17 Gm Packet) 17 gm PO DAILY [facility] Last Admin: 06/11/21 10:12 Dose: 17 gm Potassium Chloride (Potassium Chloride 20 Meq Tablet) 20 meq PO DAILYWM [facility] Potassium Chloride (Potassium Chloride 20 Meq Tablet) 40 meq PO BID [facility] Stop: 06/11/21 21:01 Last Admin: 06/11/21 10:12 Dose: 40 meq Saccharomyces Boulardii (Saccharomyces Boulardii 250 Mg Capsule) 250 mg PO BIDWM [facility] Last Admin: 06/11/21 10:07 Dose: 250 mg Sodium Chloride (Sodium Chloride Flush 0.9% 10 Ml Syringe) 10 ml IVP PRN PRN PRN Reason: NEEDED PER PROVIDER ORDERS Last Admin: 06/10/21 22:28 Dose: 10 ml Sodium Chloride (Sodium Chloride Flush 0.9% 10 Ml Syringe) 10 ml IVP 0100,0900, 1700 [facility] Last Admin: 06/11/21 10:12 Dose: 10 ml Tamsulosin HCl (Tamsulosin 0.4 Mg Capsule) 0.4 mg PO DAILY [facility] Last Admin: 06/11/21 10:11 Dose: 0.4 mg Temperature is 36.6. Heart rate 71. Blood pressure 135/72. Respirations 23. He is 92% saturated on 2 L. He is an alert oriented elderly gentleman, slightly disheveled. Uncomplicated straightforward communication style but he does not know where he is, why he is here. Neck is supple Lungs have coarse upper airway rhonchi that are diffuse and throughout all lung devlin. But no respiratory distress. He still breathing anywhere between 20 to 24 breaths a minute. No use of accessory muscles. PMI normally placed with a regular rate and rhythm. Abdomen is soft, nontender, normal bowel sounds. Extremities are without edema and he does have spontaneous full range of motion Sodium 145, potassium 3.3, BUN 39, creatinine 0.9. White cell count 10.3 and now normal. He was 17,000 on June 08. Gradually decreasing to be normal today. Hemoglobin 10.2. Stable. Platelets 560 and rising. He was 371,000 on June 07 and consistently going up every day to 560,000 today. Assessment/plan 1. Hypoxemia due to Covid pneumonia, left pleural effusion, diastolic heart failure. He has completed treatment for the pneumonia, but has probable new pneumonia on chest x-ray that was done June 08 for sudden worsening hypoxemia. He is stable with his oxygen requirement. There is no respiratory distress. Continue to support him through this acute episode of care. DO NOT RESUSCITATE. 2. Pneumonia due to Covid virus. Has completed therapy 3. Metastatic castration resistant adenocarcinoma of the prostate. Followed by oncology in the medical ambulatory clinic. No treatment being offered on the inpatient side at as of this time 4. Autism. Developmental delay. He has a court appointed guardian. I will be contacting them tomorrow during workday hours. This gentleman has gradually improved from the medical problems of brought him to our hospital. However he refuses to do physical therapy, refuses to get out of bed and has been become significantly deconditioned. Prior to admission he was ambulatory, and able to feed himself with prompting. After the stay, he can no longer return to facility he is lived in since he was in his 50s. He [facility] be [facility]. However, if he does not get out of bed there, he may not do well in the next few months. I will discuss advance care planning with the guardian and see if he is a candidate for palliative measures only. 5. Chronic atrial fibrillation. He has a history of paroxysmal A. fib. On admission he was a flutter with 4-1 block. Continue metoprolol for rate control. He is not a candidate for DOAC or Coumadin because of risk of falls. 6. Iron deficiency anemia, chronic, being treated with iron and Protonix. At this time no work-up is being discussed such as an EGD or colonoscopy to see why his iron deficiency anemic. I will bring that up with the guardian tomorrow. 7. Generalized weakness and deconditioning in a patient who has been gravely ill and not wanting to get out of bed. Physical therapy has discharged him from their service since he does not cooperate. 8. Moderate left pleural effusion. Effusion not large enough to tap. 9. Chronic diastolic heart failure. Echo has moderate to severe abnormal right heart pressures with a RVSP of 66 mmHg. Echo also showed left pleural effusion but CT confirms it is not big enough to tap. He is on Lasix and metoprolol. I added low-dose lisinopril June 10. Blood pressure seems to be tolerating it. In the next couple of days I may increase it to 5 mg a day from 2.5 mg a day.
[2021-06-11] MEDS: SODIUM CHLORIDE FLUSH 0.9% 10 ML SYRINGE IVP PRN (21:01)
[2021-06-12] MEDS: SODIUM CHLORIDE FLUSH 0.9% 10 ML SYRINGE IVP SCH ×3 (01:37→17:03)
[2021-06-12 05:35] LABS: BASOPHILS % (AUTO) 0.2 %; EOSINOPHILS # (AUTO) 0.3 10^3/uL (0.0-0.7); EOSINOPHILS % (AUTO) 2.2 %; HCT - HEMATOCRIT 35.6 % (42.0-52.0); HGB - HEMOGLOBIN 10.8 g/dL (14.0-18.0); LYMPHOCYTES # (AUTO) 0.6 10^3/uL (1.5-3.5); LYMPHOCYTES % (AUTO) 4.8 %; MEAN CORPUSCULAR HEMOGLOBIN 31.6 pg (27.0-31.0); MEAN CORPUSCULAR HGB CONC 30.3 g/dL (32.0-36.0); MEAN CORPUSCULAR VOLUME 104.1 fL (80.0-94.0); MEAN PLATELET VOLUME 9.8 fL (7.4-11.4); MONOCYTES # (AUTO) 0.6 10^3/uL (0.0-1.0); MONOCYTES % (AUTO) 4.6 %; NEUTROPHILS # (AUTO) 10.5 10^3/uL (1.5-6.6); NEUTROPHILS % (AUTO) 87.1 %; PLT - PLATELET COUNT 607 10^3/uL (130-450); RED BLOOD COUNT 3.42 10^6/uL (4.70-6.10); RED CELL DISTRIBUTION WIDTH 16.6 % (12.0-15.0); WHITE BLOOD COUNT 12.1 x10^3/uL (4.8-10.8)
[2021-06-12 05:42] LABS: CALCIUM 8.5 mg/dL (8.5-10.3); CREATININE 0.8 mg/dL (0.6-1.2); POTASSIUM 4.2 mmol/L (3.5-5.0)
[2021-06-12] MEDS: PANTOPRAZOLE 40 MG TABLET PO SCH (06:01)
[2021-06-12] MEDS: SACCHAROMYCES BOULARDII 250 MG CAPSULE PO SCH ×2 (09:13→17:03)
[2021-06-12] MEDS: guaiFENesin 600 MG TABLET PO SCH ×2 (09:13→20:49)
[2021-06-12] MEDS: lisinopriL 5 MG TABLET PO SCH (09:13)
[2021-06-12] MEDS: METOPROLOL TARTRATE 25 MG TABLET PO SCH (09:13)
[2021-06-12] MEDS: CHOLECALCIFEROL 25 MCG TABLET PO SCH (09:13)
[2021-06-12] MEDS: MULTIVITAMIN W/MINERALS TABLET PO SCH (09:15)
[2021-06-12] MEDS: CYANOCOBALAMIN 500 MCG TABLET PO SCH (09:15)
[2021-06-12] MEDS: DOCUSATE SODIUM 250 MG CAPSULE PO SCH (09:15)
[2021-06-12] MEDS: POTASSIUM CHLORIDE 20 MEQ TABLET PO SCH (09:15)
[2021-06-12] MEDS: ASPIRIN EC 81 MG TABLET PO SCH (09:15)
[2021-06-12] MEDS: TAMSULOSIN 0.4 MG CAPSULE PO SCH (09:15)
[2021-06-12] MEDS: AZITHROMYCIN 250 MG TABLET PO SCH (09:15)
[2021-06-12] MEDS: FERROUS GLUCONATE 324 MG TABLET PO SCH (09:15)
[2021-06-12] MEDS: ENOXAPARIN 40 MG/0.4 ML SYRINGE SUBQ SCH (09:16)
[2021-06-12] MEDS: dexAMETHasone 4 MG TABLET PO SCH (09:16)
[2021-06-12] MEDS: polyethylene glycoL 3350 17 GM PACKET PO SCH (09:17)
[2021-06-12] MEDS: NICOTINE 7 MG PATCH TOP SCH (09:17)
[2021-06-12] MEDS: FUROSEMIDE 20 MG/2 ML VIAL IVP SCH ×2 (09:17→20:49)
[2021-06-12] MEDS: cefTRIAXone 1 GM in SODIUM CHLORIDE 0.9% MINIBAG 100 ML IV SCH (09:24)
--- NOTE | 2021-06-12 12:14 | PROVIDER PROGRESS NOTE ---
Progress Note June 12, 2021 12:02 PM Patient was seen this morning. Sitting up in bed. Again watching TV. Tells me that he is "weak as a kitten". But he really does not want to work with nursing to get up out of bed. I did try to speak to his guardian today. Her name is Marla Porter at [phone]. Unfortunately my conversation got interrupted and I was unable to complete it. I did let her know that he cannot be discharged back to his assisted living facility and will have to be transition to a care home facility. He is unable to complete therapy that would allow independence to return to the [facility]. I also introduced the concept of palliative care/comfort care form. We were in the middle of trying to discuss his stated quality of life issues when I had to cut the conversation short. Otherwise Mr. Reddy is stable. Active Medications Acetaminophen (Acetaminophen 325 Mg Tablet) 650 mg PO Q4HR PRN PRN Reason: Pain 1 to 4 Albuterol (Albuterol Neb 2.5 Mg/3 Ml) 2.5 mg INH RTQ4H PRN PRN Reason: Wheezing Albuterol/Ipratropium (Ipratropium/Albuterol 3 Ml Neb) 3 ml INH RTQID PRN PRN Reason: Shortness of Air/Wheezing Last Admin: 06/09/21 07:17 Dose: 3 ml Aspirin (Aspirin Ec 81 Mg Tablet) 81 mg PO DAILY [facility] Last Admin: 06/12/21 09:15 Dose: 81 mg Azithromycin (Azithromycin 250 Mg Tablet) 250 mg PO DAILY [facility] Last Admin: 06/12/21 09:15 Dose: 250 mg Cholecalciferol (Cholecalciferol 25 Mcg Tablet) 50 mcg PO DAILY [facility] Last Admin: 06/12/21 09:13 Dose: 50 mcg Cyanocobalamin (Cyanocobalamin 500 Mcg Tablet) 500 mcg PO DAILY [facility] Last Admin: 06/12/21 09:15 Dose: 500 mcg Docusate Sodium (Docusate Sodium 250 Mg Capsule) 250 - 500 mg PO DAILY [facility] Last Admin: 06/12/21 09:15 Dose: 250 mg Enoxaparin Sodium (Enoxaparin 40 Mg/0.4 Ml Syringe) 40 mg SUBQ DAILY [facility] Last Admin: 06/12/21 09:16 Dose: 40 mg Ferrous Gluconate (Ferrous Gluconate 324 Mg Tablet) 324 mg PO DAILYWM [facility] Last Admin: 06/12/21 09:15 Dose: 324 mg Furosemide (Furosemide 20 Mg/2 Ml Vial) 20 mg IVP BID [facility] Last Admin: 06/12/21 09:17 Dose: 20 mg Guaifenesin (Guaifenesin 600 Mg Tablet) 600 mg PO BID [facility] Last Admin: 06/12/21 09:13 Dose: 600 mg Ceftriaxone Sodium 1 gm/ (Sodium Chloride) 100 mls @ 200 mls/hr IV DAILY [facility] Last Infusion: 06/12/21 10:01 Dose: Infused Lisinopril (Lisinopril 5 Mg Tablet) 2.5 mg PO DAILY [facility] Last Admin: 06/12/21 09:13 Dose: 2.5 mg Metoprolol Tartrate (Metoprolol Tartrate 25 Mg Tablet) 25 mg PO DAILY [facility] Last Admin: 06/12/21 09:13 Dose: 25 mg Mineral Oil (Min Oil/Dimethicon/Coconut Oil 92 Gm Tube) 1 applic TOP PRN PRN PRN Reason: Skin Care Last Admin: 06/02/21 14:09 Dose: 1 applic Morphine Sulfate (Morphine 2 Mg/Ml Carpuject) 2 mg IVP Q4HR PRN PRN Reason: PAIN Last Admin: 06/08/21 08:35 Dose: 2 mg Multi-Ingredient Ointment (Zinc Oxide 20% Oint 30 Gm Tube) 1 applic TOP PRN PRN PRN Reason: Skin Care Last Admin: 06/08/21 18:51 Dose: 1 applic Multivitamins/Minerals (Multivitamin W/Minerals Tablet) 1 tab PO DAILYWM [facility] Last Admin: 06/12/21 09:15 Dose: 1 tab Nicotine (Nicotine 7 Mg Patch) 1 patch TOP DAILY [facility] Last Admin: 06/12/21 09:17 Dose: 1 patch Ondansetron HCl (Ondansetron Odt 4 Mg Tablet) 4 mg TL Q6HR PRN PRN Reason: Nausea / Vomiting Ondansetron HCl (Ondansetron 4 Mg/2 Ml Vial) 4 mg IVP Q6HR PRN PRN Reason: Nausea / Vomiting Oxycodone HCl (Oxycodone 5 Mg Tablet) 5 mg PO Q4HR PRN PRN Reason: Pain 5 to 7 Pantoprazole Sodium (Pantoprazole 40 Mg Tablet) 40 mg PO QDAC [facility] Last Admin: 06/12/21 06:01 Dose: 40 mg Polyethylene Glycol (Polyethylene Glycol 3350 17 Gm Packet) 17 gm PO DAILY [facility] Last Admin: 06/12/21 09:17 Dose: 17 gm Potassium Chloride (Potassium Chloride 20 Meq Tablet) 20 meq PO DAILYWM [facility] Last Admin: 06/12/21 09:15 Dose: 20 meq Saccharomyces Boulardii (Saccharomyces Boulardii 250 Mg Capsule) 250 mg PO BIDWM [facility] Last Admin: 06/12/21 09:13 Dose: 250 mg Sodium Chloride (Sodium Chloride Flush 0.9% 10 Ml Syringe) 10 ml IVP PRN PRN PRN Reason: NEEDED PER PROVIDER ORDERS Last Admin: 06/11/21 21:01 Dose: 10 ml Sodium Chloride (Sodium Chloride Flush 0.9% 10 Ml Syringe) 10 ml IVP 0100,0900,1700 [facility] Last Admin: 06/12/21 09:17 Dose: 10 ml Tamsulosin HCl (Tamsulosin 0.4 Mg Capsule) 0.4 mg PO DAILY [facility] Last Admin: 06/12/21 09:15 Dose: 0.4 mg Exam Temperature is 36.9. Heart rate 57. Blood pressure 128/53. Respirations 20. 98% saturated, 1 L. Elderly, bearded gentleman, simple conversation in a patient with cognitive deficits. Lungs are less rhonchous today. Not a loud or loose phlegm. No respiratory distress RRR Abd soft, nontender, NABS Ext: No edema Neuro: alert, conversing w me in simple declarative sentences, says yes or no to my requests. Moving all extremities, no focal deficits. Cognitive impairment that is chronic. BMP is normal today except for slight rise in BUN to 40 which is stable for him. CBC shows white cell count of 12.1, hemoglobin 10.8. Platelets 607. His platelets were in the 300 range this entire stay. Starting June 70, then 489, and June 11 he was 560, and today 607. I am assuming this is a reactive thrombocytosis. Assessment/plan 1. Hypoxemia due to Covid pneumonia, left pleural effusion, diastolic heart failure. Has completed treatment for Covid pneumonia, it is completed treatment for bacterial pneumonia, and we are awaiting his slow recovery from Covid and oxygen requirement. He is down to 1 L today. No respiratory distress. Since I first met him this week, he has slowly improved day by day and needs less and less O2. DO NOT RESUSCITATE status. 2. Physical deconditioning. Refuses to cooperate with physical therapy. Will need to be transferred to care home facility. This patient has autism and developmental delay. Alertness and communication has improved this week. We had one of his caregivers come to assess him from the [facility] and we hoped he could cooperate w her. He also refused her. He has a court appointed guardian. I have contacted the guardian to let them know that he cannot return to the assisted living facility and we will be transferring him to a care home facility. I will call her back to complete her conversation about palliative care 3. Chronic atrial fibrillation. Rate is controlled. He is not a candidate for DOAC or Coumadin because of risk of falls. 4. Chronic diastolic heart failure. Severe abnormal right heart pressures with RVSP of 66 mmHg. Left pleural effusion. On Lasix and metoprolol. Lisinopril added June 10. Will increase lisinopril to 5 mg today. Chronic/resolved medical problems Iron deficiency anemia on iron and Protonix. 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 Followed in the outpatient setting by oncology.
[2021-06-13] MEDS: SODIUM CHLORIDE FLUSH 0.9% 10 ML SYRINGE IVP SCH ×3 (01:16→17:52)
[2021-06-13] MEDS: PANTOPRAZOLE 40 MG TABLET PO SCH (06:00)
[2021-06-13 06:05] LABS: CALCIUM 8.3 mg/dL (8.5-10.3); CREATININE 0.8 mg/dL (0.6-1.2); POTASSIUM 3.9 mmol/L (3.5-5.0)
[2021-06-13 08:15] LABS: BASOPHILS # (AUTO) 0.1 10^3/uL (0.0-0.1); BASOPHILS % (AUTO) 0.5 %; EOSINOPHILS # (AUTO) 0.5 10^3/uL (0.0-0.7); EOSINOPHILS % (AUTO) 4.7 %; HGB - HEMOGLOBIN 10.1 g/dL (14.0-18.0); LYMPHOCYTES # (AUTO) 0.6 10^3/uL (1.5-3.5); LYMPHOCYTES % (AUTO) 5.5 %; MEAN CORPUSCULAR HEMOGLOBIN 31.4 pg (27.0-31.0); MEAN CORPUSCULAR HGB CONC 29.7 g/dL (32.0-36.0); MEAN CORPUSCULAR VOLUME 105.6 fL (80.0-94.0); MEAN PLATELET VOLUME 10.5 fL (7.4-11.4); MONOCYTES # (AUTO) 0.5 10^3/uL (0.0-1.0); NEUTROPHILS # (AUTO) 8.7 10^3/uL (1.5-6.6); PLT - PLATELET COUNT 582 10^3/uL (130-450); RED BLOOD COUNT 3.22 10^6/uL (4.70-6.10); RED CELL DISTRIBUTION WIDTH 16.7 % (12.0-15.0); WHITE BLOOD COUNT 10.5 x10^3/uL (4.8-10.8)
[2021-06-13] MEDS: CYANOCOBALAMIN 500 MCG TABLET PO SCH (09:18)
[2021-06-13] MEDS: ASPIRIN EC 81 MG TABLET PO SCH (09:18)
[2021-06-13] MEDS: SACCHAROMYCES BOULARDII 250 MG CAPSULE PO SCH ×2 (09:18→17:52)
[2021-06-13] MEDS: guaiFENesin 600 MG TABLET PO SCH ×2 (09:18→20:14)
[2021-06-13] MEDS: TAMSULOSIN 0.4 MG CAPSULE PO SCH (09:18)
[2021-06-13] MEDS: polyethylene glycoL 3350 17 GM PACKET PO SCH (09:18)
[2021-06-13] MEDS: AZITHROMYCIN 250 MG TABLET PO SCH (09:19)
[2021-06-13] MEDS: FUROSEMIDE 20 MG/2 ML VIAL IVP SCH ×2 (09:19→20:14)
[2021-06-13] MEDS: CHOLECALCIFEROL 25 MCG TABLET PO SCH (09:19)
[2021-06-13] MEDS: FERROUS GLUCONATE 324 MG TABLET PO SCH (09:19)
[2021-06-13] MEDS: POTASSIUM CHLORIDE 20 MEQ TABLET PO SCH (09:19)
[2021-06-13] MEDS: ENOXAPARIN 40 MG/0.4 ML SYRINGE SUBQ SCH (09:19)
[2021-06-13] MEDS: MULTIVITAMIN W/MINERALS TABLET PO SCH (09:19)
[2021-06-13] MEDS: cefTRIAXone 1 GM in SODIUM CHLORIDE 0.9% MINIBAG 100 ML IV SCH (09:19)
[2021-06-13] MEDS: lisinopriL 5 MG TABLET PO SCH (09:20)
[2021-06-13] MEDS: NICOTINE 7 MG PATCH TOP SCH (09:20)
[2021-06-13] MEDS: METOPROLOL TARTRATE 25 MG TABLET PO SCH (09:20)
[2021-06-13] MEDS: DOCUSATE SODIUM 250 MG CAPSULE PO SCH (09:20)
--- NOTE | 2021-06-13 11:25 | PROVIDER PROGRESS NOTE ---
Assessment/Plan - Problem List (1) Acute respiratory failure with hypoxia Assessment/Plan: 06/13 Improved, patient had 93% oxygen saturation on 1 L of oxygen, patient is comfortable sleeping in the bed. Patient finished treatment for COVID-19, we will continue antibiotics for another a few days treated for his bacteria pneumonia, Continue probiotics. Continue consult with social work for discharge planning. Overall plan is to continue to support him to get him through this acute care episode with his multiple medical problems. He is a DO NOT RESUSCITATE. As such he will not be intubated. (2) Pneumonia due to COVID-19 virus Impression: 06/13 Patient finished COVID-19 treatment course. He was seen in the emergency room May 07 and had already been ill for a week. With that encounter he was not hypoxic enough to need admission. He was then admitted here and completed Decadron and remdesivir. He is on DVT prophylaxis with Lovenox. 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 To be continued on his therapy in the outpatient setting. His Flomax is continued while here. (4) Autism Impression: With autism, he is unable to participate in decision-making for his healthcare matters and has a legally appointed DPOA. The plan is to return to his assisted living facility at discharge. However, if he cannot work with physical therapy and is bedridden, I do not think he can return to his assisted living facility. He may have to be transition to a jail facility. I will discuss with his power of energy attorney June 12. (5) Atrial fibrillation Impression: Stable. will resume home Metoprolol. Paroxysmal Afib was present with his previous admission. At admission, he was in Aflutter with 4:1 block. He was on metoprolol for rate control. He was not on an anticoagulant for stroke prophylaxis because he is a fall risk and the DPOA said he has had falls before. We started 1 baby aspirin daily for stroke prophylaxis, which the DPOA agreed with. (6) Anemia Impression: Appears to be chronic. Iron deficient. He is on Protonix. (7) Weakness Impression: He refused to work with physical therapy. (8)moderate left pleural effusion Chest CT May 30 was reviewed with his. CT was done June 07. Moderate bilateral patchy and consolidative airspace opacity. Stable to slightly increased. Moderate left and small right pleural effusion. The right effusion increased in size. No pneumothorax. Again, radiology does not feel that these effusions are large enough to tap. (9)diastolic heart failure ECHO reveal moderate to severe abnormal right heart pressure and 66mmHG RVSP, and pleural effusion and pulmonary edema, worsening O2 sat in yesterday. continue Lasix now. continue Metoprolol, and add low dosage of Lisinopril. - Current Meds Current Meds: Current Medications Generic Name Dose Route Start Last Admin Trade Name Freq PRN Reason Stop Dose Admin Albuterol/Ipratropium 3 ml 06/08/21 08:19 06/09/21 07:17 Ipratropium/Albuterol 3 Ml Neb INH 3 ml RTQID PRN Administration Shortness of Air/Wheezing Aspirin 81 mg 05/30/21 16:04 06/13/21 09:18 Aspirin Ec 81 Mg Tablet PO 81 mg DAILY [facility] Administration Cholecalciferol 50 mcg 06/07/21 09:00 06/13/21 09:19 Cholecalciferol 25 Mcg Tablet PO 50 mcg DAILY [facility] Administration Cyanocobalamin 500 mcg 05/31/21 09:00 06/13/21 09:18 Cyanocobalamin 500 Mcg Tablet PO 500 mcg DAILY [facility] Administration Docusate Sodium 250 - 500 mg 06/09/21 19:22 06/13/21 09:20 Docusate Sodium 250 Mg Capsule PO 250 mg DAILY [facility] Administration Enoxaparin Sodium 40 mg 06/10/21 09:00 06/13/21 09:19 Enoxaparin 40 Mg/0.4 Ml Syringe SUBQ 40 mg DAILY [facility] Administration Ferrous Gluconate 324 mg 05/30/21 08:00 06/13/21 09:19 Ferrous Gluconate 324 Mg Tablet PO 324 mg DAILYWM [facility] Administration Furosemide 20 mg 06/07/21 21:00 06/13/21 09:19 Furosemide 20 Mg/2 Ml Vial IVP 20 mg BID [facility] Administration Guaifenesin 600 mg 05/31/21 09:00 06/13/21 09:18 Guaifenesin 600 Mg Tablet PO 600 mg BID [facility] Administration Ceftriaxone Sodium 1 gm/ 100 mls @ 200 mls/hr 06/08/21 13:00 06/13/21 11:01 Sodium Chloride IV Infused DAILY [facility] Infusion Lisinopril 2.5 mg 06/08/21 09:00 06/13/21 09:20 Lisinopril 5 Mg Tablet PO 2.5 mg DAILY [facility] Administration Metoprolol Tartrate 25 mg 06/07/21 09:00 06/13/21 09:20 Metoprolol Tartrate 25 Mg Tablet PO 25 mg DAILY [facility] Administration Mineral Oil 1 applic 05/31/21 01:17 06/02/21 14:09 Min Oil/Dimethicon/Coconut Oil 92 Gm Tube TOP 1 applic PRN PRN Administration Skin Care Morphine Sulfate 2 mg 06/08/21 08:05 06/08/21 08:35 Morphine 2 Mg/Ml Carpuject IVP 2 mg Q4HR PRN Administration PAIN Multi-Ingredient Ointment 1 applic 06/04/21 07:38 06/08/21 18:51 Zinc Oxide 20% Oint 30 Gm Tube TOP 1 applic PRN PRN Administration Skin Care Multivitamins/Minerals 1 tab 05/31/21 08:00 06/13/21 09:19 Multivitamin W/Minerals Tablet PO 1 tab DAILYWM [facility] Administration Nicotine 1 patch 05/30/21 11:00 06/13/21 09:20 Nicotine 7 Mg Patch TOP 1 patch DAILY [facility] Administration Pantoprazole Sodium 40 mg 06/07/21 08:00 06/13/21 06:00 Pantoprazole 40 Mg Tablet PO 40 mg QDAC [facility] Administration Polyethylene Glycol 17 gm 06/10/21 09:00 06/13/21 09:18 Polyethylene Glycol 3350 17 Gm Packet PO 17 gm DAILY [facility] Administration Potassium Chloride 20 meq 06/12/21 08:00 06/13/21 09:19 Potassium Chloride 20 Meq Tablet PO 20 meq DAILYWM [facility] Administration Saccharomyces Boulardii 250 mg 06/08/21 17:00 06/13/21 09:18 Saccharomyces Boulardii 250 Mg Capsule PO 250 mg BIDWM [facility] Administration Sodium Chloride 10 ml 05/30/21 01:36 06/11/21 21:01 Sodium Chloride Flush 0.9% 10 Ml Syringe IVP 10 ml PRN PRN Administration NEEDED PER PROVIDER ORDERS Sodium Chloride 10 ml 05/30/21 09:00 06/13/21 09:23 Sodium Chloride Flush 0.9% 10 Ml Syringe IVP 10 ml 0100,0900,1700 [facility] Administration Tamsulosin HCl 0.4 mg 05/30/21 09:00 06/13/21 09:18 Tamsulosin 0.4 Mg Capsule PO 0.4 mg DAILY [facility] Administration - Lab Result Fish Bone Diagrams: 06/13/21 05:22 06/13/21 05:22 - Additional Planning My Orders: My Active Orders 06/14/21 05:00 BMP - BASIC METABOLIC PANEL [CHEM] DAILYLAB CBC - COMP BLD CT W/AUTO DIFF [HEME] DAILYLAB 06/15/21 05:00 CBC - COMP BLD CT W/AUTO DIFF [HEME] DAILYLAB 06/16/21 05:00 CBC - COMP BLD CT W/AUTO DIFF [HEME] DAILYLAB 06/17/21 05:00 CBC - COMP BLD CT W/AUTO DIFF [HEME] DAILYLAB 06/18/21 05:00 CBC - COMP BLD CT W/AUTO DIFF [HEME] DAILYLAB 06/19/21 05:00 CBC - COMP BLD CT W/AUTO DIFF [HEME] DAILYLAB 06/20/21 05:00 CBC - COMP BLD CT W/AUTO DIFF [HEME] DAILYLAB 06/21/21 05:00 CBC - COMP BLD CT W/AUTO DIFF [HEME] DAILYLAB Subjective - Subjective Patient Reports: Resting Comfortably Objective Vital Signs: Vital Signs - 24 hr 06/12/21 06/12/21 06/12/21 13:00 13:06 15:43 Temperature 36.5 C Heart Rate [ 61 Brachial] Heart Rate [ Radial] Respiratory 24 Rate Blood Pressure Blood Pressure 114/57 L [Right Brachial artery] O2 Saturation 98 95 97 06/12/21 06/12/21 06/13/21 20:50 23:50 07:40 Temperature 36.6 C 36.4 C L Heart Rate [ 66 59 L Brachial] Heart Rate [ 56 L Radial] Respiratory 18 24 Rate Blood Pressure Blood Pressure 134/64 H 134/67 H 126/61 [Right Brachial artery] O2 Saturation 94 93 06/13/21 09:20 Temperature Heart Rate [ Brachial] Heart Rate [ Radial] Respiratory Rate Blood Pressure 118/62 Blood Pressure [Right Brachial artery] O2 Saturation Oxygen O2 Source [Without Activity] Room air O2 Source Nasal cannula Oxygen Flow Rate 2 I&O (Last 24 Hrs): Intake and Output Totals x24h 06/11/21 06/12/21 06/13/21 23:59 23:59 23:59 Intake Total 1120 910 650 Balance 1120 910 650 General: Alert, No acute distress HEENT: Atraumatic Neck: Supple Lymphatic: no adenopathy Neuro: Alert, Non Focal Cardiovascular: Regular rate, Normal S1, Normal S2 Respiratory: Chest non-tender, No respiratory distress Abdomen: Normal bowel sounds, Soft Extremities: Normal pulses - Results Results: Laboratory Results WBC 10.5 x10^3/uL (4.8-10.8) 06/13/21 05:22 RBC 3.22 10^6/uL (4.70-6.10) L 06/13/21 05:22 Hgb 10.1 g/dL (14.0-18.0) L 06/13/21 05:22 Hct 34.0 % (42.0-52.0) L 06/13/21 05:22 MCV 105.6 fL (80.0-94.0) H 06/13/21 05:22 MCH 31.4 pg (27.0-31.0) H 06/13/21 05:22 MCHC 29.7 g/dL (32.0-36.0) L 06/13/21 05:22 RDW 16.7 % (12.0-15.0) H 06/13/21 05:22 Plt Count 582 10^3/uL (130-450) H 06/13/21 05:22 MPV 10.5 fL (7.4-11.4) 06/13/21 05:22 Neut # (Auto) 8.7 10^3/uL (1.5-6.6) H 06/13/21 05:22 Lymph # (Auto) 0.6 10^3/uL (1.5-3.5) L 06/13/21 05:22 [place] # (Auto) 0.5 10^3/uL (0.0-1.0) 06/13/21 05:22 Eos # (Auto) 0.5 10^3/uL (0.0-0.7) 06/13/21 05:22 Baso # (Auto) 0.1 10^3/uL (0.0-0.1) 06/13/21 05:22 Absolute Nucleated RBC 0.00 x10^3/uL 06/13/21 05:22 Nucleated RBC % 0.0 /100WBC 06/13/21 05:22 D-Dimer 727.3 ng/mL (200.0-255.0) H 06/08/21 12:00 Sodium 143 mmol/L (135-145) 06/13/21 05:22 Potassium 3.9 mmol/L (3.5-5.0) 06/13/21 05:22 Chloride 106 mmol/L (101-111) 06/13/21 05:22 Carbon Dioxide 28 mmol/L (21-32) 06/13/21 05:22 Anion Gap 9.0 (6-13) 06/13/21 05:22 BUN 43 mg/dL (6-20) H 06/13/21 05:22 Creatinine 0.8 mg/dL (0.6-1.2) 06/13/21 05:22 Estimated GFR (MDRD) 93 (>89) 06/13/21 05:22 Glucose 98 mg/dL (70-100) 06/13/21 05:22 Lactic Acid 1.7 mmol/L (0.5-2.2) 05/29/21 23:46 Calcium 8.3 mg/dL (8.5-10.3) L 06/13/21 05:22 Phosphorus 3.8 mg/dL (2.5-4.6) 05/29/21 23:18 Iron 16 ug/dL (45-182) L 05/30/21 05:40 TIBC 196 ug/dL (250-450) L 05/30/21 05:40 % Saturation 8 % (20-50) L 05/30/21 05:40 Transferrin 140 mg/dL (180-329) L 05/30/21 05:40 Total Bilirubin 0.9 mg/dL (0.2-1.0) 05/29/21 23:18 AST 20 IU/L (10-42) 05/29/21 23:18 ALT 14 IU/L (10-60) 05/29/21 23:18 Alkaline Phosphatase 86 IU/L (42-121) 05/29/21 23:18 C-Reactive Protein 18.6 mg/dL (0-1.0) H 06/09/21 05:09 B-Natriuretic Peptide 227 pg/mL (5-100) H 06/10/21 05:11 Total Protein 6.6 g/dL (6.7-8.2) L 05/29/21 23:18 Albumin 2.5 g/dL (3.2-5.5) L 05/29/21 23:18 Globulin 4.1 g/dL (2.1-4.2) 05/29/21 23:18 Albumin/Globulin Ratio 0.6 (1.0-2.2) L 05/29/21 23:18 Vitamin B12 396 pg/mL (180-914) 06/06/21 05:40 Folate 10.38 ng/mL (5.90 - >24.8) 05/30/21 05:40 Sepsis Event Note (H) - Evaluation Current Stage of Sepsis: Ruled out ABX Reporting Has patient been on IV antibiotics over the past 48 hours?: Yes Current Medications - Current Medications Current Medications: Active Medications Acetaminophen (Acetaminophen 325 Mg Tablet) 650 mg PO Q4HR PRN PRN Reason: Pain 1 to 4 Albuterol (Albuterol Neb 2.5 Mg/3 Ml) 2.5 mg INH RTQ4H PRN PRN Reason: Wheezing Albuterol/Ipratropium (Ipratropium/Albuterol 3 Ml Neb) 3 ml INH RTQID PRN PRN Reason: Shortness of Air/Wheezing Last Admin: 06/09/21 07:17 Dose: 3 ml Aspirin (Aspirin Ec 81 Mg Tablet) 81 mg PO DAILY [facility] Last Admin: 06/13/21 09:18 Dose: 81 mg Cholecalciferol (Cholecalciferol 25 Mcg Tablet) 50 mcg PO DAILY [facility] Last Admin: 06/13/21 09:19 Dose: 50 mcg Cyanocobalamin (Cyanocobalamin 500 Mcg Tablet) 500 mcg PO DAILY [facility] Last Admin: 06/13/21 09:18 Dose: 500 mcg Docusate Sodium (Docusate Sodium 250 Mg Capsule) 250 - 500 mg PO DAILY [facility] Last Admin: 06/13/21 09:20 Dose: 250 mg Enoxaparin Sodium (Enoxaparin 40 Mg/0.4 Ml Syringe) 40 mg SUBQ DAILY [facility] Last Admin: 06/13/21 09:19 Dose: 40 mg Ferrous Gluconate (Ferrous Gluconate 324 Mg Tablet) 324 mg PO DAILYWM [facility] Last Admin: 06/13/21 09:19 Dose: 324 mg Furosemide (Furosemide 20 Mg/2 Ml Vial) 20 mg IVP BID [facility] Last Admin: 06/13/21 09:19 Dose: 20 mg Guaifenesin (Guaifenesin 600 Mg Tablet) 600 mg PO BID [facility] Last Admin: 06/13/21 09:18 Dose: 600 mg Ceftriaxone Sodium 1 gm/ (Sodium Chloride) 100 mls @ 200 mls/hr IV DAILY [facility] Last Infusion: 06/13/21 11:01 Dose: Infused Lisinopril (Lisinopril 5 Mg Tablet) 2.5 mg PO DAILY [facility] Last Admin: 06/13/21 09:20 Dose: 2.5 mg Metoprolol Tartrate (Metoprolol Tartrate 25 Mg Tablet) 25 mg PO DAILY [facility] Last Admin: 06/13/21 09:20 Dose: 25 mg Mineral Oil (Min Oil/Dimethicon/Coconut Oil 92 Gm Tube) 1 applic TOP PRN PRN PRN Reason: Skin Care Last Admin: 06/02/21 14:09 Dose: 1 applic Morphine Sulfate (Morphine 2 Mg/Ml Carpuject) 2 mg IVP Q4HR PRN PRN Reason: PAIN Last Admin: 06/08/21 08:35 Dose: 2 mg Multi-Ingredient Ointment (Zinc Oxide 20% Oint 30 Gm Tube) 1 applic TOP PRN PRN PRN Reason: Skin Care Last Admin: 06/08/21 18:51 Dose: 1 applic Multivitamins/Minerals (Multivitamin W/Minerals Tablet) 1 tab PO DAILYWM [facility] Last Admin: 06/13/21 09:19 Dose: 1 tab Nicotine (Nicotine 7 Mg Patch) 1 patch TOP DAILY [facility] Last Admin: 06/13/21 09:20 Dose: 1 patch Ondansetron HCl (Ondansetron Odt 4 Mg Tablet) 4 mg TL Q6HR PRN PRN Reason: Nausea / Vomiting Ondansetron HCl (Ondansetron 4 Mg/2 Ml Vial) 4 mg IVP Q6HR PRN PRN Reason: Nausea / Vomiting Oxycodone HCl (Oxycodone 5 Mg Tablet) 5 mg PO Q4HR PRN PRN Reason: Pain 5 to 7 Pantoprazole Sodium (Pantoprazole 40 Mg Tablet) 40 mg PO QDAC [facility] Last Admin: 06/13/21 06:00 Dose: 40 mg Polyethylene Glycol (Polyethylene Glycol 3350 17 Gm Packet) 17 gm PO DAILY [facility] Last Admin: 06/13/21 09:18 Dose: 17 gm Potassium Chloride (Potassium Chloride 20 Meq Tablet) 20 meq PO DAILYWM [facility] Last Admin: 06/13/21 09:19 Dose: 20 meq Saccharomyces Boulardii (Saccharomyces Boulardii 250 Mg Capsule) 250 mg PO BIDWM [facility] Last Admin: 06/13/21 09:18 Dose: 250 mg Sodium Chloride (Sodium Chloride Flush 0.9% 10 Ml Syringe) 10 ml IVP PRN PRN PRN Reason: NEEDED PER PROVIDER ORDERS Last Admin: 06/11/21 21:01 Dose: 10 ml Sodium Chloride (Sodium Chloride Flush 0.9% 10 Ml Syringe) 10 ml IVP 0100,0900,1700 [facility] Last Admin: 06/13/21 09:23 Dose: 10 ml Tamsulosin HCl (Tamsulosin 0.4 Mg Capsule) 0.4 mg PO DAILY [facility] Last Admin: 06/13/21 09:18 Dose: 0.4 mg Acetaminophen [Tylenol] 650 mg PO TID 04/17/16 Loperamide [Imodium] 2 mg PO PRN PRN 11/25/19 Tamsulosin [Flomax] 0.4 mg PO QPM 01/10/20 Acetaminophen [Tylenol] 650 mg PO DAILY PRN 03/15/20 Enzalutamide [Xtandi] 160 mg PO DAILY 02/07/21 Metoprolol Tartrate 25 mg PO DAILY 05/30/21 Potassium Chloride [K-Dur] 20 meq PO TIDWM 05/30/21
[2021-06-14] MEDS: SODIUM CHLORIDE FLUSH 0.9% 10 ML SYRINGE IVP SCH ×3 (03:17→16:45)
[2021-06-14] MEDS: PANTOPRAZOLE 40 MG TABLET PO SCH (05:19)
[2021-06-14 05:26] LABS: BASOPHILS # (AUTO) 0.1 10^3/uL (0.0-0.1); BASOPHILS % (AUTO) 1.1 %; EOSINOPHILS # (AUTO) 0.5 10^3/uL (0.0-0.7); EOSINOPHILS % (AUTO) 6.4 %; HCT - HEMATOCRIT 34.8 % (42.0-52.0); HGB - HEMOGLOBIN 10.4 g/dL (14.0-18.0); LYMPHOCYTES # (AUTO) 0.5 10^3/uL (1.5-3.5); LYMPHOCYTES % (AUTO) 6.1 %; MEAN CORPUSCULAR HGB CONC 29.9 g/dL (32.0-36.0); MEAN CORPUSCULAR VOLUME 103.9 fL (80.0-94.0); MEAN PLATELET VOLUME 9.9 fL (7.4-11.4); MONOCYTES # (AUTO) 0.5 10^3/uL (0.0-1.0); MONOCYTES % (AUTO) 5.5 %; NEUTROPHILS # (AUTO) 6.7 10^3/uL (1.5-6.6); NEUTROPHILS % (AUTO) 79.7 %; PLT - PLATELET COUNT 550 10^3/uL (130-450); RED BLOOD COUNT 3.35 10^6/uL (4.70-6.10); RED CELL DISTRIBUTION WIDTH 16.8 % (12.0-15.0); WHITE BLOOD COUNT 8.4 x10^3/uL (4.8-10.8)
[2021-06-14 05:33] LABS: CALCIUM 8.4 mg/dL (8.5-10.3); CREATININE 0.9 mg/dL (0.6-1.2); POTASSIUM 3.8 mmol/L (3.5-5.0)
[2021-06-14] MEDS: DOCUSATE SODIUM 250 MG CAPSULE PO SCH (08:02)
[2021-06-14] MEDS: lisinopriL 5 MG TABLET PO SCH (08:02)
[2021-06-14] MEDS: CYANOCOBALAMIN 500 MCG TABLET PO SCH (08:02)
[2021-06-14] MEDS: FERROUS GLUCONATE 324 MG TABLET PO SCH (08:03)
[2021-06-14] MEDS: POTASSIUM CHLORIDE 20 MEQ TABLET PO SCH (08:03)
[2021-06-14] MEDS: METOPROLOL TARTRATE 25 MG TABLET PO SCH (08:03)
[2021-06-14] MEDS: CHOLECALCIFEROL 25 MCG TABLET PO SCH (08:03)
[2021-06-14] MEDS: SACCHAROMYCES BOULARDII 250 MG CAPSULE PO SCH ×2 (08:03→16:45)
[2021-06-14] MEDS: NICOTINE 7 MG PATCH TOP SCH (08:03)
[2021-06-14] MEDS: MULTIVITAMIN W/MINERALS TABLET PO SCH (08:03)
[2021-06-14] MEDS: ENOXAPARIN 40 MG/0.4 ML SYRINGE SUBQ SCH (08:03)
[2021-06-14] MEDS: guaiFENesin 600 MG TABLET PO SCH ×2 (08:03→19:55)
[2021-06-14] MEDS: TAMSULOSIN 0.4 MG CAPSULE PO SCH (08:03)
[2021-06-14] MEDS: ASPIRIN EC 81 MG TABLET PO SCH (08:03)
[2021-06-14] MEDS: FUROSEMIDE 20 MG/2 ML VIAL IVP SCH ×2 (08:03→19:55)
[2021-06-14] MEDS: polyethylene glycoL 3350 17 GM PACKET PO SCH (08:04)
--- NOTE | 2021-06-14 11:43 | PROVIDER PROGRESS NOTE ---
Assessment/Plan - Problem List (1) Acute respiratory failure with hypoxia Assessment/Plan: 06/14 pt had 92% Oxygen saturation on 1 L oxygen, and stable. Patient does not present acute respiratory distress. pt refused to have O2 desat study. pt refused for activity with out of bed. We consulted with social work for patient's disposition planning. 06/13 Improved, patient had 93% oxygen saturation on 1 L of oxygen, patient is comfortable sleeping in the bed. Patient finished treatment for COVID-19, we will continue antibiotics for another a few days treated for his bacteria pneumonia, Continue probiotics. Continue consult with social work for discharge planning. Overall plan is to continue to support him to get him through this acute care episode with his multiple medical problems. He is a DO NOT RESUSCITATE. As such he will not be intubated. (2) Pneumonia due to COVID-19 virus Impression: 06/13 Patient finished COVID-19 treatment course. He was seen in the emergency room May 07 and had already been ill for a week. With that encounter he was not hypoxic enough to need admission. He was then admitted here and completed Decadron and remdesivir. He is on DVT prophylaxis with Lovenox. 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 To be continued on his therapy in the outpatient setting. His Flomax is continued while here. (4) Autism Impression: With autism, he is unable to participate in decision-making for his healthcare matters and has a legally appointed DPOA. The plan is to return to his assisted living facility at discharge. However, if he cannot work with physical therapy and is bedridden, I do not think he can return to his assisted living facility. He may have to be transition to a shelter facility. I will discuss with his power of [place] attorney June 12. (5) Atrial fibrillation Impression: Stable. will resume home Metoprolol. Paroxysmal Afib was present with his previous admission. At admission, he was in Aflutter with 4:1 block. He was on metoprolol for rate control. He was not on an anticoagulant for stroke prophylaxis because he is a fall risk and the DPOA said he has had falls before. We started 1 baby aspirin daily for stroke prophylaxis, which the DPOA agreed with. (6) Anemia Impression: Appears to be chronic. Iron deficient. He is on Protonix. (7) Weakness Impression: He refused to work with physical therapy. (8)moderate left pleural effusion Chest CT May 30 was reviewed with his. CT was done June 07. Moderate bilateral patchy and consolidative airspace opacity. Stable to slightly increased. Moderate left and small right pleural effusion. The right effusion increased in size. No pneumothorax. Again, radiology does not feel that these effusions are large enough to tap. (9)diastolic heart failure ECHO reveal moderate to severe abnormal right heart pressure and 66mmHG RVSP, and pleural effusion and pulmonary edema, worsening O2 sat in yesterday. continue Lasix now. continue Metoprolol, and add low dosage of Lisinopril. (10)COPD pt continue Cigarette smoking. Patient unlikely have COPD exacerbation. We will continue albuterol, DuoNeb as needed for patient, Continue supplemental oxygen as needed. - Current Meds Current Meds: Current Medications Generic Name Dose Route Start Last Admin Trade Name Freq PRN Reason Stop Dose Admin Albuterol/Ipratropium 3 ml 06/08/21 08:19 06/09/21 07:17 Ipratropium/Albuterol 3 Ml Neb INH 3 ml RTQID PRN Administration Shortness of Air/Wheezing Aspirin 81 mg 05/30/21 16:04 06/14/21 08:03 Aspirin Ec 81 Mg Tablet PO 81 mg DAILY NORBERTO Administration Cefuroxime Axetil 500 mg 06/14/21 09:00 06/14/21 08:43 Cefuroxime Axetil 250 Mg Tablet PO 500 mg BID NORBERTO Administration Cholecalciferol 50 mcg 06/07/21 09:00 06/14/21 08:03 Cholecalciferol 25 Mcg Tablet PO 50 mcg DAILY NORBERTO Administration Cyanocobalamin 500 mcg 05/31/21 09:00 06/14/21 08:02 Cyanocobalamin 500 Mcg Tablet PO 500 mcg DAILY NORBERTO Administration Docusate Sodium 250 - 500 mg 06/09/21 19:22 06/14/21 08:02 Docusate Sodium 250 Mg Capsule PO 250 mg DAILY NORBERTO Administration Enoxaparin Sodium 40 mg 06/10/21 09:00 06/14/21 08:03 Enoxaparin 40 Mg/0.4 Ml Syringe SUBQ 40 mg DAILY NORBERTO Administration Ferrous Gluconate 324 mg 05/30/21 08:00 06/14/21 08:03 Ferrous Gluconate 324 Mg Tablet PO 324 mg DAILYWM NORBERTO Administration Furosemide 20 mg 06/07/21 21:00 06/14/21 08:03 Furosemide 20 Mg/2 Ml Vial IVP 20 mg BID NORBERTO Administration Guaifenesin 600 mg 05/31/21 09:00 06/14/21 08:03 Guaifenesin 600 Mg Tablet PO 600 mg BID NOBRERTO Administration Lisinopril 2.5 mg 06/08/21 09:00 06/14/21 08:02 Lisinopril 5 Mg Tablet PO 2.5 mg DAILY NORBERTO Administration Metoprolol Tartrate 25 mg 06/07/21 09:00 06/14/21 08:03 Metoprolol Tartrate 25 Mg Tablet PO 25 mg DAILY NORBERTO Administration Mineral Oil 1 applic 05/31/21 01:17 06/02/21 14:09 Min Oil/Dimethicon/Coconut Oil 92 Gm Tube TOP 1 applic PRN PRN Administration Skin Care Morphine Sulfate 2 mg 06/08/21 08:05 06/08/21 08:35 Morphine 2 Mg/Ml Carpuject IVP 2 mg Q4HR PRN Administration PAIN Multi-Ingredient Ointment 1 applic 06/04/21 07:38 06/08/21 18:51 Zinc Oxide 20% Oint 30 Gm Tube TOP 1 applic PRN PRN Administration Skin Care Multivitamins/Minerals 1 tab 05/31/21 08:00 06/14/21 08:03 Multivitamin W/Minerals Tablet PO 1 tab DAILYWM NORBERTO Administration Nicotine 1 patch 05/30/21 11:00 06/14/21 08:03 Nicotine 7 Mg Patch TOP 1 patch DAILY NORBERTO Administration Pantoprazole Sodium 40 mg 06/07/21 08:00 06/14/21 05:19 Pantoprazole 40 Mg Tablet PO 40 mg QDAC NORBERTO Administration Polyethylene Glycol 17 gm 06/10/21 09:00 06/14/21 08:04 Polyethylene Glycol 3350 17 Gm Packet PO 17 gm DAILY NORBERTO Administration Potassium Chloride 20 meq 06/12/21 08:00 06/14/21 08:03 Potassium Chloride 20 Meq Tablet PO 20 meq DAILYWM NORBERTO Administration Saccharomyces Boulardii 250 mg 06/08/21 17:00 06/14/21 08:03 Saccharomyces Boulardii 250 Mg Capsule PO 250 mg BIDWM NORBERTO Administration Sodium Chloride 10 ml 05/30/21 01:36 06/11/21 21:01 Sodium Chloride Flush 0.9% 10 Ml Syringe IVP 10 ml PRN PRN Administration NEEDED PER PROVIDER ORDERS Sodium Chloride 10 ml 05/30/21 09:00 06/14/21 08:04 Sodium Chloride Flush 0.9% 10 Ml Syringe IVP 10 ml 0100,0900,1700 NORBERTO Administration Tamsulosin HCl 0.4 mg 05/30/21 09:00 06/14/21 08:03 Tamsulosin 0.4 Mg Capsule PO 0.4 mg DAILY NORBERTO Administration - Lab Result Fish Bone Diagrams: 06/14/21 05:07 06/14/21 05:07 - Additional Planning My Orders: My Active Orders 06/14/21 07:36 Out of bed 3+ hours today [RC] TID 06/14/21 09:00 cefUROXime axetiL [Ceftin] 500 mg PO BID 06/15/21 05:00 CBC - COMP BLD CT W/AUTO DIFF [HEME] DAILYLAB 06/16/21 05:00 CBC - COMP BLD CT W/AUTO DIFF [HEME] DAILYLAB 06/17/21 05:00 CBC - COMP BLD CT W/AUTO DIFF [HEME] DAILYLAB 06/18/21 05:00 CBC - COMP BLD CT W/AUTO DIFF [HEME] DAILYLAB 06/19/21 05:00 CBC - COMP BLD CT W/AUTO DIFF [HEME] DAILYLAB 06/20/21 05:00 CBC - COMP BLD CT W/AUTO DIFF [HEME] DAILYLAB 06/21/21 05:00 CBC - COMP BLD CT W/AUTO DIFF [HEME] DAILYLAB Subjective - Subjective Patient Reports: Resting Comfortably Objective Vital Signs: Vital Signs - 24 hr 06/13/21 06/13/21 06/14/21 16:00 16:21 00:00 Temperature 36.8 C 36.5 C Heart Rate [ 57 L Brachial] Heart Rate [ 70 Radial] Respiratory 18 20 Rate Blood Pressure 99/55 L 125/74 [Right Brachial artery] O2 Saturation 97 90 L 90 L 06/14/21 06/14/21 07:45 08:04 Temperature 36.6 C Heart Rate [ 58 L 65 Brachial] Heart Rate [ Radial] Respiratory 18 Rate Blood Pressure 132/57 H [Right Brachial artery] O2 Saturation 92 92 Oxygen O2 Source [Without Activity] Room air O2 Source Nasal cannula Oxygen Flow Rate 2 I&O (Last 24 Hrs): Intake and Output Totals x24h 06/12/21 06/13/21 06/14/21 23:59 23:59 23:59 Intake Total 910 1190 950 Balance 910 1190 950 General: Alert, No acute distress HEENT: Atraumatic Neck: Supple Lymphatic: no adenopathy Neuro: Alert, Non Focal Cardiovascular: Regular rate, Normal S1, Normal S2 Respiratory: Chest non-tender, No respiratory distress Abdomen: Normal bowel sounds, Soft Extremities: Normal pulses - Results Results: Laboratory Results WBC 8.4 x10^3/uL (4.8-10.8) 06/14/21 05:07 RBC 3.35 10^6/uL (4.70-6.10) L 06/14/21 05:07 Hgb 10.4 g/dL (14.0-18.0) L 06/14/21 05:07 Hct 34.8 % (42.0-52.0) L 06/14/21 05:07 MCV 103.9 fL (80.0-94.0) H 06/14/21 05:07 MCH 31.0 pg (27.0-31.0) 06/14/21 05:07 MCHC 29.9 g/dL (32.0-36.0) L 06/14/21 05:07 RDW 16.8 % (12.0-15.0) H 06/14/21 05:07 Plt Count 550 10^3/uL (130-450) H 06/14/21 05:07 MPV 9.9 fL (7.4-11.4) 06/14/21 05:07 Neut # (Auto) 6.7 10^3/uL (1.5-6.6) H 06/14/21 05:07 Lymph # (Auto) 0.5 10^3/uL (1.5-3.5) L 06/14/21 05:07 White # (Auto) 0.5 10^3/uL (0.0-1.0) 06/14/21 05:07 Eos # (Auto) 0.5 10^3/uL (0.0-0.7) 06/14/21 05:07 Baso # (Auto) 0.1 10^3/uL (0.0-0.1) 06/14/21 05:07 Absolute Nucleated RBC 0.00 x10^3/uL 06/14/21 05:07 Nucleated RBC % 0.0 /100WBC 06/14/21 05:07 D-Dimer 727.3 ng/mL (200.0-255.0) H 06/08/21 12:00 Sodium 144 mmol/L (135-145) 06/14/21 05:07 Potassium 3.8 mmol/L (3.5-5.0) 06/14/21 05:07 Chloride 104 mmol/L (101-111) 06/14/21 05:07 Carbon Dioxide 30 mmol/L (21-32) 06/14/21 05:07 Anion Gap 10.0 (6-13) 06/14/21 05:07 BUN 40 mg/dL (6-20) H 06/14/21 05:07 Creatinine 0.9 mg/dL (0.6-1.2) 06/14/21 05:07 Estimated GFR (MDRD) 81 (>89) L 06/14/21 05:07 Glucose 94 mg/dL (70-100) 06/14/21 05:07 Lactic Acid 1.7 mmol/L (0.5-2.2) 05/29/21 23:46 Calcium 8.4 mg/dL (8.5-10.3) L 06/14/21 05:07 Phosphorus 3.8 mg/dL (2.5-4.6) 05/29/21 23:18 Iron 16 ug/dL (45-182) L 05/30/21 05:40 TIBC 196 ug/dL (250-450) L 05/30/21 05:40 % Saturation 8 % (20-50) L 05/30/21 05:40 Transferrin 140 mg/dL (180-329) L 05/30/21 05:40 Total Bilirubin 0.9 mg/dL (0.2-1.0) 05/29/21 23:18 AST 20 IU/L (10-42) 05/29/21 23:18 ALT 14 IU/L (10-60) 05/29/21 23:18 Alkaline Phosphatase 86 IU/L (42-121) 05/29/21 23:18 C-Reactive Protein 18.6 mg/dL (0-1.0) H 06/09/21 05:09 B-Natriuretic Peptide 227 pg/mL (5-100) H 06/10/21 05:11 Total Protein 6.6 g/dL (6.7-8.2) L 05/29/21 23:18 Albumin 2.5 g/dL (3.2-5.5) L 05/29/21 23:18 Globulin 4.1 g/dL (2.1-4.2) 05/29/21 23:18 Albumin/Globulin Ratio 0.6 (1.0-2.2) L 05/29/21 23:18 Vitamin B12 396 pg/mL (180-914) 06/06/21 05:40 Folate 10.38 ng/mL (5.90 - >24.8) 05/30/21 05:40 Sepsis Event Note (H) - Evaluation Current Stage of Sepsis: Ruled out ABX Reporting Has patient been on IV antibiotics over the past 48 hours?: Yes Current Medications - Current Medications Current Medications: Active Medications Acetaminophen (Acetaminophen 325 Mg Tablet) 650 mg PO Q4HR PRN PRN Reason: Pain 1 to 4 Albuterol (Albuterol Neb 2.5 Mg/3 Ml) 2.5 mg INH RTQ4H PRN PRN Reason: Wheezing Albuterol/Ipratropium (Ipratropium/Albuterol 3 Ml Neb) 3 ml INH RTQID PRN PRN Reason: Shortness of Air/Wheezing Last Admin: 06/09/21 07:17 Dose: 3 ml Aspirin (Aspirin Ec 81 Mg Tablet) 81 mg PO DAILY PENDING SALE TO [facility] Last Admin: 06/14/21 08:03 Dose: 81 mg Cefuroxime Axetil (Cefuroxime Axetil 250 Mg Tablet) 500 mg PO BID [facility]ENDING S[facility] TO [facility] Last Admin: 06/14/21 08:43 Dose: 500 mg Cholecalciferol (Cholecalciferol 25 Mcg Tablet) 50 mcg PO DAILY [facility]ENDING S[facility] TO [facility] Last Admin: 06/14/21 08:03 Dose: 50 mcg Cyanocobalamin (Cyanocobalamin 500 Mcg Tablet) 500 mcg PO DAILY PENDING SALE TO [facility] Last Admin: 06/14/21 08:02 Dose: 500 mcg Docusate Sodium (Docusate Sodium 250 Mg Capsule) 250 - 500 mg PO DAILY [facility]END[facility] SALE TO [facility] Last Admin: 06/14/21 08:02 Dose: 250 mg Enoxaparin Sodium (Enoxaparin 40 Mg/0.4 Ml Syringe) 40 mg SUBQ DAILY [facility]ENDING SALE TO [facility] Last Admin: 06/14/21 08:03 Dose: 40 mg Ferrous Gluconate (Ferrous Gluconate 324 Mg Tablet) 324 mg PO DAILYWM PENDING SALE TO [facility] Last Admin: 06/14/21 08:03 Dose: 324 mg Furosemide (Furosemide 20 Mg/2 Ml Vial) 20 mg IVP BID [facility]END[facility] SALE TO [facility] Last Admin: 06/14/21 08:03 Dose: 20 mg Guaifenesin (Guaifenesin 600 Mg Tablet) 600 mg PO BID PENDING SALE TO [facility] Last Admin: 06/14/21 08:03 Dose: 600 mg Lisinopril (Lisinopril 5 Mg Tablet) 2.5 mg PO DAILY PENDING SALE TO [facility] Last Admin: 06/14/21 08:02 Dose: 2.5 mg Metoprolol Tartrate (Metoprolol Tartrate 25 Mg Tablet) 25 mg PO DAILY PENDING SALE TO [facility] Last Admin: 06/14/21 08:03 Dose: 25 mg Mineral Oil (Min Oil/Dimethicon/Coconut Oil 92 Gm Tube) 1 applic TOP PRN PRN PRN Reason: Skin Care Last Admin: 06/02/21 14:09 Dose: 1 applic Morphine Sulfate (Morphine 2 Mg/Ml Carpuject) 2 mg IVP Q4HR PRN PRN Reason: PAIN Last Admin: 06/08/21 08:35 Dose: 2 mg Multi-Ingredient Ointment (Zinc Oxide 20% Oint 30 Gm Tube) 1 applic TOP PRN PRN PRN Reason: Skin Care Last Admin: 06/08/21 18:51 Dose: 1 applic Multivitamins/Minerals (Multivitamin W/Minerals Tablet) 1 tab PO DAILYWM PENDING SALE TO [facility] Last Admin: 06/14/21 08:03 Dose: 1 tab Nicotine (Nicotine 7 Mg Patch) 1 patch TOP DAILY [facility]END[facility] TO [facility] Last Admin: 06/14/21 08:03 Dose: 1 patch Ondansetron HCl (Ondansetron Odt 4 Mg Tablet) 4 mg TL Q6HR PRN PRN Reason: Nausea / Vomiting Ondansetron HCl (Ondansetron 4 Mg/2 Ml Vial) 4 mg IVP Q6HR PRN PRN Reason: Nausea / Vomiting Oxycodone HCl (Oxycodone 5 Mg Tablet) 5 mg PO Q4HR PRN PRN Reason: Pain 5 to 7 Pantoprazole Sodium (Pantoprazole 40 Mg Tablet) 40 mg PO QDAC PENDING SALE TO [facility] Last Admin: 06/14/21 05:19 Dose: 40 mg Polyethylene Glycol (Polyethylene Glycol 3350 17 Gm Packet) 17 gm PO DAILY PENDING SALE TO [facility] Last Admin: 06/14/21 08:04 Dose: 17 gm Potassium Chloride (Potassium Chloride 20 Meq Tablet) 20 meq PO DAILYWM PENDING SALE TO [facility] Last Admin: 06/14/21 08:03 Dose: 20 meq Saccharomyces Boulardii (Saccharomyces Boulardii 250 Mg Capsule) 250 mg PO BIDWM PENDING SALE TO [facility] Last Admin: 06/14/21 08:03 Dose: 250 mg Sodium Chloride (Sodium Chloride Flush 0.9% 10 Ml Syringe) 10 ml IVP PRN PRN PRN Reason: NEEDED PER PROVIDER ORDERS Last Admin: 06/11/21 21:01 Dose: 10 ml Sodium Chloride (Sodium Chloride Flush 0.9% 10 Ml Syringe) 10 ml IVP 0100,0900,1700 PENDING SALE TO [facility] Last Admin: 06/14/21 08:04 Dose: 10 ml Tamsulosin HCl (Tamsulosin 0.4 Mg Capsule) 0.4 mg PO DAILY PENDING SALE TO [facility] Last Admin: 06/14/21 08:03 Dose: 0.4 mg Acetaminophen [Tylenol] 650 mg PO TID 04/17/16 Loperamide [Imodium] 2 mg PO PRN PRN 11/25/19 Tamsulosin [Flomax] 0.4 mg PO QPM 01/10/20 Acetaminophen [Tylenol] 650 mg PO DAILY PRN 03/15/20 Enzalutamide [Xtandi] 160 mg PO DAILY 02/07/21 Metoprolol Tartrate 25 mg PO DAILY 05/30/21 Potassium Chloride [K-Dur] 20 meq PO TIDWM 05/30/21
[2021-06-14] MEDS: SODIUM CHLORIDE FLUSH 0.9% 10 ML SYRINGE IVP PRN (19:55)
[2021-06-15] MEDS: SODIUM CHLORIDE FLUSH 0.9% 10 ML SYRINGE IVP SCH ×3 (00:45→17:04)
[2021-06-15 05:51] LABS: BASOPHILS # (AUTO) 0.1 10^3/uL (0.0-0.1); EOSINOPHILS # (AUTO) 0.5 10^3/uL (0.0-0.7); EOSINOPHILS % (AUTO) 5.7 %; HCT - HEMATOCRIT 34.9 % (42.0-52.0); HGB - HEMOGLOBIN 10.6 g/dL (14.0-18.0); LYMPHOCYTES # (AUTO) 0.5 10^3/uL (1.5-3.5); MEAN CORPUSCULAR HEMOGLOBIN 31.3 pg (27.0-31.0); MEAN CORPUSCULAR HGB CONC 30.4 g/dL (32.0-36.0); MEAN CORPUSCULAR VOLUME 102.9 fL (80.0-94.0); MONOCYTES # (AUTO) 0.5 10^3/uL (0.0-1.0); MONOCYTES % (AUTO) 5.1 %; NEUTROPHILS # (AUTO) 7.1 10^3/uL (1.5-6.6); NEUTROPHILS % (AUTO) 80.8 %; PLT - PLATELET COUNT 593 10^3/uL (130-450); RED BLOOD COUNT 3.39 10^6/uL (4.70-6.10); RED CELL DISTRIBUTION WIDTH 16.7 % (12.0-15.0); WHITE BLOOD COUNT 8.8 x10^3/uL (4.8-10.8)
[2021-06-15] MEDS: PANTOPRAZOLE 40 MG TABLET PO SCH (06:45)
[2021-06-15] MEDS: CYANOCOBALAMIN 500 MCG TABLET PO SCH (07:38)
[2021-06-15] MEDS: CHOLECALCIFEROL 25 MCG TABLET PO SCH (07:38)
[2021-06-15] MEDS: MULTIVITAMIN W/MINERALS TABLET PO SCH (07:39)
[2021-06-15] MEDS: TAMSULOSIN 0.4 MG CAPSULE PO SCH (07:39)
[2021-06-15] MEDS: FERROUS GLUCONATE 324 MG TABLET PO SCH (07:39)
[2021-06-15] MEDS: ASPIRIN EC 81 MG TABLET PO SCH (07:39)
[2021-06-15] MEDS: SACCHAROMYCES BOULARDII 250 MG CAPSULE PO SCH ×2 (07:39→17:04)
[2021-06-15] MEDS: METOPROLOL TARTRATE 25 MG TABLET PO SCH (07:39)
[2021-06-15] MEDS: POTASSIUM CHLORIDE 20 MEQ TABLET PO SCH (07:39)
[2021-06-15] MEDS: ENOXAPARIN 40 MG/0.4 ML SYRINGE SUBQ SCH (07:40)
[2021-06-15] MEDS: lisinopriL 5 MG TABLET PO SCH (07:40)
[2021-06-15] MEDS: guaiFENesin 600 MG TABLET PO SCH ×2 (07:40→20:49)
[2021-06-15] MEDS: DOCUSATE SODIUM 250 MG CAPSULE PO SCH (07:40)
[2021-06-15] MEDS: FUROSEMIDE 20 MG/2 ML VIAL IVP SCH (07:40)
[2021-06-15] MEDS: polyethylene glycoL 3350 17 GM PACKET PO SCH (07:41)
[2021-06-15] MEDS: NICOTINE 7 MG PATCH TOP SCH (07:41)
[2021-06-15 07:59] LABS: CALCIUM 8.8 mg/dL (8.5-10.3); CREATININE 0.9 mg/dL (0.6-1.2); POTASSIUM 3.9 mmol/L (3.5-5.0)
--- NOTE | 2021-06-15 11:38 | PROVIDER PROGRESS NOTE ---
Subjective - Prog Note Date Prog Note Date: 06/15/21 - Subjective Pt reports feeling: No change Subjective: I called pt's DPOA Marla Curielktahrynindigo to Update patient's medical conditions and Discuss the care plan for patient. Patient's appetite significantly reduced, Patient refused to have PT and OT evaluation and treatment, Patient refused to be out of the bed, Patient was COVID-19 positive and with bacterial pneumonia as well, And patient become significantly physical deconditioning and prognosis is poor. DPOA agree to have palliative care for patient, at the same time hope to keep medical necessarily treatment for patient. Current Medications - Current Medications Current Medications: Active Medications Acetaminophen (Acetaminophen 325 Mg Tablet) 650 mg PO Q4HR PRN PRN Reason: Pain 1 to 4 Albuterol (Albuterol Neb 2.5 Mg/3 Ml) 2.5 mg INH RTQ4H PRN PRN Reason: Wheezing Albuterol/Ipratropium (Ipratropium/Albuterol 3 Ml Neb) 3 ml INH RTQID PRN PRN Reason: Shortness of Air/Wheezing Last Admin: 06/09/21 07:17 Dose: 3 ml Aspirin (Aspirin Ec 81 Mg Tablet) 81 mg PO DAILY [facility] Last Admin: 06/15/21 07:39 Dose: 81 mg Cefuroxime Axetil (Cefuroxime Axetil 250 Mg Tablet) 500 mg PO BID [facility] Last Admin: 06/15/21 07:38 Dose: 500 mg Cholecalciferol (Cholecalciferol 25 Mcg Tablet) 50 mcg PO DAILY [facility] Last Admin: 06/15/21 07:38 Dose: 50 mcg Cyanocobalamin (Cyanocobalamin 500 Mcg Tablet) 500 mcg PO DAILY [facility] Last Admin: 06/15/21 07:38 Dose: 500 mcg Docusate Sodium (Docusate Sodium 250 Mg Capsule) 250 - 500 mg PO DAILY [facility] Last Admin: 06/15/21 07:40 Dose: 250 mg Enoxaparin Sodium (Enoxaparin 40 Mg/0.4 Ml Syringe) 40 mg SUBQ DAILY [facility] Last Admin: 06/15/21 07:40 Dose: 40 mg Ferrous Gluconate (Ferrous Gluconate 324 Mg Tablet) 324 mg PO DAILYWM [facility] Last Admin: 06/15/21 07:39 Dose: 324 mg Furosemide (Furosemide 20 Mg Tablet) 20 mg PO BIDDIURETIC [facility] Guaifenesin (Guaifenesin 600 Mg Tablet) 600 mg PO BID [facility] Last Admin: 06/15/21 07:40 Dose: 600 mg Lisinopril (Lisinopril 5 Mg Tablet) 2.5 mg PO DAILY [facility] Last Admin: 06/15/21 07:40 Dose: 2.5 mg Metoprolol Tartrate (Metoprolol Tartrate 25 Mg Tablet) 25 mg PO DAILY [facility] Last Admin: 06/15/21 07:39 Dose: 25 mg Mineral Oil (Min Oil/Dimethicon/Coconut Oil 92 Gm Tube) 1 applic TOP PRN PRN PRN Reason: Skin Care Last Admin: 06/02/21 14:09 Dose: 1 applic Morphine Sulfate (Morphine 2 Mg/Ml Carpuject) 2 mg IVP Q4HR PRN PRN Reason: PAIN Last Admin: 06/08/21 08:35 Dose: 2 mg Multi-Ingredient Ointment (Zinc Oxide 20% Oint 30 Gm Tube) 1 applic TOP PRN PRN PRN Reason: Skin Care Last Admin: 06/08/21 18:51 Dose: 1 applic Multivitamins/Minerals (Multivitamin W/Minerals Tablet) 1 tab PO DAILYWM [facility] Last Admin: 06/15/21 07:39 Dose: 1 tab Nicotine (Nicotine 7 Mg Patch) 1 patch TOP DAILY [facility] Last Admin: 06/15/21 07:41 Dose: 1 patch Ondansetron HCl (Ondansetron Odt 4 Mg Tablet) 4 mg TL Q6HR PRN PRN Reason: Nausea / Vomiting Ondansetron HCl (Ondansetron 4 Mg/2 Ml Vial) 4 mg IVP Q6HR PRN PRN Reason: Nausea / Vomiting Oxycodone HCl (Oxycodone 5 Mg Tablet) 5 mg PO Q4HR PRN PRN Reason: Pain 5 to 7 Pantoprazole Sodium (Pantoprazole 40 Mg Tablet) 40 mg PO QDAC [facility] Last Admin: 06/15/21 06:45 Dose: 40 mg Polyethylene Glycol (Polyethylene Glycol 3350 17 Gm Packet) 17 gm PO DAILY [facility] Last Admin: 06/15/21 07:41 Dose: 17 gm Potassium Chloride (Potassium Chloride 20 Meq Tablet) 20 meq PO DAILYWM [facility] Last Admin: 06/15/21 07:39 Dose: 20 meq Saccharomyces Boulardii (Saccharomyces Boulardii 250 Mg Capsule) 250 mg PO BIDWM [facility] Last Admin: 06/15/21 07:39 Dose: 250 mg Sodium Chloride (Sodium Chloride Flush 0.9% 10 Ml Syringe) 10 ml IVP PRN PRN PRN Reason: NEEDED PER PROVIDER ORDERS Last Admin: 06/14/21 19:55 Dose: 10 ml Sodium Chloride (Sodium Chloride Flush 0.9% 10 Ml Syringe) 10 ml IVP 0100,0900 ,1700 [facility] Last Admin: 06/15/21 07:41 Dose: 10 ml Tamsulosin HCl (Tamsulosin 0.4 Mg Capsule) 0.4 mg PO DAILY [facility] Last Admin: 06/15/21 07:39 Dose: 0.4 mg Acetaminophen [Tylenol] 650 mg PO TID 04/17/16 Loperamide [Imodium] 2 mg PO PRN PRN 11/25/19 Tamsulosin [Flomax] 0.4 mg PO QPM 01/10/20 Acetaminophen [Tylenol] 650 mg PO DAILY PRN 03/15/20 Enzalutamide [Xtandi] 160 mg PO DAILY 02/07/21 Metoprolol Tartrate 25 mg PO DAILY 05/30/21 Potassium Chloride [K-Dur] 20 meq PO TIDWM 05/30/21 Objective - Vital Signs/Intake & Output Vital Signs: Vital Signs x48h Temp Pulse Resp BP Pulse Ox 06/15/21 07:37 36 C L 70 25 H 112/65 90 L Intake & Output: Intake & Output 06/12/21 06/13/21 06/14/21 06/15/21 23:59 23:59 23:59 23:59 Intake Total 910 1190 1150 100 Balance 910 1190 1150 100 - Objective General Appearance: positive: No acute distress, Alert Eyes Bilateral: positive: Normal inspection, No lid inflammation ENT: positive: ENT inspection nml, No signs of dehydration Neck: positive: Nml inspection, Trachea midline. negative: Tracheal deviation Respiratory: positive: Chest non-tender, No respiratory distress. negative: Wheezes Cardiovascular: positive: Regular rate & rhythm. negative: Tachycardia, Bradycardia, Systolic murmur Peripheral Pulses: 2+ Radial (R), 2+ Radial (L) Abdomen: positive: Non-tender, Nml bowel sounds, No distention. negative: Tenderness Back: positive: Nml inspection Skin: positive: Color nml, Warm, Dry. negative: Cyanosis Extremities: positive: Non-tender, Nml appearance Neurologic/Psychiatric: positive: Sensation nml. negative: Weakness, Sensory loss, Facial droop, Slurred/abnml speech - Lab Results Fish Bones: 06/15/21 05:43 06/15/21 05:43 Other Labs: Lab Results x24hrs 06/15/21 06/15/21 Range/Units 05:43 05:43 WBC 8.8 (4.8-10.8) x10^3/uL RBC 3.39 L (4.70-6.10) 10^6/uL Hgb 10.6 L (14.0-18.0) g/dL Hct 34.9 L (42.0-52.0) % MCV 102.9 H (80.0-94.0) fL MCH 31.3 H (27.0-31.0) pg MCHC 30.4 L (32.0-36.0) g/dL RDW 16.7 H (12.0-15.0) % Plt Count 593 H (130-450) 10^3/uL MPV 10.0 (7.4-11.4) fL Neut # (Auto) 7.1 H (1.5-6.6) 10^3/uL Lymph # (Auto) 0.5 L (1.5-3.5) 10^3/uL [place] # (Auto) 0.5 (0.0-1.0) 10^3/uL Eos # (Auto) 0.5 (0.0-0.7) 10^3/uL Baso # (Auto) 0.1 (0.0-0.1) 10^3/uL Absolute Nucleated RBC 0.00 x10^3/uL Nucleated RBC % 0.0 /100WBC Sodium 143 (135-145) mmol/L Potassium 3.9 (3.5-5.0) mmol/L Chloride 103 (101-111) mmol/L Carbon Dioxide 29 (21-32) mmol/L Anion Gap 11.0 (6-13) BUN 42 H (6-20) mg/dL Creatinine 0.9 (0.6-1.2) mg/dL Estimated GFR (MDRD) 81 L (>89) Glucose 98 (70-100) mg/dL Calcium 8.8 (8.5-10.3) mg/dL ABX Reporting Has patient been on IV antibiotics over the past 48 hours?: Yes Sepsis Event Note (H) - Evaluation Current Stage of Sepsis: Ruled out Assessment/Plan - Problem List (1) Acute respiratory failure with hypoxia Impression: 06/15 pt is sleeping at the bed, pt had 91-96% O2 sat on 1 liter of O2, and stable. he declined out of bed And physical therapist occupational therapist for him. Call and discuss the care plan with the patient's DPOA, DPOA hope to have palliative care for patient but at the same time hope to keep his treatment as medically necessary for patient,we will refer patient to palliative care, continue consult with social work for disposition planning 06/14 pt had 92% Oxygen saturation on 1 L oxygen, and stable. Patient does not present acute respiratory distress. pt refused to have O2 desat study. pt refused for activity with out of bed. We consulted with social work for patient's disposition planning. 06/13 Improved, patient had 93% oxygen saturation on 1 L of oxygen, patient is comfortable sleeping in the bed. Patient finished treatment for COVID-19, we will continue antibiotics for another a few days treated for his bacteria pneumonia, Continue probiotics. Continue consult with social work for discharge planning. Overall plan is to continue to support him to get him through this acute care episode with his multiple medical problems. He is a DO NOT RESUSCITATE. As such he will not be intubated. (2) Pneumonia due to COVID-19 virus Impression: 06/13 Patient finished COVID-19 treatment course. He was seen in the emergency room May 07 and had already been ill for a week. With that encounter he was not hypoxic enough to need admission. He was then admitted here and completed Decadron and remdesivir. He is on DVT prophylaxis with Lovenox. 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 To be continued on his therapy in the outpatient setting. His Flomax is continued while here. (4) Autism Impression: With autism, he is unable to participate in decision-making for his healthcare matters and has a legally appointed DPOA. The plan is to return to his assisted living facility at discharge. However, if he cannot work with physical therapy and is bedridden, I do not think he can return to his assisted living facility. He may have to be transition to a half-way facility. I will discuss with his power of bread wrapper operator June 12. (5) Atrial fibrillation Impression: Stable. will resume home Metoprolol. Paroxysmal Afib was present with his previous admission. At admission, he was in Aflutter with 4:1 block. He was on metoprolol for rate control. He was not on an anticoagulant for stroke prophylaxis because he is a fall risk and the DPOA said he has had falls before. We started 1 baby aspirin daily for stroke prophylaxis, which the DPOA agreed with. (6) Anemia Impression: Appears to be chronic. Iron deficient. He is on Protonix. (7) Weakness Impression: He refused to work with physical therapy. (8)moderate left pleural effusion Chest CT May 30 was reviewed with his. CT was done June 07. Moderate bilateral patchy and consolidative airspace opacity. Stable to slightly increased. Moderate left and small right pleural effusion. The right effusion increased in size. No pneumothorax. Again, radiology does not feel that these effusions are large enough to tap. (9)diastolic heart failure ECHO reveal moderate to severe abnormal right heart pressure and 66mmHG RVSP, and pleural effusion and pulmonary edema, worsening O2 sat in yesterday. continue Lasix now. continue Metoprolol, and add low dosage of Lisinopril. (10)COPD pt continue Cigarette smoking. Patient unlikely have COPD exacerbation. We will continue albuterol, DuoNeb as needed for patient, Continue supplemental oxygen as needed. (11)physical deconditioning Patient present significantly physical deconditioning, patient's appetite was significantly reduced, patient declined physical and occupational therapist's Evaluation and treatment, Patient continue need oxygen support, patient had COVID-19 positive, also developed bacterial pneumonia as well. Discussed patient's currently medical conditions and care plan with the patient's DPOA, per patient DPOA, we will refer patient to palliative care.
[2021-06-15] MEDS: FUROSEMIDE 20 MG TABLET PO SCH (14:24)
[2021-06-16] MEDS: SODIUM CHLORIDE FLUSH 0.9% 10 ML SYRINGE IVP SCH ×2 (00:45→07:48)
[2021-06-16] MEDS: PANTOPRAZOLE 40 MG TABLET PO SCH (05:37)
[2021-06-16] MEDS: FUROSEMIDE 20 MG TABLET PO SCH (05:37)
[2021-06-16 05:55] LABS: BASOPHILS # (AUTO) 0.1 10^3/uL (0.0-0.1); BASOPHILS % (AUTO) 0.7 %; EOSINOPHILS # (AUTO) 0.5 10^3/uL (0.0-0.7); EOSINOPHILS % (AUTO) 6.3 %; HGB - HEMOGLOBIN 10.9 g/dL (14.0-18.0); LYMPHOCYTES # (AUTO) 0.6 10^3/uL (1.5-3.5); LYMPHOCYTES % (AUTO) 6.9 %; MEAN CORPUSCULAR HEMOGLOBIN 31.1 pg (27.0-31.0); MEAN CORPUSCULAR HGB CONC 30.3 g/dL (32.0-36.0); MEAN CORPUSCULAR VOLUME 102.9 fL (80.0-94.0); MEAN PLATELET VOLUME 9.8 fL (7.4-11.4); MONOCYTES # (AUTO) 0.5 10^3/uL (0.0-1.0); MONOCYTES % (AUTO) 6.4 %; NEUTROPHILS # (AUTO) 6.4 10^3/uL (1.5-6.6); NEUTROPHILS % (AUTO) 78.7 %; PLT - PLATELET COUNT 606 10^3/uL (130-450); RED CELL DISTRIBUTION WIDTH 16.6 % (12.0-15.0); WHITE BLOOD COUNT 8.1 x10^3/uL (4.8-10.8)
[2021-06-16 06:06] LABS: CALCIUM 8.5 mg/dL (8.5-10.3); CREATININE 0.8 mg/dL (0.6-1.2); POTASSIUM 3.9 mmol/L (3.5-5.0)
[2021-06-16] MEDS: ENOXAPARIN 40 MG/0.4 ML SYRINGE SUBQ SCH (07:45)
[2021-06-16] MEDS: NICOTINE 7 MG PATCH TOP SCH (07:45)
[2021-06-16] MEDS: METOPROLOL TARTRATE 25 MG TABLET PO SCH (07:46)
[2021-06-16] MEDS: MULTIVITAMIN W/MINERALS TABLET PO SCH (07:46)
[2021-06-16] MEDS: CHOLECALCIFEROL 25 MCG TABLET PO SCH (07:46)
[2021-06-16] MEDS: ASPIRIN EC 81 MG TABLET PO SCH (07:46)
[2021-06-16] MEDS: DOCUSATE SODIUM 250 MG CAPSULE PO SCH (07:47)
[2021-06-16] MEDS: POTASSIUM CHLORIDE 20 MEQ TABLET PO SCH (07:47)
[2021-06-16] MEDS: SACCHAROMYCES BOULARDII 250 MG CAPSULE PO SCH (07:47)
[2021-06-16] MEDS: FERROUS GLUCONATE 324 MG TABLET PO SCH (07:47)
[2021-06-16] MEDS: guaiFENesin 600 MG TABLET PO SCH (07:47)
[2021-06-16] MEDS: TAMSULOSIN 0.4 MG CAPSULE PO SCH (07:47)
[2021-06-16] MEDS: CYANOCOBALAMIN 500 MCG TABLET PO SCH (07:47)
[2021-06-16] MEDS: lisinopriL 5 MG TABLET PO SCH (07:47)
[2021-06-16] MEDS: polyethylene glycoL 3350 17 GM PACKET PO SCH (07:48)
--- NOTE | 2021-06-16 08:53 | Discharge Plan ---
"Discharge Plan for SNF / [facility] - Discharge Plan And Transition Orders Problem Reviewed?: Yes Disposition: 03 SNF DC/Xfer Condition: Poor Allergies and Adverse Reactions: Allergies Allergy/AdvReac Type Severity Reaction Status Date / Time No Known Drug Allergies Allergy Verified 05/29/21 23:05 Health Concerns: physical deconditioning and palliative care Plan of Treatment: pt refused to have PT/OT evaluation and treatment, and persistently reject to move out of bed for activities. His physical deconditioning became more severe. pt's DPOA agreed to have palliative care for pt, please referral to have palliative care as needed. Care Goals: Comfortable, quality of life, palliative care Assessment: Discussed the care plan with the patient's DPOA, referral to palliative care as needed - SNF / [facility] Transition Orders Admit to (Facility): [facility] Under the care of (Name): medical provider of [facility] Discharge Diagnosis: Acute respiratory failure with hypoxia, Pneumonia due to COVID-19 virus, Metastatic castration-resistant adenocarcinoma of prostate, Autism, atrial fibrillation, anemia, weakness, pleural effusion, diastolic heart failure, COPD, physical deconditioning Medicare Certification Statement: I do not certify that Post Hospital fpc care is medically necessary on a continuing basis for any of the conditions for which she/he is receiving care during hospitalization. Notify PCP of admission and forward orders to primary provider for signature. Other Notification Orders: Call PCP immediately if patient develops dyspnea, chest pain/tightness or edema. House Bowel Program: Yes Additional Bowel Program Orders: If no BM after 2 days, nurse may give M.O.M. 30ml PO PRN and/or ducolax Supp 1 [place] and/or ALICIA 250mg P.O., and/or senna 1-2 tabs PO. On day 3 nurse may give repeat above order until residents constipation is resolved. Annual Influenza Vaccine (between Jan 04 and August 03): Yes Two-step PPD per [employer] [id number] or approved exception documents: Yes Treatments & Other Orders: pt refused to have PT/OT evaluation and treatment, and persistently reject to move out of bed for activities. His physical deconditioning became more severe. pt's DPOA agreed to have palliative care for pt, please referral to have palliative care as needed. Oxygen Orders: one liter [facility] O[facility] by [facility], or as needed Medication Orders: PLEASE REFER TO THE DISCHARGE MEDICATION LIST. Insulin Orders?: No - Medications New Prescriptions: Albuterol Sulf [Ventolin Hfa Inhaler] 1 puffs INH Q4HR PRN #18 gm PRN Reason: Shortness Of Air/Wheezing cefUROXime axetiL [Ceftin] 500 mg PO BID 4 Days #16 tablet Aspirin EC [Ecotrin] 81 mg PO DAILY #30 tablet Tamsulosin [Flomax] 0.4 mg PO DAILY #30 cap Saccharomyces Boulardii [Florastor] 250 mg PO BIDWM 4 Days #8 cap Potassium Chloride [K-Dur] 20 meq PO DAILY #30 tab Furosemide [Lasix] 20 mg PO DAILY #30 tablet Multivitamin W/Minerals [Theragran M] 1 tab PO DAILYWM #30 tablet lisinopriL [Zestril] 2.5 mg PO DAILY #30 tablet - Diet Type: Geriatric Texture: Regular Liquids: Thin May have monthly special meal: Yes - Therapies | Activity Rehabilitation Potential: Maximize functional status Activity: Activity as Tolerated"
--- NOTE | 2021-06-16 09:19 | DISCHARGE SUMMARY ---
Discharge Summary Admit Date: 05/30/21 Discharge Date: 06/16/21 Discharging Provider: Anthony Singh Primary Care Provider: Beverly Davis Condition at Discharge: Poor Discharge Disposition: 03 SNF DC/Xfer Discharge Facility Name: [facility] - DIAGNOSES Discharge Diagnoses with Status of Each Condition: (1) Acute respiratory failure with hypoxia Improved. but pt still need 1-2 liter of O2 support to remain his O2 sats at 89- 96%. pt refused to have O2 desat study for him in the hospital. pt may continue need 1-2 liter of O2 or as needed to support. pt's Covid 19 test is still positive after 20 days from first positive test. Patient finished COVID-19 treatment in the hospital, patient was also treated with bacteria pneumonia with antibiotics. pt is prescribed another 4 days antibiotics treatment for his bacteria pneumonia. DPOA agreed to have palliative care for patient. pt may referral to palliative care. (2) Pneumonia due to COVID-19 virus pt still need 1-2 liter of O2 support to remain his O2 sats 89-96%. pt's Covid 19 test is still positive after 20 days from first positive test. Patient finished COVID-19 treatment in the hospital. DPOA agreed to have palliative care for patient. pt may referral to palliative care. 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 (4) Autism as his history. (5) Atrial fibrillation stable, pt has no anticoagulation meds in his home meds, add Aspirin and resume home meds. (6) Anemia stable, resume iron supplement (7) Weakness He refused to work with physical therapy, persistently stay at bed. pt may referral to palliative care as needed. (8)moderate left pleural effusion consult with IR, radiologist does not feel that these effusions are large enough to tap. (9)diastolic heart failure ECHO reveal moderate to severe abnormal right heart pressure and 66mmHG RVSP with preserved EF, pt is prescribed Lasix. continue Metoprolol, and Lisinopril. (10)COPD pt likely is not on COPD exacerbation, prescribed albuterol inhaler PRN, Continue supplemental oxygen as needed in nurse home. (11)physical deconditioning Patient present significantly physical deconditioning, patient's appetite was reduced, patient refused to have physical and occupational therapist's Evaluation and treatment, Patient continue need oxygen support and continue to be COVID-19 positive, also developed bacterial pneumonia as well. Discussed patient's currently medical conditions and care plan with the patient's DPOA, Marla Porter at [phone]. his DPOA agreed to have palliative care for pt. refer patient to palliative care. - HPI History of Present Illness: refer from Dr. Tomlinson's HPI on 05/30/21 This gentleman has developmental delay and autism and has been living in an assisted living facility since his 50s. His past medical history significant for hypertension, a [place] fracture from a fall in March 2015, and an admission for failure to thrive in April 2016 with a subsequent diagnosis of micaela metastatic prostate cancer. He has been supported in his care with the palliative care team since March 2020. He was last admitted to the hospital in March 2020 for hyponatremia and dehydration secondary to hydrochlorothiazide. Out of prudence he was discharged on ciprofloxacin for an abnormal urinalysis. During that stay he also had an episode of atrial fibrillation and was started on metoprolol. Echocardiogram was not able to be done during that admission due to staffing. His last echocardiogram was March 2015 where her left ventricle had ejection fraction 65 to 70%. Left atrial index volume was 25 mL/m and normal. Right atrial size was also normal.He still likes to smoke after his meals. He does have a history of high blood pressure. He was seen in the emergency room and brought in by EMS on May 27. The staff at the [facility] was concerned because his blood pressure was low and he seemed to be short of breath. Antecedent symptoms included cough, congestion but there was no history of fever, chest pain, edema. His O2 sats were in the 80s on room air as well as having a low blood pressure. He is being quarantined in his room for 7 days for the cough and congestion and was reported Covid negative with their testing. When he came to the emergency room the patient said "I feel fine". His respirations were even, unlabored. He was 94 percent on room air. Blood pressure 106/64. He was treated as pneumonia. His chest x-ray had a small left-sided pleural effusion with generalized interstitial prominence. The differential diagnosis included atypical infiltrate, including Covid pneumonia and he was Covid positive.. He was sent back to his assisted living facility and treated with amoxicillin. He now returns back to us via EMS because his [facility] staff was checking his oxygen every hour and his O2 sats were again 80% on room air. With this evaluation he is 82% on room air. Tachypnea was present with a respiratory rate of [address] angiogram was done to make sure he was not having pulmonary embolism and he had small pleural effusions with overlying atelectasis and bilateral mixed interstitial and airspace opacities. He is normotensive, afebrile, and heart rate is controlled and stable. He is his baseline cognitive deficits. The ER provider notes that he does not have respiratory distress but he has rhonchorous lung sounds in all lung devlin. Does not appear to be hypovolemic peripherally. As such the patient is now being brought in for possible Covid pneumonia, hypoxemia. In palliative care consultation notes, he is definitely getting weaker. He is not going to meals in the dining spencer anymore and he has to have ensure. He prefers to stay in his room and he comes out to smoke his cigarettes. Treatment for his prostate cancer is abiraterone, prednisone, Lupron. His care is now supervised by a court appointed guardian. His stepsister, Henny, used to be his legal guardian. Upon her guardianship was transferred to her Matt. However, the patient has now been transferred to a state appointed guardian named Marla Porter at [phone]. Since that transfer, his stepbrother in law has not been visiting. He was last seen by palliative care December 26, 2020. He has no perceived symptom burden outside of weight loss. He has a cognitive level of about the age of 6-7. Childlike behavior that does not wish to engage. He requires support for complex decision making and that is his state appointed guardian. He is a POLST in place and he is a DO NOT RESUSCITATE with selective interventions. - HOSPITAL COURSE Hospital Course: pt was admitted for hypoxia with 82% on room air and Tachypnea was present with a respiratory rate of 41 initially. pt was found Covid 19 pneumonia. Pt was T reated for COVID-19, patient continued to have hypoxia and need O2 support. pt was also treated with antibiotics for his pneumonia. Patient was found to have moderate left pleural effusion, left more than right. ECHO imaging study show moderate to severe right ventricular abnormal pressure with RVSP 66mmHG. Patient was treated with diuretics Lasix as well. Patient refused to have PT and OT evaluation and treatment, refused out of the bed for activity, refused to have oxygen desat study. Patient's DPOA agree to have palliative care for patient, refer palliative care for pt. pt was d/c to [facility] today. - ALLERGIES Allergies/Adverse Reactions: Allergies Allergy/AdvReac Type Severity Reaction Status Date / Time No Known Drug Allergies Allergy Verified 05/29/21 23:05 - MEDICATIONS Home Medications: Ambulatory Orders Medication Instructions Recorded Confirmed Acetaminophen [Tylenol] 650 mg PO TID 04/17/16 05/30/21 Loperamide [Imodium] 2 mg PO PRN PRN 11/25/19 05/30/21 Tamsulosin [Flomax] 0.4 mg PO QPM 01/10/20 05/30/21 Acetaminophen [Tylenol] 650 mg PO DAILY PRN 03/15/20 05/30/21 Enzalutamide [Xtandi] 160 mg PO DAILY 02/07/21 05/30/21 Ferrous Sulfate 325 mg PO DAILY 30 Days #30 tab 05/27/21 05/30/21 Metoprolol Tartrate 25 mg PO DAILY 05/30/21 05/30/21 Albuterol Sulf [Ventolin Hfa 1 puffs INH Q4HR PRN #18 gm 06/16/21 Inhaler] Aspirin EC [Ecotrin] 81 mg PO DAILY #30 tablet 06/16/21 Furosemide [Lasix] 20 mg PO DAILY #30 tablet 06/16/21 Multivitamin W/Minerals [Theragran 1 tab PO DAILYWM #30 tablet 06/16/21 M] Potassium Chloride [K-Dur] 20 meq PO DAILY #30 tab 06/16/21 Saccharomyces Boulardii [Florastor] 250 mg PO BIDWM 4 Days #8 cap 06/16/21 cefUROXime axetiL [Ceftin] 500 mg PO BID 4 Days #16 tablet 06/16/21 lisinopriL [Zestril] 2.5 mg PO DAILY #30 tablet 06/16/21 - PHYSICAL EXAM AT DISCHARGE General Appearance: positive: No acute distress, Alert. negative: Lethargic Eyes Bilateral: positive: Normal inspection, No lid inflammation ENT: positive: ENT inspection nml. negative: Purulent nasal drainage Neck: positive: Nml inspection, Trachea midline. negative: Tracheal deviation Respiratory: positive: Chest non-tender, No respiratory distress. negative: Wheezes Cardiovascular: positive: No murmur. negative: Tachycardia, Bradycardia, Systol ic murmur Peripheral Pulses: positive: 2+ Abdomen: positive: Non-tender, Nml bowel sounds, No distention Back: positive: Nml inspection Skin: positive: Color nml, Warm, Dry. negative: Cyanosis Extremities: positive: Non-tender, Nml appearance Neurologic/Psychiatric: positive: Sensation nml. negative: Sensory loss, Facial droop, Slurred/abnml speech - LABS Result Diagrams: 06/16/21 05:20 06/16/21 05:20 - SEPSIS Current Stage of Sepsis: Ruled out - FOLLOW UP Follow Up: pt refused to have PT/OT evaluation and treatment, and persistently reject to move out of bed for activities. His physical deconditioning became more severe. pt's DPOA agreed to have palliative care for pt, pt may referral to have palliative care. - TIME SPENT Time Spent in Discharge (Minutes): 30
[2021-06-16 10:31] LABS: B. PARAPERTUSSIS- RESP PCR PAN NOT DETECTED; B. PERTUSSIS- RESP PCR PANEL NOT DETECTED; C. PNEUMONIAE- RESP PCR PANEL NOT DETECTED; CORONAVIRUS 229E-RESP PCR NOT DETECTED; CORONAVIRUS HKU1-RESP PCR NOT DETECTED; CORONAVIRUS NL63-RESP PCR NOT DETECTED; CORONAVIRUS OC43-RESP PCR NOT DETECTED; HUMAN METAPNEUMOVIRUS NOT DETECTED; INFLUENZA A- RESP PCR PANEL NOT DETECTED; INFLUENZA B - RESP PCR PANEL NOT DETECTED; M. PNEUMONIAE- RESP PCR PANEL NOT DETECTED; PARAINFLUENZA VIRUS 1 NOT DETECTED; PARAINFLUENZA VIRUS 2 NOT DETECTED; PARAINFLUENZA VIRUS 3 NOT DETECTED; PARAINFLUENZA VIRUS 4 NOT DETECTED; RHINOVIRUS/ENTEROVIRUS NOT DETECTED; RSV- RESP PCR PANEL NOT DETECTED
[2021-06-16 10:37] LABS: SARS-CoV-2 -RESP PCR PANEL DETECTED
[2021-06-16 12:59] VITALS: BP 115/65
== END 2021-06-16 13:34 | DRG 177 ==
LOC: EDUNIT# → ED 22:44 → MS2 05-30 01:36
PROVIDERS: ADMIT Specialist; ATTEND Nurse Practitioner Gerontology
PROC: XW033E5 Introduction of Remdesivir Anti-infective into Peripheral Vein, Percutaneous Approach, New Technology Group 5 (ICD-10-PCS; principal; 2021-05-30)
PROC: 3E0333Z Introduction of Anti-inflammatory into Peripheral Vein, Percutaneous Approach (ICD-10-PCS; 2021-05-30)
DX: U07.1 COVID-19 (principal); J12.82 Pneumonia due to coronavirus disease 2019; R09.02 Hypoxemia; R62.59 Other lack of expected normal physiological development in childhood; J96.01 Acute respiratory failure with hypoxia; I12.9 Hypertensive chronic kidney disease with stage 1 through stage 4 chronic kidney disease, or unspecified chronic kidney disease; J15.9 Unspecified bacterial pneumonia; D64.9 Anemia, unspecified; J90 Pleural effusion, not elsewhere classified; J91.8 Pleural effusion in other conditions classified elsewhere; F84.0 Autistic disorder; I13.0 Hypertensive heart and chronic kidney disease with heart failure and stage 1 through stage 4 chronic kidney disease, or unspecified chronic kidney disease; I50.30 Unspecified diastolic (congestive) heart failure; C79.51 Secondary malignant neoplasm of bone; C61 Malignant neoplasm of prostate; F17.210 Nicotine dependence, cigarettes, uncomplicated; R53.1 Weakness; N18.30 Chronic kidney disease, stage 3 unspecified; J44.9 Chronic obstructive pulmonary disease, unspecified; R62.50 Unspecified lack of expected normal physiological development in childhood; Z66 Do not resuscitate; I48.0 Paroxysmal atrial fibrillation; D51.3 Other dietary vitamin B12 deficiency anemia; D50.9 Iron deficiency anemia, unspecified
CPT/HCPCS: 36415; 71045; 71250; 71275; 80048; 80053; 82607; 82746; 83540; 83605; 83880; 84100; 84466; 85014; 85018; 85025; 85379; 86140; 87040; 87631; 93005; 93306; 94640; 94667; 94668; 99283; 99285; A6250; A9270; J1650; J8540; Q9967; 0202U; 82803

== ENCOUNTER 2021-06-16 13:28 | Outpatient (CLI) | payer MEDICARE, MEDICAID | END 2021-06-16 13:29 | disposition home or self-care (01) | LOC: EMS 13:28 | PROVIDERS: ATTEND Nurse Practitioner Gerontology | DX: U07.1 COVID-19 (principal) | CPT/HCPCS: A0425; A0428 ==

== ENCOUNTER 2021-07-06 19:49 | Outpatient (CLI) | payer MEDICARE, MEDICAID ==
[2021-07-06 20:59] LABS: BASOPHILS # (AUTO) 0.1 10^3/uL (0.0-0.1); BASOPHILS % (AUTO) 1.3 %; EOSINOPHILS # (AUTO) 0.4 10^3/uL (0.0-0.7); EOSINOPHILS % (AUTO) 6.6 %; HCT - HEMATOCRIT 37.1 % (42.0-52.0); HGB - HEMOGLOBIN 11.3 g/dL (14.0-18.0); LYMPHOCYTES # (AUTO) 0.4 10^3/uL (1.5-3.5); LYMPHOCYTES % (AUTO) 6.7 %; MEAN CORPUSCULAR HEMOGLOBIN 30.1 pg (27.0-31.0); MEAN CORPUSCULAR HGB CONC 30.5 g/dL (32.0-36.0); MEAN CORPUSCULAR VOLUME 98.7 fL (80.0-94.0); MEAN PLATELET VOLUME 11.1 fL (7.4-11.4); MONOCYTES # (AUTO) 0.5 10^3/uL (0.0-1.0); MONOCYTES % (AUTO) 8.2 %; NEUTROPHILS # (AUTO) 4.5 10^3/uL (1.5-6.6); NEUTROPHILS % (AUTO) 76.4 %; PLT - PLATELET COUNT 285 10^3/uL (130-450); RED BLOOD COUNT 3.76 10^6/uL (4.70-6.10); RED CELL DISTRIBUTION WIDTH 15.5 % (12.0-15.0); WHITE BLOOD COUNT 5.9 x10^3/uL (4.8-10.8)
[2021-07-06 21:13] LABS: ALBUMIN 2.8 g/dL (3.2-5.5); ALBUMIN/GLOBULIN RATIO 0.8 (1.0-2.2); ALKALINE PHOSPHATASE 78 IU/L (42-121); ALT ALANINE AMINOTRANSFERASE < 10 IU/L (10-60); AST ASPARTATE AMINOTRANSFERASE 13 IU/L (10-42); BILIRUBIN,TOTAL 0.6 mg/dL (0.2-1.0); BUN - BLOOD UREA NITROGEN 38 mg/dL (6-20); CARBON DIOXIDE - CO2 27 mmol/L (21-32); CHLORIDE 102 mmol/L (101-111); CREATININE 0.6 mg/dL (0.6-1.2); GFR - MDRD 129 (>89); GLUCOSE 133 mg/dL (70-100); POTASSIUM 4.4 mmol/L (3.5-5.0); SODIUM 138 mmol/L (135-145); TOTAL PROTEIN 6.3 g/dL (6.7-8.2)
== END 2021-07-06 23:59 | disposition home or self-care (01) ==
LOC: LAB.R 19:49
DX: I10 Essential (primary) hypertension (principal); D64.9 Anemia, unspecified; D51.9 Vitamin B12 deficiency anemia, unspecified
CPT/HCPCS: 80053; 82607; 85025

== ENCOUNTER 2021-07-21 05:22 | Outpatient (CLI) | payer MEDICARE, MEDICAID | END 2021-07-21 05:23 | disposition critical access hospital (66) | LOC: EMS 05:22 | DX: K62.5 Hemorrhage of anus and rectum (principal) | CPT/HCPCS: A0425; A0429 ==

== ENCOUNTER 2021-07-21 05:28 | Inpatient (IN) | payer MEDICARE, MEDICAID ==
[2021-07-21 05:54] LABS: BASOPHILS # (AUTO) 0.1 10^3/uL (0.0-0.1); BASOPHILS % (AUTO) 1.3 %; EOSINOPHILS # (AUTO) 0.4 10^3/uL (0.0-0.7); EOSINOPHILS % (AUTO) 6.1 %; HCT - HEMATOCRIT 40.9 % (42.0-52.0); HGB - HEMOGLOBIN 12.9 g/dL (14.0-18.0); LYMPHOCYTES # (AUTO) 0.6 10^3/uL (1.5-3.5); LYMPHOCYTES % (AUTO) 8.2 %; MEAN CORPUSCULAR HEMOGLOBIN 29.2 pg (27.0-31.0); MEAN CORPUSCULAR HGB CONC 31.5 g/dL (32.0-36.0); MEAN CORPUSCULAR VOLUME 92.5 fL (80.0-94.0); MEAN PLATELET VOLUME 9.3 fL (7.4-11.4); MONOCYTES # (AUTO) 0.6 10^3/uL (0.0-1.0); MONOCYTES % (AUTO) 8.5 %; NEUTROPHILS % (AUTO) 75.5 %; PLT - PLATELET COUNT 417 10^3/uL (130-450); RED BLOOD COUNT 4.42 10^6/uL (4.70-6.10); RED CELL DISTRIBUTION WIDTH 14.8 % (12.0-15.0); WHITE BLOOD COUNT 6.7 x10^3/uL (4.8-10.8)
[2021-07-21 06:13] LABS: ALBUMIN 3.6 g/dL (3.2-5.5); ALKALINE PHOSPHATASE 88 IU/L (42-121); ALT ALANINE AMINOTRANSFERASE < 10 IU/L (10-60); AST ASPARTATE AMINOTRANSFERASE 24 IU/L (10-42); BILIRUBIN,TOTAL 0.4 mg/dL (0.2-1.0); BUN - BLOOD UREA NITROGEN 39 mg/dL (6-20); CALCIUM 9.7 mg/dL (8.5-10.3); CARBON DIOXIDE - CO2 28 mmol/L (21-32); CHLORIDE 99 mmol/L (101-111); CREATININE 0.8 mg/dL (0.6-1.2); GFR - MDRD 93 (>89); GLUCOSE 106 mg/dL (70-100); LIPASE 182 U/L (22-51); POTASSIUM 4.2 mmol/L (3.5-5.0); SODIUM 139 mmol/L (135-145); TOTAL PROTEIN 7.3 g/dL (6.7-8.2)
[2021-07-21] MEDS ORDERED: LORazepam 2 MG/ML VIAL ONE ×2 (06:59→07:13)
--- NOTE | 2021-07-21 07:20 | ED Physician Documentation ---
PD HPI GI BLEED - Stated complaint Stated Complaint: RECTAL BLEEDING - Chief complaint Chief Complaint: Abd Pain - History obtained from History obtained from: Patient, EMS - History of Present Illness Timing - onset: Enter time (429), Today Timing - duration: Hours Timing - details: Abrupt onset, Still present Associated symptoms: Maroon stool Improved by: Other (nothing) Worsened by: Other (nothing) Similar symptoms before: Has not had sx before Recently seen: Not recently seen - Additional information Additional information: 80-year-old longterm resident with a history of dementia and developmental delay or autism has a history of castration resistant metastatic prostate cancer and chronic anemia. This morning he was found by nursing staff to have a bloody bowel movement and when this persisted they asked for transfer. The patient himself does not feel ill. Review of Systems Constitutional: denies: Fever Ears: denies: Ear pain Nose: denies: Congestion Throat: denies: Sore throat Respiratory: denies: Cough GI: reports: Bloody / black stool. denies: Abdominal Pain, Vomiting, Diarrhea : denies: Dysuria, Frequency PD PAST MEDICAL HISTORY - Past Medical History Past Medical History: Yes Cardiovascular: Hypertension Respiratory: Pneumonia Neuro: Other Endocrine/Autoimmune: None GI: None, Other : Renal insuffiency, Other HEENT: None Psych: Anxiety Musculoskeletal: None Derm: None Other Past Medical History: Chronic Kidney Disease; Autism - Past Surgical History Past Surgical History: No - Present Medications Home Medications: Ambulatory Orders Medication Instructions Recorded Confirmed Acetaminophen [Tylenol] 650 mg PO TID 04/17/16 07/21/21 Loperamide [Imodium] 2 mg PO PRN PRN 11/25/19 07/21/21 Tamsulosin [Flomax] 0.4 mg PO QPM 01/10/20 07/21/21 Enzalutamide [Xtandi] 160 mg PO DAILY 02/07/21 07/21/21 Ferrous Sulfate 325 mg PO DAILY 30 Days #30 tab 05/27/21 07/21/21 Metoprolol Tartrate 25 mg PO DAILY 05/30/21 07/21/21 Albuterol Sulf [Ventolin Hfa 1 puffs INH Q4HR PRN #18 gm 06/16/21 07/21/21 Inhaler] Aspirin EC [Ecotrin] 81 mg PO DAILY #30 tablet 06/16/21 07/21/21 Furosemide [Lasix] 20 mg PO DAILY #30 tablet 06/16/21 07/21/21 Multivitamin W/Minerals [Theragran 1 tab PO DAILYWM #30 tablet 06/16/21 07/21/21 M] Potassium Chloride [K-Dur] 20 meq PO DAILY #30 tab 06/16/21 07/21/21 Saccharomyces Boulardii [Florastor] 250 mg PO BIDWM 4 Days #8 cap 06/16/21 07/21/21 lisinopriL [Zestril] 2.5 mg PO DAILY #30 tablet 06/16/21 07/21/21 - Allergies Allergies/Adverse Reactions: Allergies Allergy/AdvReac Type Severity Reaction Status Date / Time No Known Drug Allergies Allergy Verified 07/21/21 05:37 - Social History Does the pt smoke?: No Smoking Status: Never smoker Does the pt drink ETOH?: No Does the pt have substance abuse?: No - Immunizations Immunizations are current?: Yes - POLST Patient has POLST: Yes POLST Status: DNR PD ED PE NORMAL - Vitals Vital signs reviewed: Yes (hypertensive diastolic ) - General General: No acute distress, Well developed/nourished, Other ([id number] Mack Nguyen has a bright smile on his face and greets me with cheer. He does not appear ill on [id number] evaluation.) - HEENT HEENT: Atraumatic, PERRL, EOMI - Neck Neck: Supple, no meningeal sign - Cardiac Cardiac: RRR, No murmur - Respiratory Respiratory: No respiratory distress, Clear bilaterally - Abdomen Abdomen: Normal bowel sounds, Soft, Non tender, Non distended, No organomegaly - Rectal Rectal: Other (There is maroon stool covering most of the rectum.) - Back Back: No CVA TTP, No spinal TTP - Derm Derm: Normal color, Warm and dry, No rash - Extremities Extremities: No deformity, No edema - Neuro Neuro: log skidder 2-12 intact, No motor deficit, No sensory deficit, Normal speech Eye Opening: Spontaneous Motor: Obeys Commands Verbal: Oriented GCS Score: 15 - Psych Psych: Normal mood, Normal affect Results - Vitals Vitals: Vital Signs - 24 hr 07/21/21 07/21/21 07/21/21 05:29 06:04 07:33 Temperature 35.7 C L Heart Rate 85 93 82 Respiratory 20 22 22 Rate Blood Pressure 106/83 H 116/60 106/72 O2 Saturation 100 99 97 07/21/21 07/21/21 09:00 11:00 Temperature Heart Rate 81 75 Respiratory 20 23 Rate Blood Pressure 121/76 123/72 O2 Saturation 98 98 Oxygen O2 Source [Without Activity] Room air O2 Source Room air - Labs Labs: Laboratory Tests 07/21/21 07/21/21 07/21/21 05:47 05:47 09:44 WBC 6.7 RBC 4.42 L Hgb 12.9 L 11.7 L Hct 40.9 L 37.3 L MCV 92.5 MCH 29.2 MCHC 31.5 L RDW 14.8 Plt Count 417 MPV 9.3 Neut # (Auto) 5.0 Lymph # (Auto) 0.6 L [place] # (Auto) 0.6 Eos # (Auto) 0.4 Baso # (Auto) 0.1 Absolute Nucleated RBC 0.00 Nucleated RBC % 0.0 Sodium 139 Potassium 4.2 Chloride 99 L Carbon Dioxide 28 Anion Gap 12.0 BUN 39 H Creatinine 0.8 Estimated GFR (MDRD) 93 Glucose 106 H Calcium 9.7 Total Bilirubin 0.4 AST 24 ALT < 10 L Alkaline Phosphatase 88 Total Protein 7.3 Albumin 3.6 Globulin 3.7 Albumin/Globulin Ratio 1.0 Lipase 182 H PD MEDICAL DECISION MAKING - ED course Complexity details: reviewed results, re-evaluated patient, considered differential, d/w patient ED course: 80-year-old male with history of anemia and castrate resistant prostate cancer has autism as well. Today he was found to have a bloody bowel movement in his diaper and he has been transported the hospital. He does not particularly feel ill. He does have a significant quantity of maroon stool over his rectum. His blood counts after hydration drop by about 1 g. He is administered IV protonix and Oral carafate. I have asked our hospitalist to admit the patient to the hospital for observation to ensure his bleeding has stopped. I have talked to our surgeon Dr. Deleon and she is willing to scope the patient from above today. She will not be able to scope him from below as he is not prepped and we will not have surgical services over the weekend. I have spoken to the patient's power of air conditioning coil assembler Marla Lopes and she indicates that the patient would consent to endoscopy. Departure - Departure Disposition: ED Place in Observation Clinical Impression: GI bleeding Qualifiers: GI bleed type/associated pathology: melena Qualified Code(s): K92.1 - Melena
[2021-07-21] MEDS ORDERED: SODIUM CHLORIDE 0.9% 1,000 ML IV STA (08:20)
[2021-07-21 09:49] LABS: HCT - HEMATOCRIT 37.3 % (42.0-52.0); HGB - HEMOGLOBIN 11.7 g/dL (14.0-18.0)
[2021-07-21] MEDS ORDERED: PANTOPRAZOLE 40 MG VIAL IVP STA (11:55)
[2021-07-21] MEDS ORDERED: SUCRALFATE 1 GM/10 ML UDC PO STA (11:56)
[2021-07-21] MEDS ORDERED: ACETAMINOPHEN 325 MG TABLET PO PRN (12:05)
[2021-07-21] MEDS ORDERED: ONDANSETRON 4 MG/2 ML VIAL IVP PRN (12:05)
[2021-07-21] MEDS ORDERED: SODIUM CHLORIDE FLUSH 0.9% 10 ML SYRINGE IVP PRN (12:05)
[2021-07-21] MEDS ORDERED: ONDANSETRON ODT 4 MG TABLET TL PRN (12:05)
[2021-07-21] MEDS ORDERED: LACTATED RINGERS 1,000 ML IV SCH (13:00)
--- NOTE | 2021-07-21 14:07 | HISTORY & PHYSICAL EXAMINATION ---
Chief Complaint - Chief Complaint Chief Complaint: Blood in stool. History of Present Illness - Admitted From Admitted From:: [facility] - History Obtained From Records Reviewed: [facility] History obtained from: Patient, ER Physician, EMR Exam Limitations: Patient is a poor historian due to his autism. - History of Present Illness HPI Comment/Other: This is a 80-year-old male with a past medical history significant for autism, heart failure with preserved ejection fraction, castration resistant prostate cancer who presents today after is noted at [facility] in [place] he had blood in his stool. The patient himself knows he is at the hospital but is not sure why he is here. He denies any abdominal pain or evidence of bleeding. He is not sure if he takes aspirin or not. He denies any fevers, chills, chest pain, dyspnea. He feels quite well overall. He was hospitalized last month due to COVID-19 and had a prolonged hospitalization. He does have a history of iron deficiency and B12 deficiency anemia. In the emergency department, he continued to have bloody stools that were maroon-colored. A repeat hemoglobin revealed a drop after being observed in the emergency department. Given the anemia and bleeding, he will be admitted for further management including endoscopy. He has a POLST form from last month which confirms he is a full code. History - Past Medical History Cardiovascular: reports: Congestive heart failure, Hypertension, Atrial fibrillation Respiratory: reports: Pneumonia Neuro: reports: Other (Autism.) Endocrine/Autoimmune: reports: None GI: reports: None, Other : reports: Renal insuffiency HEENT: reports: None Psych: reports: Anxiety Musculoskeletal: reports: None Derm: reports: None MRSA Hx?: No - Family & Social History Family History: Mother: , Father: , Sister: Family History Comment/Other: He reports no family history to his knowledge. He does have cognitive delay so I am not sure how accurate this is. Living arrangement: longterm Social History Notes: He reportedly came from [facility]. He does not drink alcohol but does have a history of smoking. - Substance History Use: Uses substance without health or social issues: Tobacco - POLST Patient has POLST: Yes POLST Status: DNR Meds/Allgy - Home Medications Home Medications: Ambulatory Orders Medication Instructions Recorded Confirmed Acetaminophen [Tylenol] 650 mg PO TID 04/17/16 07/21/21 Loperamide [Imodium] 2 mg PO PRN PRN 11/25/19 07/21/21 Tamsulosin [Flomax] 0.4 mg PO QPM 01/10/20 07/21/21 Enzalutamide [Xtandi] 160 mg PO DAILY 02/07/21 07/21/21 Ferrous Sulfate 325 mg PO DAILY 30 Days #30 tab 05/27/21 07/21/21 Metoprolol Tartrate 25 mg PO DAILY 05/30/21 07/21/21 Albuterol Sulf [Ventolin Hfa 1 puffs INH Q4HR PRN #18 gm 06/16/21 07/21/21 Inhaler] Aspirin EC [Ecotrin] 81 mg PO DAILY #30 tablet 06/16/21 07/21/21 Furosemide [Lasix] 20 mg PO DAILY #30 tablet 06/16/21 07/21/21 Multivitamin W/Minerals [Theragran 1 tab PO DAILYWM #30 tablet 06/16/21 07/21/21 M] Potassium Chloride [K-Dur] 20 meq PO DAILY #30 tab 06/16/21 07/21/21 Saccharomyces Boulardii [Florastor] 250 mg PO BIDWM 4 Days #8 cap 06/16/21 07/21/21 lisinopriL [Zestril] 2.5 mg PO DAILY #30 tablet 06/16/21 07/21/21 - Allergies Allergies/Adverse Reactions: Allergies Allergy/AdvReac Type Severity Reaction Status Date / Time No Known Drug Allergies Allergy Verified 07/21/21 05:37 Review of Systems - Constitutional Constitutional: denies: Fatigue, Fever, Chills - Cardiovascular Cariovascular: denies: Chest pain, Lightheadedness, Exertional dyspnea, Decr. exercise tolerance - Respiratory Respiratory: denies: Cough, SOB at rest, SOB with exertion - Gastrointestinal Gastrointestinal: reports: Bloody stools. denies: Abdominal pain, Nausea, Vomiting, Poor appetite - Genitourinary Genitourinary: denies: Dysuria, Frequency, Urgency, Hematuria - Neurological Neurological: denies: General weakness, Focal weakness, Dizziness - Hematologic/Lymphatic Hematologic/Lymphatic: reports: Anemia. denies: Bleeding tendencies - All Other Systems All Other Systems: reports: Other (Review of systems is limited due to his autism.) Prior Level of Functionality: He resides at [facility] and is dependent on his ADL's. Exam - Vital Signs Reviewed Vital Signs: Yes Vital Signs: Vital Signs x48h Pulse Resp BP Pulse Ox 07/21/21 13:51 91 23 125/84 H 96 07/21/21 11:00 75 23 123/72 98 07/21/21 09:00 81 20 121/76 98 07/21/21 07:33 82 22 106/72 97 07/21/21 06:04 93 22 116/60 99 - Physical Exam General Appearance: positive: No acute distress, Alert Eyes Bilateral: positive: Normal inspection, Conjunctivae nml ENT: positive: ENT inspection nml Neck: positive: Nml inspection Respiratory: positive: No respiratory distress. negative: Wheezes, Rales Cardiovascular: positive: Regular rate & rhythm. negative: Tachycardia, Systolic murmur Abdomen: positive: Non-tender, No distention. negative: Tenderness Skin: positive: Warm, Dry Extremities: positive: No pedal edema Neurologic/Psychiatric: positive: Other (No focal deficits.). negative: Disoriented to person, Disoriented to place Conclusion/Plan - Problem List (1) GI bleeding Conclusion/Plan: Concern for potential GI bleed given the maroon-colored stool. His hemoglobin has decreased since recheck in the emergency department. He has also had ongoing bleeding. We will place him in observation for EGD this afternoon with general surgery. Start him on twice daily Protonix. Check hemoglobin every 8 hours and transfuse as needed. Hold home aspirin. Qualifiers: GI bleed type/associated pathology: melena Qualified Code(s): K92.1 - Melena (2) Anemia Conclusion/Plan: He has a history of iron deficiency anemia and is chronically anemic. His hemoglobin is at his baseline right now but given the ongoing bleeding, suspect this will decline. We will check his hemoglobin every 8 hours and manage his GI bleed as mentioned above. SCDs for DVT prophylaxis. (3) Chronic heart failure with preserved ejection fraction (HFpEF) Conclusion/Plan: This is stable and not in exacerbation. We will resume his home medications in the morning as long as his bleeding subsides and he remains hemodynamically stable. (4) Atrial fibrillation Conclusion/Plan: He is rate controlled. We will hold aspirin given the GI bleed. We will look to resume his metoprolol in the morning. (5) Autism Conclusion/Plan: He is currently at his baseline. The emergency department spoke with his guardian and they were agreeable to admission and endoscopy. (6) Metastatic castration-resistant adenocarcinoma of prostate Conclusion/Plan: Stable. He will continue Lupron every 6 months and he will continue the enzalutamide tied. Continue outpatient follow-up with oncology. - Lab Results Lab results reviewed: Yes Nathan Bones: 07/21/21 14:25 07/21/21 05:47 Core Measures - Anticipated LOS I expect patient to be DC'd or transferred within 96 hours.: Yes - Issues Hospital Issues and Management Plan: 80-year-old male presents with bloody stools and anemia. Will place in observation for EGD, Protonix and trending of his hemoglobin. - DVT/VTE - Prophylaxis VTE/DVT Device ordered at admit?: Yes VTE/DVT Prophylaxis med ordered at admit?: No Not Ordered - Medical Reason: Contraindicated
[2021-07-21 14:24] LABS: FECAL OCCULT BLOOD (FIT) POSITIVE (NEGATIVE)
[2021-07-21 14:29] LABS: HCT - HEMATOCRIT 40.3 % (42.0-52.0); HGB - HEMOGLOBIN 12.6 g/dL (14.0-18.0)
--- NOTE | 2021-07-21 14:39 | ANESTHESIA ---
Pre-Anesthesia VS, & Labs - Diagnosis GI bleed - Procedure EGD Vital Signs: Temp Pulse Resp BP Pulse Ox 35.7 C L 91 23 125/84 H 96 07/21/21 05:29 07/21/21 13:51 07/21/21 13:51 07/21/21 13:51 07/21/21 13:51 Height: 6 ft 2 in Weight (kg): 56.2 kg Body Mass Index: 15.9 BMI Classification: Underweight - NPO >8 hours - Lab Results Current Lab Results: Laboratory Tests 07/21/21 14:25: Hgb 12.6 L, Hct 40.3 L 07/21/21 09:44: Hgb 11.7 L, Hct 37.3 L 07/21/21 05:47: Blood Type A POSITIVE, Antibody Screen NEGATIVE 07/21/21 05:47: Sodium 139, Potassium 4.2, Chloride 99 L, Carbon Dioxide 28, Anion Gap 12.0, BUN 39 H, Creatinine 0.8, Estimated GFR (MDRD) 93, Glucose 106 H , Calcium 9.7, Total Bilirubin 0.4, AST 24, ALT < 10 L, Alkaline Phosphatase 88, Total Protein 7.3, Albumin 3.6, Globulin 3.7, Albumin/Globulin Ratio 1.0, Lipase 182 H 07/21/21 05:47: WBC 6.7, RBC 4.42 L, Hgb 12.9 L, Hct 40.9 L, MCV 92.5, MCH 29.2, MCHC 31.5 L, RDW 14.8, Plt Count 417, MPV 9.3, Neut # (Auto) 5.0, Lymph # (Auto) 0.6 L, [place] # (Auto) 0.6, Eos # (Auto) 0.4, Baso # (Auto) 0.1, Absolute Nucleated RBC 0.00, Nucleated RBC % 0.0 Lab results reviewed: Yes Fish Bones: 07/21/21 14:25 07/21/21 05:47 Home Medications and Allergies Active Medications Acetaminophen (Acetaminophen 325 Mg Tablet) 650 mg PO Q4HR PRN PRN Reason: Pain 1 to 4 Lactated Ringer's (Lr) 1,000 mls @ 100 mls/hr IV .Q10H NORBERTO Stop: 07/21/21 22:59 Last Admin: 07/21/21 13:07 Dose: 100 mls/hr Ondansetron HCl (Ondansetron Odt 4 Mg Tablet) 4 mg TL Q6HR PRN PRN Reason: Nausea / Vomiting Ondansetron HCl (Ondansetron 4 Mg/2 Ml Vial) 4 mg IVP Q6HR PRN PRN Reason: Nausea / Vomiting Pantoprazole Sodium (Pantoprazole 40 Mg Vial) 40 mg IVP BID NORBERTO Sodium Chloride (Sodium Chloride Flush 0.9% 10 Ml Syringe) 10 ml IVP PRN PRN PRN Reason: NEEDED PER PROVIDER ORDERS Sodium Chloride (Sodium Chloride Flush 0.9% 10 Ml Syringe) 10 ml IVP 0100,0900, 1700 NORBERTO Acetaminophen [Tylenol] 650 mg PO TID 04/17/16 Loperamide [Imodium] 2 mg PO PRN PRN 11/25/19 Tamsulosin [Flomax] 0.4 mg PO QPM 01/10/20 Enzalutamide [Xtandi] 160 mg PO DAILY 02/07/21 Metoprolol Tartrate 25 mg PO DAILY 05/30/21 Allergies/Adverse Reactions: Allergies Allergy/AdvReac Type Severity Reaction Status Date / Time No Known Drug Allergies Allergy Verified 07/21/21 05:37 Anes History & Medical History - Anesthetic History Anesthesia Complications: reports: No previous complications Family history of Anesthesia Complications: Denies Family history of Malignant Hyperthermia: Denies - Medical History Cardiovascular: reports: Hypertension Pulmonary: reports: Pneumonia (Covid last month, currently not short of breath, doesnt appear to be in any distress) Gastrointestinal: reports: None, Other Urinary: reports: Renal insuffiency, Other Neuro: reports: Other (severely autistic) Musculoskeletal: reports: None Endocrine/Autoimmune: reports: None Blood Disorders: reports: Anemia Skin: reports: None Smoking Status: Never smoker Other Past Medical History: Chronic Kidney Disease; Autism Exam General: Alert, Oriented x3, Cooperative, No acute distress Dental: Poor dentition (edentulous) Mouth Openin Fingerbreadth Neck Mobility: Reduced Mallampati classification: II Plan Anesthesia Type: General, Total IV Consent for Procedure(s) Verified and Reviewed: Yes Code Status: Attempt Resuscitation ASA classification: 3-Severe systemic disease Is this case an emergency?: No
--- NOTE | 2021-07-21 15:06 | CONSULTATION NOTE ---
Referring Provider Name of Referring Provider:: Malvin Consult Date: 07/21/21 Chief Complaint - Chief Complaint Chief Complaint: Melena History - Past Medical History Cardiovascular: reports: Hypertension Respiratory: reports: Pneumonia (Covid last month, currently not short of breath, doesnt appear to be in any distress) Neuro: reports: Other (severely autistic) Endocrine/Autoimmune: reports: None GI: reports: None, Other : reports: Renal insuffiency, Other HEENT: reports: None Psych: reports: Anxiety Musculoskeletal: reports: None Derm: reports: None MRSA Hx?: No Other Past Medical History: Chronic Kidney Disease; Autism - Family & Social History Family History: Mother: , Father: , Sister: Family History Comment/Other: He reports no family history to his knowledge.But due to his cognitive delay I did not know how much he can answer. With sister , and court-appointed guardian now, this may not be elicited. We will see if we can review old records to find. Living Situation: Alone, With caregiver(s) Social History Notes: He resides at [facility]. He reports smoking about 3 to 4 cigarettes a day and has been smoking for most of his life. He has no history of alcohol abuse. No history of recreational substance abuse. - Substance History Use: Uses substance without health or social issues: Tobacco - POLST Patient has POLST: Yes POLST Status: DNR Meds/Allgy - Home Medications Home Medications: Ambulatory Orders Medication Instructions Recorded Confirmed Acetaminophen [Tylenol] 650 mg PO TID 04/17/16 07/21/21 Loperamide [Imodium] 2 mg PO PRN PRN 11/25/19 07/21/21 Tamsulosin [Flomax] 0.4 mg PO QPM 01/10/20 07/21/21 Enzalutamide [Xtandi] 160 mg PO DAILY 02/07/21 07/21/21 Ferrous Sulfate 325 mg PO DAILY 30 Days #30 tab 05/27/21 07/21/21 Metoprolol Tartrate 25 mg PO DAILY 05/30/21 07/21/21 Albuterol Sulf [Ventolin Hfa 1 puffs INH Q4HR PRN #18 gm 06/16/21 07/21/21 Inhaler] Aspirin EC [Ecotrin] 81 mg PO DAILY #30 tablet 06/16/21 07/21/21 Furosemide [Lasix] 20 mg PO DAILY #30 tablet 06/16/21 07/21/21 Multivitamin W/Minerals [Theragran 1 tab PO DAILYWM #30 tablet 06/16/21 07/21/21 M] Potassium Chloride [K-Dur] 20 meq PO DAILY #30 tab 06/16/21 07/21/21 Saccharomyces Boulardii [Florastor] 250 mg PO BIDWM 4 Days #8 cap 06/16/21 07/21/21 lisinopriL [Zestril] 2.5 mg PO DAILY #30 tablet 06/16/21 07/21/21 - Allergies Allergies/Adverse Reactions: Allergies Allergy/AdvReac Type Severity Reaction Status Date / Time No Known Drug Allergies Allergy Verified 07/21/21 05:37 Exam - Vital Signs Vital Signs: Vital Signs x48h Temp Pulse Pulse Resp BP BP Pulse Ox 07/21/21 14:48 36.4 C L 62 19 148/62 H 96 07/21/21 13:51 91 23 125/84 H 96 07/21/21 11:00 75 23 123/72 98 07/21/21 09:00 81 20 121/76 98 07/21/21 07:33 82 22 106/72 97 Conclusion and Plan - Lab Results Laboratory Results 07/21/21 14:25: Hgb 12.6 L, Hct 40.3 L 07/21/21 13:47: Stl Occult Blood (IFOB) POSITIVE A 07/21/21 09:44: Hgb 11.7 L, Hct 37.3 L 07/21/21 05:47: Blood Type A POSITIVE, Antibody Screen NEGATIVE 07/21/21 05:47: Sodium 139, Potassium 4.2, Chloride 99 L, Carbon Dioxide 28, Anion Gap 12.0, BUN 39 H, Creatinine 0.8, Estimated GFR (MDRD) 93, Glucose 106 H, Calcium 9.7, Total Bilirubin 0.4, AST 24, ALT < 10 L, Alkaline Phosphatase 88, Total Protein 7.3, Albumin 3.6, Globulin 3.7, Albumin/Globulin Ratio 1.0, Lipase 182 H 07/21/21 05:47: WBC 6.7, RBC 4.42 L, Hgb 12.9 L, Hct 40.9 L, MCV 92.5, MCH 29.2, MCHC 31.5 L, RDW 14.8, Plt Count 417, MPV 9.3, Neut # (Auto) 5.0, Lymph # (Auto) 0.6 L, [place] # (Auto) 0.6, Eos # (Auto) 0.4, Baso # (Auto) 0.1, Absolute Nucleated RBC 0.00, Nucleated RBC % 0.0
[2021-07-21 15:24] LABS: B. PARAPERTUSSIS- RESP PCR PAN NOT DETECTED; B. PERTUSSIS- RESP PCR PANEL NOT DETECTED; C. PNEUMONIAE- RESP PCR PANEL NOT DETECTED; CORONAVIRUS 229E-RESP PCR NOT DETECTED; CORONAVIRUS HKU1-RESP PCR NOT DETECTED; CORONAVIRUS NL63-RESP PCR NOT DETECTED; CORONAVIRUS OC43-RESP PCR NOT DETECTED; HUMAN METAPNEUMOVIRUS NOT DETECTED; INFLUENZA A- RESP PCR PANEL NOT DETECTED; INFLUENZA B - RESP PCR PANEL NOT DETECTED; M. PNEUMONIAE- RESP PCR PANEL NOT DETECTED; PARAINFLUENZA VIRUS 1 NOT DETECTED; PARAINFLUENZA VIRUS 2 NOT DETECTED; PARAINFLUENZA VIRUS 3 NOT DETECTED; PARAINFLUENZA VIRUS 4 NOT DETECTED; RHINOVIRUS/ENTEROVIRUS NOT DETECTED; RSV- RESP PCR PANEL NOT DETECTED; SARS-CoV-2 -RESP PCR PANEL NOT DETECTED
--- NOTE | 2021-07-21 15:29 | ANESTHESIA POST OP EVALUATION ---
Anesthesia Post Eval - Post Anesthesia Eval Vitals: Last Vital Signs Temp 36.5 C 07/21/21 15:11 Pulse 42 L 07/21/21 15:11 Resp 19 07/21/21 14:48 BP 113/43 L 07/21/21 15:11 Pulse Ox 100 07/21/21 15:11 CV Function Including HR & BP: Stable Pain Control: Satisfactory Nausea & Vomiting: Negative Mental Status: Baseline Respiratory Status: Airway Patent Hydration Status: Satisfactory Anesthesia Complications: None
[2021-07-21] MEDS: SODIUM CHLORIDE FLUSH 0.9% 10 ML SYRINGE IVP SCH (17:48)
[2021-07-21] MEDS: PANTOPRAZOLE 40 MG VIAL IVP SCH (21:35)
[2021-07-21] MEDS: TAMSULOSIN 0.4 MG CAPSULE PO SCH (21:36)
[2021-07-21 22:23] LABS: HCT - HEMATOCRIT 35.3 % (42.0-52.0); HGB - HEMOGLOBIN 11.1 g/dL (14.0-18.0)
[2021-07-22 06:49] LABS: BASOPHILS # (AUTO) 0.1 10^3/uL (0.0-0.1); EOSINOPHILS # (AUTO) 0.3 10^3/uL (0.0-0.7); EOSINOPHILS % (AUTO) 5.4 %; HCT - HEMATOCRIT 34.3 % (42.0-52.0); HGB - HEMOGLOBIN 10.8 g/dL (14.0-18.0); LYMPHOCYTES # (AUTO) 0.4 10^3/uL (1.5-3.5); LYMPHOCYTES % (AUTO) 6.7 %; MEAN CORPUSCULAR HEMOGLOBIN 28.9 pg (27.0-31.0); MEAN CORPUSCULAR HGB CONC 31.5 g/dL (32.0-36.0); MEAN CORPUSCULAR VOLUME 91.7 fL (80.0-94.0); MEAN PLATELET VOLUME 9.4 fL (7.4-11.4); MONOCYTES # (AUTO) 0.5 10^3/uL (0.0-1.0); MONOCYTES % (AUTO) 9.2 %; NEUTROPHILS # (AUTO) 4.5 10^3/uL (1.5-6.6); NEUTROPHILS % (AUTO) 77.2 %; PLT - PLATELET COUNT 344 10^3/uL (130-450); RED BLOOD COUNT 3.74 10^6/uL (4.70-6.10); RED CELL DISTRIBUTION WIDTH 14.6 % (12.0-15.0); WHITE BLOOD COUNT 5.8 x10^3/uL (4.8-10.8)
[2021-07-22] MEDS: SODIUM CHLORIDE FLUSH 0.9% 10 ML SYRINGE IVP SCH ×4 (06:55→23:31)
[2021-07-22 07:00] LABS: CALCIUM 9.3 mg/dL (8.5-10.3); CREATININE 0.6 mg/dL (0.6-1.2); POTASSIUM 3.8 mmol/L (3.5-5.0)
[2021-07-22] MEDS: FERROUS SULFATE 325 MG TABLET PO SCH (09:27)
[2021-07-22] MEDS: FUROSEMIDE 20 MG TABLET PO SCH (09:27)
[2021-07-22] MEDS: MULTIVITAMIN W/MINERALS TABLET PO SCH (09:28)
[2021-07-22] MEDS: METOPROLOL TARTRATE 25 MG TABLET PO SCH (09:28)
[2021-07-22] MEDS: PANTOPRAZOLE 40 MG VIAL IVP SCH (09:28)
[2021-07-22] MEDS: lisinopriL 5 MG TABLET PO SCH (09:28)
[2021-07-22] MEDS: POTASSIUM CHLORIDE 20 MEQ TABLET PO SCH (09:32)
--- NOTE | 2021-07-22 11:03 | PROVIDER PROGRESS NOTE ---
Subjective - Prog Note Date Prog Note Date: 07/22/21 - Subjective Subjective: He feels quite good today. Denies any abdominal pain or dyspnea. Tolerated breakfast well. He is not sure if he is still bleeding but nursing reports he still had to medium bowel movements overnight that were maroon-colored with small clots. Current Medications - Current Medications Current Medications: Active Medications Acetaminophen (Acetaminophen 325 Mg Tablet) 650 mg PO Q4HR PRN PRN Reason: Pain 1 to 4 Ferrous Sulfate (Ferrous Sulfate 325 Mg Tablet) 325 mg PO DAILYWM [facility] Last Admin: 07/22/21 09:27 Dose: 325 mg Furosemide (Furosemide 20 Mg Tablet) 20 mg PO DAILY [facility] Last Admin: 07/22/21 09:27 Dose: 20 mg Lisinopril (Lisinopril 5 Mg Tablet) 2.5 mg PO DAILY [facility] Last Admin: 07/22/21 09:28 Dose: 2.5 mg Metoprolol Tartrate (Metoprolol Tartrate 25 Mg Tablet) 25 mg PO DAILY [facility] Last Admin: 07/22/21 09:28 Dose: 25 mg Multivitamins/Minerals (Multivitamin W/Minerals Tablet) 1 tab PO DAILYWM [facility] Last Admin: 07/22/21 09:28 Dose: 1 tab Ondansetron HCl (Ondansetron Odt 4 Mg Tablet) 4 mg TL Q6HR PRN PRN Reason: Nausea / Vomiting Ondansetron HCl (Ondansetron 4 Mg/2 Ml Vial) 4 mg IVP Q6HR PRN PRN Reason: Nausea / Vomiting Pantoprazole Sodium (Pantoprazole 40 Mg Vial) 40 mg IVP BID [facility] Last Admin: 07/22/21 09:28 Dose: 40 mg Enzalutamide [Xtandi (] 40 Mg Capsule) 4 each PO DAILY [facility] Potassium Chloride (Potassium Chloride 20 Meq Tablet) 20 meq PO DAILY [facility] Last Admin: 07/22/21 09:32 Dose: 20 meq Sodium Chloride (Sodium Chloride Flush 0.9% 10 Ml Syringe) 10 ml IVP PRN PRN PRN Reason: NEEDED PER PROVIDER ORDERS Last Admin: 07/22/21 09:35 Dose: 10 ml Sodium Chloride (Sodium Chloride Flush 0.9% 10 Ml Syringe) 10 ml IVP 0100,0900,1700 [facility] Last Admin: 07/22/21 09:29 Dose: 10 ml Tamsulosin HCl (Tamsulosin 0.4 Mg Capsule) 0.4 mg PO QPM NORBERTO Last Admin: 07/21/21 21:36 Dose: 0.4 mg Acetaminophen [Tylenol] 650 mg PO TID 04/17/16 Loperamide [Imodium] 2 mg PO PRN PRN 11/25/19 Tamsulosin [Flomax] 0.4 mg PO QPM 01/10/20 Enzalutamide [Xtandi] 160 mg PO DAILY 02/07/21 Metoprolol Tartrate 25 mg PO DAILY 05/30/21 Objective - Vital Signs/Intake & Output Reviewed Vital Signs: Yes Vital Signs: Vital Signs x48h Temp Pulse Resp BP BP Pulse Ox 07/22/21 10:44 36.6 C 68 18 130/68 97 07/22/21 09:28 113/57 L 07/22/21 06:53 36.4 C L 80 18 128/67 97 07/22/21 05:34 36.5 C 80 18 128/66 96 Intake & Output: Intake & Output 07/19/21 07/20/21 07/21/21 07/22/21 23:59 23:59 23:59 23:59 Intake Total 2240 240 Balance 2240 240 - Objective General Appearance: positive: No acute distress, Alert Eyes Bilateral: positive: Conjunctivae nml ENT: positive: ENT inspection nml Neck: positive: Nml inspection Respiratory: positive: No respiratory distress Cardiovascular: positive: Regular rate & rhythm, No murmur. negative: Tachycardia Abdomen: positive: Non-tender, No distention. negative: Tenderness Skin: positive: Warm, Dry Extremities: positive: No pedal edema Neurologic/Psychiatric: negative: Disoriented to person, Disoriented to place - Lab Results Fish Bones: 07/22/21 06:30 07/22/21 06:30 Other Labs: Lab Results x24hrs 07/22/21 07/22/21 07/21/21 Range/Units 06:30 06:30 21:53 WBC 5.8 (4.8-10.8) x10^3/uL RBC 3.74 L (4.70-6.10) 10^6/uL Hgb 10.8 L 11.1 L (14.0-18.0) g/dL Hct 34.3 L 35.3 L (42.0-52.0) % MCV 91.7 (80.0-94.0) fL MCH 28.9 (27.0-31.0) pg MCHC 31.5 L (32.0-36.0) g/dL RDW 14.6 (12.0-15.0) % Plt Count 344 (130-450) 10^3/uL MPV 9.4 (7.4-11.4) fL Neut # (Auto) 4.5 (1.5-6.6) 10^3/uL Lymph # (Auto) 0.4 L (1.5-3.5) 10^3/uL [place] # (Auto) 0.5 (0.0-1.0) 10^3/uL Eos # (Auto) 0.3 (0.0-0.7) 10^3/uL Baso # (Auto) 0.1 (0.0-0.1) 10^3/uL Absolute Nucleated RBC 0.00 x10^3/uL Nucleated RBC % 0.0 /100WBC Sodium 141 (135-145) mmol/L Potassium 3.8 (3.5-5.0) mmol/L Chloride 103 (101-111) mmol/L Carbon Dioxide 26 (21-32) mmol/L Anion Gap 12.0 (6-13) BUN 29 H (6-20) mg/dL Creatinine 0.6 (0.6-1.2) mg/dL Estimated GFR (MDRD) 129 (>89) Glucose 93 (70-100) mg/dL Calcium 9.3 (8.5-10.3) mg/dL Nasal Adenovirus (PCR) Nasal B. parapertussis DNA (PCR) Nasal Coronavir 229E PCR Nasal Coronavir HKU1 PCR Nasal Coronavir NL63 PCR Nasal Coronavir OC43 PCR Nasal Enterovir/Rhinovir PCR Nasal Influenza B PCR Nasal Influenza A PCR Nasal Parainfluen 1 PCR Nasal Parainfluen 2 PCR Nasal Parainfluen 3 PCR Nasal Parainfluen 4 PCR Nasal RSV (PCR) Nasal B.pertussis DNA PCR Nasal C.pneumoniae (PCR) Cj Human Metapneumo PCR Nasal M.pneumoniae (PCR) Nasal SARS-CoV-2 (PCR) Stl Occult Blood (IFOB) (NEGATIVE) Blood Type Antibody Screen 0307/21/21 07/21/21 Range/Units 14:25 14:16 13:47 WBC (4.8-10.8) x10^3/uL RBC (4.70-6.10) 10^6/uL Hgb 12.6 L (14.0-18.0) g/dL Hct 40.3 L (42.0-52.0) % MCV (80.0-94.0) fL MCH (27.0-31.0) pg MCHC (32.0-36.0) g/dL RDW (12.0-15.0) % Plt Count (130-450) 10^3/uL MPV (7.4-11.4) fL Neut # (Auto) (1.5-6.6) 10^3/uL Lymph # (Auto) (1.5-3.5) 10^3/uL [place] # (Auto) (0.0-1.0) 10^3/uL Eos # (Auto) (0.0-0.7) 10^3/uL Baso # (Auto) (0.0-0.1) 10^3/uL Absolute Nucleated RBC x10^3/uL Nucleated RBC % /100WBC Sodium (135-145) mmol/L Potassium (3.5-5.0) mmol/L Chloride (101-111) mmol/L Carbon Dioxide (21-32) mmol/L Anion Gap (6-13) BUN (6-20) mg/dL Creatinine (0.6-1.2) mg/dL Estimated GFR (MDRD) (>89) Glucose (70-100) mg/dL Calcium (8.5-10.3) mg/dL Nasal Adenovirus (PCR) NOT DETECTED Nasal B. parapertussis DNA (PCR) NOT DETECTED Nasal Coronavir 229E PCR NOT DETECTED Nasal Coronavir HKU1 PCR NOT DETECTED Nasal Coronavir NL63 PCR NOT DETECTED Nasal Coronavir OC43 PCR NOT DETECTED Nasal Enterovir/Rhinovir PCR NOT DETECTED Nasal Influenza B PCR NOT DETECTED Nasal Influenza A PCR NOT DETECTED Nasal Parainfluen 1 PCR NOT DETECTED Nasal Parainfluen 2 PCR NOT DETECTED Nasal Parainfluen 3 PCR NOT DETECTED Nasal Parainfluen 4 PCR NOT DETECTED Nasal RSV (PCR) NOT DETECTED Nasal B.pertussis DNA PCR NOT DETECTED Nasal C.pneumoniae (PCR) NOT DETECTED Cj Human Metapneumo PCR NOT DETECTED Nasal M.pneumoniae (PCR) NOT DETECTED Nasal SARS-CoV-2 (PCR) NOT DETECTED Stl Occult Blood (IFOB) POSITIVE A (NEGATIVE) Blood Type Antibody Screen 07/21/21 Range/Units 05:47 WBC (4.8-10.8) x10^3/uL RBC (4.70-6.10) 10^6/uL Hgb (14.0-18.0) g/dL Hct (42.0-52.0) % MCV (80.0-94.0) fL MCH (27.0-31.0) pg MCHC (32.0-36.0) g/dL RDW (12.0-15.0) % Plt Count (130-450) 10^3/uL MPV (7.4-11.4) fL Neut # (Auto) (1.5-6.6) 10^3/uL Lymph # (Auto) (1.5-3.5) 10^3/uL [place] # (Auto) (0.0-1.0) 10^3/uL Eos # (Auto) (0.0-0.7) 10^3/uL Baso # (Auto) (0.0-0.1) 10^3/uL Absolute Nucleated RBC x10^3/uL Nucleated RBC % /100WBC Sodium (135-145) mmol/L Potassium (3.5-5.0) mmol/L Chloride (101-111) mmol/L Carbon Dioxide (21-32) mmol/L Anion Gap (6-13) BUN (6-20) mg/dL Creatinine (0.6-1.2) mg/dL Estimated GFR (MDRD) (>89) Glucose (70-100) mg/dL Calcium (8.5-10.3) mg/dL Nasal Adenovirus (PCR) Nasal B. parapertussis DNA (PCR) Nasal Coronavir 229E PCR Nasal Coronavir HKU1 PCR Nasal Coronavir NL63 PCR Nasal Coronavir OC43 PCR Nasal Enterovir/Rhinovir PCR Nasal Influenza B PCR Nasal Influenza A PCR Nasal Parainfluen 1 PCR Nasal Parainfluen 2 PCR Nasal Parainfluen 3 PCR Nasal Parainfluen 4 PCR Nasal RSV (PCR) Nasal B.pertussis DNA PCR Nasal C.pneumoniae (PCR) Cj Human Metapneumo PCR Nasal M.pneumoniae (PCR) Nasal SARS-CoV-2 (PCR) Stl Occult Blood (IFOB) (NEGATIVE) Blood Type A POSITIVE Antibody Screen NEGATIVE Assessment/Plan - Problem List (1) GI bleeding Impression: EGD yesterday showed no evidence of bleeding. He still continues to have maroon-colored stool so this may be a diverticular bleed. The pain is not appear to be significant but his hemoglobin is slightly decreased this morning. We will keep him on a PPI but switch to p.o. and once a day. Will keep him hospitalized 1 more night given the ongoing bleeding but this continues to decrease and hemoglobin is stable we will look to discharge him back to the SNF tomorrow. Qualifiers: GI bleed type/associated pathology: melena Qualified Code(s): K92.1 - Melena (2) Anemia Impression: He has a history of iron and B12 deficiency anemia. He has chronic anemia which is slightly decreased today due to a GI bleed. Overall, does not a significant drop but he does have ongoing bleeding's we will keep him hospitalized 1 more night until the bleeding slows down or there is evidence his hemoglobin is stable. We will continue to trend his hemoglobin every 8 hours. (3) Chronic heart failure with preserved ejection fraction (HFpEF) Impression: This is not an exacerbation. We will continue his home Lasix. (4) Atrial fibrillation Impression: Remaisn rate controlled. We are continuing metoprolol but holding the aspirin given the GI bleed. (5) Autism Impression: He is at his baseline neurologic function. 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 We do not have his home therapy available but we will resume this if pharmacy can obtain his home medications. He will continue outpatient follow-up with oncology.
[2021-07-22 14:32] LABS: HCT - HEMATOCRIT 33.3 % (42.0-52.0); HGB - HEMOGLOBIN 10.3 g/dL (14.0-18.0)
[2021-07-22] MEDS ORDERED: ZINC OXIDE 20% OINT 30 GM TUBE TOP PRN (18:25)
[2021-07-22] MEDS: TAMSULOSIN 0.4 MG CAPSULE PO SCH (22:06)
[2021-07-22 22:10] LABS: HCT - HEMATOCRIT 32.7 % (42.0-52.0); HGB - HEMOGLOBIN 10.4 g/dL (14.0-18.0)
[2021-07-23 05:48] LABS: CALCIUM 9.2 mg/dL (8.5-10.3); CREATININE 0.7 mg/dL (0.6-1.2); POTASSIUM 3.7 mmol/L (3.5-5.0)
[2021-07-23 05:56] LABS: BASOPHILS # (AUTO) 0.1 10^3/uL (0.0-0.1); BASOPHILS % (AUTO) 0.8 %; EOSINOPHILS # (AUTO) 0.4 10^3/uL (0.0-0.7); EOSINOPHILS % (AUTO) 5.6 %; HCT - HEMATOCRIT 31.7 % (42.0-52.0); HGB - HEMOGLOBIN 10.2 g/dL (14.0-18.0); LYMPHOCYTES # (AUTO) 0.4 10^3/uL (1.5-3.5); LYMPHOCYTES % (AUTO) 5.6 %; MEAN CORPUSCULAR HEMOGLOBIN 29.4 pg (27.0-31.0); MEAN CORPUSCULAR HGB CONC 32.2 g/dL (32.0-36.0); MEAN CORPUSCULAR VOLUME 91.4 fL (80.0-94.0); MEAN PLATELET VOLUME 10.9 fL (7.4-11.4); MONOCYTES # (AUTO) 0.7 10^3/uL (0.0-1.0); MONOCYTES % (AUTO) 8.7 %; NEUTROPHILS # (AUTO) 5.9 10^3/uL (1.5-6.6); NEUTROPHILS % (AUTO) 78.9 %; PLT - PLATELET COUNT 280 10^3/uL (130-450); RED BLOOD COUNT 3.47 10^6/uL (4.70-6.10); RED CELL DISTRIBUTION WIDTH 14.5 % (12.0-15.0); WHITE BLOOD COUNT 7.5 x10^3/uL (4.8-10.8)
[2021-07-23] MEDS ORDERED: PANTOPRAZOLE 40 MG TABLET PO SCH (07:00)
--- NOTE | 2021-07-23 08:06 | Discharge Plan ---
Discharge Plan for SNF / [facility] - Discharge Plan And Transition Orders Problem Reviewed?: Yes Allergies and Adverse Reactions: Allergies Allergy/AdvReac Type Severity Reaction Status Date / Time No Known Drug Allergies Allergy Verified 07/21/21 05:37 Health Concerns: The patient was admitted for bloody stools. He underwent an endoscopy which showed no evidence of bleeding. His hemoglobin initially decreased slightly after admission but has since been stable. There was still ongoing bleeding on hospital day 2 but this has since subsided. He has been tolerating a diet and doing well. He is now stable for discharge. Plan of Treatment: We will recommend holding his aspirin until he follows up with his physician to see when he can be resumed. We will also add Protonix once a day. - SNF / [facility] Transition Orders Admit to (Facility): [facility] Discharge Diagnosis: GI bleed Anemia Chronic heart failure with preserved ejection fraction Atrial fibrillation Autism Metastatic castration resistant adenocarcinoma of prostate Medicare Certification Statement: I certify that Post Hospital residential care is medically necessary on a continuing basis for any of the conditions for which she/he is receiving care during hospitalization. Notify PCP of admission and forward orders to primary provider for signature. Other Notification Orders: Call PCP immediately if patient develops dyspnea, chest pain/tightness or edema. Additional Bowel Program Orders: If no BM after 2 days, nurse may give M.O.M. 30ml PO PRN and/or ducolax Supp 1 IN and/or ALICIA 250mg P.O., and/or senna 1-2 tabs PO. On day 3 nurse may give repeat above order until residents constipation is resolved. Medication Orders: PLEASE REFER TO THE DISCHARGE MEDICATION LIST. - Medications New Prescriptions: Pantoprazole [Protonix] 40 mg PO QDAC #30 tablet - Diet Type: Geriatric Texture: Regular Liquids: Thin Follow Up: The aspirin has been discontinued and he will need to follow-up with his primary care physician to see when this can be resumed.
[2021-07-23] MEDS: MULTIVITAMIN W/MINERALS TABLET PO SCH (08:47)
[2021-07-23] MEDS: METOPROLOL TARTRATE 25 MG TABLET PO SCH (08:47)
[2021-07-23] MEDS: POTASSIUM CHLORIDE 20 MEQ TABLET PO SCH (08:48)
[2021-07-23] MEDS: SODIUM CHLORIDE FLUSH 0.9% 10 ML SYRINGE IVP SCH (08:48)
[2021-07-23] MEDS: FERROUS SULFATE 325 MG TABLET PO SCH (08:48)
[2021-07-23] MEDS: lisinopriL 5 MG TABLET PO SCH (08:48)
[2021-07-23] MEDS: FUROSEMIDE 20 MG TABLET PO SCH (08:48)
--- NOTE | 2021-07-23 10:51 | DISCHARGE SUMMARY ---
"Discharge Summary Admit Date: 07/21/21 Discharge Date: 07/23/21 Discharging Provider: Gerard Coombs Primary Care Provider: Elvis Gaspar Code Status: Attempt Resuscitation Condition at Discharge: Fair Discharge Disposition: SNF DC/Xfer Discharge Facility Name: [facility] - DIAGNOSES Admission Diagnoses: GI bleed Anemia Chronic heart failure with preserved ejection fraction Atrial fibrillation Autism Metastatic castration resistant adenocarcinoma of prostate Discharge Diagnoses with Status of Each Condition: GI bleed - resolved. Anemia - stable. Chronic heart failure with preserved ejection fraction - stable. Atrial fibrillation - stable. Autism - stable. Metastatic castration resistant adenocarcinoma of prostate - stable. - HPI History of Present Illness: This is a 80-year-old male with a past medical history significant for autism, heart failure with preserved ejection fraction, castration resistant prostate cancer who presents today after is noted at [facility] in [place] he had blood in his stool. The patient himself knows he is at the hospital but is not sure why he is here. He denies any abdominal pain or evidence of bleeding. He is not sure if he takes aspirin or not. He denies any fevers, chills, chest pain, dyspnea. He feels quite well overall. He was hospitalized last month due to COVID-19 and had a prolonged hospitalization. He does have a history of iron deficiency and B12 deficiency anemia. In the emergency department, he continued to have bloody stools that were maroon-colored. A repeat hemoglobin revealed a drop after being observed in the emergency department. Given the anemia and bleeding, he will be admitted for further management including endoscopy. He has a POLST form from last month which confirms he is a full code. - CONSULTS | PROCEDURES Consultations: General Surgery Procedures: EGD on July 21 showed no evidence of gastritis or source of bleeding. - HOSPITAL COURSE Hospital Course: The patient was admitted for bloody stools. He underwent an endoscopy which showed no evidence of bleeding. His hemoglobin initially decreased slightly after admission but has since been stable. There was still ongoing bleeding on hospital day 2 but this has since subsided. He has been tolerating a diet and doing well. He was discharged on a PPI and was asked to hold the aspirin until he follows up with his physician. - ALLERGIES Allergies/Adverse Reactions: Allergies Allergy/AdvReac Type Severity Reaction Status Date / Time No Known Drug Allergies Allergy Verified 07/21/21 05:37 - MEDICATIONS Home Medications: Ambulatory Orders Medication Instructions Recorded Confirmed Acetaminophen [Tylenol] 650 mg PO TID 04/17/16 07/21/21 Loperamide [Imodium] 2 mg PO PRN PRN 11/25/19 07/21/21 Tamsulosin [Flomax] 0.4 mg PO QPM 01/10/20 07/21/21 Enzalutamide [Xtandi] 160 mg PO DAILY 02/07/21 07/21/21 Ferrous Sulfate 325 mg PO DAILY 30 Days #30 tab 05/27/21 07/21/21 Metoprolol Tartrate 25 mg PO DAILY 05/30/21 07/21/21 Albuterol Sulf [Ventolin Hfa 1 puffs INH Q4HR PRN #18 gm 06/16/21 07/21/21 Inhaler] Furosemide [Lasix] 20 mg PO DAILY #30 tablet 06/16/21 07/21/21 Multivitamin W/Minerals [Theragran 1 tab PO DAILYWM #30 tablet 06/16/21 07/21/21 M] Potassium Chloride [K-Dur] 20 meq PO DAILY #30 tab 06/16/21 07/21/21 lisinopriL [Zestril] 2.5 mg PO DAILY #30 tablet 06/16/21 07/21/21 Pantoprazole [Protonix] 40 mg PO QDAC #30 tablet 07/23/21 - PHYSICAL EXAM AT DISCHARGE General Appearance: positive: No acute distress, Alert Eyes Bilateral: positive: Normal inspection ENT: positive: ENT inspection nml Neck: positive: Nml inspection Respiratory: positive: No respiratory distress. negative: Wheezes, Rales Cardiovascular: positive: Regular rate & rhythm, No murmur. negative: Tachycardia Abdomen: positive: Non-tender, No distention. negative: Tenderness Skin: positive: Warm, Dry Extremities: positive: No pedal edema Neurologic/Psychiatric: negative: Disoriented to person, Disoriented to place Physical Exam Other/Comments: Acetaminophen [Tylenol] 650 mg PO TID 04/17/16 Loperamide [Imodium] 2 mg PO PRN PRN 11/25/19 Tamsulosin [Flomax] 0.4 mg PO QPM 01/10/20 Enzalutamide [Xtandi] 160 mg PO DAILY 02/07/21 Metoprolol Tartrate 25 mg PO DAILY 05/30/21 Vital Signs - 24 hr 07/22/21 07/22/21 07/23/21 21:00 23:31 05:08 Temperature 36.7 C 36.7 C 37 C Heart Rate [ 62 78 75 Brachial] Respiratory 20 17 18 Rate Blood Pressure Blood Pressure 115/65 123/67 120/58 L [Right Brachial artery] O2 Saturation 95 100 96 07/23/21 07/23/21 07/23/21 07:55 08:47 12:02 Temperature 37.2 C 36.4 C L Heart Rate [ 71 61 Brachial] Respiratory 18 18 Rate Blood Pressure 119/86 H Blood Pressure 115/71 136/69 H [Right Brachial artery] O2 Saturation 95 98 Oxygen O2 Source [Without Activity] Room air O2 Source Room air - LABS Result Diagrams: 07/23/21 04:50 07/23/21 04:50 - FOLLOW UP Follow Up: He will need follow-up with his primary care physician in 1 to 2 weeks. They will need to decide when it is okay to resume aspirin. - TIME SPENT Time Spent in Discharge (Minutes): 32"
[2021-07-23 12:14] VITALS: BP 136/69
== END 2021-07-23 13:00 | DRG 378 ==
LOC: EDUNIT# → ED 05:28 → MS2 12:05 → UNDOADMOB 12:05 → OBSVTOIN 17:55 → INTOOBSV 17:55 → MS2 07-22 17:55 → OBSVTOIN 07-22 17:55 → UNDODISIN 07-23 13:00
PROVIDERS: ADMIT Internal Medicine; ATTEND Internal Medicine
PROC: 0DB78ZX Excision of Stomach, Pylorus, Via Natural or Artificial Opening Endoscopic, Diagnostic (ICD-10-PCS; 2021-07-21)
PROC: 0DB98ZX Excision of Duodenum, Via Natural or Artificial Opening Endoscopic, Diagnostic (ICD-10-PCS; principal; 2021-07-21 15:00)
DX: K92.1 Melena (principal); I50.32 Chronic diastolic (congestive) heart failure; F84.0 Autistic disorder; D50.9 Iron deficiency anemia, unspecified; I11.0 Hypertensive heart disease with heart failure; I48.91 Unspecified atrial fibrillation; C61 Malignant neoplasm of prostate; Z86.16 Personal history of COVID-19; D51.9 Vitamin B12 deficiency anemia, unspecified; Z20.822 Contact with and (suspected) exposure to COVID-19; F17.210 Nicotine dependence, cigarettes, uncomplicated
CPT/HCPCS: 36415; 43239; 43250; 80048; 80053; 82274; 83690; 85014; 85018; 85025; 86850; 86900; 86901; 87631; 96374; 99283; 99285; A9270; G0378; J7120; 0202U

== ENCOUNTER 2021-07-23 13:07 | Outpatient (CLI) | payer MEDICARE, MEDICAID | END 2021-07-23 13:08 | disposition home or self-care (01) | LOC: EMS 13:07 | PROVIDERS: ATTEND Internal Medicine | DX: K92.2 Gastrointestinal hemorrhage, unspecified (principal); I50.9 Heart failure, unspecified; Z74.01 Bed confinement status | CPT/HCPCS: A0425; A0428 ==

== ENCOUNTER 2021-07-27 15:58 | Outpatient (CLI) | payer MEDICARE, MEDICAID ==
[2021-07-27 16:22] LABS: BASOPHILS # (AUTO) 0.1 10^3/uL (0.0-0.1); BASOPHILS % (AUTO) 1.5 %; EOSINOPHILS # (AUTO) 0.5 10^3/uL (0.0-0.7); HCT - HEMATOCRIT 33.9 % (42.0-52.0); HGB - HEMOGLOBIN 10.5 g/dL (14.0-18.0); LYMPHOCYTES # (AUTO) 0.5 10^3/uL (1.5-3.5); LYMPHOCYTES % (AUTO) 7.4 %; MEAN CORPUSCULAR HEMOGLOBIN 28.6 pg (27.0-31.0); MEAN CORPUSCULAR VOLUME 92.4 fL (80.0-94.0); MEAN PLATELET VOLUME 10.3 fL (7.4-11.4); MONOCYTES # (AUTO) 0.6 10^3/uL (0.0-1.0); MONOCYTES % (AUTO) 8.6 %; NEUTROPHILS # (AUTO) 4.9 10^3/uL (1.5-6.6); PLT - PLATELET COUNT 356 10^3/uL (130-450); RED BLOOD COUNT 3.67 10^6/uL (4.70-6.10); RED CELL DISTRIBUTION WIDTH 14.5 % (12.0-15.0); WHITE BLOOD COUNT 6.7 x10^3/uL (4.8-10.8)
[2021-07-27 16:30] LABS: ALBUMIN 2.9 g/dL (3.2-5.5); ALBUMIN/GLOBULIN RATIO 0.9 (1.0-2.2); ALKALINE PHOSPHATASE 69 IU/L (42-121); ALT ALANINE AMINOTRANSFERASE < 10 IU/L (10-60); AST ASPARTATE AMINOTRANSFERASE 13 IU/L (10-42); BILIRUBIN,TOTAL 0.3 mg/dL (0.2-1.0); BUN - BLOOD UREA NITROGEN 33 mg/dL (6-20); CALCIUM 9.4 mg/dL (8.5-10.3); CARBON DIOXIDE - CO2 26 mmol/L (21-32); CHLORIDE 101 mmol/L (101-111); CREATININE 0.7 mg/dL (0.6-1.2); GFR - MDRD 108 (>89); GLUCOSE 123 mg/dL (70-100); POTASSIUM 4.1 mmol/L (3.5-5.0); SODIUM 139 mmol/L (135-145); TOTAL PROTEIN 6.2 g/dL (6.7-8.2)
[2021-07-27 16:41] LABS: PSA FREE 0.49 ng/mL (0.16-2.81)
[2021-07-27 16:42] LABS: PSA TOTAL 0.96 ng/mL (0.000-2.000)
== END 2021-07-27 15:59 | disposition home or self-care (01) ==
LOC: LAB.R 15:58
DX: I50.21 Acute systolic (congestive) heart failure (principal); K92.1 Melena; C61 Malignant neoplasm of prostate; N18.30 Chronic kidney disease, stage 3 unspecified
CPT/HCPCS: 80053; 84153; 84154; 85025

== ENCOUNTER 2021-07-28 22:15 | Outpatient (CLI) | payer MEDICARE, MEDICAID | END 2021-07-28 22:16 | disposition critical access hospital (66) | LOC: EMS 22:15 | DX: K92.1 Melena (principal) | CPT/HCPCS: A0425; A0427 ==

== ENCOUNTER 2021-07-28 22:19 | Emergency (ER) | payer MEDICARE, MEDICAID ==
[2021-07-28] MEDS: PANTOPRAZOLE 40 MG VIAL IVP STA (22:56)
[2021-07-28] MEDS: SODIUM CHLORIDE 0.9% 1,000 ML IV STA (22:56)
[2021-07-28 23:12] LABS: BASOPHILS # (AUTO) 0.1 10^3/uL (0.0-0.1); BASOPHILS % (AUTO) 1.2 %; EOSINOPHILS # (AUTO) 0.3 10^3/uL (0.0-0.7); EOSINOPHILS % (AUTO) 4.9 %; HCT - HEMATOCRIT 31.2 % (42.0-52.0); HGB - HEMOGLOBIN 9.9 g/dL (14.0-18.0); LYMPHOCYTES # (AUTO) 0.5 10^3/uL (1.5-3.5); LYMPHOCYTES % (AUTO) 7.1 %; MEAN CORPUSCULAR HEMOGLOBIN 29.4 pg (27.0-31.0); MEAN CORPUSCULAR HGB CONC 31.7 g/dL (32.0-36.0); MEAN CORPUSCULAR VOLUME 92.6 fL (80.0-94.0); MEAN PLATELET VOLUME 10.1 fL (7.4-11.4); MONOCYTES # (AUTO) 0.5 10^3/uL (0.0-1.0); MONOCYTES % (AUTO) 7.4 %; NEUTROPHILS # (AUTO) 5.5 10^3/uL (1.5-6.6); NEUTROPHILS % (AUTO) 78.7 %; PLT - PLATELET COUNT 330 10^3/uL (130-450); RED BLOOD COUNT 3.37 10^6/uL (4.70-6.10); RED CELL DISTRIBUTION WIDTH 14.5 % (12.0-15.0); WHITE BLOOD COUNT 6.9 x10^3/uL (4.8-10.8)
[2021-07-28 23:19] LABS: PT - PROTHROMBIN TIME 11.3 secs (9.9-12.6)
[2021-07-28 23:25] LABS: ALBUMIN 3.1 g/dL (3.2-5.5); ALBUMIN/GLOBULIN RATIO 0.9 (1.0-2.2); ALKALINE PHOSPHATASE 72 IU/L (42-121); ALT ALANINE AMINOTRANSFERASE < 10 IU/L (10-60); AST ASPARTATE AMINOTRANSFERASE 14 IU/L (10-42); BILIRUBIN,TOTAL 0.3 mg/dL (0.2-1.0); BUN - BLOOD UREA NITROGEN 39 mg/dL (6-20); CALCIUM 9.2 mg/dL (8.5-10.3); CARBON DIOXIDE - CO2 28 mmol/L (21-32); CHLORIDE 101 mmol/L (101-111); CREATININE 0.8 mg/dL (0.6-1.2); GFR - MDRD 93 (>89); GLUCOSE 116 mg/dL (70-100); LIPASE 53 U/L (22-51); POTASSIUM 4.6 mmol/L (3.5-5.0); SODIUM 138 mmol/L (135-145); TOTAL PROTEIN 6.4 g/dL (6.7-8.2)
--- NOTE | 2021-07-29 00:05 | ED Physician Documentation ---
PD HPI GI BLEED - Stated complaint Stated Complaint: GI BLEED - Chief complaint Chief Complaint: Abd Pain - History obtained from History obtained from: EMS - Additional information Additional information: Patient is an 80-year-old male with a history significant for autism, heart failure, atrial fibrillation (recently taken off of aspirin) presenting for evaluation of melanotic stools that started 30 minutes prior to arrival. At patient's assisted living facility staff noted that he had Several maroon- colored stools. Upon EMS arrival he was noted to be hypotensive and IV fluids were administered. Patient has no complaints. He was recently admitted on July 22 with similar presentation. He had upper endoscopy without revealing source of bleeding.He was taken off of his aspirin during that admission. Review of Systems Constitutional: denies: Fever Cardiac: denies: Chest pain / pressure Respiratory: denies: Dyspnea GI: reports: Bloody / black stool. denies: Abdominal Pain : denies: Dysuria Skin: denies: Rash Neurologic: denies: Headache PD PAST MEDICAL HISTORY - Past Medical History Past Medical History: Yes Cardiovascular: Congestive heart failure, Hypertension, Atrial fibrillation Respiratory: Pneumonia Neuro: Other Endocrine/Autoimmune: None GI: None, Other : Renal insuffiency HEENT: None Psych: Anxiety Musculoskeletal: None Derm: None - Past Surgical History Past Surgical History: No - Present Medications Home Medications: Ambulatory Orders Medication Instructions Recorded Confirmed Acetaminophen [Tylenol] 650 mg PO TID 04/17/16 07/28/21 Loperamide [Imodium] 2 mg PO PRN PRN 11/25/19 07/28/21 Tamsulosin [Flomax] 0.4 mg PO QPM 01/10/20 07/28/21 Enzalutamide [Xtandi] 160 mg PO DAILY 02/07/21 07/28/21 Ferrous Sulfate 325 mg PO DAILY 30 Days #30 tab 05/27/21 07/28/21 Metoprolol Tartrate 25 mg PO DAILY 05/30/21 07/28/21 Albuterol Sulf [Ventolin Hfa 1 puffs INH Q4HR PRN #18 gm 06/16/21 07/28/21 Inhaler] Furosemide [Lasix] 20 mg PO DAILY #30 tablet 06/16/21 07/28/21 Multivitamin W/Minerals [Theragran 1 tab PO DAILYWM #30 tablet 06/16/21 07/28/21 M] Potassium Chloride [K-Dur] 20 meq PO DAILY #30 tab 06/16/21 07/28/21 lisinopriL [Zestril] 2.5 mg PO DAILY #30 tablet 06/16/21 07/28/21 Pantoprazole [Protonix] 40 mg PO QDAC #30 tablet 07/23/21 07/28/21 - Allergies Allergies/Adverse Reactions: Allergies Allergy/AdvReac Type Severity Reaction Status Date / Time No Known Drug Allergies Allergy Verified 07/28/21 22:31 - Social History Does the pt smoke?: No Smoking Status: Never smoker Does the pt drink ETOH?: No Does the pt have substance abuse?: No - Immunizations Immunizations are current?: Yes - POLST Patient has POLST: Yes POLST Status: DNR PD ED PE NORMAL - General General: No acute distress, Well developed/nourished, Other (Alert, appears oriented to baseline, Very pleasant) - HEENT HEENT: Atraumatic, Moist mucous membranes (Dry mucous membranes) - Neck Neck: Supple, no meningeal sign - Cardiac Cardiac: RRR, Strong equal pulses - Respiratory Respiratory: No respiratory distress, Clear bilaterally - Abdomen Abdomen: Normal bowel sounds, Soft, Non tender - Rectal Rectal: Other (Tech present as blanker operator, large amount of maroon-colored stool from the rectum) - Back Back: No spinal TTP - Derm Derm: Normal color, Warm and dry - Extremities Extremities: No edema - Neuro Neuro: No motor deficit, Normal speech - Psych Psych: Normal mood, Normal affect Results - Vitals Vitals: Vital Signs - 24 hr 07/28/21 07/28/21 07/28/21 22:25 22:55 23:00 Temperature 35.7 C L Heart Rate 73 68 67 Respiratory 18 25 H 24 Rate Blood Pressure 87/58 L 98/80 96/75 O2 Saturation 99 100 100 07/28/21 07/28/21 07/29/21 23:33 23:54 00:04 Temperature Heart Rate 60 54 L 53 L Respiratory 21 20 22 Rate Blood Pressure 86/56 L 121/59 L 108/62 O2 Saturation 100 100 100 07/29/21 07/29/21 07/29/21 00:11 01:00 01:52 Temperature 35.6 C L Heart Rate 54 L 63 73 Respiratory 18 18 25 H Rate Blood Pressure 108/62 115/65 115/72 O2 Saturation 100 99 100 07/29/21 07/29/21 07/29/21 03:52 05:13 06:08 Temperature Heart Rate 71 83 84 Respiratory 20 24 18 Rate Blood Pressure 125/71 126/92 H 119/69 O2 Saturation 100 100 100 07/29/21 07/29/21 07/29/21 06:49 09:15 09:30 Temperature 35.9 C L Heart Rate 80 83 87 Respiratory 22 24 16 Rate Blood Pressure 103/69 140/59 H 113/66 O2 Saturation 100 99 94 07/29/21 07/29/21 07/29/21 10:34 11:00 11:30 Temperature Heart Rate 84 80 85 Respiratory 18 23 20 Rate Blood Pressure 117/60 128/64 117/80 O2 Saturation 99 100 99 07/29/21 07/29/21 07/29/21 12:30 13:22 13:30 Temperature 35.6 C L Heart Rate 88 84 83 Respiratory 21 27 H 18 Rate Blood Pressure 119/59 L 131/82 H 137/62 H O2 Saturation 100 98 99 07/29/21 07/29/21 07/29/21 14:00 15:00 15:30 Temperature Heart Rate 86 78 86 Respiratory 20 22 22 Rate Blood Pressure 132/77 H 130/78 139/88 H O2 Saturation 100 98 99 07/29/21 07/29/21 07/29/21 16:00 16:36 18:28 Temperature Heart Rate 85 81 70 Respiratory 24 14 20 Rate Blood Pressure 146/81 H 112/80 108/66 O2 Saturation 99 98 99 07/29/21 07/29/21 07/29/21 18:44 19:14 19:45 Temperature 36.1 C L Heart Rate 78 74 Respiratory 28 H 26 H Rate Blood Pressure 112/73 129/64 O2 Saturation 100 100 07/29/21 20:11 Temperature Heart Rate 74 Respiratory 23 Rate Blood Pressure 126/72 O2 Saturation 97 Oxygen O2 Source [] Room air O2 Source Room air - EKG (time done) 2314 Rate: Rate (enter#) (61) Rhythm: NSR Wallace: Normal Ischemia: Other (T wave flattening throughout). No: ST depression - Labs Labs: Microbiology 07/28/21 23:50 Occult Blood - Final Stool Laboratory Tests 07/28/21 07/28/21 07/28/21 23:02 23:02 23:02 WBC 6.9 RBC 3.37 L Hgb 9.9 L Hct 31.2 L MCV 92.6 MCH 29.4 MCHC 31.7 L RDW 14.5 Plt Count 330 MPV 10.1 Neut # (Auto) 5.5 Lymph # (Auto) 0.5 L Rosebud # (Auto) 0.5 Eos # (Auto) 0.3 Baso # (Auto) 0.1 Absolute Nucleated RBC 0.00 Nucleated RBC % 0.0 PT 11.3 INR 1.0 Sodium Potassium Chloride Carbon Dioxide Anion Gap BUN Creatinine Estimated GFR (MDRD) Glucose Lactic Acid Calcium Total Bilirubin AST ALT Alkaline Phosphatase Total Protein Albumin Globulin Albumin/Globulin Ratio Lipase SARS-CoV-2 (PCR) Blood Type A POSITIVE Antibody Screen NEGATIVE Crossmatch IS Only See Detail 07/28/21 07/28/21 07/28/21 23:02 23:22 23:28 WBC RBC Hgb Hct MCV MCH MCHC RDW Plt Count MPV Neut # (Auto) Lymph # (Auto) Rosebud # (Auto) Eos # (Auto) Baso # (Auto) Absolute Nucleated RBC Nucleated RBC % PT INR Sodium 138 Potassium 4.6 Chloride 101 Carbon Dioxide 28 Anion Gap 9.0 BUN 39 H Creatinine 0.8 Estimated GFR (MDRD) 93 Glucose 116 H Lactic Acid 1.7 Calcium 9.2 Total Bilirubin 0.3 AST 14 ALT < 10 L Alkaline Phosphatase 72 Total Protein 6.4 L Albumin 3.1 L Globulin 3.3 Albumin/Globulin Ratio 0.9 L Lipase 53 H SARS-CoV-2 (PCR) DETECTED A Blood Type Antibody Screen Crossmatch IS Only 07/29/21 07/29/21 07/29/21 07:04 10:31 16:29 WBC RBC Hgb 8.9 L 8.0 L 8.4 L Hct 27.9 L 25.6 L 26.3 L MCV MCH MCHC RDW Plt Count MPV Neut # (Auto) Lymph # (Auto) Rosebud # (Auto) Eos # (Auto) Baso # (Auto) Absolute Nucleated RBC Nucleated RBC % PT INR Sodium Potassium Chloride Carbon Dioxide Anion Gap BUN Creatinine Estimated GFR (MDRD) Glucose Lactic Acid Calcium Total Bilirubin AST ALT Alkaline Phosphatase Total Protein Albumin Globulin Albumin/Globulin Ratio Lipase SARS-CoV-2 (PCR) Blood Type Antibody Screen Crossmatch IS Only PD MEDICAL DECISION MAKING - ED course ED course: Patient with melanotic stools and hypotension. Upon arrival IV fluids were given with improvement in his blood pressure. H&H appears stable from previous admission. 1140 - Consulted Dr. Siu, general surgeon.He does not feel that the patient should be admitted to [facility] as he does not have a ophthalmology surgical technician available over the weekend should the patient need an emergent surgery like a colectomy For his bleeding. He recommends transfer to a facility with higher level of care. 1247 - Covid swab ordered for transfer. And unfortunately it is positive. Patient is asymptomatic with normal oxygen saturation.He has received 3 doses of the Covid vaccine. 0442 - No further melanotic stools. Vital signs appear stable.Repeat H&H ordered from 8 hours from initial labs. No beds are currently available In the region. 0700- Patient to be signed out to morning physician. Pt is awaiting transfer to facility with GI and surgical capabilities. - Critical Care Time(min): 33 Time Includes: Direct patient care, Review records, Reassess patient, Document care, Coordinate care, Medical consult Departure - Departure Disposition: 02 Transfer Acute Care Hosp Clinical Impression: COVID-19 GI bleed Qualifiers: GI bleed type/associated pathology: melena Qualified Code(s): K92.1 - Melena Condition: Serious
[2021-07-29] MEDS: SODIUM CHLORIDE 0.9% 1,000 ML IV STA (07:06)
[2021-07-29 07:23] LABS: HCT - HEMATOCRIT 27.9 % (42.0-52.0); HGB - HEMOGLOBIN 8.9 g/dL (14.0-18.0)
[2021-07-29] MEDS: TRANEXAMIC ACID 1,000 MG in SODIUM CHLORIDE 0.9% 100ML 100 ML IV STA (09:25)
[2021-07-29] MEDS ORDERED: IOVERSOL 320 100 ML VIAL IVP ONE (09:30)
[2021-07-29] MEDS: IOVERSOL 320 100 ML VIAL IVP ONE (10:22)
[2021-07-29 10:36] LABS: HCT - HEMATOCRIT 25.6 % (42.0-52.0)
--- NOTE | 2021-07-29 10:50 | CT Report ---
PROCEDURE: Abdomen/Pelvis W INDICATIONS: lower GI bleed CONTRAST: IV CONTRAST: Optiray 320 ml: 100 PO CONTRAST: *NO PO CONTRAST TECHNIQUE: After the administration of IV contrast, 5 mm thick sections acquired from the diaphragms to the symp hysis. 5 mm thick coronal and sagittal reformats were acquired. For radiation dose reduction, the f ollowing was used: automated exposure control, adjustment of mA and/or kV according to patient size. COMPARISON: 04/16/2016, 03/17/2020. Correlation is also made with overlapping portions of chest CT, 06/07/2021. FINDINGS: Image quality: Excellent. ABDOMEN: Lung bases: Small bilateral pleural effusions are seen, left larger than right. Heart size is normal . Solid organs: Liver and spleen are normal in size and enhancement. An accessory splenule is incide ntally noted along the anterior aspect of the primary spleen. Gallbladder wall does not appear thic kened. Biliary system is non dilated. Pancreas enhances normally. No adrenal nodules. Kidneys d emonstrate normal size and enhancement, without hydronephrosis. Nonobstructing kidney stones are see n, with the largest on the left measuring 8 mm and the largest on the right also measuring 8 mm. Peritoneum and bowel: Calcified foci are seen at the gastroesophageal junction. There is a moderate a mount of stool seen within the colon. Bowel loops demonstrate normal wall thickness and caliber. No free fluid or air. A normal appendix is incidentally noted. Nodes and vessels: No retroperitoneal or mesenteric adenopathy by size criteria. Aorta and inferior vena cava are normal in size. Miscellaneous: No ventral hernias. PELVIS: Genitourinary: Bladder wall thickness is normal. Prostate seed implants are seen. Miscellaneous: No inguinal hernias or adenopathy. Bones: Multiple foci of blastic metastatic disease are seen, which overall appears slightly improved compared to the 03/25/2020 examination. No vertebral body compression fractures. IMPRESSION: There is a moderate amount of stool seen within the colon. Please correlate with clinica l constipation. Calcified foci are seen at the gastroesophageal junction. Please correlate with prior remote fundopli cation. Small bilateral pleural effusions, left larger than right. Multiple foci of blastic metastatic disease are seen, which appear slightly improved compared to the prior CT. Please correlate with interval treatment history. Incidental note is made of: Accessory splenule Nonobstructing bilateral renal stones Normal appendix Prostate seed implants Reviewed by: Mac Badillo MD on 07/29/2021 9:48 AM AKNAMAN Approved by: Mac Badillo MD on 07/29/2021 9:48 AM WILEY Station ID: [id number]
--- NOTE | 2021-07-29 16:02 | ED Physician Documentation ---
ED Addendum - Addendum Addendum: 07/29/21 16:00Vitals remained stable here in the ER. Recheck blood count shows a slow drift down with the latest of 8 hemoglobin. The community dietitian has continued contact with all the local hospitals and the state coordinating site for transfer. The concern here was lack of apparent OR support because of repairs going on and lack of an virtual assistant for advertisers in case the patient did need surgery. As such are surgeon on-call last night felt he was not able to provide support to the hospitalist for this patient. As such we are still attempting transfer for lower GI bleed.
[2021-07-29 16:35] LABS: HCT - HEMATOCRIT 26.3 % (42.0-52.0); HGB - HEMOGLOBIN 8.4 g/dL (14.0-18.0)
--- NOTE | 2021-07-29 18:42 | ED Physician Documentation ---
ED Addendum - Addendum Addendum: 07/29/21 18:41 80-year-old gentleman endorsed to me by the rosy. Briefly has a GI bleed and was scoped earlier in the week with negative upper endoscopy except for mild gastritis. Now maroon stools here with brief and hemodynamic instability last night but no hypotension since midnight. Hemoglobin trended down from 9.9-8.0 but then trended back up to 8.4 without transfusion. We are waiting for a bed as Dr. Siu felt he should be transferred to a higher level of care and he was graciously accepted by Dr. Levi, the hospitalist in [place] at approximately 6:40 PM and cobras were completed. We went over his chart. 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 Disposition: Transferred to [facility] for higher level care Condition serious but stable Diagnoses: 1. Gastrointestinal bleed 2. Acute anemia due to #1
[2021-07-29 20:12] VITALS: BP 126/72
== END 2021-07-29 20:45 | disposition short-term general hospital (02) ==
LOC: EDUNIT# → ED 22:19
DX: U07.1 COVID-19 (principal); K92.1 Melena; D62 Acute posthemorrhagic anemia; I11.0 Hypertensive heart disease with heart failure; I50.9 Heart failure, unspecified; I48.91 Unspecified atrial fibrillation
CPT/HCPCS: 36415; 74177; 80053; 82272; 83605; 83690; 85014; 85018; 85025; 85610; 86850; 86900; 86901; 86920; 87635; 93005; 96361; 96374; 96375; 99285; 99291; Q9967

== ENCOUNTER 2021-08-17 08:00 | Outpatient (CLI) | payer MEDICARE, MEDICAID ==
[2021-08-17 18:57] LABS: BASOPHILS # (AUTO) 0.1 10^3/uL (0.0-0.1); BASOPHILS % (AUTO) 0.8 %; EOSINOPHILS # (AUTO) 0.2 10^3/uL (0.0-0.7); EOSINOPHILS % (AUTO) 1.8 %; HCT - HEMATOCRIT 25.2 % (42.0-52.0); HGB - HEMOGLOBIN 7.7 g/dL (14.0-18.0); LYMPHOCYTES # (AUTO) 0.3 10^3/uL (1.5-3.5); MEAN CORPUSCULAR HEMOGLOBIN 28.6 pg (27.0-31.0); MEAN CORPUSCULAR HGB CONC 30.6 g/dL (32.0-36.0); MEAN CORPUSCULAR VOLUME 93.7 fL (80.0-94.0); MEAN PLATELET VOLUME 10.2 fL (7.4-11.4); MONOCYTES # (AUTO) 0.1 10^3/uL (0.0-1.0); MONOCYTES % (AUTO) 1.7 %; NEUTROPHILS # (AUTO) 7.7 10^3/uL (1.5-6.6); PLT - PLATELET COUNT 373 10^3/uL (130-450); RED BLOOD COUNT 2.69 10^6/uL (4.70-6.10); RED CELL DISTRIBUTION WIDTH 14.7 % (12.0-15.0); WHITE BLOOD COUNT 8.3 x10^3/uL (4.8-10.8)
== END 2021-08-17 23:59 | disposition home or self-care (01) ==
LOC: LAB.R 08:00
PROVIDERS: ATTEND Hospitalist
DX: K51.911 Ulcerative colitis, unspecified with rectal bleeding (principal)
CPT/HCPCS: 85025